=== PATIENT | female | born 1990 | race Caucasian/White ===

== ENCOUNTER 2021-05-12 19:48 | Emergency (ER) | payer MEDICAID, SELFPAY ==
[2021-05-12 20:18] VITALS: BP 112/78; PULSE 97; RESP 18; TEMP 36.7; O2SAT 99; BMI 27.9
[2021-05-12 21:40] LABS: Basophils # 0.1 10^3/uL (0.0-0.1); Basophils % 0.6 %; Eosinophils # 0.4 10^3/uL (0.0-0.8); Eosinophils % 4.3 %; Hematocrit 35.8 % (37.0-47.0); Hemoglobin 11.7 g/dL (11.5-15.3); Lymphocytes % 20.7 %; Mean Corpuscular HGB Conc 32.7 g/dL (30.0-36.0); Mean Corpuscular Hemoglobin 29.7 pg (28.0-34.0); Mean Corpuscular Volume 90.9 fL (81-99); Mean Platelet Volume 10.7 fL (7.4-10.4); Monocytes # 0.7 10^3/uL (0.2-0.9); Monocytes % 6.8 %; Neutrophils # 6.46 10^3/uL (1.8-7.7); Neutrophils % 67.2 %; Nucleated Red Blood Cells % 0 %; Platelet Count 229 10^3/cmm (130-400); Red Blood Count 3.94 10^6/uL (4.1-5.3); Red Cell Distribution Width 13.8 % (12.1-15.1); White Blood Count 9.6 10^3/uL (4.0-10.0)
--- NOTE | 2021-05-12 23:09 | ED_ITS ---
HPI - General: Chief complaint: Vaginal Bleeding Stated complaint: poss miscarriage 13 weeks Time Seen by Provider: 05/12/21 22:49 Source: patient Mode of arrival: ambulatory Limitations: no limitations History of Present Illness: HPI Narrative: 31-year-old female states she is roughly 13 weeks . She states she had miscarriages in the past was concerned because last 2 days she has had some slight leakage of fluid. States it was a small amount of it she was concerned it could be amniotic fluid. She denies any bleeding denies any pain. Patient states she recently moved here from [place] and does not have an OB yet. Denies any fevers. Associated symptoms: Deny abdominal pain, dysuria, headache(s), nausea or vomiting Review of Systems Const: Denies: fever(s), chills, body aches or change in appetite Eyes: Denies: blurry vision or eye discomfort ENMT: Denies: throat pain or dental pain Card: Denies: chest pain Resp: Denies: dyspnea GI: Denies: abdominal pain, nausea, vomiting or diarrhea : Denies: dysuria Musc: Denies: neck pain or back pain Skin/Breast: Denies: rash Neuro: Denies: headache(s) Psych: Denies: depression Lucius/Lymph: Denies: easy bruising All/Imm: Denies: urticaria Physical Exam Const: COMMON NORMALS: no acute distress, patient oriented x3 and healthy appearing HENMT: COMMON NORMALS: normocephalic and atraumatic HEAD & SCALP: normocephalic and atraumatic Eye: COMMON NORMALS: Equal, round and reactive pupils present and EOMs intact bilaterally PUPIL: Yes Equal, round and reactive pupils present Neck/C-Spine: COMMON NORMALS: full ROM and supple Chest: COMMONS NORMALS: normal inspection of the chest and normal palpation of entire chest wall Resp: COMMON NORMALS: normal respiratory effort, No retractions, No use of accessory muscles and clear to auscultation bilaterally AUSCULTATION: clear to auscultation bilaterally Cardio: COMMON NORMALS: regular rate, regular rhythm and No murmurs present (Cardio) RATE: regular rate RHYTHM: regular rhythm GI: COMMON NORMALS: Normal to inspection, nondistended, normoactive bowel sounds present, Soft to palpation, non-tender and no masses PALPATION: Yes Soft to palpation : OTHER: Cervix is closed no fluid noted in vault or bleeding Extremity: COMMON NORMALS: normal to inspection and full ROM Neuro: COMMON NORMALS: patient oriented x3, moves all extremities and no focal motor deficits Psych: COMMON NORMALS: mental status grossly normal, Normal thought process present and cooperative THOUGHT PROCESS: Normal thought process present Skin: COMMON NORMALS: no rashes or lesions noted and no wounds GENERAL SKIN EXAM: no rashes or lesions noted Course Vital Signs: Vital signs: Vital Signs Temperature 98.1 F 05/12/21 20:18 Pulse Rate 97 05/12/21 20:18 Respiratory Rate 18 05/12/21 20:18 Blood Pressure 112/78 05/12/21 20:18 Pulse Oximetry 99 05/12/21 20:18 MDM - OB/Uterine Contractions MDM Narrative: Medical decision making narrative: Patient presents with a threatened miscarriage. Patient's vaginal exam here is normal cervix closed with no signs of premature rupture of membranes. Did bedside ultrasound showed amniotic fluid in IUP consistent dates with heart rate of 154. She is stable for discharge and follow-up with [facility] 2 to 4 days return if worsening. Lab Data: Labs: Lab Results 05/12/21 05/12/21 05/12/21 Range/Units 21:34 21:34 21:34 WBC 9.6 (4.0-10.0) 10^3/ uL RBC 3.94 L (4.1-5.3) 10^6/u L Hgb 11.7 (11.5-15.3) g/dL Hct 35.8 L (37.0-47.0) % MCV 90.9 (81-99) fL MCH 29.7 (28.0-34.0) pg MCHC 32.7 (30.0-36.0) g/dL RDW 13.8 (12.1-15.1) % Plt Count 229 (130-400) 10^3/c mm MPV 10.7 H (7.4-10.4) fL Neut % (Auto) 67.2 % Lymph % (Auto) 20.7 % [place] % (Auto) 6.8 % Eos % (Auto) 4.3 % Baso % (Auto) 0.6 % Neut # (Auto) 6.46 (1.8-7.7) 10^3/u L Lymph # (Auto) 2.0 (0.8-4.8) 10^3/u L [place] # (Auto) 0.7 (0.2-0.9) 10^3/u L Eos # (Auto) 0.4 (0.0-0.8) 10^3/u L Baso # (Auto) 0.1 (0.0-0.1) 10^3/u L Nucleated RBC % (a uto) 0 % Nucleated RBCs # 0.0 /100WBC Ser , Fina i-Qnt 91861.00 mIU/mL Blood Type AB Positive Rho(D) Type Positive / 4+ Antibody Screen Negative Discharge Plan Discharge Patient Disposition: Home Clinical Impression: Threatened miscarriage Condition: Stable Discharge Orders: Discharge ED (Routine); Ordered 05/12/21 Ordered By: Jb Alfaro Referrals: Maria D Boateng MD [Physician] - 1-3 days Discharge Diet: Advance as tolerated Discharge Activity: Resume usual activity Patient Instructions: Threatened Miscarriage (ED) Coding Level of Care Code ED Management Aide for [employer] Fwd Exam Comprehensive
[2021-05-12 23:24] VITALS: BP 118/70; PULSE 94; RESP 16; TEMP 36.7; O2SAT 98
--- NOTE | 2021-05-14 13:20 | DCPLANNER ---
airline manager had message ti schedule a follow up appointment for patient with the [facility]. airline manager called the clinic, spoke with Jagdish, gave clinic patients information. airline manager was told that patients information would be printed and reviewed. Clinic will call patient with appointment information.
--- NOTE | 2021-05-16 12:20 | DCPLANNER ---
Patient has a follow up appointment scheduled for Friday, May 18, 2021 at 10:[address] Boateng at [facility]. Clinic will call patient with appointment information.
--- NOTE | 2021-05-24 12:13 | DCPLANNER ---
Patient had a follow up appointment scheduled for 05.18.21 with [facility] - the appointment was rescheduled for Tuesday, May 25, 2021 at 8:[address] Boateng.
--- NOTE | 2021-05-25 11:56 | DCPLANNER ---
Patient had a follow up appointment rescheduled for 05.25.[address] [facility] - patient did not attend appointment.
== END 2021-05-12 23:25 | disposition home or self-care (01) ==
PROVIDERS: Emergency Provider Emergency Medicine
DX: O20.0 Threatened abortion (principal); Z3A.13 13 weeks gestation of pregnancy
CPT/HCPCS: 36415; 84702; 85025; 86850; 86900; 99282

== ENCOUNTER 2021-08-03 02:46 | Inpatient (IN) | payer MEDICAID, SELFPAY ==
[2021-08-03] VITALS (36 sets, daily range): BP systolic 90–126; BP diastolic 63–79; PULSE 95–115; RESP 16–44; TEMP 36.8–36.9; O2SAT 90–100; BMI 25.0; BMI 25.9
--- NOTE | 2021-08-03 02:59 | ED_ITS ---
HPI - SOB/Dyspnea General: Chief Complaint: Shortness of Breath/Dyspnea Stated Complaint: Sob, vomiting Time Seen by Provider: 08/03/21 02:59 History of Present Illness: HPI Narrative: Ms. Workman is a 31-year-old lady with complex past medical history including heart failure with reduced ejection fraction, history of PE, and history of pneumonia recently who presents emergency department due to shortness of breath. She reports for the past few days her symptoms have been worse. She has had cough including posttussive emesis. She has worse symptoms with exertion and with laying down. Cough prevents her from sleeping. She denies other systemic signs of infection. She completed her course of antibiotics. She thinks she is probably been compliant with her anticoagulation but is not positive. No other specific exacerbating relieving factors identified Review of Systems General: Reports: 10 or more systems reviewed and unremarkable except in HPI and below PFSH ED PFSH: Medical History CHF (congestive heart failure) Pulmonary embolism Social History Smoking and tobacco status: former smoker Quit status (tobacco): has quit using tobacco Second hand smoke exposure: No Smoking risk assessment/counseling performed?: No Alcohol intake: former Desire information about alcohol rehabilitation?: No Counseling given: No Desire information about substance/drug rehabilitation?: No Counseling given: No Marital status: Life Partner service: No Current occupational status: unemployed Current occupational exposures/hazards: No Pets and animals: No History of recent travel: No Sexually active: Yes Current gender identity: Female Special emelia needs: No Agree to transfusion: Yes Financial difficulty paying for basics: Not Applicable Physical Exam Narrative: EXAM NARRATIVE: GENERAL/CONSTITUTIONAL -ill appearance, mild distress with respiratory symptoms Eyes - PERRL, no conjunctival injection ENMT - Atraumatic external nose and ears. Moist mucous membranes NECK - supple. trachea midline CARDIOVASCULAR -tachycardic rate and regular rhythm. LifeVest in place. RESPIRATORY -coarse to auscultation bilaterally. Mild accessory muscle use ABDOMEN/GI - Nontender/Nondistended. MSK - Extremities without obvious deformity or tenderness to palpation SKIN - Warm, Dry NEURO - alert and appropriately oriented. Moves all extremities equally. Course ED course: - Patient was seen and evaluated by me at bedside - Patient placed on cardiac monitors, IV access obtained - Initial evaluation notable for ill appearance, mild respiratory increase in effort. -Antibiotics ordered. Given patient's poor EF limited fluids ordered at this time despite patient meeting SIRS criteria. Using best clinical judgment 30 cc/kg would be inappropriate in this patient and would likely lead to life- threatening deterioration. - Labs notable for mild leukocytosis. Metabolic panel with mild elevations intravascular dehydration. Transaminitis present. BNP elevated. - Imaging notable for pneumonia. Given patient history and some question of compliance with anticoagulation CTA ordered. No PE. - Upon serial reexamination after treatment the patient was improved - Based on patient history, evaluation, labs, and imaging as interpreted the most likely cause of the patient's condition is sepsis pneumonia in the context of heart failure with reduced ejection fraction and history of pulmonary embolism. - The results of ED evaluation were discussed with the patient including plan for admission due to requirement for level of care not available if discharged to prevent significant worsening/deterioration. -Hospitalist service contacted and agreed to meet the patient - Patient was admitted without further deterioration or significant events. Vital Signs: Vital signs: Vital Signs Temperature 99.1 F 08/04/21 08:00 Pulse Rate 91 08/04/21 16:26 Respiratory Rate 18 08/04/21 16:26 Blood Pressure 92/68 08/04/21 16:00 Pulse Oximetry 97 08/04/21 16:26 MDM - SOB/Dyspnea Medical Records: Attestation: I reviewed the patient's medical records. Lab Data: Attestation: I reviewed the patient's lab results. Labs: Lab Results 08/03/21 08/03/21 08/03/21 04:05 04:05 04:05 WBC 10.4 10^3/uL H 10 ^3/uL (4.0-10.0) RBC 4.09 10^6/uL L 10 ^6/uL (4.1-5.3) Hgb 11.8 g/dL g/dL (11.5-15.3) Hct 36.2 % L % (37.0-47.0) MCV 88.5 fl fl (81-99) MCH 28.9 pg pg (28.0-34.0) MCHC 32.6 g/dL g/dL (30.0-36.0) RDW 18.9 % H % (12.1-15.1) Plt Count 291 10^3/cmm 10^3 /cmm (130-400) MPV 11.2 fL H fL (7.4-10.4) Neut % (Auto) 58.6 % % Lymph % (Auto) 29.8 % % Tyler % (Auto) 8.1 % % Eos % (Auto) 1.7 % % Baso % (Auto) 0.6 % % Neut # (Auto) 6.09 10^3/uL 10^3 /uL (1.8-7.7) Lymph # (Auto) 3.1 10^3/uL 10^3/ uL (0.8-4.8) Tyler # (Auto) 0.8 10^3/uL 10^3/ uL (0.2-0.9) Eos # (Auto) 0.2 10^3/uL 10^3/ uL (0.0-0.8) Baso # (Auto) 0.1 10^3/uL 10^3/ uL (0.0-0.1) Nucleated RBC % (a uto) 0.2 % % Nucleated RBCs # 0.0 /100WBC /100W BC PT 29.60 SECONDS H S ECONDS (12.1-14.9) INR 2.76 H (0.8-1.2) Specimen Type Sample Site ABG pH ABG pCO2 ABG pO2 ABG HCO3 ABG Base Excess Charles Test Hematocrit Hgb O2 Saturation Carboxyhemoglobin Methemoglobin Total Hemoglobin O2 Delivery Device Under Baster ID Sodium 132 mmol/L L mmol /L (136-145) Potassium 3.6 mmol/L mmol/L (3.5-5.1) Chloride 97 mmol/L L mmol/ L (98-107) Carbon Dioxide 16 mmol/L L mmol/ L (22-29) Anion Gap 22.6 H (5-19) BUN 13 mg/dL mg/dL (6-20) Creatinine 0.7 mg/dL mg/dL (0.5-0.9) GFR Calculation 96.4 mL/min mL/mi n (90-130) Glucose 99 mg/dL mg/dL (65-115) Calculated Osmolal ity 274 mOsm/kg L mOs m/kg (285-295) Lactic Acid Calcium 8.4 mg/dL L mg/dL (8.5-10.5) Total Bilirubin 1.2 mg/dL mg/dL (0.15-1.2) AST 37 U/L H U/L (0-32) ALT 48 U/L H U/L (0-33) Alkaline Phosphata se 130 IU/L H IU/L (35-105) Troponin T Baselin e Troponin T 120 Min [place] Troponin T NT-Pro-B Natriuret Pep 6396 pg/mL H pg/m L (0-125) Total Protein 6.2 g/dL L g/dL (6.6-8.7) Albumin 3.4 g/dL L g/dL (3.5-5.2) Globulin 2.8 g/dL g/dL (1.3-4.6) Procalcitonin HCG, Qual Influenza Type A A g Influenza Type B A g SARS-CoV-2 Ag (Rap id) 08/03/21 08/03/21 08/03/21 04:05 04:05 04:05 WBC RBC Hgb Hct MCV MCH MCHC RDW Plt Count MPV Neut % (Auto) Lymph % (Auto) [place] % (Auto) Eos % (Auto) Baso % (Auto) Neut # (Auto) Lymph # (Auto) Tyler # (Auto) Eos # (Auto) Baso # (Auto) Nucleated RBC % (a uto) Nucleated RBCs # PT INR Specimen Type Sample Site ABG pH ABG pCO2 ABG pO2 ABG HCO3 ABG Base Excess Charles Test Hematocrit Hgb O2 Saturation Carboxyhemoglobin Methemoglobin Total Hemoglobin O2 Delivery Device Under Baster ID Sodium Potassium Chloride Carbon Dioxide Anion Gap BUN Creatinine GFR Calculation Glucose Calculated Osmolal ity Lactic Acid 3.3 mmol/L H mmol /L (0.5-2.2) Calcium Total Bilirubin AST ALT Alkaline Phosphata se Troponin T Baselin e 10 ng/L ng/L (0-10) Troponin T 120 Min [place] Troponin T NT-Pro-B Natriuret Pep Total Protein Albumin Globulin Procalcitonin HCG, Qual Negative (Negative) Influenza Type A A g Influenza Type B A g SARS-CoV-2 Ag (Rap id) 08/03/21 08/03/21 08/03/21 04:05 04:19 05:00 WBC RBC Hgb Hct MCV MCH MCHC RDW Plt Count MPV Neut % (Auto) Lymph % (Auto) [place] % (Auto) Eos % (Auto) Baso % (Auto) Neut # (Auto) Lymph # (Auto) Tyler # (Auto) Eos # (Auto) Baso # (Auto) Nucleated RBC % (a uto) Nucleated RBCs # PT INR Specimen Type Arterial Sample Site Radial, right ABG pH 7.46 H (7.35-7.45) ABG pCO2 26.6 mmHg L mmHg (35-45) ABG pO2 90.7 mmHg mmHg (80.0-100.0) ABG HCO3 19.0 mmol/L L mmo l/L (22-26) ABG Base Excess -3.6 mmol/L L mmo l/L (-2.0-2.0) Charles Test Pos Hematocrit 34.7 % L % (37-47) Hgb O2 Saturation 96.0 % % (95-100) Carboxyhemoglobin 1.6 %THgb %THgb (0.4-20.1) Methemoglobin 0.5 % % (0.4-1.5) Total Hemoglobin 11.3 g/dL L g/dL (12-16) O2 Delivery Device Room air Under Baster ID Buttr Sodium Potassium Chloride Carbon Dioxide Anion Gap BUN Creatinine GFR Calculation Glucose Calculated Osmolal ity Lactic Acid Calcium Total Bilirubin AST ALT Alkaline Phosphata se Troponin T Baselin e Troponin T 120 Min [place] Troponin T NT-Pro-B Natriuret Pep Total Protein Albumin Globulin Procalcitonin 0.17 ng/mL ng/mL (0-0.5) HCG, Qual Influenza Type A A g Negative (Negative) Influenza Type B A g Negative (Negative) SARS-CoV-2 Ag (Rap id) 08/03/21 08/03/21 05:00 06:19 WBC RBC Hgb Hct MCV MCH MCHC RDW Plt Count MPV Neut % (Auto) Lymph % (Auto) Tyler % (Auto) Eos % (Auto) Baso % (Auto) Neut # (Auto) Lymph # (Auto) Tyler # (Auto) Eos # (Auto) Baso # (Auto) Nucleated RBC % (a uto) Nucleated RBCs # PT INR Specimen Type Sample Site ABG pH ABG pCO2 ABG pO2 ABG HCO3 ABG Base Excess Charles Test Hematocrit Hgb O2 Saturation Carboxyhemoglobin Methemoglobin Total Hemoglobin O2 Delivery Device Under Baster ID Sodium Potassium Chloride Carbon Dioxide Anion Gap BUN Creatinine GFR Calculation Glucose Calculated Osmolal ity Lactic Acid Calcium Total Bilirubin AST ALT Alkaline Phosphata se Troponin T Baselin e Troponin T 120 [place] 10.27 ng/L H ng/L (0-10) Delta Troponin T 0.27 ABS# ABS# (0-10) NT-Pro-B Natriuret Pep Total Protein Albumin Globulin Procalcitonin HCG, Qual Influenza Type A A g Influenza Type B A g SARS-CoV-2 Ag (Rap id) Negative (Negative) EKG Data^: EKG 1: Attestation: I personally reviewed and interpreted this EKG as follows: EKG Interpretation Date: 08/03/21 EKG interpretation time: 05:05 Interpretation: Twelve-lead EKG shows a regular rhythm at a rate of 108. KS interval 183, QRS duration 140, QTc 439. Interpretation: Sinus rhythm. Bundle branch block. Tachycardia. Right axis deviation. Discharge Plan Discharge Patient Disposition: Admitted As Inpatient Admit Provider: Chani Landry Coding Level of Care Code ED Bird Keeper for cuate Price
--- NOTE | 2021-08-03 03:06 | XRR_ITS ---
PROCEDURE INFORMATION: Exam: XR Chest Exam date and time: 08/03/2021 3:06 AM Age: 31 years old Clinical indication: Cough and shortness of breath; Patient HX: Cough with SOB. History of chf. Currently being treated for pe. TECHNIQUE: Imaging protocol: XR of the chest. Views: 1 view. COMPARISON: No relevant prior studies available. FINDINGS: Lungs: There is hazy patchy bilateral airspace opacities involving the right upper and left lower lobes, concerning for multifocal pneumonia. Pleural spaces: Unremarkable. No pleural effusion. No pneumothorax. Heart/Mediastinum: Mildly enlarged heart. Bones/joints: Unremarkable. XR/XR chest 1V portable [id number] IMPRESSION: Imaging findings concerning for pneumonia. Clinical correlation is recommended. Radiation Dose CTDIVOL = (mGy): DLP = (mGy-cm)
--- NOTE | 2021-08-03 03:18 | CTR_ITS ---
PROCEDURE INFORMATION: Exam: CTA Chest With Contrast Exam date and time: 08/03/2021 3:18 AM Age: 31 years old Clinical indication: Cough and shortness of breath; Patient HX: Cough with SOB. History of chf. Has been on anti coag therapy since June for pe. ; Additional info: SOB, history of pe TECHNIQUE: Imaging protocol: Computed tomographic angiography of the chest with contrast. 3D rendering (Not supervised by radiologist): MIP and/or 3D reconstructed images were created by the technologist. Radiation optimization: All CT scans at this facility use at least one of these dose optimization techniques: automated exposure control; mA and/or kV adjustment per patient size (includes targeted exams where dose is matched to clinical indication); or iterative reconstruction. Contrast material: OMNI 350; Contrast volume: 60 ml; Contrast route: INTRAVENOUS (IV); COMPARISON: CR (CHEST, ) 08/03/2021 3:11 AM RADIATION DOSE METRICS: Total DLP (mGy-cm): 520.45 FINDINGS: Pulmonary arteries: Normal. No pulmonary emboli. Aorta: Unremarkable. No aortic aneurysm. No aortic dissection. Lungs: There is patchy consolidations in the superior right lower lobe and inferior left lower lobe, consistent with multifocal pneumonia. Pleural spaces: Unremarkable. No pneumothorax. No pleural effusion. Heart: Mildly enlarged heart.There is tiny calcific densities scattered throughout the spleen, likely sequela of previous granulomatous disease. The spleen is otherwise unremarkable. Lymph nodes: Mildly prominent reactive mediastinal and bilateral hilar lymph nodes noted. Bones/joints: Unremarkable. No acute fracture. Soft tissues: Unremarkable. CT/CT angio chest PE protcl [id number] IMPRESSION: Multifocal pneumonia. Radiation Dose CTDIVOL = (mGy): DLP = 520.45 (mGy-cm)
[2021-08-03] MEDS: sodium chloride 0.9% 250 ML 999 ML IV (04:00)
[2021-08-03] MEDS: ondansetron 2 mg/ML SDV 2 mL 4 MG IVP (04:05)
[2021-08-03] MEDS: LORazepam 2 mg/mL INJ 1 mL 0.5 MG IVP (04:08)
[2021-08-03] MEDS: ipratropium-albuterol 3 mL Neb INHALATION (04:17)
[2021-08-03 04:28] LABS: Basophils # 0.1 10^3/uL (0.0-0.1); Basophils % 0.6 %; Eosinophils # 0.2 10^3/uL (0.0-0.8); Eosinophils % 1.7 %; Hematocrit 36.2 % (37.0-47.0); Hemoglobin 11.8 g/dL (11.5-15.3); Lymphocytes # 3.1 10^3/uL (0.8-4.8); Lymphocytes % 29.8 %; Mean Corpuscular HGB Conc 32.6 g/dL (30.0-36.0); Mean Corpuscular Hemoglobin 28.9 pg (28.0-34.0); Mean Corpuscular Volume 88.5 fl (81-99); Mean Platelet Volume 11.2 fL (7.4-10.4); Monocytes # 0.8 10^3/uL (0.2-0.9); Monocytes % 8.1 %; Neutrophils # 6.09 10^3/uL (1.8-7.7); Neutrophils % 58.6 %; Nucleated Red Blood Cells % 0.2 %; Platelet Count 291 10^3/cmm (130-400); Red Blood Count 4.09 10^6/uL (4.1-5.3); Red Cell Distribution Width 18.9 % (12.1-15.1); White Blood Count 10.4 10^3/uL (4.0-10.0)
[2021-08-03 04:31] LABS: ABG PCO2 26.6 mmHg (35-45); ABG PH Result 7.46 (7.35-7.45); Arterial Blood Gas Hematocrit 34.7 % (37-47); Base Excess ABG -3.6 mmol/L (-2.0-2.0); Blood Gas Allen Test Pos; Blood Gas Sample Site Radial, right; Blood Gas Sample Type Arterial; Carboxyhemoglobin 1.6 %THgb (0.4-20.1); Methemoglobin 0.5 % (0.4-1.5); Oxygen Device ROOM AIR; PO2 ABG 90.7 mmHg (80.0-100.0); Total Hemoglobin 11.3 g/dL (12-16)
[2021-08-03 04:44] LABS: HCG, Serum Qual Negative (Negative)
[2021-08-03] MEDS: iohexol 350 mg/mL 100 mL Btl IV (04:52)
[2021-08-03 04:56] LABS: Lactic Sepsis W/Reflex 3.3 mmol/L (0.5-2.2)
[2021-08-03 04:59] LABS: Troponin(5th) Baseline 10 ng/L (0-10)
[2021-08-03 05:06] LABS: Alanine Aminotransferase 48 U/L (0-33); Albumin Level 3.4 g/dL (3.5-5.2); Alkaline Phosphatase 130 IU/L (35-105); Anion Gap 22.6 (5-19); Aspartate Amino Transferase 37 U/L (0-32); Blood Urea Nitrogen 13 mg/dL (6-20); Calcium 8.4 mg/dL (8.5-10.5); Carbon Dioxide 16 mmol/L (22-29); Chloride 97 mmol/L (98-107); Globulin 2.8 g/dL (1.3-4.6); Glomerular Filtration Rate 96.4 mL/min (90-130); Glucose 99 mg/dL (65-115); NT Pro B Type Natriuretic Pept 6396 pg/mL (0-125); Osmolality Calculated 274 mOsm/kg (285-295); Potassium 3.6 mmol/L (3.5-5.1); Sodium 132 mmol/L (136-145); Total Bilirubin 1.2 mg/dL (0.15-1.2); Total Protein 6.2 g/dL (6.6-8.7)
--- NOTE | 2021-08-03 05:07 | ECG_ITS ---
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 Measurements Intervals Masterson Rate: 108 P: 45 LA: 183 QRS: 127 QRSD: 140 T: 1 QT: 376 QTc: 505 Interpretive Statements SINUS TACHYCARDIA LEFT ATRIAL ENLARGEMENT [-0.15mV P-WAVE IN V1/V2] INTRAVENTRICULAR CONDUCTION DELAY [130+ ms QRS DURATION] POSSIBLE RIGHT VENTRICULAR HYPERTROPHY [SOME/ALL OF: PROMINENT R IN V1, LATE TRANSITION, RAD, BRYANT, SSS] ANTEROLATERAL MYOCARDIAL INFARCTION , OF INDETERMINATE AGE [40+ ms Q WAVE IN I/aVL/V3-V6] No previous ECG available for comparison Electronically Signed On 08-03-2021 18:47:11 CDT by Lalo De La Paz M.D. [id number]
[2021-08-03 05:15] LABS: INR 2.76 (0.8-1.2)
[2021-08-03] MEDS: piperacillin-tazobactam 4.5 GM in sodium chloride 0.9% (plus) 50 ML IV (05:26)
--- NOTE | 2021-08-03 06:03 | P.HP_ITS ---
Providers/Chief Complaint Primary Care Provider: Jackie Ji MD Chief Complaint: Sob, vomiting History of Present Illness 31-year-old female with a past medical history significant for pulmonary embolism, severe systolic heart failure with EF of 10% on lifeVest and recent hospitalization for pneumonia 3 weeks prior was presented to the hospital with respiratory distress. This associated with nonproductive cough. Noted multiple episodes of post tussive emesis. Noted 10lb weight loss since discharge 3 weeks prior. denied chest pain Laboratory workup on arrival showed a WBC of 10.4, hemoglobin of 11.8, hematocrit of 36.2 and platelet count of 291. Sodium 132, potassium 3.6, chloride 97, bicarb 16, BUN 13 and creatinine of 0.7. Lactic acid of 3.3. AST of 37, ALT of 48 and alkaline phosphatase of 130. ProBNP of 6396. Arterial blood gases showed a pH of 7446, pCO2 26.6, PO2 of 90.7 and a bicarb of 19.0. Influenza a/B and COVID-19 pending. Imaging studies included chest x-ray which showed hazy bilateral airspace op acities involving the right upper and left lower lobes concerning for multifocal pneumonia. CTA of chest was then performed which showed similar findings concerning for multifocal pneumonia in addition to mildly prominent reactive mediastinal and bilateral hilar lymphadenopathy. INR was noted to be 2.76. Patient was started on IV vancomycn/zoysn and admitted to hospital Review of Systems General: Reports: 10 or more systems reviewed and unremarkable except in HPI and below Medications/Allergies Home Medications Medication Instructions Recorded Confirmed Last Taken Type albuterol sulfate 90 mcg/actuation 1 inh INHALATION Q6H PRN #8.5 g 07/19/21 07/19/21 Unknown Rx aerosol inhaler apixaban 5 mg tablet 5 mg PO BID #60 tab 07/19/21 07/19/21 Unknown Rx benzonatate 100 mg capsule 100 mg PO TID PRN 07/19/21 07/19/21 Unknown History furosemide 40 mg tablet 40 mg PO DAILY #30 tab 07/19/21 07/19/21 Unknown Rx guaifenesin 1,200 mg tablet, 1,200 mg PO DAILY #30 tab 07/19/21 07/19/21 Unknown Rx extended release 12 hr ibuprofen 600 mg tablet 600 mg PO Q6H PRN 07/19/21 07/19/21 Unknown History losartan 25 mg tablet 25 mg PO DAILY #30 tab 07/19/21 07/19/21 Unknown Rx methocarbamol 750 mg tablet 750 mg PO BID PRN #60 tab 07/19/21 07/19/21 Unknown Rx metoprolol succinate 50 mg 50 mg PO DAILY #30 tab 07/19/21 07/19/21 Unknown Rx tablet,extended release 24 hr pantoprazole 40 mg tablet,delayed 40 mg PO DAILY #30 tab 07/19/21 07/19/21 Unknown Rx release promethazine-DM 6.25 mg-15 mg/5 mL 5 ml PO Q6H PRN #160 ml 07/19/21 07/19/21 Unknown Rx oral syrup spironolactone 25 mg tablet 25 mg PO DAILY #30 tab 07/19/21 07/19/21 Unknown Rx Allergies Allergy/AdvReac Type Severity Reaction Status Date / Time No Known Allergies Allergy Verified 05/12/21 20:18 PFSH Acute PFSH: Medical History (Updated 08/03/21 @ 06:32 by Chani Landry MD) CHF (congestive heart failure) Pulmonary embolism Social History Smoking and tobacco status: former smoker Quit status (tobacco): has quit using tobacco Second hand smoke exposure: No Smoking risk assessment/counseling performed?: No Alcohol intake: former Desire information about alcohol rehabilitation?: No Counseling given: No Desire information about substance/drug rehabilitation?: No Counseling given: No Marital status: Life Partner service: No Current occupational status: unemployed Current occupational exposures/hazards: No Pets and animals: No History of recent travel: No Sexually active: Yes Current gender identity: Female Special emelia needs: No Agree to transfusion: Yes Financial difficulty paying for basics: Not Applicable Vitals/I&O/Wt Last Vital Signs Pulse 110 H 08/03/21 05:39 Resp 22 H 08/03/21 05:39 BP 126/74 08/03/21 05:39 Pulse Ox 94 08/03/21 05:39 Weight last 48 hrs Weight 68.039 kg Physical Exam Narrative: EXAM NARRATIVE: General : Alert, awake , restless HEENT ; Grossly unremarkable CVS: RRR Chest; Non-labored - fine crackles Abd; Soft, nt Ext; No edema Data : 08/03/21 04:05 08/03/21 04:05 A&P Assessment and plan (1) Pulmonary embolism: Status: Acute (2) HCAP (healthcare-associated pneumonia): Status: Acute (3) Systolic heart failure: Status: Acute (4) History of methamphetamine abuse: Status: Acute Additional A&P Information Healthcare associated Pneumonia Chest xray / CTA ? Multifocal patchy opacities, no PE Broad spectrum abx ? Vancomycin/zosyn Sputum culture Blood culture F/u on flu/COVID-19 ag Precautions until resulted Supplemental o2 as needed PRN anti-tussive Severe Systolic HF S/p LifeVest Reported EF of 10% ProBNP - 6396 Consider cardiology consult Daily weight Strict input and output May need to resume diuretics Obtain records from [facility] Hx of Pulmonary Embolism Resume Eliquis 5 mg PO BID Repeat CTA ?Chest ? no new PE Hematology f/u outpatient Restless Legs S/p ativan 0.5 mg IV x1 in ER Verify remainder of home meds in am Attestations Medical Necessity Statement*: Will require > 2 midnight stay in hospital for eval and treatment Time Spent in Patient Care: Greater than 35 minutes (>than 50% of time spent in counselling and/or direct pt care on unit) . Coding Level of Care Code Acute Pharmacy Clinical Coordinator for Ena Fwd Diagnoses Pulmonary embolism I26.99 HCAP (healthcare-associated pneumonia) J18.9 Systolic heart failure I50.20 History of methamphetamine abuse F15.11
[2021-08-03 06:21] LABS: Reflex Lactate Order REFLEX LACTIC ORDERD
[2021-08-03 06:23] LABS: Procalcitonin 0.17 ng/mL (0-0.5)
[2021-08-03 06:34] LABS: Influenza A by IFA Negative (Negative); Influenza B by IFA Negative (Negative); SARS Covid-2 Antigen Negative (Negative)
[2021-08-03 07:10] LABS: Troponin 5 2HR 10.27 ng/L (0-10); Troponin 5 2HR Delta 0.27 ABS# (0-10)
--- NOTE | 2021-08-03 08:06 | PC.PHAR ---
pt states she takes care of her own medications-pt states she thinks she takes losartan-pt didnt bring in this medication with her other meds-rx written on 07/19/21-pt brought in medication bottle for methocarbamol dated 07/09/21 from [facility]- wrote rx on 07/19/21 for 750mg bid prn pt states she didnt miner pick that rx-pt states she hasnt taken promethazine dm for about a week-pt states she needs a refill ext med history shows last filled on 07/19/21 8d/s-notes are made in the pharmacy comments
[2021-08-03 08:17] LABS: Lactic Acid level (Lactate) 2.4 mmol/L (0.5-2.2)
--- NOTE | 2021-08-03 09:07 | ECG_ITS ---
[facility] Test Date: 2021-08-03 Pat Name: Alex Workman Department: Room: ICU11 Gender: Female Financial Sales Representative: : 1990 Requested By: Saul Henry Order Number: [id number] Shabbir MD: Lalo De La Paz M.D. Measurements Intervals [place] Rate: 97 P: 66 [place]: 187 QRS: 111 QRSD: 156 T: -19 QT: 425 QTc: 541 Interpretive Statements SINUS RHYTHM LEFT ATRIAL ENLARGEMENT [-0.15mV P-WAVE IN V1/V2] RIGHT AXIS DEVIATION [QRS AXIS > 100] INTRAVENTRICULAR CONDUCTION DELAY [130+ ms QRS DURATION] Compared to ECG 08/03/2021 05:01:36 Right-axis deviation now present Sinus tachycardia no longer present Myocardial infarct finding no longer present Electronically Signed On 08-03-2021 18:41:17 CDT by Lalo De La Paz M.D. [id number]
[2021-08-03] MEDS: apixaban 5 mg Tablet PO ×2 (10:22→17:24)
[2021-08-03] MEDS: FUROsemide 40 mg Tablet PO (10:23)
[2021-08-03 11:05] LABS: Troponin 5 6HR 9.66 ng/L (0-10)
[2021-08-03 11:06] LABS: Troponin 5 6HR Delta -0.34 ng/L (0-12)
--- NOTE | 2021-08-03 11:11 | PM.PN ---
Subjective Subjective: Interval history: Patient was seen and examined this morning, complaining of cough, puke at the time of coughing. Medications: Reviewed: Yes Vitals/I&O/Wt Last Vital Signs Temp 98.5 F 08/03/21 09:00 Pulse 95 08/03/21 09:00 Resp 19 H 08/03/21 09:00 BP 109/77 08/03/21 09:00 Pulse Ox 99 08/03/21 09:00 08/02/21 08/03/21 08/03/21 22:59 06:59 14:59 Intake Total 300 / 300 Balance 300 / 300 Weight last 48 hrs Weight 70.45 kg Weight 68.039 kg Physical Exam Const: COMMON NORMALS: patient oriented x3 HENMT: COMMON NORMALS: normocephalic and atraumatic HEAD & SCALP: normocephalic and atraumatic Resp: COMMON NORMALS: clear to auscultation bilaterally AUSCULTATION: clear to auscultation bilaterally Cardio: COMMON NORMALS: regular rate, regular rhythm, S1 normal heart sound present, S2 normal heart sound present, No gallops present (Cardio), No murmurs present (Cardio), No rub (Cardio) and Peripheral pulses 2+ throughout RATE: regular rate RHYTHM: regular rhythm HEART SOUNDS: S1 normal heart sound present and S2 normal heart sound present PERIPHERAL PULSES: Peripheral pulses 2+ throughout GI: COMMON NORMALS: Normal to inspection, nondistended, normoactive bowel sounds present, Soft to palpation, non-tender, No hepatosplenomegaly present and no masses AUSCULTATION: Yes normoactive bowel sounds PALPATION: Yes Soft to palpation and Yes No hepatosplenomegaly present RECTAL EXAM: deferred Extremity: COMMON NORMALS: no clubbing, cyanosis or edema and no pedal edema Neuro: COMMON NORMALS: patient oriented x3 Data : 08/03/21 04:05 08/03/21 04:05 Micro: Microbiology 08/03/21 07:38 Blood Culture - Preliminary Blood SPECIMEN COLLECTED 08/03/21 06:22 Blood Culture - Preliminary Blood SPECIMEN COLLECTED A&P Assessment and plan (1) HCAP (healthcare-associated pneumonia): Chest xray / CTA ? Multifocal patchy opacities, no PE Sputum culture Blood culture Urine Legionella antigen Bacterial antigen panel MRSA PCR Influenza and Covid is negative Mucinex Continue Vanco and Zosyn Status: Acute (2) Systolic heart failure: Severe systolic heart failure with reduced ejection fraction. No prior records now. According to the patient most recent echo has shown EF of 10% Elevated proBNP, shortness of breath, cough. Continue Lasix 40 mg p.o. daily Cardiology consult given new onset nonischemic severe heart failure with reduced ejection fraction. Intake output charting Daily weight Status: Acute (3) Pulmonary embolism: Repeat CT chest negative for PE Continue Eliquis 5 mg p.o. twice daily for recent history of P/E Status: Acute (4) History of methamphetamine abuse: Status: Acute Additional A&P Information Restless Legs On Ropinirole 0.5 mg po at bedtime. Attestations Medical Necessity Statement*: Patient is in hospital for management of pneumonia and heart failure Coding Level of Care Code Acute Customer Support Technician for Ena Price Diagnoses HCAP (healthcare-associated pneumonia) J18.9 Systolic heart failure I50.20 Pulmonary embolism I26.99 History of methamphetamine abuse F15.11
--- NOTE | 2021-08-03 11:34 | PC.CHAP ---
Pastoral Care Encounter/Spiritual Assessment Type of Contact [] Declined test deskman visit [] Patient/Family/Request visit [] Outpatient visit [] Follow-up visit [] Physician referral [] Code/Alert [x] Routine visit [] Staff referral [] Actively dying [] Patient sleeping [] Family support [] [] Out of room [] Palliative care [] [x] Receiving care in room [] Pre-surgical visit [] Trauma [] Long length of stay [x] ICU visit [] Other: Relational/Emotional Strength [] Patient feels connected with others/family/visitors/staff [] Distress [] Loneliness/isolation [] Abandonment Spirituality of Patient [] Person of Syeda [] Attends Mandaeism of their Syeda [] Believes in Prayer [] Reads Bible or Amish materials [] There are Spiritual issues to be addressed Billet Driller Interventions [x] Prayer [] Active listening [] Non-anxious presence [] Spiritual/emotional support [] Crisis/trauma care [] Spiritual counseling [] Bereavement support [] Provided bereavement packet [] Provided Bible/devotional materials [] Provided toy/stuffed animal, coloring book to patient or family member [] Provided Communion [] Anointing/[place] [] Salvation [x] Completed spiritual assessment [] Other: Impact on Illness or Injury [] Angry [] Fearful [] Anxious [] Often cries [] Exhaustion [] Unable to work [] Unable to attend congregation [] Unable to walk/stand [] Unable to read [] Unable to drive [] Unable to eat/drink [] Unable to sleep [] Unable to be with family [] Patient intubated [] Other: Summary Time spent with patient
[2021-08-03] MEDS: guaiFENesin 600 mg Tablet 1200 MG PO (12:01)
[2021-08-03] MEDS: metoprolol succinate ER (24 HR) 50 mg Tablet PO (12:02)
[2021-08-03] MEDS: piperacillin-tazobactam 3.375 GM in sodium chloride 0.9% (plus) 50 ML IV ×2 (12:02→20:31)
--- NOTE | 2021-08-03 13:34 | P.CONIM_ITS ---
Providers/Reason For Consult Consulting Physician/Specialty*: Dr. Foy, cardiology Reason for Consult*: Decompensated congestive heart failure, Attending Physician: Romel Aguirre MD Primary Care Provider: Jackie Ji MD History of Present Illness History of Present Illness Alex Workman is a 31 year old female with recently diagnosed NICM (LVEF=10%). She had an in May at 16 week (unsure of the reason). Few weeks later she had PE for which she was started on Eliquis. She had echocardiogram and was found to have severely decreased LV function with LVEF=10%. She underwent LHC that showed normal coronaries. She was discharged GDMT directed meds for CHF and life vest. This was all obtained through patient. I do not yet have records available. She was admitted soon thereafter for pneumonia and was in hospital for nearly 10 days. She has been home few weeks now. She continued to have coughing spell, post-tussive emesis. No orthopnea, PND, lower extremity swelling or sick contacts.No fever, chills, URI or UTI. She has 4 kids (13 to 4 year old) with normal deliveries. She gives h/o pre- eclampsia in last two pregnancies. She was not on any medications for HTN. She was a meth user (smokes meth almost daily; states quit when she was diagnosed with cardiomyopathy). She smokes weed and occasionally drinks alcohol. She gives family h/o heart failure in mother and grand mother. No h/o FL or stroke. She is here accompanied by her boyfriend. On arrival to ER, labs showed WBC of 10.4, hemoglobin of 11.8,platelet count of 291. Sodium 132, potassium 3.6, chloride 97, bicarb 16, BUN 13 and creatinine of 0.7. Lactic acid of 3.3. AST of 37, ALT of 48 and alkaline phosphatase of 130. ProBNP of 6396. Arterial blood gases showed a pH of 7446, pCO2 26.6, PO2 of 90.7 and a bicarb of 19.0. Influenza a/B and COVID-19 negative. Chest x-ray concerning for multifocal pneumonia. CTA of chest showed findings concerning for multifocal pneumonia in addition to mildly prominent reactive mediastinal and bilateral hilar lymphadenopathy. Patient was started on IV vancomycn/zoysn and admitted to hospital. I have been asked to evaluate the patient and assist in further management. Review of Systems General: Reports: 10 or more systems reviewed and unremarkable except in HPI and below Const: Reports: malaise; Denies: fever(s) ENMT: Denies: epistaxis Card: Reports: orthopnea; Denies: chest pain, palpitations, swelling of feet/ankles or lightheadedness Resp: Reports: dyspnea and non-productive cough GI: Denies: nausea, vomiting, hematochezia or melena : Denies: hematuria Skin/Breast: Denies: rash Neuro: Denies: headache(s) Lucius/Lymph: Denies: petechiae or purpura Meds/Allergies Home Medications and Allergies Home Medications Medication Instructions Recorded Confirmed Last Taken Type albuterol sulfate 90 mcg/actuation 1 inh INHALATION Q6H PRN #8.5 g 07/19/21 08/03/21 Unknown Rx aerosol inhaler apixaban 5 mg tablet 5 mg PO BID #60 tab 07/19/21 08/03/21 08/02/21 Rx ibuprofen 600 mg tablet 600 mg PO Q6H PRN 07/19/21 08/03/21 Unknown History promethazine-DM 6.25 mg-15 mg/5 mL 5 ml PO Q6H PRN #160 ml 07/19/21 08/03/21 Unknown Rx oral syrup Vitamin D3 Gummies 1 tab PO DAILY 08/03/21 08/03/21 Unknown History acetaminophen [Tylenol Ex Str 500 mg PO Q4H PRN 08/03/21 08/03/21 Unknown His tory Rapid Release] furosemide 40 mg PO QAM 08/03/21 08/03/21 08/02/21 History guaifenesin [Mucinex] 1,200 mg PO QAM 08/03/21 08/03/21 08/02/21 History losartan 12.5 mg PO DAILY 08/03/21 08/03/21 Unknown History methocarbamol 750 mg PO Q6H PRN 08/03/21 08/03/21 Unknown History metoprolol succinate 50 mg PO QAM 08/03/21 08/03/21 08/02/21 History pantoprazole 40 mg PO QAM 08/03/21 08/03/21 08/02/21 History spironolactone 25 mg PO QAM 08/03/21 08/03/2121 History Allergies Allergy/AdvReac Type Severity Reaction Status Date / Time No Known Allergies Allergy Verified 08/03/21 08:06 Current Medications Current Medications Generic Name Dose Route Start Last Admin Trade Name Ric PRN Reason Stop Dose Admin Apixaban 5 mg 08/03/21 09:00 08/03/21 10:22 Apixaban 5 Mg Tablet PO 5 mg BID GAUTAM Administration Guaifenesin 1,200 mg 08/03/21 11:30 08/03/21 12:01 Guaifenesin 600 Mg Tablet PO 1,200 mg QAM GAUTAM Administration Piperacillin Sod/Tazobactam 50 mls @ 12.5 mls/hr 08/03/21 13:00 08/03/21 12:02 Sod 3.375 gm/ Sodium Chloride IV 12.5 mls/hr Q8H GAUTAM Administration Protocol Metoprolol Succinate 50 mg 08/03/21 11:10 08/03/21 12:02 Metoprolol Succinate Er (24 Hr) 50 Mg Tablet PO 50 mg QAM GAUTAM Administration PFSH Acute PFSH: Medical History CHF (congestive heart failure) Pulmonary embolism Social History Smoking and tobacco status: former smoker Quit status (tobacco): has quit using tobacco Second hand smoke exposure: No Smoking risk assessment/counseling performed?: No Alcohol intake: former Desire information about alcohol rehabilitation?: No Counseling given: No Desire information about substance/drug rehabilitation?: No Counseling given: No Marital status: Life Partner service: No Current occupational status: unemployed Current occupational exposures/hazards: No Pets and animals: No History of recent travel: No Sexually active: Yes Current gender identity: Female Special emelia needs: No Agree to transfusion: Yes Financial difficulty paying for basics: Not Applicable Female Reproductive History: Date of last menstrual period: 02/17/21 Vitals/I&O/Wt Last Vital Signs Temp 98.5 F 08/03/21 09:00 Pulse 101 H 08/03/21 13:24 Resp 16 08/03/21 13:24 BP 90/75 08/03/21 10:30 Pulse Ox 99 08/03/21 13:24 08/02/21 08/03/21 08/03/21 22:59 06:59 14:59 Intake Total 300 / 300 Balance 300 / 300 Weight last 48 hrs Weight 155 lb 5.05 oz Weight 150 lb Physical Exam Narrative: EXAM NARRATIVE: GENERAL: Averagely built and averagely nourished in no acute distress HEENT: Pupils equal round reactive to light. No pallor or icterus. NECK: central trachea, No JVD. No carotid bruit. CARDIOVASCULAR SYSTEM: S1-S2 regular. No S3 or S4 present. No murmur or gallops appreciated. RESPIRATORY SYSTEM: coarse bilateral breath sounds No wheezes rhonchi or rubs heard. No use of accessory muscles. ABDOMEN: Soft, nontender and nondistended. Normal bowel sounds present. EXTREMITIES: No cyanosis or clubbing. No edema. No signs of chronic venous insufficiency. COVER STITCH MACHINE OPERATOR: Patient is alert oriented ?3. No focal neurological deficits. SKIN: Normal turgor and temperature. PSYCH: Normal insight and judgment. Data Labs: Other Labs: INR 2.76 ABG showed pH of 7.46, PCO2 27, PO2 91, NT proBNP 6396. Baseline troponin T 10 and at 2 hours 10.2. 6 hr: 9.7. Negative influenza type a and type B. Negative rapid Covid antigen Micro: Micro: Microbiology 08/03/21 07:38 Blood Culture - Pr eliminary Blood SPECIMEN [facility] 08/03/21 06:22 Blood Culture - Pr eliminary Blood SPECIMEN [facility] Other Data: Other data: CTA chest 03 August 2021 FINDINGS: Pulmonary arteries: Normal. No pulmonary emboli. Aorta: Unremarkable. No aortic aneurysm. No aortic dissection. Lungs: There is patchy consolidations in the superior right lower lobe and inferior left lower lobe, consistent with multifocal pneumonia. Pleural spaces: Unremarkable. No pneumothorax. No pleural effusion. Heart: Mildly enlarged heart.There is tiny calcific densities scattered throughout the spleen, likely sequela of previous granulomatous disease. The spleen is otherwise unremarkable. Lymph nodes: Mildly prominent reactive mediastinal and bilateral hilar lymph nodes noted. Bones/joints: Unremarkable. No acute fracture. Soft tissues: Unremarkable. CT/CT angio chest PE protcl [id number] IMPRESSION: Multifocal pneumonia Chest x-ray 03 August 2021 IMPRESSION: Imaging findings concerning for pneumonia. Clinical correlation is recommended. EKG showed sinus tachycardia, left atrial enlargement. Intraventricular conduction delay. Possible old anterolateral FL. A&P Assessment and plan (1) CHF (congestive heart failure): NICM likely 2/2 amphetamine abuse. -continue beta anurag, ARB, MRA and lasix. -clinically appears euvolemic. continue with current meds. -f/u on records. Status: Acute (2) HCAP (healthcare-associated pneumonia): on broad spectrum abx Status: Acute (3) Pulmonary embolism: On Eliquis Status: Acute (4) History of methamphetamine abuse: states she has not smoked for last several weeks. -No IVDA Status: Acute Additional A&P Information Hyponatremia Elevated liver enzymes H/O preclamsia Thank you for allowing me to participate in patient's care. Please feel free to call with questions or concerns. Consult Attestations Time Spent in Patient Care: Greater than 35 minutes (>than 50% of time spent in counselling and/or direct pt care on unit) . Coding Level of Care Code Acute Computer Applications Developer for Ena Price Diagnoses CHF (congestive heart failure) I50.9 HCAP (healthcare-associated pneumonia) J18.9 Pulmonary embolism I26.99 History of methamphetamine abuse F15.11
--- NOTE | 2021-08-03 15:45 | PC.NURSE ---
Reports from other hospital visit are in paper chart.
[2021-08-03] MEDS: vancomycin 1,000 MG in sodium chloride 0.9% 250 ML 250 MG IV (17:24)
--- NOTE | 2021-08-03 17:45 | PC.NURSE ---
Admit Note Patient admitted to ICU from ER via wheelchair. Orders reviewed & will continue to monitor. Patient was oriented to environment, equipment, and informed of the following as found in the admission booklet: patient rights & responsibilities, visitor policy, hand and respiratory hygiene practice. Other education includes: new medications and cardiac monitoring. Patient understood.
[2021-08-03] MEDS: benzonatate 100 mg Capsule PO (20:32)
[2021-08-03] MEDS: ropinirole 0.25 mg Tablet 0.5 MG PO (20:32)
[2021-08-04] VITALS (26 sets, daily range): BP systolic 90–106; BP diastolic 61–82; PULSE 0–107; RESP 14–45; TEMP 36.6–37.3; O2SAT 95–99
--- NOTE | 2021-08-04 | USCV_ITS ---
Transthoracic Echo Alex Workman Age: 31 Gender: F : 1990 Exam Date: 08/04/2021 14:50 Ordering Phys: Inna Foy MD ([email or web address]) Technologist: Radha Mcbride [place] [facility] [place]ication: CHF, MR BP: 92 / 68 HR: 94 Rhythm: Sinus Technical Quality: Adequate MEASUREMENTS (Male / Female) Normal Values 2D ECHO LV Diastolic Diameter PLAX 6.3 cm 4.2 - 5.9 / 3.9 - 5.3 cm LV Systolic Diameter PLAX 5.9 cm IVS Diastolic Thickness 0.7 cm 0.6 - 1.0 / 0.6 - 0.9 cm IVS Systolic Thickness 0.7 cm LVPW Diastolic Thickness 1.0 cm 0.6 - 1.0 / 0.6 - 0.9 cm LVPW Systolic Thickness 1.2 cm RV Chamber Size 4.5 cm LVOT Diameter 2.0 cm LV Ejection Fraction 2D Teich 11.0 % LV Ejection Fraction MOD 2C 16.5 % LV Ejection Fraction 2C AL 17.8 % LA Diameter 2.5 cm LA Width 4.8 cm LA Height 5.4 cm RA Width 4.2 cm RA Height 4.4 cm Aorta at Sinotubular Diameter 2.0 cm DOPPLER AV Peak Velocity 106.0 cm/s LVOT Peak Velocity 87.0 cm/s AV Area Cont Eq vti 2.3 cm squared AV Area Cont Eq pk 2.6 cm squared FINDINGS Left Ventricle Markedly dilated left ventricle cavity. Severely decreased left ventricular systolic function. Left ventricular ejection fraction is estimated at 15 %. Severe global hypokinesis. Abnormal diastolic function. Abnormal septal motion consistent with conduction abnormality. Right Ventricle Moderately dilated right ventricle with moderately decreased right ventricle systolic function. Right ventricular systolic pressure 35 mmHg. Right Atrium Moderately increased right atrial size. Right atrial pressure estimated at 15 mm Hg. Left Atrium Moderately increased left atrial size. Mitral Valve Structurally normal mitral valve. No mitral valve stenosis. Mild-moderate mitral valve regurgitation. Aortic Valve Structurally normal trileaflet aortic valve. No aortic valve stenosis. No aortic valve regurgitation. Tricuspid Valve Structurally normal tricuspid valve. Severe tricuspid valve regurgitation. Pulmonic Valve Structurally normal pulmonic valve. Moderate pulmonary valve regurgitation. Pericardium Trivial pericardial effusion. Aorta Normal size aortic root and proximal ascending aorta. Upper normal sized inferior vena cava with < 50% respiratory variation. CONCLUSIONS 1. Markedly dilated left ventricle cavity. Severely decreased left ventricular systolic function. Left ventricular ejection fraction is estimated at 15 %. Severe global hypokinesis. Abnormal diastolic function. Abnormal septal motion consistent with conduction abnormality. 2. Moderately dilated right ventricle with moderately decreased right ventricle systolic function. 3. Moderate biatrial enlargement. 4. Mild-moderate mitral valve regurgitation. 5. Pulmonary artery pressure estimated at 35 mm Hg. 6. Severe tricuspid valve regurgitation. 7. Moderate pulmonary valve regurgitation. 8. No prior similar studies to compare. Inna Foy MD (Electronically Signed) Final Date: 05 August 2021 08:12 S
[2021-08-04 04:54] LABS: Basophils # 0.1 10^3/uL (0.0-0.1); Basophils % 0.9 %; Eosinophils # 0.2 10^3/uL (0.0-0.8); Eosinophils % 1.8 %; Hematocrit 38.2 % (37.0-47.0); Hemoglobin 11.8 g/dL (11.5-15.3); Lymphocytes # 3.4 10^3/uL (0.8-4.8); Lymphocytes % 33.2 %; Mean Corpuscular HGB Conc 30.9 g/dL (30.0-36.0); Mean Corpuscular Hemoglobin 28.3 pg (28.0-34.0); Mean Corpuscular Volume 91.6 fl (81-99); Mean Platelet Volume 11.7 fL (7.4-10.4); Monocytes # 0.9 10^3/uL (0.2-0.9); Monocytes % 8.3 %; Neutrophils # 5.67 10^3/uL (1.8-7.7); Nucleated Red Blood Cells % 0 %; Platelet Count 294 10^3/cmm (130-400); Red Blood Count 4.17 10^6/uL (4.1-5.3); Red Cell Distribution Width 19.1 % (12.1-15.1); White Blood Count 10.3 10^3/uL (4.0-10.0)
[2021-08-04 05:17] LABS: Alanine Aminotransferase 51 U/L (0-33); Albumin Level 3.1 g/dL (3.5-5.2); Alkaline Phosphatase 117 IU/L (35-105); Anion Gap 19.7 (5-19); Aspartate Amino Transferase 51 U/L (0-32); Blood Urea Nitrogen 17 mg/dL (6-20); Calcium 8.4 mg/dL (8.5-10.5); Carbon Dioxide 17 mmol/L (22-29); Chloride 100 mmol/L (98-107); Globulin 2.8 g/dL (1.3-4.6); Glomerular Filtration Rate 82.6 mL/min (90-130); Glucose 93 mg/dL (65-115); Magnesium 1.8 mg/dL (1.7-2.3); Osmolality Calculated 277 mOsm/kg (285-295); Potassium 3.7 mmol/L (3.5-5.1); Sodium 133 mmol/L (136-145); Total Bilirubin 1.7 mg/dL (0.15-1.2); Total Protein 5.9 g/dL (6.6-8.7)
[2021-08-04 05:27] LABS: Lactate (Lactic Acid level) 2.9 mmol/L (0.5-2.2)
[2021-08-04] MEDS: metoprolol succinate ER (24 HR) 50 mg Tablet PO (05:56)
[2021-08-04] MEDS: piperacillin-tazobactam 3.375 GM in sodium chloride 0.9% (plus) 50 ML IV ×3 (05:56→20:54)
[2021-08-04] MEDS: guaiFENesin 600 mg Tablet 1200 MG PO (05:56)
[2021-08-04] MEDS: spironolactone 25 mg Tablet PO (05:56)
[2021-08-04] MEDS: pantoprazole DR 40 mg Tablet PO (05:56)
[2021-08-04] MEDS: vancomycin 1,000 MG in sodium chloride 0.9% 250 ML 250 MG IV (07:09)
[2021-08-04] MEDS: apixaban 5 mg Tablet PO ×2 (08:23→17:47)
[2021-08-04] MEDS: losartan 50 mg Tablet 12.5 MG PO (08:24)
[2021-08-04] MEDS: FUROsemide 40 mg Tablet PO (08:24)
--- NOTE | 2021-08-04 10:42 | PM.PN ---
Subjective Subjective: Interval history: Patient tells me her cough is better. She has not had any episodes of vomiting post coughing. She got some sleep last night. Medications: Reviewed: Yes Medication Review Details: Current Medications Acetaminophen (Acetaminophen 325 Mg Tablet) 650 mg PO Q6H PRN PRN Reason: Mild/Mod Pain Or Temp >/= 101 Albuterol Sulfate (Albuterol 8 Gm Mdi) 2 puff INHALATION Q4H.RESPIRATORY PRN PRN Reason: SHORTNESS OF BREATH Apixaban (Apixaban 5 Mg Tablet) 5 mg PO BID [facility] Last Admin: 08/04/21 08:23 Dose: 5 mg Documented by: Benzonatate (Benzonatate 100 Mg Capsule) 100 mg PO TID PRN PRN Reason: COUGH Last Admin: 08/03/21 20:32 Dose: 100 mg Documented by: Furosemide (Furosemide 40 Mg Tablet) 40 mg PO DAILY@0800 [facility] Last Admin: 08/04/21 08:24 Dose: 40 mg Documented by: Guaifenesin (Guaifenesin 600 Mg Tablet) 1,200 mg PO QAM [facility] Last Admin: 08/04/21 05:56 Dose: 1,200 mg Documented by: Vancomycin HCl 1,000 mg/ (Sodium Chloride) 250 mls @ 250 mls/hr IV Q12H GAUTAM; Protocol Last Infusion: 08/04/21 10:28 Dose: Infused Documented by: Piperacillin Sod/Tazobactam (Sod 3.375 gm/ Sodium Chloride) 50 mls @ 12.5 mls/hr IV Q8H GAUTAM; Protocol Last Infusion: 08/04/21 10:28 Dose: Infused Documented by: Azithromycin 500 mg/ Sodium (Chloride) 250 mls @ 250 mls/hr IV Q24H GAUTAM; Protocol Last Admin: 08/04/21 12:02 Dose: 250 mls/hr Documented by: Losartan Potassium (Losartan 50 Mg Tablet) 12.5 mg PO DAILY [facility] Last Admin: 08/04/21 08:24 Dose: 12.5 mg Documented by: Metoprolol Succinate (Metoprolol Succinate Er (24 Hr) 50 Mg Tablet) 50 mg PO QAM [facility] Last Admin: 08/04/21 05:56 Dose: 50 mg Documented by: Ondansetron HCl (Ondansetron 2 Mg/Ml Sdv 2 Ml) 4 mg IVP Q8H PRN PRN Reason: vomiting, or N/V if npo Last Admin: 08/04/21 12:43 Dose: 4 mg Documented by: Pantoprazole Sodium (Pantoprazole Dr 40 Mg Tablet) 40 mg PO QAM [facility] Last Admin: 08/04/21 05:56 Dose: 40 mg Documented by: Promethazine HCl/Dextromethorphan (Promethazine-Dm 6.25-15 Mg/5 Ml Syrup) 5 ml PO Q6H PRN PRN Reason: cough Ropinirole HCl (Ropinirole 0.25 Mg Tablet) 0.5 mg PO BEDTIME [facility] Last Admin: 08/03/21 20:32 Dose: 0.5 mg Documented by: Spironolactone (Spironolactone 25 Mg Tablet) 25 mg PO QAM [facility] Last Admin: 08/04/21 05:56 Dose: 25 mg Documented by: Vitals/I&O/Wt Last Vital Signs Temp 99.1 F 08/04/21 08:00 Pulse 99 08/04/21 08:00 Resp 22 H 08/04/21 08:00 BP 99/82 08/04/21 08:00 Pulse Ox 99 08/04/21 08:00 08/03/21 08/04/21 08/04/21 22:59 06:59 14:59 Intake Total 860 / 860 50 / 910 300 / 300 Balance 860 / 860 50 / 910 300 / 300 Weight last 48 hrs Weight 155 lb Weight 155 lb 5.05 oz Weight 150 lb Physical Exam Narrative: EXAM NARRATIVE: GENERAL: Averagely built and averagely nourished in no acute distress HEENT: Pupils equal round reactive to light. No pallor or icterus. NECK: central trachea, No JVD. No carotid bruit. CARDIOVASCULAR SYSTEM: S1-S2 regular. grade 3/6 LLSB systolic murmur+ RESPIRATORY SYSTEM: coarse bilateral breath sounds No wheezes or rhonchi. No use of accessory muscles. ABDOMEN: Soft, nontender and nondistended. Normal bowel sounds present. basal rales+ EXTREMITIES: No cyanosis or clubbing. No edema. No signs of chronic venous insufficiency. GAS MAIN FITTER HELPER: Patient is alert oriented ?3. No focal neurological deficits. SKIN: Normal turgor and temperature. PSYCH: Normal insight and judgment. Data : 08/04/21 04:05 08/04/21 04:05 Micro: Microbiology 08/03/21 07:38 Blood Culture - Preliminary Blood NEGATIVE TO DATE 08/03/21 06:22 Blood Culture - Preliminary Blood NEGATIVE TO DATE 08/03/21 14:30 Legionella Urinary Antigen - Final Urine,Voided Bacterial Antigens - Final A&P Assessment and plan (1) CHF (congestive heart failure): NICM likely 2/2 amphetamine abuse (used to smoke till May and IV use 6 years back). -Some records from [facility] were obtained and reviewed. #Coronary angiogram 09 July 2021: Right dominant system. Normal left main. Normal left anterior descending including branches. Nondominant circumflex. RCA is dominant with no significant disease. Mild to moderate mitral regurgitation. Ejection fraction 10 to 15% with LVEDP of 18. #Echocardiogram 23 June 2021 with LVEF of 10 to 15%; actual report not available. #MUGA scan 29 June 2021: With LVEF of 21%. -continue beta anurag, ARB, MRA and lasix. -continue with current meds. We will give her additional Lasix 40 mg IV x1 today. -Plan for limited echo. Status: Acute (2) HCAP (healthcare-associated pneumonia): on broad spectrum abx, MRSA in nares. Status: Acute (3) Pulmonary embolism: Bilateral pulmonary embolism (after 16-week as fetus had Down syndrome) -on Eliquis Status: Acute (4) History of methamphetamine abuse: states she has not smoked for last several weeks. -No IVDA Status: Acute Additional A&P Information Hyponatremia Elevated liver enzymes H/O preclamsia Thank you for allowing me to participate in patient's care. Please feel free to call with questions or concerns. Attestations Medical Necessity Statement*: Needs hospital stay for management of pneumonia and congestive heart failure Time Spent in Patient Care: 16 - 35 minutes (>than 50% of time spent in counselling and/or direct pt care on unit). Coding Level of Care Code Acute Director Blood Bank for Tacho Fwd Diagnoses CHF (congestive heart failure) I50.9 HCAP (healthcare-associated pneumonia) J18.9 Pulmonary embolism I26.99 History of methamphetamine abuse F15.11
[2021-08-04] MEDS: FUROsemide 10 mg/mL SDV 4mL 40 MG IVP (12:02)
[2021-08-04] MEDS: azithromycin 500 MG in sodium chloride 0.9% 250 ML 250 MG IV (12:02)
[2021-08-04] MEDS: ondansetron 2 mg/ML SDV 2 mL 4 MG IVP (12:43)
[2021-08-04] MEDS: benzonatate 100 mg Capsule PO (13:55)
--- NOTE | 2021-08-04 14:20 | PC.NURSE ---
Pt report called to Roseanne NAJERA. Transferred pt via wheelchair to room 101 with personal belongings, cellphone, rail detector car operator, purse, clothes and life vest with zero difficulties.
--- NOTE | 2021-08-04 14:37 | P.PN_ITS ---
Subjective Subjective: Interval history: Patient was seen and examined this morning, still has nagging non productive cough, and has severe SOB with minimal exertion. Has received extra dose of I.V 40 lasix today in addition to lasix 40 mg po Medications: Reviewed: Yes Vitals/I&O/Wt Last Vital Signs Temp 99.1 F 08/04/21 08:00 Pulse 93 08/04/21 12:00 Resp 22 H 08/04/21 12:00 BP 106/73 08/04/21 12:00 Pulse Ox 97 08/04/21 12:00 08/03/21 08/04/21 08/04/21 22:59 06:59 14:59 Intake Total 860 / 860 50 / 910 1610 / 1610 Output Total 950 / 950 Balance 860 / 860 50 / 910 660 / 660 Weight last 48 hrs Weight 70.307 kg Weight 70.45 kg Weight 68.039 kg Physical Exam Const: COMMON NORMALS: patient oriented x3 HENMT: COMMON NORMALS: normocephalic and atraumatic HEAD & SCALP: normocephalic and atraumatic Resp: OTHER: Minimal B/L Basal crackles in both lungs ellis Cardio: COMMON NORMALS: regular rate, regular rhythm, S1 normal heart sound present, S2 normal heart sound present, No gallops present (Cardio), No murmurs present (Cardio), No rub (Cardio) and Peripheral pulses 2+ throughout RATE: regular rate RHYTHM: regular rhythm HEART SOUNDS: S1 normal heart sound present and S2 normal heart sound present PERIPHERAL PULSES: Peripheral pulses 2+ throughout GI: COMMON NORMALS: Normal to inspection, nondistended, normoactive bowel sounds present, Soft to palpation, non-tender, No hepatosplenomegaly present and no masses AUSCULTATION: Yes normoactive bowel sounds PALPATION: Yes Soft to palpation and Yes No hepatosplenomegaly present RECTAL EXAM: deferred Extremity: COMMON NORMALS: no clubbing, cyanosis or edema and no pedal edema Neuro: COMMON NORMALS: patient oriented x3 Data : 08/04/21 04:05 08/04/21 04:05 Micro: Microbiology 08/03/21 15:00 MRSA Culture - Final Nose 08/03/21 07:38 Blood Culture - Preliminary Blood NEGATIVE TO DATE 08/03/21 06:22 Blood Culture - Preliminary Blood NEGATIVE TO DATE 08/03/21 14:30 Legionella Urinary Antigen - Final Urine,Voided Bacterial Antigens - Final A&P Assessment and plan (1) HCAP (healthcare-associated pneumonia): Chest xray / CTA ? Multifocal patchy opacities, no PE Sputum culture : Blood culture : NTD Urine Legionella antigen: Negative Bacterial antigen panel : Negative MRSA PCR:Positive Influenza and Rapid Covid is negative COVID PCR is pending Mucinex Continue Vanco and Zosyn, Azithromycin Status: Acute (2) Systolic heart failure: Severe systolic heart failure with reduced ejection fraction. No prior records now. According to the patient most recent echo has shown EF of 10% Elevated proBNP, shortness of breath, cough. Continue Lasix 40 mg p.o. daily Cardiology consult given new onset nonischemic severe heart failure with reduced ejection fraction. Intake output is not appropriately charted. Daily weight Status: Acute (3) Pulmonary embolism: Repeat CT chest negative for PE Continue Eliquis 5 mg p.o. twice daily for recent history of P/E Status: Acute (4) History of methamphetamine abuse: Status: Acute Additional A&P Information Restless Legs On Ropinirole 0.5 mg po at bedtime. Attestations Medical Necessity Statement*: Patient needs to be in hospital for the management of heart failure and pna Coding Level of Care Code Acute Carpenter Repairer for Ena Price Diagnoses HCAP (healthcare-associated pneumonia) J18.9 Systolic heart failure I50.20 Pulmonary embolism I26.99 History of methamphetamine abuse F15.11
--- NOTE | 2021-08-04 14:40 | PC.NURSE ---
Transfer Note Patient transferred to CSU 101 from ICU via wheel chair. Handoff received from Cindy. Patient oriented to environment and equipment. Covering service notified. Orders reviewed and will continue to monitor. Family and/or electronics parts sales representative notified.
[2021-08-04] MEDS: FUROsemide 10 mg/mL SDV 2mL 20 MG IVP (18:19)
[2021-08-04] MEDS: vancomycin 1,000 MG in sodium chloride 0.9% 250 ML 200 MG IV (18:21)
--- NOTE | 2021-08-04 19:11 | PC.NURSE ---
alyson place to Dr singleton with concerns of giving 40 mg IVP lasix due to low bp instructions received to give 20mg IVP Lasix and monitor Bp
[2021-08-04] MEDS: ropinirole 0.25 mg Tablet 0.5 MG PO (20:54)
[2021-08-05] VITALS (54 sets, daily range): BP systolic 61–108; BP diastolic 41–77; PULSE 90–118; RESP 13–35; TEMP 36.3–37; O2SAT 60–100
[2021-08-05] MEDS: FUROsemide 10 mg/mL SDV 4mL 40 MG IVP (05:24)
[2021-08-05] MEDS: vancomycin 1,000 MG in sodium chloride 0.9% 250 ML 250 MG IV (05:24)
[2021-08-05] MEDS: piperacillin-tazobactam 3.375 GM in sodium chloride 0.9% (plus) 50 ML IV ×3 (06:46→21:11)
[2021-08-05] MEDS: metoprolol succinate ER (24 HR) 50 mg Tablet PO (06:47)
[2021-08-05] MEDS: guaiFENesin 600 mg Tablet 1200 MG PO (06:47)
[2021-08-05] MEDS: spironolactone 25 mg Tablet PO (06:47)
[2021-08-05] MEDS: pantoprazole DR 40 mg Tablet PO (06:47)
[2021-08-05] MEDS: losartan 50 mg Tablet 12.5 MG PO (08:36)
[2021-08-05] MEDS: apixaban 5 mg Tablet PO ×2 (08:38→17:21)
[2021-08-05] MEDS: azithromycin 500 MG in sodium chloride 0.9% 250 ML 250 MG IV (11:00)
--- NOTE | 2021-08-05 11:20 | P.PN_ITS ---
Subjective Subjective: Interval history: She had an episode of hypotension, nausea and vomiting this morning. She received IVF blous and was placed briefly on pressors. Medications: Reviewed: Yes Vitals/I&O/Wt Last Vital Signs Temp 97.3 F L 08/05/21 08:00 Pulse 102 H 08/05/21 08:00 Resp 24 H 08/05/21 08:00 BP 95/73 08/05/21 08:36 Pulse Ox 96 08/05/21 08:00 08/04/21 08/05/21 08/05/21 22:59 06:59 14:59 Intake Total 530 / 2140 650 / 2790 850 / 850 Output Total 950 / 1900 1500 / 3400 Balance -420 / 240 -850 / -610 850 / 850 Weight last 48 hrs Weight 156 lb Weight 155 lb Physical Exam Narrative: EXAM NARRATIVE: GENERAL: Averagely built and averagely nourished in no acute distress HEENT: Pupils equal round reactive to light. No pallor or icterus. NECK: central trachea, No JVD. No carotid bruit. CARDIOVASCULAR SYSTEM: S1-S2 regular. grade 3/6 LLSB systolic murmur+ RESPIRATORY SYSTEM: coarse bilateral breath sounds No wheezes or rhonchi. No use of accessory muscles. ABDOMEN: Soft, nontender and nondistended. Normal bowel sounds present. basal rales+ EXTREMITIES: No cyanosis or clubbing. No edema. No signs of chronic venous insufficiency. OLIVE PICKER: Patient is alert oriented ?3. No focal neurological deficits. SKIN: Normal turgor and temperature. PSYCH: Normal insight and judgment. Data : 08/05/21 12:00 08/05/21 15:21 Micro: Microbiology 08/03/21 15:00 MRSA Culture - Final Nose 08/03/21 07:38 Blood Culture - Preliminary Blood NEGATIVE TO DATE 08/03/21 06:22 Blood Culture - Preliminary Blood NEGATIVE TO DATE A&P Assessment and plan (1) CHF (congestive heart failure): HFrEF and RV dysfunction. -NICM 2/2 amphetamine abuse (used to smoke till May and IV use 6 years back). -Some records from [facility] [place] were obtained and reviewed. #Coronary angiogram 09 July 2021: Right dominant system. Normal left main. Normal left anterior descending including branches. Nondominant circumflex. RCA is dominant with no significant disease. Mild to moderate mitral regurgitation. Ejection fraction 10 to 15% with LVEDP of 18. #Echocardiogram 23 June 2021 with LVEF of 10 to 15%; actual report not available. #MUGA scan 29 June 2021: With LVEF of 21%. -continue beta anurag, ARB, MRA and lasix. -continue with current meds. We will hold off on lasix later this evening. -f/u on labs in am Status: Acute (2) HCAP (healthcare-associated pneumonia): on broad spectrum abx, MRSA in nares. Status: Acute (3) Pulmonary embolism: Bilateral pulmonary embolism (after 16-week as fetus had Down syndrome) -on Eliquis Status: Acute (4) History of methamphetamine abuse: states she has not smoked for last several weeks. -No IVDA Status: Acute Additional A&P Information Hyponatremia Elevated liver enzymes Severe TR Moderate MR H/O preclamsia Thank you for allowing me to participate in patient's care. Please feel free to call with questions or concerns. Attestations Medical Necessity Statement*: Needs hospital stay for management of pneumonia and congestive heart failure Time Spent in Patient Care: Greater than 35 minutes (>than 50% of time spent in counselling and/or direct pt care on unit) . Coding Level of Care Code Acute Gaming Surveillance Observer for Ena Price Diagnoses CHF (congestive heart failure) I50.9 HCAP (healthcare-associated pneumonia) J18.9 Pulmonary embolism I26.99 History of methamphetamine abuse F15.11
--- NOTE | 2021-08-05 11:27 | PM.PN ---
Subjective Subjective: Interval history: Patient was seen and examined this morning, she still has nagging non productive cough.Today around noon she had an acute episode of Low blood Pressure as well as violent coughing spell at that time she also had an episode of vomiting and was nauseous .She received 500 cc normal saline,zofran one dose, phenerhan and had to be started on levophed. Xray chest was done along with CBC and CMP and ekg. Patient has severe sob even with minimum exertion.So far she has responded well to lasix as well as to broad spectrum abxs.She has remained Afebrile, saturating well on room air. Medications: Reviewed: Yes Medication Review Details: Current Medications Acetaminophen (Acetaminophen 325 Mg Tablet) 650 mg PO Q6H PRN PRN Reason: Mild/Mod Pain Or Temp >/= 101 Albuterol Sulfate (Albuterol 8 Gm Mdi) 2 puff INHALATION Q4H.RESPIRATORY PRN PRN Reason: SHORTNESS OF BREATH Apixaban (Apixaban 5 Mg Tablet) 5 mg PO BID [facility] Last Admin: 08/04/21 08:23 Dose: 5 mg Documented by: Benzonatate (Benzonatate 100 Mg Capsule) 100 mg PO TID PRN PRN Reason: COUGH Last Admin: 08/03/21 20:32 Dose: 100 mg Documented by: Furosemide (Furosemide 40 Mg Tablet) 40 mg PO DAILY@0800 [facility] Last Admin: 08/04/21 08:24 Dose: 40 mg Documented by: Guaifenesin (Guaifenesin 600 Mg Tablet) 1,200 mg PO QAM [facility] Last Admin: 08/04/21 05:56 Dose: 1,200 mg Documented by: Vancomycin HCl 1,000 mg/ (Sodium Chloride) 250 mls @ 250 mls/hr IV Q12H GAUTAM; Protocol Last Infusion: 08/04/21 10:28 Dose: Infused Documented by: Piperacillin Sod/Tazobactam (Sod 3.375 gm/ Sodium Chloride) 50 mls @ 12.5 mls/hr IV Q8H GAUTAM; Protocol Last Infusion: 08/04/21 10:28 Dose: Infused Documented by: Azithromycin 500 mg/ Sodium (Chloride) 250 mls @ 250 mls/hr IV Q24H GAUTAM; Protocol Last Admin: 08/04/21 12:02 Dose: 250 mls/hr Documented by: Losartan Potassium (Losartan 50 Mg Tablet) 12.5 mg PO DAILY [facility] Last Admin: 08/04/21 08:24 Dose: 12.5 mg Documented by: Metoprolol Succinate (Metoprolol Succinate Er (24 Hr) 50 Mg Tablet) 50 mg PO QAM [facility] Last Admin: 08/04/21 05:56 Dose: 50 mg Documented by: Ondansetron HCl (Ondansetron 2 Mg/Ml Sdv 2 Ml) 4 mg IVP Q8H PRN PRN Reason: vomiting, or N/V if npo Last Admin: 08/04/21 12:43 Dose: 4 mg Documented by: Pantoprazole Sodium (Pantoprazole Dr 40 Mg Tablet) [facility] Last Admin: 08/04/21 05:56 Dose: 40 mg Documented by: Promethazine HCl/Dextromethorphan (Promethazine-Dm 6.25-15 Mg/5 Ml Syrup) 5 ml PO Q6H PRN PRN Reason: cough Ropinirole HCl (Ropinirole 0.25 Mg Tablet) 0.5 mg PO BEDTIME [facility] Last Admin: 08/03/21 20:32 Dose: 0.5 mg Documented by: Spironolactone (Spironolactone 25 Mg Tablet) [facility] Last Admin: 08/04/21 05:56 Dose: 25 mg Documented by: Vitals/I&O/Wt Last Vital Signs Temp 97.3 F L 08/05/21 08:00 Pulse 102 H 08/05/21 08:00 Resp 24 H 08/05/21 08:00 BP 95/73 08/05/21 08:36 Pulse Ox 96 08/05/21 08:00 08/04/21 08/05/21 08/05/21 22:59 06:59 14:59 Intake Total 530 / 2140 650 / 2790 850 / 850 Output Total 950 / 1900 1500 / 3400 Balance -420 / 240 -850 / -610 850 / 850 Weight last 48 hrs Weight 70.76 kg Weight 70.307 kg Physical Exam Const: COMMON NORMALS: patient oriented x3 HENMT: COMMON NORMALS: normocephalic and atraumatic HEAD & SCALP: normocephalic and atraumatic Resp: COMMON NORMALS: clear to auscultation bilaterally AUSCULTATION: clear to auscultation bilaterally OTHER: Minimal B/L Basal crackles in both lungs ellis Cardio: COMMON NORMALS: regular rate, regular rhythm, S1 normal heart sound present, S2 normal heart sound present, No gallops present (Cardio), No murmurs present (Cardio), No rub (Cardio) and Peripheral pulses 2+ throughout RATE: regular rate RHYTHM: regular rhythm HEART SOUNDS: S1 normal heart sound present and S2 normal heart sound present PERIPHERAL PULSES: Peripheral pulses 2+ throughout GI: COMMON NORMALS: Normal to inspection, nondistended, normoactive bowel sounds present, Soft to palpation, non-tender, No hepatosplenomegaly present and no masses AUSCULTATION: Yes normoactive bowel sounds PALPATION: Yes Soft to palpation and Yes No hepatosplenomegaly present RECTAL EXAM: deferred Extremity: COMMON NORMALS: no clubbing, cyanosis or edema and no pedal edema Neuro: COMMON NORMALS: patient oriented x3 Data : 08/05/21 12:00 08/04/21 04:05 Micro: Microbiology 08/03/21 15:00 MRSA Culture - Final Nose 08/03/21 07:38 Blood Culture - Preliminary Blood NEGATIVE TO DATE 08/03/21 06:22 Blood Culture - Preliminary Blood NEGATIVE TO DATE A&P Assessment and plan (1) HCAP (healthcare-associated pneumonia): Chest xray / CTA ? Multifocal patchy opacities, no PE Sputum culture : Blood culture : NTD Urine Legionella antigen: Negative Bacterial antigen panel : Negative MRSA PCR:Positive Influenza and Rapid Covid is negative COVID PCR is pending Mucinex ,Phenergan Continue Vanco and Zosyn, Azithromycin. Status: Acute (2) Systolic heart failure: Severe systolic heart failure with reduced ejection fraction. No prior records now. According to the patient most recent echo has shown EF of 10% Elevated proBNP, shortness of breath, cough. 2D eCHO : Continue Lasix 40 mg I.V q12 h Daily . Losartan, spironlactone, metoprolol. Intake out charting Daily weight k>4,Mg>2 Cardiology consult given new onset nonischemic severe heart failure with reduced ejection fraction. Intake output is not appropriately charted. Daily weight Status: Acute (3) Pulmonary embolism: Repeat CT chest negative for PE Continue Eliquis 5 mg p.o. twice daily for recent history of P/E Status: Acute (4) History of methamphetamine abuse: Status: Acute Additional A&P Information Restless Legs On Ropinirole 0.5 mg po at bedtime. Attestations Medical Necessity Statement*: Patient needs to be in hospital for the management of Heart failure,PNA Coding Level of Care Code Acute Fisher Hoop Net for Chg Fwd Exam Detailed Diagnoses HCAP (healthcare-associated pneumonia) J18.9 Systolic heart failure I50.20 Pulmonary embolism I26.99 History of methamphetamine abuse F15.11
--- NOTE | 2021-08-05 11:29 | PC.NURSE ---
Patient Blood pressure 86/64 with patient reports of feeling funny Dr Foy notified instructions received to give 250ml bolus x1 now
--- NOTE | 2021-08-05 11:47 | PC.CHAP ---
Pastoral Care Encounter/Spiritual Assessment Type of Contact [] Declined bowling or skating front desk clerk visit [] Patient/Family/Request visit [] Outpatient visit [X] Follow-up visit [] Physician referral [] Code/Alert [] Routine visit [] Staff referral [] Actively dying [] Patient sleeping [] Family support [] [X] Out of room [] Palliative care [] [] Receiving care in room [] Pre-surgical visit [] Trauma [] Long length of stay [] ICU visit [] Other: Relational/Emotional Strength [] Patient feels connected with others/family/visitors/staff [] Distress [] Loneliness/isolation [] Abandonment Spirituality of Patient [] Person of Syeda [] Attends Temple of their Syeda [] Believes in Prayer [] Reads Bible or Yazdanism materials [] There are Spiritual issues to be addressed Clinical Documentation Clerk Interventions [] Prayer [] Active listening [] Non-anxious presence [] Spiritual/emotional support [] Crisis/trauma care [] Spiritual counseling [] Bereavement support [] Provided bereavement packet [] Provided Bible/devotional materials [] Provided toy/stuffed animal, coloring book to patient or family member [] Provided Communion [] Anointing/[place] [] Salvation [] Completed spiritual assessment [] Other: Impact on Illness or Injury [] Angry [] Fearful [] Anxious [] Often cries [] Exhaustion [] Unable to work [] Unable to attend anabaptist [] Unable to walk/stand [] Unable to read [] Unable to drive [] Unable to eat/drink [] Unable to sleep [] Unable to be with family [] Patient intubated [] Other: Summary: Clinical Documentation Clerk attempted visit since pt was out of ICU, but pt was being tested, per nurse and not available for pastoral visit. Time spent with patient
[2021-08-05] MEDS: sodium chloride 0.9% 250 ML 999 ML IV ×2 (11:48→12:20)
[2021-08-05] MEDS: ondansetron 2 mg/ML SDV 2 mL 4 MG IVP (11:48)
--- NOTE | 2021-08-05 12:17 | ECG_ITS ---
[facility] Test Date: 2021-08-05 Pat Name: Alex Workman Department: Room: 101 Gender: Female Pattern Marker: : 1990 Requested By: Inna Foy Order Number: [id number] Shea MD: Inna Foy M.D. Measurements Intervals [place] Rate: 105 P: 11 AK: 272 QRS: 116 QRSD: 154 T: 36 QT: 446 QTc: 591 Interpretive Statements SINUS TACHYCARDIA WITH FIRST DEGREE AV BLOCK POSSIBLE LEFT ATRIAL ENLARGEMENT [-0.1mV P WAVE IN V1/V2] RIGHT AXIS DEVIATION [QRS AXIS > 100] INTRAVENTRICULAR CONDUCTION DELAY [130+ ms QRS DURATION] Compared to ECG 08/03/2021 09:53:49 First degree AV block now present Sinus rhythm no longer present Electronically Signed On 08-05-2021 21:02:23 CDT by Inna Foy M.D. [id number]
[2021-08-05] MEDS: haloperidol inj 5 mg/mL INJ 1 mL IVP (12:23)
--- NOTE | 2021-08-05 12:27 | XRR_ITS ---
PROCEDURE INFORMATION: Exam: XR Chest Exam date and time: 08/05/2021 12:27 PM Age: 31 years old Clinical indication: Shortness of breath; Additional info: SOB TECHNIQUE: Imaging protocol: XR of the chest. Views: 1 view. COMPARISON: CR (CHEST, ) 08/03/2021 3:11 AM, CTA chest 08/03/2021 FINDINGS: Lungs: Similar appearance of hazy opacities within the right upper and left lower lobes. Pleural spaces: Unremarkable. No pleural effusion. No pneumothorax. Heart/Mediastinum: Stable mildly enlarged heart size. Bones/joints: Unremarkable. XR/XR chest 1V portable [id number] IMPRESSION: Similar radiographic appearance of multifocal pneumonia. Radiation Dose CTDIVOL = (mGy): DLP = (mGy-cm)
[2021-08-05 13:01] LABS: Basophils # 0.1 10^3/uL (0.0-0.1); Basophils % 0.5 %; Eosinophils # 0.3 10^3/uL (0.0-0.8); Eosinophils % 2.9 %; Hematocrit 39.2 % (37.0-47.0); Hemoglobin 12.1 g/dL (11.5-15.3); Lymphocytes % 36.2 %; Mean Corpuscular HGB Conc 30.9 g/dL (30.0-36.0); Mean Corpuscular Hemoglobin 28.5 pg (28.0-34.0); Mean Corpuscular Volume 92.2 fl (81-99); Mean Platelet Volume 11.1 fL (7.4-10.4); Neutrophils # 5.67 10^3/uL (1.8-7.7); Neutrophils % 50.9 %; Nucleated Red Blood Cells % 0 %; Platelet Count 301 10^3/cmm (130-400); Red Blood Count 4.25 10^6/uL (4.1-5.3); Red Cell Distribution Width 19.7 % (12.1-15.1); White Blood Count 11.1 10^3/uL (4.0-10.0)
--- NOTE | 2021-08-05 13:04 | PC.NURSE ---
Patient blood pressure low patient symptomatic Dr foy at bedside when first bolus started patient lashing in bed screaming I don't feel good Dr Foy with instructions at bedside to give another 250 bolus bolus # 2 started no change in patients feeling or vital signs Blood pressure remains low Dr ribera to bedside instructions to give 1 x dose halidol 0.5mg IVP Place ramirez Labs drawn with new IV start CBC BMP MAg instructions received at bedside to start patient on levofed 2mcg per min patient started to recover had an episode of emisis EKG performed PRn phenergan given
[2021-08-05 15:36] LABS: Amphetamines Screen Urine Negative (Negative); Barbiturates Screen Urine Negative (Negative); Benzodiazepines Screen Urine Negative (Negative); Cocaine Screen Urine Negative (Negative); Opiate Screen Urine Negative (Negative); PCP Screen Urine Negative (Negative); THC Screen Urine Negative (Negative)
[2021-08-05] MEDS: benzonatate 100 mg Capsule PO ×2 (15:47→21:11)
--- NOTE | 2021-08-05 16:58 | PC.NURSE ---
Dr singleton on unit to check on patient instructions to titrate levofed to 1mcg/min
[2021-08-05 17:04] LABS: INR 2.56 (0.8-1.2)
[2021-08-05 17:15] LABS: Blood Urea Nitrogen 20 mg/dL (6-20); Calcium 8.2 mg/dL (8.5-10.5); Carbon Dioxide 19 mmol/L (22-29); Chloride 100 mmol/L (98-107); Glomerular Filtration Rate 72.1 mL/min (90-130); Glucose 99 mg/dL (65-115); Magnesium 1.7 mg/dL (1.7-2.3); Osmolality Calculated 285 mOsm/kg (285-295); Sodium 136 mmol/L (136-145)
[2021-08-05 17:27] LABS: Anion Gap 20.6 (5-19)
[2021-08-05 17:28] LABS: Potassium 3.6 mmol/L (3.5-5.1)
--- NOTE | 2021-08-05 18:00 | PC.NURSE ---
Dr singleton with instructions to stop levofed at this time
[2021-08-05 19:11] LABS: Vancomycin Trough 20.2 ug/mL (10-15)
--- NOTE | 2021-08-05 19:19 | PC.NURSE ---
Shift Note Frequent safety and comfort rounds continue. Orders and/or nursing care completed as indicated. Patient monitored for response to intervention and treatment(s). Education provided includes medications and treatment goals. Patient and/or traffic workforce representative verbalized understanding. Will continue to monitor.
--- NOTE | 2021-08-05 19:21 | PC.PHAR ---
Vancomycin trough is 20.2. Hold for 2 doses and resume at 1gm IVPB every 24 hours with another trough to be obtained before the fourth dose.
[2021-08-05] MEDS: ropinirole 0.25 mg Tablet 0.5 MG PO (21:11)
[2021-08-06] VITALS (51 sets, daily range): BP systolic 74–136; BP diastolic 56–97; PULSE 79–121; RESP 10–35; TEMP 36.1–37; O2SAT 80–100
[2021-08-06] MEDS: acetaminophen 325 mg Tablet 650 MG PO ×3 (03:28→20:31)
[2021-08-06 03:48] LABS: Basophils # 0.1 10^3/uL (0.0-0.1); Basophils % 0.5 %; Eosinophils # 0.3 10^3/uL (0.0-0.8); Eosinophils % 3.1 %; Hematocrit 36.2 % (37.0-47.0); Hemoglobin 11.2 g/dL (11.5-15.3); Lymphocytes # 3.2 10^3/uL (0.8-4.8); Mean Corpuscular HGB Conc 30.9 g/dL (30.0-36.0); Mean Corpuscular Hemoglobin 28.4 pg (28.0-34.0); Mean Corpuscular Volume 91.6 fl (81-99); Mean Platelet Volume 11.1 fL (7.4-10.4); Monocytes # 0.8 10^3/uL (0.2-0.9); Monocytes % 8.2 %; Neutrophils # 5.53 10^3/uL (1.8-7.7); Neutrophils % 55.6 %; Nucleated Red Blood Cells % 0 %; Platelet Count 275 10^3/cmm (130-400); Red Blood Count 3.95 10^6/uL (4.1-5.3); Red Cell Distribution Width 19.1 % (12.1-15.1)
[2021-08-06 04:34] LABS: Alanine Aminotransferase 42 U/L (0-33); Albumin Level 2.9 g/dL (3.5-5.2); Alkaline Phosphatase 122 IU/L (35-105); Anion Gap 15.2 (5-19); Aspartate Amino Transferase 37 U/L (0-32); Blood Urea Nitrogen 21 mg/dL (6-20); Calcium 8.3 mg/dL (8.5-10.5); Carbon Dioxide 21 mmol/L (22-29); Chloride 102 mmol/L (98-107); Globulin 2.8 g/dL (1.3-4.6); Glomerular Filtration Rate 57.2 mL/min (90-130); Glucose 86 mg/dL (65-115); Magnesium 1.9 mg/dL (1.7-2.3); NT Pro B Type Natriuretic Pept 7356 pg/mL (0-125); Osmolality Calculated 282 mOsm/kg (285-295); Potassium 3.2 mmol/L (3.5-5.1); Sodium 135 mmol/L (136-145); Total Bilirubin 0.8 mg/dL (0.15-1.2); Total Protein 5.7 g/dL (6.6-8.7)
--- NOTE | 2021-08-06 05:29 | PC.NURSE ---
patient was up to shower this shift and tolerated activity with only mild fatigue, patient remains hypotensive but denies being symptomatic will continue to monitor closely,
[2021-08-06] MEDS: guaiFENesin 600 mg Tablet 1200 MG PO (05:44)
[2021-08-06] MEDS: pantoprazole DR 40 mg Tablet PO (05:44)
[2021-08-06] MEDS: piperacillin-tazobactam 3.375 GM in sodium chloride 0.9% (plus) 50 ML IV ×3 (05:44→20:31)
[2021-08-06] MEDS: spironolactone 25 mg Tablet PO (05:45)
[2021-08-06] MEDS: azithromycin 250 mg Tablet 500 MG PO (08:06)
[2021-08-06] MEDS: potassium chloride ER 20 mEq Tablet PO (08:07)
[2021-08-06] MEDS: benzonatate 100 mg Capsule PO ×3 (08:07→20:31)
[2021-08-06] MEDS: apixaban 5 mg Tablet PO ×2 (08:07→17:10)
[2021-08-06] MEDS: potassium chloride ER 20 mEq Tablet 40 MEQ PO ×2 (08:07→23:10)
--- NOTE | 2021-08-06 08:36 | PC.NURSE ---
Spoke with physician regarding metoprolol 50mg and lasix that are both du this morning. Pt is hypotensive. Physician orders to change metoprolol to 25mg BID and hold off on lasix for an hour and check blood pressure prior to giving lasix.
[2021-08-06] MEDS: metoprolol tartrate 25 mg Tablet PO (08:42)
[2021-08-06] MEDS: ondansetron 2 mg/ML SDV 2 mL 4 MG IVP (08:50)
[2021-08-06 09:49] LABS: Thyroid Stimulating Hormone 2.04 uIU/mL (0.27-4.20)
[2021-08-06 09:50] LABS: Procalcitonin 0.57 ng/mL (0-0.5)
--- NOTE | 2021-08-06 10:45 | PC.NURSE ---
report given to reena skaggs taken to icu via bed.
[2021-08-06] MEDS: DOBUTamine drip 500 MG/250 ML PREMIX 11.11 MG IV (11:00)
--- NOTE | 2021-08-06 11:08 | PC.NURSE ---
1055 Pt received to ICU 11. Pt AAOx4, makes all needs known. Connected to ICU monitors. Levophed infusing at 2mcg, dobutamine started at 5mcg/kg/min per orders. both infusing to 18g PIV to RAC. No c/o pain or SOB. Mahoney cath draining freely to BSD. Initial BP with MAP <65. Will monitor.
[2021-08-06] MEDS: FUROsemide 10 mg/mL SDV 4mL 20 MG IVP (11:54)
[2021-08-06] MEDS: morphine 4 mg/mL SDV 1 mL 2 MG IVP (14:23)
--- NOTE | 2021-08-06 14:26 | XRR_ITS ---
PROCEDURE INFORMATION: Exam: XR Chest Exam date and time: 08/06/2021 2:26 PM Age: 31 years old Clinical indication: Device placement; Other: Central line placement TECHNIQUE: Imaging protocol: XR of the chest. Views: 1 view. COMPARISON: CR (CHEST, ) 08/05/2021 12:57 PM FINDINGS: Tubes, catheters and devices: There is a right IJ catheter whose tip is at the cavoatrial junction. Lungs: There is patchy opacification in the left lung base. The right lung is clear. Pleural spaces: Unremarkable. No pleural effusion. No pneumothorax. Heart/Mediastinum: Unremarkable. No cardiomegaly. Bones/joints: Unremarkable. XR/XR chest 1V portable [id number] IMPRESSION: There is a right IJ catheter whose tip is at the cavoatrial junction. There is patchy opacification in the left lung base consistent with atelectasis and/or pneumonia. Radiation Dose CTDIVOL = (mGy): DLP = (mGy-cm)
--- NOTE | 2021-08-06 14:33 | PM.ACPR ---
Procedure/Consent Consent: Consent for Procedure: Consent obtained from patient
--- NOTE | 2021-08-06 14:53 | PC.NURSE ---
CVL placed per MD, some episodes of tachycardia noted after placement. Dobutamine at 5mcg/kg/min and levophed titrated to 4mcg/min. MD aware of tachycardia. Will monitor.
--- NOTE | 2021-08-06 15:23 | PM.PN ---
Subjective Subjective: Interval history: Hospital course, labs appreciated. Patient had an episode of hypotension yesterday for which she received 500 cc IV bolus and was on Levophed for 4 to 5 hours. Today morning on examination patient's blood pressure systolic running in high 80s with mean arterial pressure around 70 prior to getting her metoprolol. Today morning before examination patient received spironolactone at 6 AM. Losartan was withheld, patient received 25 mg of metoprolol. After 1 hour of receiving medication patient started having nausea, feeling cold and clammy. Patient systolic blood pressure ranging in high 70s with mean mid 60s. Patient was transferred to ICU and started on Levophed along with dobutamine. Central line was placed. Medications: Reviewed: Yes Vitals/I&O/Wt Last Vital Signs Temp 96.9 F L 08/06/21 12:00 Pulse 102 H 08/06/21 14:00 Resp 20 H 08/06/21 12:00 BP 86/66 08/06/21 11:30 Pulse Ox 96 08/06/21 12:00 08/06/21 08/06/21 08/06/21 06:59 14:59 22:59 Intake Total 200 / 2844.10 175.680 / 175.680 Output Total 500 / 1000 Balance -300 / 1844.10 175.680 / 175.680 Weight last 48 hrs Weight 74.072 kg Weight 70.76 kg Physical Exam Narrative: EXAM NARRATIVE: General: No acute distress, AO x3, anxious HEENT: PERRLA, pupils bilaterally equal and reactive Chest: Normal vesicular breath sounds, bilateral fine crackles present in lower zones, coarse crackles present right lower zone, equal good air entry bilaterally CVS: S1-S2 regular, pansystolic at apex radiating to mid axillary line, pansystolic murmur at fourth intercostal space left retrosternal 3/6, JVD elevated, no tachycardia, no gallops, no rubs Abdomen: Soft, nontender, no organomegaly, bowel sounds present Neuro: No focal deficits, no facial deformity, AO x3, power 5/5 in all limbs Urinary Catheter Management^: Mahoney: Cath Placed During This Visit: yes Reason for Continuing Indwelling Catheter: Accurate Measurement of Urinary Output in Critically Ill Patients Urinary Catheter Date of Insertion: 08/05/21 Urinary Catheter Time of Insertion: 13:10 Data : 08/06/21 02:43 08/06/21 02:43 A&P Assessment and plan (1) Cardiogenic shock: Status: Acute (2) Systolic heart failure: Status: Acute (3) HCAP (healthcare-associated pneumonia): Status: Acute (4) Pulmonary embolism: Repeat CT chest negative for PE Continue Eliquis 5 mg p.o. twice daily for recent history of P/E Status: Acute (5) History of methamphetamine abuse: Status: Acute Additional A&P Information Cardiogenic shock: Keep mean artery pressure over 65. Start patient on dobutamine given severe biventricular dysfunction. Along with that start patient on Levophed. Titrate keeping mean arterial pressure over 65. Systolic heart failure: Echocardiogram results awaited. As per outside hospital records. Heart failure with reduced ejection fraction and RV dysfunction. NICM 2/2 amphetamine abuse (used to smoke till May and IV use 6 years back). Coronary angiogram 09 July 2021: Right dominant system. Normal left main. Normal left anterior descending including branches. Nondominant circumflex. RCA is dominant with no significant disease. Mild to moderate mitral regurgitation. Ejection fraction 10 to 15% with LVEDP of 18. Echocardiogram 23 June 2021 with LVEF of 10 to 15%; actual report not available. MUGA scan 29 June 2021: With LVEF of 21%. IV Lasix 20 mg twice daily. Strict input output charting. Fluid restriction up to 1200 cc. Daily weight. Keep potassium around 4, magnesium over 2. Will replete accordingly. Appreciate cardiology recommendations. For now hold off on beta-anurag, ARB, MRA. Pneumonia: Continue with vancomycin and Zosyn. MRSA positive, urine Legionella, bacterial antigen negative. Stop azithromycin. Check procalcitonin. Sputum culture awaited. Check respiratory viral panel. COVID-19 PCR awaited. Continue with isolation precaution. Will de-escalate antibiotics as per culture results. Blood cultures so far negative. For now we will plan to treat for 5 days. History of pulmonary embolism: Continue with Eliquis 5 mg twice daily. CTA results from admission appreciated. Oxygen supplementation giving saturation over 90%. Restless Legs On Ropinirole 0.5 mg po at bedtime. Transfer to ICU. Protonix for PUD prophylaxis. Eliquis will help with DVT prophylaxis. Cardiac diet. Fluid restriction up to 1500 cc. Attestations Medical Necessity Statement*: Requires further hospitalization for management of cardiogenic shock in setting of severe LV dysfunction, congestive heart failure Critical Care Time: The high probability of a clinically significant, sudden or life threatening deterioration of the patient's [cardiac] system(s) required my full and direct attention, intervention and personal management. The critical care time is as shown. This time is in addition to time spent performing any reported procedures but includes the following: [x] Data and vital sign review and interpretation [x] Patient assessment, examination and intervention [x] Documentation [x] Medication orders and management Procedures Central Line Placement^ Left IJ: Time out performed: Yes Patient placed on monitor/pulse ox: Yes MD prep: mask, gown and gloves Central line prep: Povidone-Iodine 1% and Chlorhexidine scrub Local anesthesia used: lidocaine 1% Amount of anesthesia used (ml): 10 Ultrasound used for placement: Yes Central line lumen inserted: triple Post procedure: sutured in place, good blood return, all ports aspirated, flushed, capped and sterile dressing applied Post procedure x-ray: tip of catheter in good position and no pneumothorax seen Patient tolerated procedure: well Complications: none Coding Level of Care Code Acute Lead Designer for Chg Fwd Diagnoses Cardiogenic shock R57.0 Systolic heart failure I50.20 HCAP (healthcare-associated pneumonia) J18.9 Pulmonary embolism I26.99 History of methamphetamine abuse F15.11
[2021-08-06] MEDS: sertraline 50 mg Tablet 25 MG PO (15:51)
--- NOTE | 2021-08-06 16:17 | P.PN_ITS ---
Subjective Subjective: Interval history: Patient was seen multiple times here throughout the day. She had another another episode of shortness of breath nausea and cold and clammy feeling. - Patient was transferred back to ICU. She is LOS net positive and is not tolerating IV Lasix with p.o. afterload reducing agents. -Decision was made to transfer patient to ICU and start on dobutamine and Levophed gtt. Medications: Reviewed: Yes Vitals/I&O/Wt Last Vital Signs Temp 96.9 F L 08/06/21 12:00 Pulse 102 H 08/06/21 14:00 Resp 20 H 08/06/21 12:00 BP 86/66 08/06/21 11:30 Pulse Ox 96 08/06/21 12:00 08/06/21 08/06/21 08/06/21 06:59 14:59 22:59 Intake Total 200 / 2844.10 175.680 / 175.680 530 / 705.680 Output Total 500 / 1000 800 / 800 Balance -300 / 1844.10 175.680 / 175.680 -270 / -94.320 Weight last 48 hrs Weight 163 lb 4.8 oz Weight 156 lb Physical Exam Narrative: EXAM NARRATIVE: GENERAL: Averagely built and averagely nourished in no acute distress HEENT: Pupils equal round reactive to light. No pallor or icterus. NECK: central trachea, No JVD. No carotid bruit. CARDIOVASCULAR SYSTEM: S1-S2 regular. grade 3/6 LLSB and apical systolic murmur+ RESPIRATORY SYSTEM: coarse bilateral breath sounds No wheezes or rhonchi. No use of accessory muscles. ABDOMEN: Soft, nontender and nondistended. Normal bowel sounds present. basal rales+ EXTREMITIES: No cyanosis or clubbing. No edema. No signs of chronic venous insufficiency. SPINNING FRAME TENDER: Patient is alert oriented ?3. No focal neurological deficits. SKIN: Normal turgor and temperature. PSYCH: Normal insight and judgment. Urinary Catheter Management^: Mahoney: Cath Placed During This Visit: yes Reason for Continuing Indwelling Catheter: Accurate Measurement of Urinary Output in Critically Ill Patients Urinary Catheter Date of Insertion: 08/05/21 Urinary Catheter Time of Insertion: 13:10 Data : 08/06/21 02:43 08/06/21 02:43 A&P Assessment and plan (1) CHF (congestive heart failure): HFrEF and RV dysfunction. -DCM/NICM 2/2 amphetamine abuse (used to smoke till May and IV use 6 years back). -Some records from [facility] were obtained and reviewed. #Coronary angiogram 09 July 2021: Right dominant system. Normal left main. Normal left anterior descending including branches. Nondominant circumflex. RCA is dominant with no significant disease. Mild to moderate mitral regurgitation. Ejection fraction 10 to 15% with LVEDP of 18. #Echocardiogram 23 June 2021 with LVEF of 10 to 15%; actual report not available. #MUGA scan 29 June 2021: With LVEF of 21%. -Hold off on ARB, MRA and lasix. continue metoprolol -Currently on dobutamine at 10 (will try to keep at 5-10) and Levophed at 4 -Lasix 40 mg IV x1 and based on urine output will increase to 40 IV twice daily. -Goal of -1 to 1.5 L/day Status: Acute (2) HCAP (healthcare-associated pneumonia): on broad spectrum abx, MRSA in nares. -Antibiotics being deescalated by primary team Status: Acute (3) Pulmonary embolism: Bilateral pulmonary embolism (after 16-week as fetus had Down syndrome) -on Eliquis Status: Acute (4) History of methamphetamine abuse: states she has not smoked for last several weeks. -No IVDA Status: Acute Additional A&P Information Hyponatremia Elevated liver enzymes Severe TR Moderate MR H/O preclamsia last 2 pregnancies Hypokalemia Thank you for allowing me to participate in patient's care. Please feel free to call with questions or concerns. Attestations Medical Necessity Statement*: Needs hospital stay for management of pneumonia and congestive heart failure Time Spent in Patient Care: Greater than 35 minutes (>than 50% of time spent in counselling and/or direct pt care on unit) . Critical Care Time: The high probability of a clinically significant, sudden or life threatening deterioration of the patient's [cardiac] system(s) required my full and direct attention, intervention and personal management. The critical care time is as shown. This time is in addition to time spent performing any reported procedures but includes the following: [x] Data and vital sign review and interpretation [x] Patient assessment, examination and intervention [x] Documentation [x] Medication orders and management Coding Level of Care Code Acute Bootmaker Hand for Chg Fwd Diagnoses CHF (congestive heart failure) I50.9 HCAP (healthcare-associated pneumonia) J18.9 Pulmonary embolism I26.99 History of methamphetamine abuse F15.11
[2021-08-06] MEDS: FUROsemide 10 mg/mL SDV 4mL 40 MG IVP (17:10)
[2021-08-06] MEDS: vancomycin 1,000 MG in sodium chloride 0.9% 250 ML 250 MG IV (17:11)
--- NOTE | 2021-08-06 18:11 | PC.NURSE ---
Shift Note Frequent safety and comfort rounds continue. Orders and/or nursing care completed as indicated. Patient monitored for response to intervention and treatment(s). Education provided includes treatment plan, medications, and central line placement and care. Pt verbalizes understanding. PT has mild [place], slightly relieved with tylenol. Ate dinner with no issues. No n/v noted. No other issues noted. Will continue to monitor.
[2021-08-06] MEDS: ropinirole 0.25 mg Tablet 0.5 MG PO (20:31)
--- NOTE | 2021-08-06 21:22 | PC.NURSE ---
BP 123/77, HR 91, Dr Salgado ordered to leave dobutamine at 5mcg/kg/min overnight. No titrations at this time.No signs of distress or chest pain at this time.
[2021-08-06 21:46] LABS: Anion Gap 14.2 (5-19); Blood Urea Nitrogen 20 mg/dL (6-20); Calcium 7.8 mg/dL (8.5-10.5); Carbon Dioxide 24 mmol/L (22-29); Chloride 100 mmol/L (98-107); Glomerular Filtration Rate 51.7 mL/min (90-130); Glucose 137 mg/dL (65-115); Magnesium 1.5 mg/dL (1.7-2.3); Osmolality Calculated 285 mOsm/kg (285-295); Potassium 3.2 mmol/L (3.5-5.1); Sodium 135 mmol/L (136-145)
--- NOTE | 2021-08-06 22:32 | PC.NURSE ---
Dr Salgado notified that recheck potassium level has not changed from 3.2 after patient received replacement and lasix BID. At this time no new orders given, will check potassium again in AM.
[2021-08-07] VITALS (91 sets, daily range): BP systolic 92–164; BP diastolic 55–124; PULSE 88–124; RESP 9–37; TEMP 36.1–36.9; O2SAT 87–100
[2021-08-07] MEDS: piperacillin-tazobactam 3.375 GM in sodium chloride 0.9% (plus) 50 ML IV ×3 (04:18→20:02)
[2021-08-07 04:45] LABS: Basophils # 0.1 10^3/uL (0.0-0.1); Basophils % 0.6 %; Eosinophils # 0.4 10^3/uL (0.0-0.8); Eosinophils % 4.3 %; Hematocrit 36.6 % (37.0-47.0); Hemoglobin 11.2 g/dL (11.5-15.3); Lymphocytes # 2.4 10^3/uL (0.8-4.8); Lymphocytes % 26.8 %; Mean Corpuscular HGB Conc 30.6 g/dL (30.0-36.0); Mean Corpuscular Hemoglobin 27.9 pg (28.0-34.0); Mean Corpuscular Volume 91.3 fl (81-99); Mean Platelet Volume 10.5 fL (7.4-10.4); Monocytes # 0.7 10^3/uL (0.2-0.9); Monocytes % 7.8 %; Neutrophils # 5.45 10^3/uL (1.8-7.7); Neutrophils % 59.9 %; Nucleated Red Blood Cells % 0 %; Platelet Count 262 10^3/cmm (130-400); Red Blood Count 4.01 10^6/uL (4.1-5.3); Red Cell Distribution Width 18.7 % (12.1-15.1); White Blood Count 9.1 10^3/uL (4.0-10.0)
[2021-08-07 05:56] LABS: Alanine Aminotransferase 34 U/L (0-33); Alkaline Phosphatase 116 IU/L (35-105); Anion Gap 17.5 (5-19); Aspartate Amino Transferase 24 U/L (0-32); Blood Urea Nitrogen 18 mg/dL (6-20); Calcium 8.3 mg/dL (8.5-10.5); Carbon Dioxide 23 mmol/L (22-29); Chloride 99 mmol/L (98-107); Globulin 2.9 g/dL (1.3-4.6); Glomerular Filtration Rate 51.7 mL/min (90-130); Glucose 106 mg/dL (65-115); Magnesium 1.6 mg/dL (1.7-2.3); Osmolality Calculated 284 mOsm/kg (285-295); Potassium 3.5 mmol/L (3.5-5.1); Sodium 136 mmol/L (136-145); Total Bilirubin 0.9 mg/dL (0.15-1.2); Total Protein 5.9 g/dL (6.6-8.7)
[2021-08-07] MEDS: pantoprazole DR 40 mg Tablet PO (05:57)
[2021-08-07] MEDS: guaiFENesin 600 mg Tablet 1200 MG PO (05:57)
--- NOTE | 2021-08-07 06:00 | XRR_ITS ---
PROCEDURE INFORMATION: Exam: XR Chest Exam date and time: 08/07/2021 6:00 AM Age: 31 years old Clinical indication: Dyspnea; Additional info: Covid TECHNIQUE: Imaging protocol: XR of the chest. Views: 1 view. Total images: 1 COMPARISON: CR XR chest 1V portable [id number] 08/06/2021 2:26 PM FINDINGS: Tubes, catheters and devices: A right internal jugular central venous catheter is present, with its tip overlying the region of the superior vena cava and unchanged from prior exam. Lungs: Bilateral pulmonary opacities are again noted and have shown interval worsening from the prior exam. Pleural spaces: Unremarkable. No pleural effusion. No pneumothorax. Heart/Mediastinum: Heart is enlarged but stable when compared to the prior exam. Bones/joints: Osseous structures are unchanged from the prior exam. XR/XR chest 1V portable [id number] IMPRESSION: 1. Heart is enlarged but stable when compared to the prior exam. 2. Bilateral pulmonary opacities are again noted and have shown interval worsening from the prior exam. Radiation Dose CTDIVOL = (mGy): DLP = (mGy-cm)
--- NOTE | 2021-08-07 06:38 | NUR.SHIFT ---
Shift Summary: Patient VSS on 5mcg/kg/min of dobutamine, Dr Salgado ordered to continue dobutamine at this rate. Patient had a large bowel movement this AM. Patient complains of mild soreness on right IJ site, tylenol administered. VSS, no signs of distress at this time.
[2021-08-07] MEDS: DOBUTamine drip 500 MG/250 ML PREMIX 11.11 MG IV (07:06)
[2021-08-07] MEDS: FUROsemide 40 mg Tablet PO (08:04)
[2021-08-07] MEDS: potassium chloride ER 20 mEq Tablet PO (08:04)
[2021-08-07] MEDS: apixaban 5 mg Tablet PO ×2 (08:04→17:26)
[2021-08-07] MEDS: benzonatate 100 mg Capsule PO ×3 (08:05→20:02)
[2021-08-07] MEDS: sertraline 50 mg Tablet 25 MG PO (08:05)
--- NOTE | 2021-08-07 08:20 | PC.NURSE ---
Patient resting comfortably. Blood pressure 164/104 with map of 124. Dr Baker notified. Critical message to nurse to decrease Dobutamine to 2.5 was given.
[2021-08-07 09:35] LABS: Coronavirus Test Green County Not Detected
[2021-08-07] MEDS: FUROsemide 10 mg/mL SDV 2mL 20 MG IVP (09:43)
[2021-08-07] MEDS: magnesium sulfate premix 4 GM/100 ML PREMIX 3 GM IV (09:44)
[2021-08-07] MEDS: metoprolol tartrate 25 mg Tablet PO ×2 (09:44→20:02)
--- NOTE | 2021-08-07 09:50 | PC.NURSE ---
CVp monitoring started as ordered.
--- NOTE | 2021-08-07 10:58 | PC.NURSE ---
Patient drank an apple juice for breakfast. Patient stated that she will eat breakfast later, because after morning medications she feels full and does not want to eat. Offered to give patient supplements like ensure or boost but patient refused saying that she really hates the taste.
--- NOTE | 2021-08-07 12:00 | PC.NURSE ---
Patient reported nausea. MD okayed to give Zofran for just nausea.
[2021-08-07] MEDS: ondansetron 2 mg/ML SDV 2 mL 4 MG IVP (12:02)
[2021-08-07] MEDS: FUROsemide 10 mg/mL SDV 4mL 40 MG IVP ×2 (13:16→17:26)
--- NOTE | 2021-08-07 14:33 | PM.PN ---
Subjective Subjective: Interval history: No acute events overnight. Patient has remained hemodynamically stable. Levophed has been turned off since yesterday evening. Overnight patient has remained on dobutamine at 5. Today morning weaned down to 2.5. Mean arterial pressure has remained more than 70. Documented urine output last 24 hours 2.9 L with equal intake and output. CVP check today during exam and elevated at 24 which later decreased to 14. Medications: Reviewed: Yes Vitals/I&O/Wt Last Vital Signs Temp 97.0 F L 08/07/21 13:00 Pulse 96 08/07/21 14:00 Resp 20 H 08/07/21 13:00 BP 161/120 08/07/21 13:00 Pulse Ox 100 08/07/21 13:00 08/06/21 08/07/21 08/07/21 22:59 06:59 14:59 Intake Total 1362.194 / 1537.874 850 / 2387.874 662.915 / 662.915 Output Total 2100 / 2100 350 / 2450 476 / 476 Balance -737.806 / -562.126 500 / -62.126 186.915 / 186.915 Weight last 48 hrs Weight 65.181 kg Weight 74.072 kg Physical Exam Narrative: EXAM NARRATIVE: General: No acute distress, AO x3, anxious HEENT: PERRLA, pupils bilaterally equal and reactive Chest: Normal vesicular breath sounds, bilateral fine crackles present in lower zones, coarse crackles present right lower zone, equal good air entry bilaterally CVS: S1-S2 regular, pansystolic at apex radiating to mid axillary line, pansystolic murmur at fourth intercostal space left retrosternal 3/6, JVD elevated, no tachycardia, no gallops, no rubs Abdomen: Soft, nontender, no organomegaly, bowel sounds present Neuro: No focal deficits, no facial deformity, AO x3, power 5/5 in all limbs Urinary Catheter Management^: Mahoney: Cath Placed During This Visit: yes Reason for Continuing Indwelling Catheter: Accurate Measurement of Urinary Output in Critically Ill Patients Urinary Catheter Date of Insertion: 08/05/21 Urinary Catheter Time of Insertion: 13:10 Data : 08/07/21 04:25 08/07/21 04:25 A&P Assessment and plan (1) Cardiogenic shock: Status: Acute (2) Systolic heart failure: Status: Acute (3) HCAP (healthcare-associated pneumonia): Status: Acute (4) Pulmonary embolism: Repeat CT chest negative for PE Continue Eliquis 5 mg p.o. twice daily for recent history of P/E Status: Acute (5) History of methamphetamine abuse: Status: Acute Additional A&P Information Cardiogenic shock: Keep mean artery pressure over 65. Continue with dobutamine at 2.5. If needed can add Levophed with titration keeping mean arterial pressure over 65. Currently Levophed has been off since 1017. Systolic heart failure: Echocardiogram results shows severely decreased LV systolic function at 15%, severe global LV hypokinesis, abnormal diastolic function, moderately dilated RV and decreased RV systolic function, moderate biatrial enlargement, mild to moderate MR, PASP at 35, severe TR, moderate pulmonary valve regurgitation. NICM 2/2 amphetamine abuse (used to smoke till May and IV use 6 years back). Coronary angiogram 09 July 2021: Right dominant system. Normal left main. Normal left anterior descending including branches. Nondominant circumflex. RCA is dominant with no significant disease. Mild to moderate mitral regurgitation. Ejection fraction 10 to 15% with LVEDP of 18. Echocardiogram 23 June 2021 with LVEF of 10 to 15%; actual report not available. MUGA scan 29 June 2021: With LVEF of 21%. IV Lasix 40 mg twice daily. Will reassess fluid status in afternoon and can get additional Lasix. Patient's intake still more than 2.5 L. Target 1 L negative in next 24 hours. Strict input output charting. Change fluid restriction up to 1100 cc. Daily weight. Keep potassium around 4, magnesium over 2. Will replete accordingly. Appreciate cardiology recommendations. Restart metoprolol at 25 mg twice daily. For now continue to hold off on ARB. Will reinitiate medication slowly within next 24 hours and uptitrate accordingly while continuing dobutamine. Pneumonia: Continue with vancomycin and Zosyn. MRSA positive, urine Legionella, bacterial antigen negative. Procalcitonin negative. Sputum culture, respiratory viral panel awaited. COVID-19 PCR negative. Will de-escalate antibiotics as per culture results. Blood cultures so far negative. For now we will plan to treat for 5 days. History of pulmonary embolism: Continue with Eliquis 5 mg twice daily. CTA results from admission appreciated. Oxygen supplementation giving saturation over 90%. Restless Legs On Ropinirole 0.5 mg po at bedtime. Protonix for PUD prophylaxis. Eliquis will help with DVT prophylaxis. Cardiac diet. Fluid restriction up to 1100 cc. Attestations Medical Necessity Statement*: Requires further hospitalization for management of cardiogenic shock in setting of severe biventricular heart failure, dobutamine dependent for now Critical Care Time: The high probability of a clinically significant, sudden or life threatening deterioration of the patient's [cardiac] system(s) required my full and direct attention, intervention and personal management. The critical care time is as shown. This time is in addition to time spent performing any reported procedures but includes the following: [x] Data and vital sign review and interpretation [x] Patient assessment, examination and intervention [x] Documentation [x] Medication orders and management Critical Care Time (min): 90 Coding Level of Care Code Acute Licensed Prosthetist/Orthotist for [facility] Fwd Diagnoses Cardiogenic shock R57.0 Systolic heart failure I50.20 HCAP (healthcare-associated pneumonia) J18.9 Pulmonary embolism I26.99 History of methamphetamine abuse F15.11
--- NOTE | 2021-08-07 16:46 | PC.NURSE ---
Patient states that she is very thirsty. Educated patient about fluid restriction and how much fluid intake is left for today. Patient denies any nausea at the moment. Asked patient if she will be able to eat something. Patient ate her banana. Patient states that she does not like the milky taste of ensure. Gave the patient boost that is juice consistency. Patient is willing to drink the boost. Educated that the boost will be added to fluid intake and to drink slowly. Patient resting comfortably watching TV.
[2021-08-07] MEDS: vancomycin 1,000 MG in sodium chloride 0.9% 250 ML 250 MG IV (17:26)
--- NOTE | 2021-08-07 17:59 | PM.PN ---
Subjective Subjective: Interval history: Patient was seen multiple times throughout the day. Complains of nausea but no episodes of vomiting. Good urine output but has not been net negative so far Medications: Reviewed: Yes Vitals/I&O/Wt Last Vital Signs Temp 98.5 F 08/07/21 16:00 Pulse 106 H 08/07/21 16:00 Resp 16 08/07/21 16:00 BP 135/101 08/07/21 16:00 Pulse Ox 97 08/07/21 16:00 08/07/21 08/07/21 08/07/21 06:59 14:59 22:59 Intake Total 850 / 2387.874 762.915 / 762.915 230 / 992.915 Output Total 350 / 2450 951 / 951 375 / 1326 Balance 500 / -62.126 -188.085 / -188.085 -145 / -333.085 Weight last 48 hrs Weight 143 lb 11.2 oz Weight 163 lb 4.8 oz Physical Exam Narrative: EXAM NARRATIVE: GENERAL: Averagely built and averagely nourished in no acute distress HEENT: Pupils equal round reactive to light. No pallor or icterus. NECK: central trachea, No JVD. No carotid bruit. CARDIOVASCULAR SYSTEM: S1-S2 regular. grade 3/6 LLSB and apical systolic murmur+ RESPIRATORY SYSTEM: coarse bilateral breath sounds No wheezes or rhonchi. basal rales+ No use of accessory muscles. ABDOMEN: Soft, nontender and nondistended. Normal bowel sounds present. EXTREMITIES: No cyanosis or clubbing. No edema. No signs of chronic venous insufficiency. CLARITY SPECIALISTS: Patient is alert oriented ?3. No focal neurological deficits. SKIN: Normal turgor and temperature Urinary Catheter Management^: Mahoney: Cath Placed During This Visit: yes Reason for Continuing Indwelling Catheter: Accurate Measurement of Urinary Output in Critically Ill Patients Urinary Catheter Date of Insertion: 08/05/21 Urinary Catheter Time of Insertion: 13:10 Data : 08/07/21 04:25 08/07/21 04:25 Micro: Microbiology 08/07/21 10:29 Gram Stain - Final Sputum - Expectorated Sputum A&P Assessment and plan (1) CHF (congestive heart failure): HFrEF and RV dysfunction. -DCM/NICM 2/2 amphetamine abuse (used to smoke till May and IV use 6 years back). -Some records from [facility] were obtained and reviewed. #Coronary angiogram 09 July 2021: Right dominant system. Normal left main. Normal left anterior descending including branches. Nondominant circumflex. RCA is dominant with no significant disease. Mild to moderate mitral regurgitation. Ejection fraction 10 to 15% with LVEDP of 18. #Echocardiogram 23 June 2021 with LVEF of 10 to 15%; actual report not available. #MUGA scan 29 June 2021: With LVEF of 21%. -Hold off on ARB, MRA today. continue metoprolol -Plan to add back low-dose ARB and MRA tomorrow. -Currently on dobutamine at 2.5. I will plan to decrease down to 2 tomorrow. -Currently on Lasix 40 mg IV twice daily. Additional Lasix 40 mg IV x1 this afternoon. Goal of -1 to 1.5 L/day Status: Acute (2) HCAP (healthcare-associated pneumonia): on broad spectrum abx, MRSA in nares. -Antibiotics being deescalated by primary team Status: Acute (3) Pulmonary embolism: Bilateral pulmonary embolism (after 16-week as fetus had Down syndrome) -on Eliquis Status: Acute (4) History of methamphetamine abuse: states she has not smoked for last several weeks. -No IVDA Status: Acute Additional A&P Information Hyponatremia Elevated liver enzymes Severe TR Moderate MR Moderate PI Runs of PSVT H/O preclamsia last 2 pregnancies Hypokalemia Hypomagnesemia Thank you for allowing me to participate in patient's care. Please feel free to call with questions or concerns. Attestations Medical Necessity Statement*: Needs hospital stay for management of pneumonia and congestive heart failure Time Spent in Patient Care: Greater than 35 minutes (>than 50% of time spent in counselling and/or direct pt care on unit). Critical Care Time: The high probability of a clinically significant, sudden or life threatening deterioration of the patient's [cardiac] system(s) required my full and direct attention, intervention and personal management. The critical care time is as shown. This time is in addition to time spent performing any reported procedures but includes the following: [x] Data and vital sign review and interpretation [x] Patient assessment, examination and intervention [x] Documentation [x] Medication orders and management Coding Level of Care Code Acute Land Reclamation Specialist for [facility] Fwd Diagnoses CHF (congestive heart failure) I50.9 HCAP (healthcare-associated pneumonia) J18.9 Pulmonary embolism I26.99 History of methamphetamine abuse F15.11
[2021-08-07 18:38] LABS: Anion Gap 16.3 (5-19); Blood Urea Nitrogen 16 mg/dL (6-20); Calcium 8.2 mg/dL (8.5-10.5); Carbon Dioxide 23 mmol/L (22-29); Chloride 96 mmol/L (98-107); Glomerular Filtration Rate 57.2 mL/min (90-130); Glucose 190 mg/dL (65-115); Magnesium 2.3 mg/dL (1.7-2.3); Osmolality Calculated 280 mOsm/kg (285-295); Potassium 3.3 mmol/L (3.5-5.1); Sodium 132 mmol/L (136-145)
--- NOTE | 2021-08-07 18:59 | PC.NURSE ---
Shift Note Frequent safety and comfort rounds continue. Orders and/or nursing care completed as indicated. Patient monitored for response to intervention and treatment(s). Education provided includes new results, medications, goals, water restrictions, and care plan. Patient voiced understanding. Patient resting comfortably and watched TV most of the day. Patient was able to get up to commode twice today. Patient stable on feet, but needed help with the IVs and catheter.
[2021-08-07] MEDS: ropinirole 0.25 mg Tablet 0.5 MG PO (20:02)
[2021-08-07] MEDS: spironolactone 25 mg Tablet 12.5 MG PO (20:45)
[2021-08-07] MEDS: potassium chloride ER 20 mEq Tablet 40 MEQ PO (22:39)
[2021-08-08] VITALS (62 sets, daily range): BP systolic 96–140; BP diastolic 62–105; PULSE 88–112; RESP 7–41; TEMP 36.6–36.8; O2SAT 90–100
[2021-08-08 05:18] LABS: Basophils # 0.1 10^3/uL (0.0-0.1); Basophils % 0.8 %; Eosinophils # 0.2 10^3/uL (0.0-0.8); Eosinophils % 2.3 %; Hematocrit 37.8 % (37.0-47.0); Hemoglobin 11.7 g/dL (11.5-15.3); Lymphocytes # 2.5 10^3/uL (0.8-4.8); Lymphocytes % 25.3 %; Mean Corpuscular Hemoglobin 28.6 pg (28.0-34.0); Mean Corpuscular Volume 92.4 fl (81-99); Mean Platelet Volume 11.2 fL (7.4-10.4); Monocytes # 0.8 10^3/uL (0.2-0.9); Monocytes % 8.4 %; Neutrophils # 6.19 10^3/uL (1.8-7.7); Neutrophils % 62.7 %; Nucleated Red Blood Cells % 0.2 %; Platelet Count 265 10^3/cmm (130-400); Red Blood Count 4.09 10^6/uL (4.1-5.3); Red Cell Distribution Width 19.2 % (12.1-15.1); White Blood Count 9.9 10^3/uL (4.0-10.0)
[2021-08-08 05:43] LABS: Vancomycin Trough 17.5 ug/mL (10-15)
[2021-08-08 05:51] LABS: Alanine Aminotransferase 30 U/L (0-33); Albumin Level 3.1 g/dL (3.5-5.2); Alkaline Phosphatase 118 IU/L (35-105); Anion Gap 15.8 (5-19); Aspartate Amino Transferase 22 U/L (0-32); Blood Urea Nitrogen 16 mg/dL (6-20); Calcium 8.5 mg/dL (8.5-10.5); Carbon Dioxide 25 mmol/L (22-29); Chloride 98 mmol/L (98-107); Globulin 2.5 g/dL (1.3-4.6); Glomerular Filtration Rate 63.9 mL/min (90-130); Glucose 86 mg/dL (65-115); Magnesium 2.2 mg/dL (1.7-2.3); Osmolality Calculated 280 mOsm/kg (285-295); Potassium 3.8 mmol/L (3.5-5.1); Sodium 135 mmol/L (136-145); Total Protein 5.6 g/dL (6.6-8.7)
[2021-08-08] MEDS: guaiFENesin 600 mg Tablet 1200 MG PO (05:53)
[2021-08-08] MEDS: pantoprazole DR 40 mg Tablet PO (05:53)
[2021-08-08] MEDS: spironolactone 25 mg Tablet 12.5 MG PO (05:53)
[2021-08-08] MEDS: piperacillin-tazobactam 3.375 GM in sodium chloride 0.9% (plus) 50 ML IV (05:54)
[2021-08-08] MEDS: FUROsemide 10 mg/mL SDV 4mL 40 MG IVP ×3 (05:54→17:14)
[2021-08-08 06:06] LABS: Hepatitis A Antibody IgM Non-Reactive (Nonreactive); Hepatitis B Core AB, Total Non-Reactive (Nonreactive); Hepatitis B Surface AB 258.6 (11.5-1000); Hepatitis B Surface Antigen Non-Reactive (Nonreactive); Hepatitis C Virus Antibody Non-Reactive (Nonreactive)
[2021-08-08 06:35] LABS: HIV 1 & 2 Antibody Non-Reactive (Non-Reactiv); HIV 1 & 2 Antigen Non-Reactive (Non-Reactiv)
[2021-08-08] MEDS: apixaban 5 mg Tablet PO ×2 (09:20→17:14)
[2021-08-08] MEDS: sertraline 50 mg Tablet 25 MG PO (09:20)
[2021-08-08] MEDS: benzonatate 100 mg Capsule PO ×3 (09:20→20:01)
[2021-08-08] MEDS: potassium chloride ER 20 mEq Tablet PO ×2 (09:20→17:14)
[2021-08-08] MEDS: losartan 50 mg Tablet 12.5 MG PO ×2 (09:21→17:14)
[2021-08-08] MEDS: magnesium lactate 84 mg Tablet PO ×2 (09:21→17:14)
[2021-08-08] MEDS: metoprolol tartrate 25 mg Tablet PO (09:21)
--- NOTE | 2021-08-08 09:54 | PC.CHAP ---
Pastoral Care Encounter/Spiritual Assessment Type of Contact [] Declined ladies underwear operator visit [] Patient/Family/Request visit [] Outpatient visit [] Follow-up visit [] Physician referral [] Code/Alert [x] Routine visit [] Staff referral [] Actively dying [x] Patient sleeping [] Family support [] [] Out of room [] Palliative care [] [] Receiving care in room [] Pre-surgical visit [] Trauma [] Long length of stay [x] ICU visit [] Other: Relational/Emotional Strength [] Patient feels connected with others/family/visitors/staff [] Distress [] Loneliness/isolation [] Abandonment Spirituality of Patient [] Person of Syeda [] Attends Caodaism of their Syeda [] Believes in Prayer [] Reads Bible or Amish materials [] There are Spiritual issues to be addressed [place] Flat Grinder Interventions [x] Prayer [] Active listening [] Non-anxious presence [] Spiritual/emotional support [] Crisis/trauma care [] Spiritual counseling [] Bereavement support [] Provided bereavement packet [] Provided Bible/devotional materials [] Provided toy/stuffed animal, coloring book to patient or family member [] Provided Communion [] Anointing/[place] [] Salvation [x] Completed spiritual assessment [] Other: Impact on Illness or Injury [] Angry [] Fearful [] Anxious [] Often cries [] Exhaustion [] Unable to work [] Unable to attend denominational [] Unable to walk/stand [] Unable to read [] Unable to drive [] Unable to eat/drink [] Unable to sleep [] Unable to be with family [] Patient intubated [] Other: Summary Time spent with patient
--- NOTE | 2021-08-08 10:03 | P.PN_ITS ---
Subjective Subjective: Interval history: UO ~2.5L, -700 ml; weight 143-->139 lb; LOS +1.7 L; UO not well documented day 1 and 2 of admission No events on telemetry Medications: Reviewed: Yes Vitals/I&O/Wt Last Vital Signs Temp 97.8 F 08/08/21 08:00 Pulse 107 H 08/08/21 08:00 Resp 15 08/08/21 08:00 BP 140/96 08/08/21 08:00 Pulse Ox 97 08/08/21 08:00 08/07/21 08/08/21 08/08/21 22:59 06:59 14:59 Intake Total 922 / 1684.915 50 / 1734.915 Output Total 925 / 1876 550 / 2426 Balance -3 / -191.085 -500 / -691.085 Weight last 48 hrs Weight 139 lb 9 oz Weight 143 lb 11.2 oz Physical Exam Narrative: EXAM NARRATIVE: GENERAL: Averagely built and averagely nourished in no acute distress HEENT: Pupils equal round reactive to light. No pallor or icterus. NECK: central trachea, No JVD. No carotid bruit. CARDIOVASCULAR SYSTEM: S1-S2 regular. grade 3/6 LLSB and apical systolic murmur+ RESPIRATORY SYSTEM: coarse bilateral breath sounds No wheezes or rhonchi. occasional rales+ No use of accessory muscles. ABDOMEN: Soft, nontender and nondistended. Normal bowel sounds present. EXTREMITIES: No cyanosis or clubbing. No edema. No signs of chronic venous insufficiency. SYSTEM ARCHITECT: Patient is alert oriented ?3. No focal neurological deficits. SKIN: Normal turgor and temperature Urinary Catheter Management^: Mahoney: Cath Placed During This Visit: yes Reason for Continuing Indwelling Catheter: Accurate Measurement of Urinary Output in Critically Ill Patients Urinary Catheter Date of Insertion: 08/05/21 Urinary Catheter Time of Insertion: 13:10 Data : 08/08/21 04:05 08/08/21 18:19 Micro: Microbiology 08/03/21 07:38 Blood Culture - Final Blood NO GROWTH AFTER 5 DAYS 08/03/21 06:22 Blood Culture - Final Blood NO GROWTH AFTER 5 DAYS 08/07/21 10:29 Gram Stain - Final Sputum - Expectorated Sputum A&P Assessment and plan (1) CHF (congestive heart failure): HFrEF and RV dysfunction. -DCM/NICM 2/2 amphetamine abuse (used to smoke till May and IV use 6 years back). -Some records from [facility] were obtained and reviewed. #Coronary angiogram 09 July 2021: Right dominant system. Normal left main. Normal left anterior descending including branches. Nondominant circumflex. RCA is dominant with no significant disease. Mild to moderate mitral regurgitation. Ejection fraction 10 to 15% with LVEDP of 18. #Echocardiogram 23 June 2021 with LVEF of 10 to 15%; actual report not available. #MUGA scan 29 June 2021: With LVEF of 21%. - continue metoprolol -Added back low-dose ARB and MRA -Currently on dobutamine at 2. -Currently on Lasix 40 mg IV twice daily. Additional Lasix 40 mg IV x1 this afternoon. Goal of -1 to 1.5 L/day Given her young age, LVAD and cardiac transplant, a consideration. However, she used to be a meth addict until about 2 months ago. She currently resides with her boyfriend of few months and his 3 kids. She lost her 4 kids to State. Attempted quitting once in past unsuccessfully. Status: Acute (2) HCAP (healthcare-associated pneumonia): on broad spectrum abx, MRSA in nares. -Antibiotics being deescalated by primary team Status: Acute (3) Pulmonary embolism: Bilateral pulmonary embolism (after 16-week as fetus had Down syndrome) -on Eliquis Status: Acute (4) History of methamphetamine abuse: states she has not smoked for last several weeks. -No IVDA Status: Acute Additional A&P Information Hyponatremia RUDY-resolved Elevated liver enzymes: downtrending Severe TR Moderate MR Moderate PI Runs of PSVT H/O preclamsia last 2 pregnancies Hypokalemia Hypomagnesemia Thank you for allowing me to participate in patient's care. Please feel free to call with questions or concerns. Attestations Medical Necessity Statement*: Needs hospital stay for management of pneumonia and congestive heart failure Time Spent in Patient Care: Greater than 35 minutes (>than 50% of time spent in counselling and/or direct pt care on unit) . Critical Care Time: The high probability of a clinically significant, sudden or life threatening deterioration of the patient's [cardiac] system(s) required my full and direct attention, intervention and personal management. The critical care time is as shown. This time is in addition to time spent performing any reported procedures but includes the following: [x] Data and vital sign review and interpretation [x] Patient assessment, examination and intervention [x] Documentation [x] Medication orders and management Coding Level of Care Code Acute [place] Aide for [facility] Fwd Diagnoses CHF (congestive heart failure) I50.9 HCAP (healthcare-associated pneumonia) J18.9 Pulmonary embolism I26.99 History of methamphetamine abuse F15.11
--- NOTE | 2021-08-08 16:12 | P.PN_ITS ---
Subjective Subjective: Interval history: Patient has remained on dobutamine at 2.5. Has remained hemodynamically stable. Today today morning on examination had CVP of 9. On repeat examination CVP around 12. Denies any chest pain. Has remained on room air. Urine output in last 24 hours documented around 2.5 l. Body weight documented 63 down from 70. Vitals/I&O/Wt Last Vital Signs Temp 97.9 F 08/08/21 13:30 Pulse 99 08/08/21 14:00 Resp 15 08/08/21 13:30 BP 115/88 08/08/21 13:30 Pulse Ox 95 08/08/21 13:30 08/08/21 08/08/21 08/08/21 06:59 14:59 22:59 Intake Total 50 / 1734.915 50 / 50 Output Total 550 / 2426 Balance -500 / -691.085 50 / 50 Weight last 48 hrs Weight 63.304 kg Weight 65.181 kg Physical Exam Narrative: EXAM NARRATIVE: General: No acute distress, AO x3, anxious HEENT: PERRLA, pupils bilaterally equal and reactive Chest: Normal vesicular breath sounds, bilateral fine crackles present in lower zones, coarse crackles present right lower zone, equal good air entry bilaterally CVS: S1-S2 regular, pansystolic at apex radiating to mid axillary line, pansystolic murmur at fourth intercostal space left retrosternal 3/6, JVD elevated, no tachycardia, no gallops, no rubs Abdomen: Soft, nontender, no organomegaly, bowel sounds present Neuro: No focal deficits, no facial deformity, AO x3, power 5/5 in all limbs Urinary Catheter Management^: Mahoney: Cath Placed During This Visit: yes Reason for Continuing Indwelling Catheter: Accurate Measurement of Urinary Output in Critically Ill Patients Urinary Catheter Date of Insertion: 08/05/21 Urinary Catheter Time of Insertion: 13:10 Data : 08/08/21 04:05 08/08/21 04:05 Micro: Microbiology 08/07/21 10:29 Gram Stain - Final Sputum - Expectorated Sputum Sputum Culture - Preliminary 08/03/21 07:38 Blood Culture - Final Blood NO GROWTH AFTER 5 DAYS 08/03/21 06:22 Blood Culture - Final Blood NO GROWTH AFTER 5 DAYS A&P Assessment and plan (1) Cardiogenic shock: Status: Acute (2) Systolic heart failure: Status: Acute (3) HCAP (healthcare-associated pneumonia): Status: Acute (4) Pulmonary embolism: Repeat CT chest negative for PE Continue Eliquis 5 mg p.o. twice daily for recent history of P/E Status: Acute (5) History of methamphetamine abuse: Status: Acute Additional A&P Information Cardiogenic shock: Keep mean artery pressure over 65. Continue with dobutamine at 2.5. If needed can add Levophed with titration keeping mean arterial pressure over 65. Currently Levophed has been off since 08/06. Systolic heart failure: Echocardiogram results shows severely decreased LV systolic function at 15%, severe global LV hypokinesis, abnormal diastolic func tion, moderately dilated RV and decreased RV systolic function, moderate biatrial enlargement, mild to moderate MR, PASP at 35, severe TR, moderate pulmonary valve regurgitation. NICM 2/2 amphetamine abuse (used to smoke till May and IV use 6 years back). Coronary angiogram 09 July 2021: Right dominant system. Normal left main. Normal left anterior descending including branches. Nondominant circumflex. RCA is dominant with no significant disease. Mild to moderate mitral regurgitation. Ejection fraction 10 to 15% with LVEDP of 18. Echocardiogram 23 June 2021 with LVEF of 10 to 15%; actual report not available. MUGA scan 29 June 2021: With LVEF of 21%. IV Lasix 40 mg twice daily. Will reassess fluid status in afternoon and can get additional Lasix. Patient's intake still more than 2.5 L. Target 1 L negative in next 24 hours. Strict input output charting. Change fluid restriction up to 1100 cc. Daily weight. Keep potassium around 4, magnesium over 2. Will replete accordingly. Appreciate cardiology recommendations. Continue metoprolol 5 mg twice daily. Agree with starting losartan 12.5 mg and spironolactone 12.5 mg daily. Will uptitrate gradually depending on hemodynamics. For now continue with dobutamine. We will continue with 2.5 for now. We will plan to de-escalate to 2 if remains hemodynamically stable in evening. Pneumonia: Continue with vancomycin and Zosyn. Last day Zosyn 08/08. Last day vancomycin 08/09. MRSA positive, urine Legionella, bacterial antigen negative. Procalcitonin negative. Sputum culture, respiratory viral panel awaited. COVID-19 PCR negative. Will de-escalate antibiotics as per culture results. Blood cultures so far negative. History of pulmonary embolism: Continue with Eliquis 5 mg twice daily. CTA results from admission appreciated. Oxygen supplementation giving saturation over 90%. Restless Legs On Ropinirole 0.5 mg po at bedtime. Protonix for PUD prophylaxis. Eliquis will help with DVT prophylaxis. Cardiac diet. Fluid restriction up to 1100 cc. Attestations Medical Necessity Statement*: Requires further hospitalization for management of cardiogenic shock, severe LV dysfunction, dobutamine dependent while heart failure medications were adjusted. Critical Care Time: The high probability of a clinically significant, sudden or life threatening deterioration of the patient's [cardiology] system(s) required my full and direct attention, intervention and personal management. The critical care time is as shown. This time is in addition to time spent performing any reported procedures but includes the following: [x] Data and vital sign review and interpretation [x] Patient assessment, examination and intervention [x] Documentation [x] Medication orders and management Critical Care Time (min): 90 Coding Level of Care Code Acute Line Rider for [facility] Fwd Diagnoses Cardiogenic shock R57.0 Systolic heart failure I50.20 HCAP (healthcare-associated pneumonia) J18.9 Pulmonary embolism I26.99 History of methamphetamine abuse F15.11
[2021-08-08] MEDS: vancomycin 1,000 MG in sodium chloride 0.9% 250 ML 250 MG IV (16:17)
[2021-08-08 19:10] LABS: Anion Gap 18.3 (5-19); Blood Urea Nitrogen 15 mg/dL (6-20); Calcium 8.2 mg/dL (8.5-10.5); Carbon Dioxide 22 mmol/L (22-29); Chloride 95 mmol/L (98-107); Glomerular Filtration Rate 57.2 mL/min (90-130); Glucose 149 mg/dL (65-115); Osmolality Calculated 278 mOsm/kg (285-295); Potassium 3.3 mmol/L (3.5-5.1); Sodium 132 mmol/L (136-145)
[2021-08-08] MEDS: metoprolol succinate ER (24 HR) 25 mg Tablet PO (20:01)
[2021-08-08] MEDS: ropinirole 0.25 mg Tablet 0.5 MG PO (20:02)
[2021-08-08] MEDS: acetaminophen 325 mg Tablet 650 MG PO (20:07)
[2021-08-08] MEDS: potassium chloride ER 20 mEq Tablet 40 MEQ PO ×2 (21:19→22:23)
[2021-08-09] VITALS (50 sets, daily range): BP systolic 97–166; BP diastolic 59–127; PULSE 78–108; RESP 10–32; TEMP 36.4–36.7; O2SAT 86–100
[2021-08-09] MEDS: ondansetron 2 mg/ML SDV 2 mL 4 MG IVP (01:48)
[2021-08-09] MEDS: spironolactone 25 mg Tablet 12.5 MG PO (05:07)
[2021-08-09] MEDS: guaiFENesin 600 mg Tablet 1200 MG PO (05:07)
[2021-08-09] MEDS: pantoprazole DR 40 mg Tablet PO (05:07)
[2021-08-09 05:41] LABS: Alanine Aminotransferase 24 U/L (0-33); Albumin Level 3.1 g/dL (3.5-5.2); Alkaline Phosphatase 109 IU/L (35-105); Anion Gap 14.1 (5-19); Aspartate Amino Transferase 16 U/L (0-32); Blood Urea Nitrogen 18 mg/dL (6-20); Calcium 8.4 mg/dL (8.5-10.5); Carbon Dioxide 25 mmol/L (22-29); Chloride 98 mmol/L (98-107); Globulin 2.8 g/dL (1.3-4.6); Glomerular Filtration Rate 51.7 mL/min (90-130); Glucose 91 mg/dL (65-115); Osmolality Calculated 277 mOsm/kg (285-295); Potassium 4.1 mmol/L (3.5-5.1); Sodium 133 mmol/L (136-145); Total Protein 5.9 g/dL (6.6-8.7)
[2021-08-09 05:51] LABS: Basophils # 0.1 10^3/uL (0.0-0.1); Eosinophils # 0.2 10^3/uL (0.0-0.8); Eosinophils % 2.6 %; Hematocrit 35.8 % (37.0-47.0); Hemoglobin 11.5 g/dL (11.5-15.3); Lymphocytes # 2.5 10^3/uL (0.8-4.8); Lymphocytes % 26.2 %; Mean Corpuscular HGB Conc 32.1 g/dL (30.0-36.0); Mean Corpuscular Hemoglobin 28.1 pg (28.0-34.0); Mean Corpuscular Volume 87.5 fl (81-99); Monocytes # 0.8 10^3/uL (0.2-0.9); Monocytes % 8.8 %; Neutrophils % 60.5 %; Nucleated Red Blood Cells % 0 %; Platelet Count 260 10^3/cmm (130-400); Red Blood Count 4.09 10^6/uL (4.1-5.3); Red Cell Distribution Width 18.8 % (12.1-15.1); White Blood Count 9.4 10^3/uL (4.0-10.0)
--- NOTE | 2021-08-09 06:00 | XR_ITS ---
WS: [id number] Portable AP semiupright chest, 08/09/2021 Clinical Data: covid Comparison: Portable chest, 08/07/2021. Findings: The right internal jugular venous catheter remains in position in the at the cavoatrial suresh ction. The heart remains enlarged. The pulmonary opacities have diminished slightly. Monitor leads ar e on the chest wall. XR/XR chest 1V portable [id number] Impression: 1. Slight improvement in bilateral pulmonary opacities. 2. No change in cardiomegaly.
--- NOTE | 2021-08-09 06:08 | PC.NURSE ---
Shift Note Frequent safety and comfort rounds continue. Pt slept well throughout the night. Pt complained of nausea and was given zofran. Orders and nursing care completed as indicated. CVP ran from 6-12 throughout the night. Patient monitored for response to intervention and treatment. Education provided includes infection prevention. Patient verbalized understanding. Will continue care.
[2021-08-09] MEDS: FUROsemide 10 mg/mL SDV 4mL 40 MG IVP ×3 (06:09→17:09)
[2021-08-09] MEDS: benzonatate 100 mg Capsule PO ×3 (08:51→20:39)
[2021-08-09] MEDS: sertraline 50 mg Tablet 25 MG PO (08:51)
[2021-08-09] MEDS: magnesium lactate 84 mg Tablet PO ×2 (08:51→17:08)
[2021-08-09] MEDS: losartan 50 mg Tablet 12.5 MG PO ×2 (08:52→17:07)
[2021-08-09] MEDS: potassium chloride ER 20 mEq Tablet PO ×2 (08:53→17:08)
[2021-08-09] MEDS: metoprolol succinate ER (24 HR) 25 mg Tablet PO ×2 (08:53→20:39)
[2021-08-09] MEDS: apixaban 5 mg Tablet PO ×2 (08:53→17:08)
[2021-08-09] MEDS: DOBUTamine drip 500 MG/250 ML PREMIX IV (08:55)
--- NOTE | 2021-08-09 10:49 | PC.CHAP ---
Pastoral Care Encounter/Spiritual Assessment Type of Contact [] Declined rn clinical research visit [] Patient/Family/Request visit [] Outpatient visit [] Follow-up visit [] Physician referral [] Code/Alert [x] Routine visit [] Staff referral [] Actively dying [x] Patient sleeping [] Family support [] [] Out of room [] Palliative care [] [] Receiving care in room [] Pre-surgical visit [] Trauma [] Long length of stay [x] ICU visit [] Other: Relational/Emotional Strength [] Patient feels connected with others/family/visitors/staff [] Distress [] Loneliness/isolation [] Abandonment Spirituality of Patient [] Person of Syeda [] Attends Lutheran of their Syeda [] Believes in Prayer [] Reads Bible or Alevism materials [] There are Spiritual issues to be addressed Pesticide Chemist Interventions [x] Prayer [] Active listening [] Non-anxious presence [] Spiritual/emotional support [] Crisis/trauma care [] Spiritual counseling [] Bereavement support [] Provided bereavement packet [] Provided Bible/devotional materials [] Provided toy/stuffed animal, coloring book to patient or family member [] Provided Communion [] Anointing/[place] [] Salvation [x] Completed spiritual assessment [] Other: Impact on Illness or Injury [] Angry [] Fearful [] Anxious [] Often cries [] Exhaustion [] Unable to work [] Unable to attend jewish [] Unable to walk/stand [] Unable to read [] Unable to drive [] Unable to eat/drink [] Unable to sleep [] Unable to be with family [] Patient intubated [] Other: Summary Time spent with patient
--- NOTE | 2021-08-09 12:44 | PM.PN ---
Subjective Subjective: Interval history: She feels better, no CP. SOB and cough has improved UO ~1.9 L, -250 ml; weight 139-->134 lb; No events on telemetry Medications: Reviewed: Yes Medication Review Details: Current Medications Acetaminophen (Acetaminophen 325 Mg Tablet) 650 mg PO Q6H PRN PRN Reason: Mild/Mod Pain Or Temp >/= 101 Albuterol Sulfate (Albuterol 8 Gm Mdi) 2 puff INHALATION Q4H.RESPIRATORY PRN PRN Reason: SHORTNESS OF BREATH Apixaban (Apixaban 5 Mg Tablet) 5 mg PO BID [facility] Last Admin: 08/04/21 08:23 Dose: 5 mg Documented by: Benzonatate (Benzonatate 100 Mg Capsule) 100 mg PO TID PRN PRN Reason: COUGH Last Admin: 08/03/21 20:32 Dose: 100 mg Documented by: Furosemide (Furosemide 40 Mg Tablet) 40 mg PO DAILY@0800 [facility] Last Admin: 08/04/21 08:24 Dose: 40 mg Documented by: Guaifenesin (Guaifenesin 600 Mg Tablet) 1,[facility] Last Admin: 08/04/21 05:56 Dose: 1,200 mg Documented by: Vancomycin HCl 1,000 mg/ (Sodium Chloride) 250 mls @ 250 mls/hr IV Q12H GAUTAM; Protocol Last Infusion: 08/04/21 10:28 Dose: Infused Documented by: Piperacillin Sod/Tazobactam (Sod 3.375 gm/ Sodium Chloride) 50 mls @ 12.5 mls/hr IV Q8H GAUTAM; Protocol Last Infusion: 08/04/21 10:28 Dose: Infused Documented by: Azithromycin 500 mg/ Sodium (Chloride) 250 mls @ 250 mls/hr IV Q24H GAUTAM; Protocol Last Admin: 08/04/21 12:02 Dose: 250 mls/hr Documented by: Losartan Potassium (Losartan 50 Mg Tablet) 12.5 mg PO DAILY [facility] Last Admin: 08/04/21 08:24 Dose: 12.5 mg Documented by: Metoprolol Succinate (Metoprolol Succinate Er (24 Hr) 50 Mg Tablet) 50 mg PO QAM [facility] Last Admin: 08/04/21 05:56 Dose: 50 mg Documented by: Ondansetron HCl (Ondansetron 2 Mg/Ml Sdv 2 Ml) 4 mg IVP Q8H PRN PRN Reason: vomiting, or N/V if npo Last Admin: 08/04/21 12:43 Dose: 4 mg Documented by: Pantoprazole Sodium (Pantoprazole Dr 40 Mg Tablet) 40 mg PO QAM [facility] Last Admin: 08/04/21 05:56 Dose: 40 mg Documented by: Promethazine HCl/Dextromethorphan (Promethazine-Dm 6.25-15 Mg/5 Ml Syrup) 5 ml PO Q6H PRN PRN Reason: cough Ropinirole HCl (Ropinirole 0.25 Mg Tablet) 0.5 mg PO BEDTIME [facility] Last Admin: 08/03/21 20:32 Dose: 0.5 mg Documented by: Spironolactone (Spironolactone 25 Mg Tablet) 25 mg PO QAM [facility] Last Admin: 08/04/21 05:56 Dose: 25 mg Documented by: Vitals/I&O/Wt Last Vital Signs Temp 98.0 F 08/09/21 12:00 Pulse 94 08/09/21 12:00 Resp 17 08/09/21 12:00 BP 115/77 08/09/21 12:00 Pulse Ox 98 08/09/21 12:00 08/08/21 08/09/21 08/09/21 22:59 06:59 14:59 Intake Total 1157.82 / 1207.82 392.626 / 1600.446 Output Total 1600 / 1600 250 / 1850 Balance -442.18 / -392.18 142.626 / -249.554 Weight last 48 hrs Weight 134 lb 8 oz Weight 139 lb 9 oz Physical Exam Narrative: EXAM NARRATIVE: GENERAL: Averagely built and averagely nourished in no acute distress HEENT: Pupils equal round reactive to light. No pallor or icterus. NECK: central trachea, No JVD. No carotid bruit. CARDIOVASCULAR SYSTEM: S1-S2 regular. grade 3/6 LLSB and apical systolic murmur+ RESPIRATORY SYSTEM: AEBE, No wheezes or rhonchi. basal rales+ No use of accessory muscles. ABDOMEN: Soft, nontender and nondistended. Normal bowel sounds present. EXTREMITIES: No cyanosis or clubbing. No edema. No signs of chronic venous insufficiency. FIREFIGHTER TYPE ONE: Patient is alert oriented ?3. No focal neurological deficits. SKIN: Normal turgor and temperature Urinary Catheter Management^: Mahoney: Cath Placed During This Visit: yes Reason for Continuing Indwelling Catheter: Accurate Measurement of Urinary Output in Critically Ill Patients Urinary Catheter Date of Insertion: 08/05/21 Urinary Catheter Time of Insertion: 13:10 Data : 08/09/21 04:40 08/09/21 04:40 Micro: Microbiology 08/07/21 10:29 Gram Stain - Final Sputum - Expectorated Sputum Sputum Culture - Preliminary 08/03/21 07:38 Blood Culture - Final Blood NO GROWTH AFTER 5 DAYS A&P Assessment and plan (1) CHF (congestive heart failure): HFrEF and RV dysfunction. -DCM/NICM 2/2 amphetamine abuse (used to smoke till May and IV use 6 years back). -Some records from [facility] were obtained and reviewed. #Coronary angiogram 09 July 2021: Right dominant system. Normal left main. Normal left anterior descending including branches. Nondominant circumflex. RCA is dominant with no significant disease. Mild to moderate mitral regurgitation. Ejection fraction 10 to 15% with LVEDP of 18. #Echocardiogram 23 June 2021 with LVEF of 10 to 15%; actual report not available. #MUGA scan 29 June 2021: With LVEF of 21%. - continue metoprolol -Added back low-dose ARB and MRA -Currently on dobutamine at 1.5. Plan to stop tomorrow afternoon -Currently on Lasix 40 mg IV twice daily. Additional Lasix 40 mg IV x1 this afternoon. Goal of -1 to 1.5 L/day Given her young age, LVAD and cardiac transplant, a consideration. However, she used to be a meth addict until about 2 months ago. She currently resides with her boyfriend of few months and his 3 kids. She lost her 4 kids to State. Attempted quitting once in past unsuccessfully. I found out today that she has broken up with her boyfriend. She will go back to [facility] with her dad. She has seen one local bulk driver as an outpatient once. Status: Acute (2) HCAP (healthcare-associated pneumonia): on broad spectrum abx, MRSA in nares. -Antibiotics being deescalated by primary team Status: Acute (3) Pulmonary embolism: Bilateral pulmonary embolism (after 16-week as fetus had Down syndrome) -on Eliquis Status: Acute (4) History of methamphetamine abuse: states she has not smoked for last several weeks. -No IVDA Status: Acute Additional A&P Information Hyponatremia RUDY-resolved Elevated liver enzymes: downtrending Severe TR Moderate MR Moderate PI Runs of PSVT H/O preclamsia last 2 pregnancies Hypokalemia Hypomagnesemia Thank you for allowing me to participate in patient's care. Please feel free to call with questions or concerns. Attestations Medical Necessity Statement*: Needs hospital stay for management of pneumonia and congestive heart failure Time Spent in Patient Care: Greater than 35 minutes (>than 50% of time spent in counselling and/or direct pt care on unit). Critical Care Time: The high probability of a clinically significant, sudden or life threatening deterioration of the patient's [cardiac] system(s) required my full and direct attention, intervention and personal management. The critical care time is as shown. This time is in addition to time spent performing any reported procedures but includes the following: [x] Data and vital sign review and interpretation [x] Patient assessment, examination and intervention [x] Documentation [x] Medication orders and management Coding Level of Care Code Acute Hearing Aid Repairer for [facility] Fwd Diagnoses CHF (congestive heart failure) I50.9 HCAP (healthcare-associated pneumonia) J18.9 Pulmonary embolism I26.99 History of methamphetamine abuse F15.11
[2021-08-09 14:08] LABS: Magnesium 1.9 mg/dL (1.7-2.3)
--- NOTE | 2021-08-09 15:14 | PM.PN ---
Subjective Subjective: Interval history: No acute events overnight. Dobutamine at 2 since yesterday evening. UOP in last 24 hrs 2500. C/o diarrhea. Denies any N/V, headache, CP, palpitations. CVP ranging from 9-14 today. Medications: Reviewed: Yes Vitals/I&O/Wt Last Vital Signs Temp 98.0 F 08/09/21 12:00 Pulse 94 08/09/21 12:00 Resp 17 08/09/21 12:00 BP 115/77 08/09/21 12:00 Pulse Ox 98 08/09/21 12:00 08/09/21 08/09/21 08/09/21 06:59 14:59 22:59 Intake Total 392.626 / 1600.446 Output Total 250 / 1850 Balance 142.626 / -249.554 Weight last 48 hrs Weight 61.008 kg Weight 63.304 kg Physical Exam Narrative: EXAM NARRATIVE: General: No acute distress, AO x3, HEENT: PERRLA, pupils bilaterally equal and reactive Chest: Normal vesicular breath sounds, bilateral fine crackles present in lower zones,l good air entry bilaterally CVS: S1-S2 regular, pansystolic at apex radiating to mid axillary line, pansystolic murmur at fourth intercostal space left retrosternal 3/6, no tachycardia, no gallops, no rubs Abdomen: Soft, nontender, no organomegaly, bowel sounds present Neuro: No focal deficits, no facial deformity, AO x3, power 5/5 in all limbs Urinary Catheter Management^: Mahoney: Cath Placed During This Visit: yes Reason for Continuing Indwelling Catheter: Accurate Measurement of Urinary Output in Critically Ill Patients Urinary Catheter Date of Insertion: 08/05/21 Urinary Catheter Time of Insertion: 13:10 Data : 08/09/21 04:40 08/09/21 04:40 Micro: Microbiology 08/07/21 10:29 Gram Stain - Final Sputum - Expectorated Sputum Sputum Culture - Preliminary Staphylococcus aureus A&P Assessment and plan (1) Cardiogenic shock: Status: Acute (2) Systolic heart failure: Status: Acute (3) HCAP (healthcare-associated pneumonia): Status: Acute (4) Pulmonary embolism: Repeat CT chest negative for PE Continue Eliquis 5 mg p.o. twice daily for recent history of P/E Status: Acute (5) History of methamphetamine abuse: Status: Acute Additional A&P Information Cardiogenic shock: Keep mean artery pressure over 65. Continue with dobutamine at 2. If needed can add Levophed with titration keeping mean arterial pressure over 65. Currently Levophed has been off since 08/06. If BP remains stable will wean dobutamine to 1.5 Systolic heart failure: Echocardiogram results shows severely decreased LV systolic function at 15%, severe global LV hypokinesis, abnormal diastolic function, moderately dilated RV and decreased RV systolic function, moderate biatrial enlargement, mild to moderate MR, PASP at 35, severe TR, moderate pulmonary valve regurgitation. NICM 2/2 amphetamine abuse (used to smoke till May and IV use 6 years back). Coronary angiogram 09 July 2021: Right dominant system. Normal left main. Normal left anterior descending including branches. Nondominant circumflex. RCA is dominant with no significant disease. Mild to moderate mitral regurgitation. Ejection fraction 10 to 15% with LVEDP of 18. Echocardiogram 23 June 2021 with LVEF of 10 to 15%; actual report not available. MUGA scan 29 June 2021: With LVEF of 21%. IV Lasix 40 mg twice daily. Will reassess fluid status in afternoon and can get additional Lasix. Target 1 L negative in next 24 hours. Strict input output charting. Fluid restriction up to 1100 cc. Daily weight. Keep potassium around 4, magnesium over 2. Will replete accordingly. Appreciate cardiology recommendations. Continue metoprolol succinate 25 mg twice daily. Uptitrate losartan and Aldactone as per hemodynamics. Pneumonia: Sputum Cx positive for staph aureus. Zosyn last dose 08/08. Vancomycin for 7days. Last day vancomycin 08/09. MRSA positive, urine Legionella, bacterial antigen negative. Procalcitonin negative. COVID-19 PCR negative. History of pulmonary embolism: Continue with Eliquis 5 mg twice daily. CTA results from admission appreciated. Oxygen supplementation giving saturation over 90%. Appreciate cardiology recommendations. Restless Legs :On Ropinirole 0.5 mg po at bedtime. Protonix for PUD prophylaxis. Eliquis will help with DVT prophylaxis. Cardiac diet. Fluid restriction up to 1100 cc. Attestations Medical Necessity Statement*: For cardiogenic shock, dobutamine dependant while meds are uptitrated Critical Care Time: The high probability of a clinically significant, sudden or life threatening deterioration of the patient's [cardiology] system(s) required my full and direct attention, intervention and personal management. The critical care time is as shown. This time is in addition to time spent performing any reported procedures but includes the following: [x] Data and vital sign review and interpretation [x] Patient assessment, examination and intervention [x] Documentation [x] Medication orders and management Critical Care Time (min): 90 Coding Level of Care Code Acute Cleaner Housekeeping for [facility] Fwd Diagnoses Cardiogenic shock R57.0 Systolic heart failure I50.20 HCAP (healthcare-associated pneumonia) J18.9 Pulmonary embolism I26.99 History of methamphetamine abuse F15.11
[2021-08-09 16:53] LABS: Adenovirus Not Detected (Not Detected); Human Metapneumovirus Not Detected (Not Detected); Human Parainflu Virus 1 Not Detected (Not Detected); Human Parainflu Virus 2 Not Detected (Not Detected); Human Parainflu Virus 3 Not Detected (Not Detected); Human Rsv A Not Detected (Not Detected); Influenza A Not Detected (Not Detected); Influenza B Not Detected (Not Detected); Rhinovirus/Enterovirus Not Detected (Not Detected)
[2021-08-09] MEDS: vancomycin 1,000 MG in sodium chloride 0.9% 250 ML 250 MG IV (17:08)
--- NOTE | 2021-08-09 18:26 | PC.NURSE ---
Shift Note Frequent safety and comfort rounds continue. Orders and/or nursing care completed as indicated. Patient monitored for response to intervention and treatment(s). Education provided includes to pt and her dad Luke. Patient and/or fulfillment representative verbalize understanding. Pt sat up in the chair for the most of the day. She ambulated several times in her room. Her intake was 800ml leaving her additional 300ml to finish her 1,100ml fluid restriction for the day of 08/09. Will continue to monitor.
[2021-08-09] MEDS: ropinirole 0.25 mg Tablet 0.5 MG PO (20:38)
[2021-08-09 21:12] LABS: Blood Urea Nitrogen 20 mg/dL (6-20); Calcium 8.6 mg/dL (8.5-10.5); Carbon Dioxide 27 mmol/L (22-29); Chloride 95 mmol/L (98-107); Glomerular Filtration Rate 34.6 mL/min (90-130); Glucose 103 mg/dL (65-115); Osmolality Calculated 279 mOsm/kg (285-295); Sodium 133 mmol/L (136-145)
[2021-08-09] MEDS: acetaminophen 325 mg Tablet 650 MG PO (23:58)
[2021-08-10] VITALS (59 sets, daily range): BP systolic 100–143; BP diastolic 66–101; PULSE 76–106; RESP 11–38; TEMP 36.4–37.2; O2SAT 86–100; BMI 22.7
[2021-08-10 03:30] LABS: Basophils # 0.1 10^3/uL (0.0-0.1); Basophils % 0.8 %; Eosinophils # 0.3 10^3/uL (0.0-0.8); Eosinophils % 3.5 %; Hematocrit 36.7 % (37.0-47.0); Hemoglobin 11.2 g/dL (11.5-15.3); Lymphocytes # 2.7 10^3/uL (0.8-4.8); Lymphocytes % 29.9 %; Mean Corpuscular HGB Conc 30.5 g/dL (30.0-36.0); Mean Corpuscular Hemoglobin 27.5 pg (28.0-34.0); Mean Corpuscular Volume 90.2 fl (81-99); Mean Platelet Volume 10.9 fL (7.4-10.4); Monocytes # 0.7 10^3/uL (0.2-0.9); Neutrophils # 5.22 10^3/uL (1.8-7.7); Neutrophils % 57.3 %; Nucleated Red Blood Cells % 0 %; Platelet Count 264 10^3/cmm (130-400); Red Blood Count 4.07 10^6/uL (4.1-5.3); Red Cell Distribution Width 18.8 % (12.1-15.1); White Blood Count 9.1 10^3/uL (4.0-10.0)
--- NOTE | 2021-08-10 03:50 | PC.NURSE ---
CVP Monitoring CVP pressure not reading accurately at 0350. Cockstops checked for placement and pigtail flushed. Measurement still reading high, arterial line lumen disconnected and central line flushed with normal saline. Once reconnected, CVP measurement reading accurately at 14.
--- NOTE | 2021-08-10 03:50 | PC.NURSE ---
Ambulation Patient ambulated to bathroom twice this shift. Patient tolerated activity well with vitals staying stable.
[2021-08-10 03:59] LABS: Alanine Aminotransferase 21 U/L (0-33); Alkaline Phosphatase 109 IU/L (35-105); Anion Gap 14.6 (5-19); Aspartate Amino Transferase 15 U/L (0-32); Blood Urea Nitrogen 23 mg/dL (6-20); Calcium 8.6 mg/dL (8.5-10.5); Carbon Dioxide 26 mmol/L (22-29); Chloride 95 mmol/L (98-107); Globulin 2.9 g/dL (1.3-4.6); Glomerular Filtration Rate 34.6 mL/min (90-130); Glucose 87 mg/dL (65-115); Osmolality Calculated 277 mOsm/kg (285-295); Potassium 3.6 mmol/L (3.5-5.1); Sodium 132 mmol/L (136-145); Total Protein 5.9 g/dL (6.6-8.7)
[2021-08-10] MEDS: pantoprazole DR 40 mg Tablet PO (05:58)
[2021-08-10] MEDS: guaiFENesin 600 mg Tablet 1200 MG PO (05:58)
[2021-08-10] MEDS: spironolactone 25 mg Tablet 12.5 MG PO (05:58)
--- NOTE | 2021-08-10 06:38 | PC.NURSE ---
Shift Note Frequent safety and comfort rounds continue. Orders and/or nursing care completed as indicated. Patient monitored for response to intervention and treatment(s). Education provided includes purpose of SCDs, maintenance of an arterial line, and information about her fluid restriction. Patient verbalized understanding. Will continue to monitor.
[2021-08-10] MEDS: benzonatate 100 mg Capsule PO ×3 (09:01→20:12)
[2021-08-10] MEDS: metoprolol succinate ER (24 HR) 25 mg Tablet PO ×2 (09:01→20:12)
[2021-08-10] MEDS: magnesium lactate 84 mg Tablet PO ×2 (09:01→17:27)
[2021-08-10] MEDS: apixaban 5 mg Tablet PO ×2 (09:01→17:27)
[2021-08-10] MEDS: potassium chloride ER 20 mEq Tablet PO ×2 (09:01→17:27)
[2021-08-10] MEDS: sertraline 50 mg Tablet 25 MG PO (09:02)
[2021-08-10] MEDS: losartan 50 mg Tablet 25 MG PO (09:02)
--- NOTE | 2021-08-10 09:13 | PM.PN ---
Subjective Subjective: Interval history: Patient is doing well. On dobutamine at a low dose. Diuresing Vitals/I&O/Wt Last Vital Signs Temp 97.5 F L 08/10/21 04:00 Pulse 78 08/10/21 08:00 Resp 21 H 08/10/21 08:00 BP 135/83 08/10/21 09:02 Pulse Ox 97 08/10/21 08:00 08/09/21 08/10/21 08/10/21 22:59 06:59 14:59 Intake Total 1043.808 / 1043.808 350 / 1393.808 Output Total 1500 / 1500 825 / 2325 Balance -456.192 / -456.192 -475 / -931.192 Weight last 48 hrs Weight 136 lb 9.6 oz Weight 134 lb 8 oz Physical Exam Narrative: EXAM NARRATIVE: GENERAL: Averagely built and averagely nourished in no acute distress HEENT: Pupils equal round reactive to light. No pallor or icterus. NECK: central trachea, No JVD. No carotid bruit. CARDIOVASCULAR SYSTEM: S1-S2 regular. grade 3/6 LLSB and apical systolic murmur+ RESPIRATORY SYSTEM: CTAB, No wheezes or rhonchi. basal rales+ No use of accessory muscles. ABDOMEN: Soft, nontender and nondistended. Normal bowel sounds present. EXTREMITIES: No cyanosis or clubbing. No edema. No signs of chronic venous insufficiency. APPLICATIONS DEVELOPMENT CONSULTANT: Patient is alert oriented ?3. No focal neurological deficits. SKIN: Normal turgor and temperature Urinary Catheter Management^: Mahoney: Cath Placed During This Visit: yes Reason for Continuing Indwelling Catheter: Accurate Measurement of Urinary Output in Critically Ill Patients Urinary Catheter Date of Insertion: 08/05/21 Urinary Catheter Time of Insertion: 13:10 Data : 08/11/21 05:05 08/11/21 05:05 Micro: Microbiology 08/09/21 15:27 Stool Lactoferrin - Final Stool C.difficile Toxin B Gene (PCR) - Final Occult Blood (FIT) - Final 08/07/21 10:29 Gram Stain - Final Sputum - Expectorated Sputum Sputum Culture - Preliminary Staphylococcus aureus A&P Assessment and plan (1) CHF (congestive heart failure): HFrEF and RV dysfunction. -DCM/NICM 2/2 amphetamine abuse (used to smoke till May and IV use 6 years back). #Coronary angiogram 09 July 2021: Right dominant system. Normal left main. Normal left anterior descending including branches. Nondominant circumflex. RCA is dominant with no significant disease. Mild to moderate mitral regurgitation. Ejection fraction 10 to 15% with LVEDP of 18. #Echocardiogram 23 June 2021 with LVEF of 10 to 15%; actual report not available. #MUGA scan 29 June 2021: With LVEF of 21%. Continue metoprolol, Lisinopril and losartan Continue low dose dobutamine. Can wean off today Strict I and Os. Monitor renal function. Continue Lasix Consideration for LVAD/ transplantation, however had recent drug abuse and social situation are not ideal. Status: Acute (2) HCAP (healthcare-associated pneumonia): on broad spectrum abx, MRSA in nares. -Management per primary team Status: Acute (3) Pulmonary embolism: Bilateral pulmonary embolism (after 16-week as fetus had Down syndrome) -on Eliquis Status: Acute (4) History of methamphetamine abuse: states she has not smoked for last several weeks. -No IVDA Status: Acute Additional A&P Information Hyponatremia RUDY Elevated liver enzymes: downtrending Severe TR Moderate MR Moderate PI Runs of PSVT H/O preclamsia last 2 pregnancies Hypokalemia Hypomagnesemia Thank you for involving us with care of this patient. We will continue to follow. Please call with question. Attestations Medical Necessity Statement*: Care expected to cross 2 midnights. Coding Level of Care Code Acute It Disaster Recovery Manager for [facility] Diagnoses CHF (congestive heart failure) I50.9 HCAP (healthcare-associated pneumonia) J18.9 Pulmonary embolism I26.99 History of methamphetamine abuse F15.11
--- NOTE | 2021-08-10 12:31 | PC.NURSE ---
Visitors, Father, at bedside.
--- NOTE | 2021-08-10 13:08 | PM.PN ---
Subjective Subjective: Interval history: No acute events overnight. Patient has remained hemodynamically stable. Has been on dobutamine 1.5 since yesterday afternoon. On examination today CVP ranging from 9-12. Sitting up in chair. Afebrile last 24 hours. Having occasional episodes of diarrhea. Documented urine output 2300 and last 24 hours. Weight stable at 61 kg's. Vitals/I&O/Wt Last Vital Signs Temp 97.5 F L 08/10/21 04:00 Pulse 106 H 08/10/21 12:00 Resp 27 H 08/10/21 12:00 BP 143/93 08/10/21 12:00 Pulse Ox 98 08/10/21 12:00 08/09/21 08/10/21 08/10/21 22:59 06:59 14:59 Intake Total 1043.808 / 1043.808 350 / 1393.808 58.312 / 58.312 Output Total 1500 / 1500 825 / 2325 Balance -456.192 / -456.192 -475 / -931.192 58.312 / 58.312 Weight last 48 hrs Weight 61.961 kg Weight 61.008 kg Physical Exam Narrative: EXAM NARRATIVE: General: No acute distress, AO x3, HEENT: PERRLA, pupils bilaterally equal and reactive Chest: Normal vesicular breath sounds, bilateral fine crackles present in lower zones,l good air entry bilaterally CVS: S1-S2 regular, pansystolic at apex radiating to mid axillary line, pansystolic murmur at fourth intercostal space left retrosternal 3/6, no tachycardia, no gallops, no rubs Abdomen: Soft, nontender, no organomegaly, bowel sounds present Neuro: No focal deficits, no facial deformity, AO x3, power 5/5 in all limbs Urinary Catheter Management^: Mahoney: Cath Placed During This Visit: yes Reason for Continuing Indwelling Catheter: Accurate Measurement of Urinary Output in Critically Ill Patients Urinary Catheter Date of Insertion: 08/05/21 Urinary Catheter Time of Insertion: 13:10 Data : 08/10/21 03:15 08/10/21 03:15 Micro: Microbiology 08/09/21 15:27 Stool Lactoferrin - Final Stool Enteric Pathogens (PCR) - Final Parasite Antigen Panel - Final C.difficile Toxin B Gene (PCR) - Final Occult Blood (FIT) - Final 08/07/21 10:29 Gram Stain - Final Sputum - Expectorated Sputum Sputum Culture - Final Methicillin Resis Staph Aureus A&P Assessment and plan (1) Cardiogenic shock: Status: Acute (2) Systolic heart failure: Status: Acute (3) RUDY (acute kidney injury): Status: Acute (4) MRSA (methicillin resistant staph aureus) culture positive: Status: Acute (5) History of methamphetamine abuse: Status: Acute (6) Pulmonary embolism: Repeat CT chest negative for PE Continue Eliquis 5 mg p.o. twice daily for recent history of P/E Status: Acute (7) HCAP (healthcare-associated pneumonia): Status: Acute Additional A&P Information Cardiogenic shock: Keep mean artery pressure over 65. Continue to monitor CVP. Continue to hold off on dobutamine. Systolic heart failure: Echocardiogram results shows severely decreased LV systolic function at 15%, severe global LV hypokinesis, abnormal diastolic function, moderately dilated RV and decreased RV systolic function, moderate biatrial enlargement, mild to moderate MR, PASP at 35, severe TR, moderate pulmonary valve regurgitation. NICM 2/2 amphetamine abuse (used to smoke till May and IV use 6 years back). Coronary angiogram 09 July 2021: Right dominant system. Normal left main. Normal left anterior descending including branches. Nondominant circumflex. RCA is dominant with no significant disease. Mild to moderate mitral regurgitation. Ejection fraction 10 to 15% with LVEDP of 18. Echocardiogram 23 June 2021 with LVEF of 10 to 15%; actual report not available. MUGA scan 29 June 2021: With LVEF of 21%. Lasix on hold today given acute kidney injury. Strict input output charting. Fluid restriction relaxed up to 1500 cc. Daily weight. Keep potassium around 4, magnesium over 2. Will replete accordingly. Appreciate cardiology recommendations. Continue metoprolol succinate 25 mg twice daily. Uptitrate losartan and Aldactone as per hemodynamics. Acute kidney injury: Creatinine 1.7. Hold off on diuresis for now. Continue with losartan and spironolactone for now. We will continue to monitor. Pneumonia: Sputum culture positive for MRSA. Has finished course of 7-day antibiotics with vancomycin and Zosyn. MRSA positive, urine Legionella, bacterial antigen negative. Procalcitonin negative. COVID-19 PCR negative. History of pulmonary embolism: Continue with Eliquis 5 mg twice daily. CTA results from admission appreciated. Oxygen supplementation giving saturation over 90%. Appreciate cardiology recommendations. Restless Legs :On Ropinirole 0.5 mg po at bedtime. Protonix for PUD prophylaxis. Eliquis will help with DVT prophylaxis. Cardiac diet. Fluid restriction up to 1500 cc. Attestations Medical Necessity Statement*: Requires further hospitalization for management of cardiogenic shock severe systolic heart failure with a EF of 10% while dobutamine is weaned off, acute kidney injury Critical Care Time: The high probability of a clinically significant, sudden or life threatening deterioration of the patient's [cardiac, renal] system(s) required my full and direct attention, intervention and personal management. The critical care time is as shown. This time is in addition to time spent performing any reported procedures but includes the following: [x] Data and vital sign review and interpretation [x] Patient assessment, examination and intervention [x] Documentation [x] Medication orders and management Critical Care Time (min): 70 Coding Level of Care Code Acute Community Relations Specialist for [facility] Diagnoses Cardiogenic shock R57.0 Systolic heart failure I50.20 RUDY (acute kidney injury) N17.9 MRSA (methicillin resistant staph aureus) culture positive Z22.322 History of methamphetamine abuse F15.11 Pulmonary embolism I26.99 HCAP (healthcare-associated pneumonia) J18.9
[2021-08-10 16:20] LABS: Anion Gap 16.5 (5-19); Blood Urea Nitrogen 22 mg/dL (6-20); Calcium 8.7 mg/dL (8.5-10.5); Carbon Dioxide 25 mmol/L (22-29); Chloride 97 mmol/L (98-107); Glomerular Filtration Rate 37.1 mL/min (90-130); Glucose 111 mg/dL (65-115); Osmolality Calculated 282 mOsm/kg (285-295); Potassium 4.5 mmol/L (3.5-5.1); Sodium 134 mmol/L (136-145)
[2021-08-10] MEDS: loperamide 2 mg Capsule PO (18:04)
[2021-08-10] MEDS: ondansetron 2 mg/ML SDV 2 mL 4 MG IVP (18:22)
[2021-08-10] MEDS: ropinirole 0.25 mg Tablet 0.5 MG PO (20:12)
[2021-08-11] VITALS (45 sets, daily range): BP systolic 94–126; BP diastolic 65–95; PULSE 85–100; RESP 6–40; TEMP 36.6–37.1; O2SAT 82–100; BMI 22.8
[2021-08-11 05:14] LABS: Basophils # 0.1 10^3/uL (0.0-0.1); Basophils % 1.1 %; Eosinophils # 0.3 10^3/uL (0.0-0.8); Hematocrit 40.2 % (37.0-47.0); Hemoglobin 12.1 g/dL (11.5-15.3); Lymphocytes # 3.6 10^3/uL (0.8-4.8); Lymphocytes % 32.8 %; Mean Corpuscular HGB Conc 30.1 g/dL (30.0-36.0); Mean Corpuscular Hemoglobin 27.3 pg (28.0-34.0); Mean Corpuscular Volume 90.5 fl (81-99); Mean Platelet Volume 10.9 fL (7.4-10.4); Monocytes # 0.9 10^3/uL (0.2-0.9); Neutrophils # 5.88 10^3/uL (1.8-7.7); Neutrophils % 54.4 %; Nucleated Red Blood Cells % 0.2 %; Platelet Count 299 10^3/cmm (130-400); Red Blood Count 4.44 10^6/uL (4.1-5.3); Red Cell Distribution Width 18.9 % (12.1-15.1); White Blood Count 10.8 10^3/uL (4.0-10.0)
[2021-08-11] MEDS: guaiFENesin 600 mg Tablet 1200 MG PO (05:17)
[2021-08-11] MEDS: spironolactone 25 mg Tablet 12.5 MG PO (05:18)
[2021-08-11] MEDS: pantoprazole DR 40 mg Tablet PO (05:18)
[2021-08-11 05:41] LABS: Alanine Aminotransferase 21 U/L (0-33); Albumin Level 3.2 g/dL (3.5-5.2); Alkaline Phosphatase 112 IU/L (35-105); Anion Gap 17.6 (5-19); Aspartate Amino Transferase 15 U/L (0-32); Blood Urea Nitrogen 29 mg/dL (6-20); Calcium 8.8 mg/dL (8.5-10.5); Carbon Dioxide 23 mmol/L (22-29); Chloride 95 mmol/L (98-107); Globulin 2.9 g/dL (1.3-4.6); Glomerular Filtration Rate 34.6 mL/min (90-130); Glucose 98 mg/dL (65-115); Osmolality Calculated 278 mOsm/kg (285-295); Potassium 4.6 mmol/L (3.5-5.1); Sodium 131 mmol/L (136-145); Total Bilirubin 0.9 mg/dL (0.15-1.2); Total Protein 6.1 g/dL (6.6-8.7)
--- NOTE | 2021-08-11 06:00 | XRR_ITS ---
PROCEDURE INFORMATION: Exam: XR Chest Exam date and time: 08/11/2021 6:00 AM Age: 31 years old Clinical indication: Cough and shortness of breath; Patient HX: F/u covid pneumonia. History of chf. TECHNIQUE: Imaging protocol: XR of the chest. Views: 1 view. COMPARISON: CR XR chest 1V portable [id number] 08/09/2021 5:25 AM FINDINGS: Tubes, catheters and devices: Right internal jugular central venous line, tip overlying the lower superior vena cava. Lungs: The right lung is clear. Mild retrocardiac airspace opacity (atelectasis and/or pneumonia), similar to prior study. Pulmonary vasculature within normal limits. Pleural spaces: No visible pneumothorax or pleural effusion. Heart/Mediastinum: Mild enlargement of the cardiac silhouette, similar to prior study. Bones/joints: No emergent findings identified. XR/XR chest 1V portable [id number] IMPRESSION: 1. Mild retrocardiac airspace opacity (atelectasis and/or pneumonia), similar to prior study. Radiation Dose CTDIVOL = (mGy): DLP = (mGy-cm)
--- NOTE | 2021-08-11 08:14 | PC.NURSE ---
Pt requesting to be left alone to sleep more this am. Stock Preparation Operator will check on her again in 30 min
[2021-08-11] MEDS: metoprolol succinate ER (24 HR) 25 mg Tablet PO ×2 (09:26→20:09)
[2021-08-11] MEDS: sertraline 50 mg Tablet 25 MG PO (09:27)
[2021-08-11] MEDS: losartan 50 mg Tablet 25 MG PO (09:27)
[2021-08-11] MEDS: magnesium lactate 84 mg Tablet PO ×2 (09:28→17:28)
[2021-08-11] MEDS: benzonatate 100 mg Capsule PO ×3 (09:28→20:08)
[2021-08-11] MEDS: apixaban 5 mg Tablet PO ×2 (09:28→17:28)
--- NOTE | 2021-08-11 09:30 | PC.NURSE ---
Potassium held this am. lab is 4.5 and Lasix is no longer on the MAR. Will double check with Dr. Santos this am before administering.
--- NOTE | 2021-08-11 10:44 | PM.PN ---
Subjective Subjective: Interval history: The patient is feeling better. She is off the Dobutrex. Denies any chest pain or chest tightness. No palpitation, dizziness. No significant arrhythmias on the monitor. Remains afebrile. Medications: Reviewed: Yes Medication Review Details: Current Medications Acetaminophen (Acetaminophen 325 Mg Tablet) 650 mg PO Q6H PRN PRN Reason: Mild/Mod Pain Or Temp >/= 101 Last Admin: 08/09/21 23:58 Dose: 650 mg Documented by: Albuterol Sulfate (Albuterol 8 Gm Mdi) 2 puff INHALATION Q4H.RESPIRATORY PRN PRN Reason: SHORTNESS OF BREATH Alprazolam (Alprazolam 0.5 Mg Tablet) 0.5 mg PO TID PRN PRN Reason: ANXIETY Apixaban (Apixaban 5 Mg Tablet) 5 mg PO BID [facility] Last Admin: 08/11/21 09:28 Dose: 5 mg Documented by: Benzonatate (Benzonatate 100 Mg Capsule) 100 mg PO TID [facility] Last Admin: 08/11/21 09:28 Dose: 100 mg Documented by: Furosemide (Furosemide 10 Mg/Ml Sdv 4ml) 40 mg IVP Q12H [facility] Last Admin: 08/09/21 17:09 Dose: 40 mg Documented by: Guaifenesin (Guaifenesin 600 Mg Tablet) 1,200 mg PO QAM [facility] Last Admin: 08/11/21 05:17 Dose: 1,200 mg Documented by: Dobutamine HCl/Dextrose (Dobutamine Drip) 500 mg in 250 mls @ 0 mls/hr IV .Q0M [facility]; Protocol Last Titration: 08/10/21 12:53 Dose: 0 mcg/kg/min, 0 mls/hr Documented by: Sodium Chloride (Sodium Chloride 0.9%) 500 mls @ 0 mls/hr IV .Q0M [facility] Loperamide HCl (Loperamide 2 Mg Capsule) 2 mg PO QID PRN PRN Reason: DIARRHEA Last Admin: 08/10/21 18:04 Dose: 2 mg Documented by: Losartan Potassium (Losartan 50 Mg Tablet) 25 mg PO DAILY [facility] Last Admin: 08/11/21 09:27 Dose: 25 mg Documented by: Magnesium Lactate (Magnesium Lactate 84 Mg Tablet) 84 mg PO BID [facility] Last Admin: 08/11/21 09:28 Dose: 84 mg Documented by: Metoprolol Succinate (Metoprolol Succinate Er (24 Hr) 25 Mg Tablet) 25 mg PO 0900,2100 [facility] Last Admin: 08/11/21 09:26 Dose: 25 mg Documented by: Ondansetron HCl (Ondansetron 2 Mg/Ml Sdv 2 Ml) 4 mg IVP Q8H PRN PRN Reason: vomiting, or N/V if npo Last Admin: 08/10/21 18:22 Dose: 4 mg Documented by: Pantoprazole Sodium (Pantoprazole Dr 40 Mg Tablet) 40 mg PO QAM [facility] Last Admin: 08/11/21 05:18 Dose: 40 mg Documented by: Potassium Chloride (Potassium Chloride Er 20 Meq Tablet) 20 meq PO BID [facility] Last Admin: 08/11/21 09:28 Dose: Not Given Documented by: Promethazine HCl/Dextromethorphan (Promethazine-Dm 6.25-15 Mg/5 Ml Syrup 118ml Btl) 5 ml PO Q6H [facility] Last Admin: 08/11/21 05:17 Dose: 5 ml Documented by: Ropinirole HCl (Ropinirole 0.25 Mg Tablet) 0.5 mg PO BEDTIME [facility] Last Admin: 08/10/21 20:12 Dose: 0.5 mg Documented by: Sertraline HCl (Sertraline 50 Mg Tablet) 25 mg PO DAILY [facility] Last Admin: 08/11/21 09:27 Dose: 25 mg Documented by: Spironolactone (Spironolactone 25 Mg Tablet) 12.5 mg PO QAM [facility] Last Admin: 08/11/21 05:18 Dose: 12.5 mg Documented by: Vitals/I&O/Wt Last Vital Signs Temp 98.8 F 08/11/21 05:35 Pulse 85 08/11/21 10:00 Resp 16 08/11/21 10:00 BP 108/75 08/11/21 10:00 Pulse Ox 98 08/11/21 10:00 08/10/21 08/11/21 08/11/21 22:59 06:59 14:59 Intake Total 340 / 758.312 266 / 1024.312 Output Total 625 / 625 250 / 875 Balance -285 / 133.312 16 / 149.312 Weight last 48 hrs Weight 137 lb Weight 136 lb 9.6 oz Physical Exam Narrative: EXAM NARRATIVE: GENERAL: The patient is alert and oriented times three. Not in any acute distress. HEENT: No significant pallor, icterus or lymphadenopathy.Oral cavity: There are no mucous membrane lesions. NECK: Trachea appears to be central. No masses noted. No JVD or thyromegaly appreciated. RESPIRATORY: Chest is symmetrical. No intercostals muscle retraction or any accessory muscle activation. There is no chest wall tenderness. Breath sounds are heard bilaterally. No rales or rhonchi heard. No evidence of any consolidation. BREASTS: Deferred. HEART: The heart sounds are normal. No S3 or S4. No significant murmurs. No pericardial rub ABDOMEN: No vessel pulsations or distention. No tenderness. No organomegaly appreciated. Bowel sounds are normally heard. : Deferred. RECTAL: Deferred. LYMPHATIC: No lymphadenopathy noted in the neck or groin. EXTREMITIES: No edema or cyanosis. No clubbing. Peripheral pulses are palpated in fairly good volume and amplitude MUSCULOSKELETAL: No acute joint deformities or swelling SKIN: Extensive tired tattoo lance in the upper extremities and also in the trunk NEUROPSYCHIATRIC: The patient is alert and oriented x3. Appears to be in a good mood. No tremors or rigidity noted. Urinary Catheter Management^: Mahoney: Cath Placed During This Visit: yes Reason for Continuing Indwelling Catheter: Accurate Measurement of Urinary Output in Critically Ill Patients Urinary Catheter Date of Insertion: 08/05/21 Urinary Catheter Time of Insertion: 13:10 Data : 08/11/21 05:05 08/12/21 07:40 Micro: Microbiology 08/09/21 15:27 Stool Lactoferrin - Final Stool Enteric Pathogens (PCR) - Final Parasite Antigen Panel - Final C.difficile Toxin B Gene (PCR) - Final Occult Blood (FIT) - Final 08/07/21 10:29 Gram Stain - Final Sputum - Expectorated Sputum Sputum Culture - Final Methicillin Resis Staph Aureus Echo: My impression: Echocardiogram on 08/03/2021 1. Markedly dilated left ventricle cavity. Severely decreased left ventricular systolic function. Left ventricular ejection fraction is estimated at 15 %. Severe global hypokinesis. Abnormal diastolic function. Abnormal septal motion consistent with conduction abnormality. 2. Moderately dilated right ventricle with moderately decreased right ventricle systolic function. 3. Moderate biatrial enlargement. 4. Mild-moderate mitral valve regurgitation. 5. Pulmonary artery pressure estimated at 35 mm Hg. 6. Severe tricuspid valve regurgitation. 7. Moderate pulmonary valve regurgitation. 8. No prior similar studies to compare. A&P Assessment and plan (1) CHF (congestive heart failure): Heart failure is getting compensated. Continue optimizing the afterload reducing agents. Status: Acute Qualifiers: Heart failure type: systolic Heart failure chronicity: chronic Qualified Code(s): I50.22 - Chronic systolic (congestive) heart failure (2) Pulmonary embolism: Patient is on no long-term oral anticoagulation. This may be continued. Status: Acute Qualifiers: Pulmonary embolism type: other Chronicity: unspecified Acute cor pulmonale presence: unspecified Qualified Code(s): I26.99 - Other pulmonary embolism without acute cor pulmonale (3) MRSA (methicillin resistant staph aureus) culture positive: Continue on the current medications/antibiotics as per the primary. Status: Acute (4) RUDY (acute kidney injury): Her kidney function seems to be improving. Status: Acute (5) Nonischemic congestive cardiomyopathy: Status: Acute (6) History of methamphetamine abuse: Patient is trying to quit the drug abuse. Status: Acute Additional A&P Information The patient is in the process of being transferred to the telemetry floor. May continue on the current medications. Encourage ambulation on telemetry. Based on the clinical progress, further recommendations will be made Attestations Medical Necessity Statement*: Patient requires continued hospital stay for close monitoring and further management Coding Level of Care Code Acute Nutrition Instructor for g Fwd Diagnoses CHF (congestive heart failure) I50.22 Heart failure type: systolic Heart failure chronicity: chronic Pulmonary embolism I26.99 Pulmonary embolism type: other Chronicity: unspecified Acute cor pulmonale presence: unspecified MRSA (methicillin resistant staph aureus) culture positive Z22.322 RUDY (acute kidney injury) N17.9 Nonischemic congestive cardiomyopathy I42.0 History of methamphetamine abuse F15.11
--- NOTE | 2021-08-11 12:44 | P.PN_ITS ---
Subjective Subjective: Interval history: No acute events overnight. Patient has remained hemodynamically stable off dobutamine drip since yesterday afternoon. Mean arterial pressures have remained more than 70. On examination laying comfortably flat in bed without any having difficulty in breathing. Cough has improved. Did get out of bed 5-6 times yesterday. No more diarrhea. Vitals/I&O/Wt Last Vital Signs Temp 97.9 F 08/11/21 12:00 Pulse 90 08/11/21 12:30 Resp 30 H 08/11/21 12:30 BP 106/70 08/11/21 12:30 Pulse Ox 98 08/11/21 12:30 08/10/21 08/11/21 08/11/21 22:59 06:59 14:59 Intake Total 340 / 758.312 266 / 1024.312 Output Total 625 / 625 250 / 875 Balance -285 / 133.312 16 / 149.312 Weight last 48 hrs Weight 62.142 kg Weight 61.961 kg Physical Exam Narrative: EXAM NARRATIVE: General: No acute distress, AO x3, HEENT: PERRLA, pupils bilaterally equal and reactive Chest: Normal vesicular breath sounds, bilateral fine crackles present in lower zones,l good air entry bilaterally CVS: S1-S2 regular, pansystolic at apex radiating to mid axillary line, pansystolic murmur at fourth intercostal space left retrosternal 3/6, no tachycardia, no gallops, no rubs Abdomen: Soft, nontender, no organomegaly, bowel sounds present Neuro: No focal deficits, no facial deformity, AO x3, power 5/5 in all limbs Urinary Catheter Management^: Mahoney: Cath Placed During This Visit: yes Reason for Continuing Indwelling Catheter: Accurate Measurement of Urinary Output in Critically Ill Patients Urinary Catheter Date of Insertion: 08/05/21 Urinary Catheter Time of Insertion: 13:10 Data : 08/11/21 05:05 08/11/21 05:05 Micro: Microbiology 08/09/21 15:27 Stool Lactoferrin - Final Stool Enteric Pathogens (PCR) - Final Parasite Antigen Panel - Final C.difficile Toxin B Gene (PCR) - Final Occult Blood (FIT) - Final 08/07/21 10:29 Gram Stain - Final Sputum - Expectorated Sputum Sputum Culture - Final Methicillin Resis Staph Aureus A&P Assessment and plan (1) Cardiogenic shock: Status: Acute (2) Systolic heart failure: Status: Acute (3) RUDY (acute kidney injury): Status: Acute (4) MRSA (methicillin resistant staph aureus) culture positive: Status: Acute (5) History of methamphetamine abuse: Status: Acute (6) Pulmonary embolism: Repeat CT chest negative for PE Continue Eliquis 5 mg p.o. twice daily for recent history of P/E Status: Acute (7) HCAP (healthcare-associated pneumonia): Status: Acute Additional A&P Information Cardiogenic shock: Keep mean artery pressure over 65. Continue to monitor CVP. Off dobutamine for 24 hours. Systolic heart failure: Echocardiogram results shows severely decreased LV systolic function at 15%, sev ere global LV hypokinesis, abnormal diastolic function, moderately dilated RV and decreased RV systolic function, moderate biatrial enlargement, mild to moderate MR, PASP at 35, severe TR, moderate pulmonary valve regurgitation. NICM 2/2 amphetamine abuse (used to smoke till May and IV use 6 years back). Coronary angiogram 09 July 2021: Right dominant system. Normal left main. Normal left anterior descending including branches. Nondominant circumflex. RCA is dominant with no significant disease. Mild to moderate mitral regurgitation. Ejection fraction 10 to 15% with LVEDP of 18. Echocardiogram 23 June 2021 with LVEF of 10 to 15%; actual report not available. MUGA scan 29 June 2021: With LVEF of 21%. Lasix on hold today given acute kidney injury. Start on oral Lasix 20 mg daily. Strict input output charting. Fluid restriction relaxed up to 1500 cc. Daily weight. Keep potassium around 4, magnesium over 2. Will replete accordingly. Appreciate cardiology recommendations. Continue metoprolol succinate 25 mg twice daily, losartan 25 mg daily, spironolactone 12.5 mg daily. Uptitrate losartan and Aldactone as per hemodynamics. Acute kidney injury: Creatinine 1.7, BUN within normal limits. Most likely this is dry body weight kidney function given systolic heart failure. Start on gentle diuresis with Lasix 20 mg oral daily. Continue with losartan and spironolactone for now. We will continue to monitor. Pneumonia: Sputum culture positive for MRSA. Has finished course of 7-day antibiotics with vancomycin and Zosyn. MRSA positive, urine Legionella, bacterial antigen negative. Procalcitonin negative. COVID-19 PCR negative. History of pulmonary embolism: Continue with Eliquis 5 mg twice daily. CTA results from admission appreciated. Oxygen supplementation giving saturation over 90%. Appreciate cardiology recommendations. Restless Legs :On Ropinirole 0.5 mg po at bedtime. Protonix for PUD prophylaxis. Eliquis will help with DVT prophylaxis. Cardiac diet. Fluid restriction up to 1500 cc. Transfer to CSU. Plan for today: Transfer to [facility]. Ambulate. Lasix 20 mg oral. Monitor hemodynamics. Discharge planning: If continues to remain hemodynamically stable in next 24 hours we will plan to discharge tomorrow with close cardiology follow-up. Attestations Medical Necessity Statement*: Requires further hospitalization for management of resolving cardiogenic shock in setting of severe LV dysfunction while heart failure medications are uptitrated Time Spent in Patient Care: Greater than 35 minutes (>than 50% of time spent in counselling and/or direct pt care on unit) . Coding Level of Care Code Acute Multi Operation Machine Operator for [facility] Fwd Diagnoses Cardiogenic shock R57.0 Systolic heart failure I50.20 RUDY (acute kidney injury) N17.9 MRSA (methicillin resistant staph aureus) culture positive Z22.322 History of methamphetamine abuse F15.11 Pulmonary embolism I26.99 HCAP (healthcare-associated pneumonia) J18.9
[2021-08-11] MEDS: FUROsemide 20 mg Tablet PO (14:44)
--- NOTE | 2021-08-11 15:04 | PC.NURSE ---
received into room 105 at 1410..from icu.report received.pt is alert and oriented x 4.denies pain at present.sr on monitor.bp 99/68.hr 86.o2 sat 100% on room air.oriented to room environment.instructed to notify staff for any cp,sob,or for any concerns at all.pt verb understanding of instructions.
[2021-08-11] MEDS: potassium chloride ER 20 mEq Tablet PO (17:28)
[2021-08-11] MEDS: ropinirole 0.25 mg Tablet 0.5 MG PO (20:08)
[2021-08-12] VITALS (55 sets, daily range): BP systolic 90–139; BP diastolic 60–108; PULSE 80–97; RESP 7–38; TEMP 36.8; O2SAT 96–100
[2021-08-12 04:47] LABS: Alanine Aminotransferase 19 U/L (0-33); Alkaline Phosphatase 127 IU/L (35-105); Anion Gap 19.6 (5-19); Aspartate Amino Transferase 20 U/L (0-32); Blood Urea Nitrogen 34 mg/dL (6-20); Calcium 8.6 mg/dL (8.5-10.5); Carbon Dioxide 24 mmol/L (22-29); Chloride 98 mmol/L (98-107); Globulin 3.1 g/dL (1.3-4.6); Glomerular Filtration Rate 34.6 mL/min (90-130); Glucose 97 mg/dL (65-115); Osmolality Calculated 290 mOsm/kg (285-295); Potassium 5.6 mmol/L (3.5-5.1); Sodium 136 mmol/L (136-145); Total Bilirubin 0.8 mg/dL (0.15-1.2); Total Protein 6.1 g/dL (6.6-8.7)
[2021-08-12] MEDS: spironolactone 25 mg Tablet 12.5 MG PO (05:13)
[2021-08-12] MEDS: guaiFENesin 600 mg Tablet 1200 MG PO (05:13)
[2021-08-12] MEDS: pantoprazole DR 40 mg Tablet PO (05:14)
--- NOTE | 2021-08-12 05:51 | NUR.SHIFT ---
Shift Note Frequent safety and comfort rounds continue. Orders and/or nursing care completed as indicated. Patient monitored for response to intervention and treatment(s). Education provided includes[telemetry monitoring and use of promethazine.]. Patient and/or agricultural sales representative verbalized understanding. Will continue to monitor.
[2021-08-12 08:27] LABS: Potassium 5.4 mmol/L (3.5-5.1)
[2021-08-12] MEDS: magnesium lactate 84 mg Tablet PO ×2 (08:59→17:45)
[2021-08-12] MEDS: benzonatate 100 mg Capsule PO ×3 (08:59→21:18)
[2021-08-12] MEDS: sertraline 50 mg Tablet 25 MG PO (09:00)
[2021-08-12] MEDS: metoprolol succinate ER (24 HR) 25 mg Tablet PO ×2 (09:00→21:18)
[2021-08-12] MEDS: losartan 50 mg Tablet 25 MG PO (09:00)
[2021-08-12] MEDS: apixaban 5 mg Tablet PO ×2 (09:00→17:45)
[2021-08-12] MEDS: FUROsemide 20 mg Tablet 40 MG PO (09:01)
--- NOTE | 2021-08-12 10:27 | P.DS_ITS ---
Discharge Providers Date of Admission: 08/03/21 07:21 Date of Discharge: August 12, 2021 Attending Provider at Admission: Chani Landry Attending Provider at Discharge: Seferino Baker MD Consults: Cardiology: Dr. Foy Primary Care Provider: Jackie Ji MD Diagnoses at Discharge Discharge Diagnosis (1) Cardiogenic shock: Status: Acute (2) Systolic heart failure: Status: Acute (3) RUDY (acute kidney injury): Status: Acute (4) MRSA (methicillin resistant staph aureus) culture positive: Status: Acute (5) History of methamphetamine abuse: Status: Acute (6) Pulmonary embolism: Status: Acute (7) HCAP (healthcare-associated pneumonia): Status: Acute Reason for Visit Reason for Visit: Sob, vomiting Hospital Course Hospital Course Alex Workman is a 31 year old female with recently diagnosed NICM (LVEF=10%), history of amphetamine abuse. Patient had a complicated recent history as below. She had an in May at 16 week (unsure of the reason). Few weeks later she had PE for which she was started on Eliquis. She had echocardiogram and was found to have severely decreased LV function with LVEF=10%. She underwent LHC that showed normal coronaries. She was discharged GDMT directed meds for CHF and life vest. This was all obtained through patient. I do not yet have records available. She was admitted soon thereafter for pneumonia and was in hospital for nearly 10 days. She has been home few weeks now. She continued to have coughing spell, post-tussive emesis. No orthopnea, PND, lower extremity swelling or sick contacts. On arrival to ER, labs showed WBC of 10.4, hemoglobin of 11.8,platelet count of 291. Sodium 132, potassium 3.6, chloride 97, bicarb 16, BUN 13 and creatinine of 0.7. Lactic acid of 3.3. AST of 37, ALT of 48 and alkaline phosphatase of 130. ProBNP of 6396. Arterial blood gases showed a pH of 7446, pCO2 26.6, PO2 of 90.7 and a bicarb of 19.0. Influenza a/B and COVID-19 negative. Chest x-ray concerning for multifocal pneumonia. CTA of chest showed findings concerning for multifocal pneumonia in addition to mildly prominent reactive mediastinal and bilateral hilar lymphadenopathy. Patient was admitted to the ICU for further management of cardiogenic shock, congestive heart failure in setting of severe LV dysfunction, possible pneumonia. She was started on broad-spectrum antibiotics with vancomycin and Zosyn. Blood cultures remain negative. Sputum culture came back positive for MRSA. She finished 7-day course of IV antibiotics. For congestive heart failure on review of recent work-up from recent hospitalization at [place] which showed NICM 2/2 amphetamine abuse (used to smoke till May and IV use 6 years back). Coronary angiogram 09 July 2021: Right dominant system. Normal left main. Normal left anterior descending including branches. Nondominant circumflex. RCA is dominant with no significant disease. Mild to moderate mitral regurgitation. Ejection fraction 10 to 15% with LVEDP of 18. MUGA scan 29 June 2021: With LVEF of 21%. During this hospitalization patient was started on dobutamine and Levophed while she was started on IV diuresis and her CHF directed goal medical therapy was uptitrated very gradually. She was on Levophed for around half a day. Dobutamine was gradually weaned off while GDMT directed medications were uptitrated. Echocardiogram was repeated which Showed severely decreased LV systolic function at 15%, severe global LV hypokinesis, abnormal diastolic function, moderately dilated RV and decreased RV systolic function, moderate biatrial enlargement, mild to moderate MR, PASP at 35, severe TR, moderate pulmonary valve regurgitation. Her hospitalization was complicated by her developing acute kidney injury with creatinine going up to 1.7. It is believed patient's dry body weight creatinine given her cardiogenic shock and severe cardiomyopathy if somewhere around 1.3. Patient is been discharged in hemodynamically stable condition on next 40 mg twice daily, losartan 25 mg daily, metoprolol succinate 25 mg twice daily, spironolactone 25 mg daily, Eliquis 5 mg twice daily with advice to follow-up with her shipping and receiving specialist at the earliest. Patient plans to travel to [place] to see her shipping and receiving specialist this week. Is advised if she is not able to make the trip to [place] this week she should follow-up with Dr. Foy for further up titration of cardiac medications and repeat BMP. LifeVest has been arranged for the patient prior to discharge. Physical Exam Narrative: EXAM NARRATIVE: General: No acute distress, AO x3, HEENT: PERRLA, pupils bilaterally equal and reactive Chest: Normal vesicular breath sounds, bilateral fine crackles present in lower zones,l good air entry bilaterally CVS: S1-S2 regular, pansystolic at apex radiating to mid axillary line, pansystolic murmur at fourth intercostal space left retrosternal 3/6, no tachycardia, no gallops, no rubs Abdomen: Soft, nontender, no organomegaly, bowel sounds present Neuro: No focal deficits, no facial deformity, AO x3, power 5/5 in all limbs Urinary Catheter Management^: Mahoney: Cath Placed During This Visit: yes, but has since been removed by the nurse Reason for Continuing Indwelling Catheter: Accurate Measurement of Urinary Output in Critically Ill Patients Urinary Catheter Date of Insertion: 08/05/21 Urinary Catheter Time of Insertion: 13:10 Date Urinary Catheter Removed: 08/12/21 Time Urinary Catheter Discontinued: 08:57 Discharge Data Data Completed and Pending: Completed Studies During Hospitalization Category Date Time Status CT angio chest PE protcl [id number] Stat Cat Scan 08/03/21 03:18 Completed XR chest 1V cherry ble 97366 Q48H Exams 08/07/21 06:00 Completed XR chest 1V cherry ble 43269 Q48H Exams 08/09/21 06:00 Completed XR chest 1V cherry ble 98394 Q48H Exams 08/11/21 06:00 Completed XR chest 1V cherry ble [id number] Stat Exams 08/05/21 12:27 Completed XR chest 1V cherry ble [id number] Stat Exams 08/06/21 14:26 Completed XR chest 1V cherry ble [id number] Urgent Exams 08/03/21 03:06 Completed CV. echo complete * [id number] Routine Ultrasound 08/04/21 Completed Labs from last 24 hours 08/12/21 08/12/21 07:40 03:30 Sodium 136 Potassium 5.4 H 5.6 H Chloride 98 Carbon Dioxide 24 Anion Gap 19.6 H BUN 34 H Creatinine 1.7 H GFR Calculation 34.6 L Glucose 97 Calculated Osmolal ity 290 Calcium 8.6 Total Bilirubin 0.8 AST 20 ALT 19 Alkaline Phosphata se 127 H Total Protein 6.1 L Albumin 3.0 L Globulin 3.1 Addt'l Data from Hospital Stay: Laboratory Results WBC 10.8 10^3/uL (4.0 -10.0) H 08/11/21 05:05 RBC 4.44 10^6/uL (4.1 -5.3) 08/11/21 05:05 Hgb 12.1 g/dL (11.5-1 5.3) 08/11/21 05:05 Hct 40.2 % (37.0-47.0 ) 08/11/21 05:05 MCV 90.5 fl (81-99) 08/11/21 05:05 MCH 27.3 pg (28.0-34. 0) L 08/11/21 05:05 MCHC 30.1 g/dL (30.0-3 6.0) 08/11/21 05:05 RDW 18.9 % (12.1-15.1 ) H 08/11/21 05:05 Plt Count 299 10^3/cmm (130 -400) 08/11/21 05:05 MPV 10.9 fL (7.4-10.4 ) H 08/11/21 05:05 Neut % (Auto) 54.4 % 08/11/21 05:05 Lymph % (Auto) 32.8 % 08/11/21 05:05 Spencer % (Auto) 8.0 % 08/11/21 05:05 Eos % (Auto) 3.0 % 08/11/21 05:05 Baso % (Auto) 1.1 % 08/11/21 05:05 Neut # (Auto) 5.88 10^3/uL (1.8 -7.7) 08/11/21 05:05 Lymph # (Auto) 3.6 10^3/uL (0.8- 4.8) 08/11/21 05:05 Spencer # (Auto) 0.9 10^3/uL (0.2- 0.9) 08/11/21 05:05 Eos # (Auto) 0.3 10^3/uL (0.0- 0.8) 08/11/21 05:05 Baso # (Auto) 0.1 10^3/uL (0.0- 0.1) 08/11/21 05:05 Nucleated RBC % (a uto) 0.2 % 08/11/21 05:05 Nucleated RBCs # 0.0 /100WBC 08/11/21 05:05 PT 28.00 SECONDS (12 .1-14.9) H 08/05/21 15:21 INR 2.56 (0.8-1.2) H 08/05/21 15:21 Specimen Type Arterial 08/03/21 04:19 Sample Site Radial, right 08/03/21 04:19 ABG pH 7.46 (7.35-7.45) H 08/03/21 04:19 ABG pCO2 26.6 mmHg (35-45) L 08/03/21 04:19 ABG pO2 90.7 mmHg (80.0-1 00.0) 08/03/21 04:19 ABG HCO3 19.0 mmol/L (22-2 6) L 08/03/21 04:19 ABG Base Excess -3.6 mmol/L (-2.0 -2.0) L 08/03/21 04:19 Charles Test Pos 08/03/21 04:19 Hematocrit 34.7 % (37-47) L 08/03/21 04:19 Hgb O2 Saturation 96.0 % (95-100) 08/03/21 04:19 Carboxyhemoglobin 1.6 %THgb (0.4-20 .1) 08/03/21 04:19 Methemoglobin 0.5 % (0.4-1.5) 08/03/21 04:19 Total Hemoglobin 11.3 g/dL (12-16) L 08/03/21 04:19 O2 Delivery Device Room air 08/03/21 04:19 Senior Accounting Associate ID Buttr 08/03/21 04:19 Sodium 136 mmol/L (136-1 45) 08/12/21 03:30 Potassium 5.4 mmol/L (3.5-5 .1) H 08/12/21 07:40 Chloride 98 mmol/L (98-107 ) 08/12/21 03:30 Carbon Dioxide 24 mmol/L (22-29) 08/12/21 03:30 Anion Gap 19.6 (5-19) H 08/12/21 03:30 BUN 34 mg/dL (6-20) H 08/12/21 03:30 Creatinine 1.7 mg/dL (0.5-0. 9) H 08/12/21 03:30 GFR Calculation 34.6 mL/min (90-1 30) L 08/12/21 03:30 Glucose 97 mg/dL (65-115) 08/12/21 03:30 Calculated Osmolal ity 290 mOsm/kg (285- 295) 08/12/21 03:30 Lactic Acid 3.3 mmol/L (0.5-2 .2) H 08/03/21 04:05 Lactic Acid (Sepsi s) 2.4 mmol/L (0.5-2 .2) H 08/03/21 07:38 Lactate 2.9 mmol/L (0.5-2 .2) H 08/04/21 04:05 Calcium 8.6 mg/dL (8.5-10 .5) 08/12/21 03:30 Magnesium 1.9 mg/dL (1.7-2. 3) 08/09/21 04:40 Total Bilirubin 0.8 mg/dL (0.15-1 .2) 08/12/21 03:30 AST 20 U/L (0-32) 08/12/21 03:30 ALT 19 U/L (0-33) 08/12/21 03:30 Alkaline Phosphata se 127 IU/L (35-105) H 08/12/21 03:30 Troponin T Baselin e 10 ng/L (0-10) 08/03/21 04:05 Troponin T 120 Min lory 10.27 ng/L (0-10) H 08/03/21 06:19 Delta Troponin T 0.27 ABS# (0-10) 08/03/21 06:19 Troponin T Hi Sens 6Hr 9.66 ng/L (0-10) 08/03/21 10:39 Troponin T Hi Sens 6Hr Delta -0.34 ng/L (0-12) L 08/03/21 10:39 NT-Pro-B Natriuret Pep 7356 pg/mL (0-125 ) H 08/06/21 02:43 Total Protein 6.1 g/dL (6.6-8.7 ) L 08/12/21 03:30 Albumin 3.0 g/dL (3.5-5.2 ) L 08/12/21 03:30 Globulin 3.1 g/dL (1.3-4.6 ) 08/12/21 03:30 Procalcitonin 0.57 ng/mL (0-0.5 ) H 08/06/21 02:43 TSH 2.04 uIU/mL (0.27 -4.20) 08/06/21 02:43 HCG, Qual Negative (Negati ve) 08/03/21 04:05 Urine HCG, Qual Negative (Negati ve) 08/03/21 14:30 RSV Nasal Swab Not detected (No t Detected) 08/05/21 12:05 RSV Nasal Swab Int Cntl Not detected (No t Detected) 08/05/21 12:05 Vancomycin Trough 17.5 ug/mL (10-15 ) H 08/08/21 04:05 Urine Opiates Scre en Negative ng/mL (N egative) 08/05/21 15:05 Ur Barbiturates Sc reen Negative ng/mL (N egative) 08/05/21 15:05 Ur Phencyclidine S crn Negative ng/mL (N egative) 08/05/21 15:05 Ur Amphetamines Sc reen Negative ng/mL (N egative) 08/05/21 15:05 U Benzodiazepines Scrn Negative ng/mL (N egative) 08/05/21 15:05 Urine Cocaine Scre en Negative ng/mL (N egative) 08/05/21 15:05 U Marijuana (THC) Screen Negative ng/mL (N egative) 08/05/21 15:05 Adenovirus (PCR) Not detected (No t Detected) 08/05/21 12:05 Nasal/Oral COVID-1 9 PCR Not detected 08/04/21 16:40 Hepatitis A IgM Ab Non-reactive (No nreactive) 08/08/21 04:05 Hep Bs Antigen Non-reactive (No nreactive) 08/08/21 04:05 Hep Bs Antibody 258.6 (11.5-1000 ) 08/08/21 04:05 Hep B Core Total A b Non-reactive (No nreactive) 08/08/21 04:05 Hepatitis C Antibo dy Non-reactive (No nreactive) 08/08/21 04:05 HIV 1&2 Ab & HIV 1 Ag Non-reactive (No n-Reactiv) 08/08/21 04:05 HIV 1&2 Antibody Non-reactive (No n-Reactiv) 08/08/21 04:05 Human Metapneumovi r PCR Not detected (No t Detected) 08/05/21 12:05 Influenza A (RT-PC R) Not detected (No t Detected) 08/05/21 12:05 Influenza A (H1) P CR Not detected (No t Detected) 08/05/21 12:05 Influenza A (H3) P CR Not detected (No t Detected) 08/05/21 12:05 Influenza Type A A g Negative (Negati ve) 08/03/21 05:00 Influenza Type B A g Negative (Negati ve) 08/03/21 05:00 Influenza B (RT-PC R) Not detected (No t Detected) 08/05/21 12:05 Parainfluenzae Typ e 1 Not detected (No t Detected) 08/05/21 12:05 Parainfluenzae Typ e 2 Not detected (No t Detected) 08/05/21 12:05 Parainfluenzae Typ e 3 Not detected (No t Detected) 08/05/21 12:05 RSV Ab Comment see note 08/05/21 12:05 Rhinovirus (PCR) Not detected (No t Detected) 08/05/21 12:05 SARS-CoV-2 Ag (Rap id) Negative (Negati ve) 08/03/21 05:00 Impressions Chest CTA 08/03/21 03:18 IMPRESSION: Multifocal pneumonia. Radiation Dose CTDIVOL = (mGy): DLP = 520.45 (mGy-cm) Chest X-Ray 08/11/21 06:00 IMPRESSION: 1. Mild retrocardiac airspace opacity (atelectasis and/or pneumonia), similar to prior study. Radiation Dose CTDIVOL = (mGy): DLP = (mGy-cm) Microbiology 08/09/21 15:27 Stool Stool Lactoferrin - Final 08/09/21 15:27 Stool Enteric Pathogens (PCR) - Final 08/09/21 15:27 Stool Parasite Antigen Panel - Final 08/09/21 15:27 Stool C.difficile Toxin B Gene (PCR) - Final 08/09/21 15:27 Stool Occult Blood (FIT) - Final 08/07/21 10:29 Sputum - Expectorated Sputum Gram Stain - Final 08/07/21 10:29 Sputum - Expectorated Sputum Sputum Culture - Final Methicillin Resis Staph Aureus 08/03/21 07:38 Blood Blood Culture - Final NO GROWTH AFTER 5 DAYS 08/03/21 06:22 Blood Blood Culture - Final NO GROWTH AFTER 5 DAYS 08/03/21 15:00 Nose MRSA Culture - Final 08/03/21 14:30 Urine,Voided Legionella Urinary Antigen - Final 08/03/21 14:30 Urine,Voided Bacterial Antigens - Final Echocardiogram: CONCLUSIONS 1. Markedly dilated left ventricle cavity. Severely decreased left ventricular systolic function. Left ventricular ejection fraction is estimated at 15 %. Severe global hypokinesis. Abnormal diastolic function. Abnormal septal motion consistent with conduction abnormality. 2. Moderately dilated right ventricle with moderately decreased right ventricle systolic function. 3. Moderate biatrial enlargement. 4. Mild-moderate mitral valve regurgitation. 5. Pulmonary artery pressure estimated at 35 mm Hg. 6. Severe tricuspid valve regurgitation. 7. Moderate pulmonary valve regurgitation. 8. No prior similar studies to compare. Vitals: Last Vital Signs Temp 98.1 F 08/11/21 19:09 Pulse 80 08/12/21 09:40 Resp 18 08/12/21 09:40 BP 100/76 08/12/21 09:00 Pulse Ox 97 08/12/21 09:40 Discharge Plan Discharge Patient Disposition: Home Condition: Stable Prescriptions: New metoprolol succinate 25 mg Tablet Extended Release 24 Hr 25 mg PO 0900,2100 30 Days Qty: 60 RF: 0 sertraline 50 mg Tablet 25 mg PO DAILY 30 Days Qty: 15 RF: 0 Magtab 84 mg Tablet Extended Release 84 mg PO BID 30 Days Qty: 60 RF: 0 Continued promethazine-DM 6.25-15 mg/5 mL syrup 5 ml PO Q6H PRN (Reason: cough) Qty: 160 RF: 0 albuterol sulfate [Ventolin HFA] 90 mcg/actuation HFA aerosol inhaler 1 inh inhalation Q6H PRN (Reason: shortness of breath or wheezing) Qty: 8.5 RF: 0 Eliquis 5 mg tablet 5 mg PO BID Qty: 60 RF: 4 Tylenol Ex Str Rapid Release 500 mg Tablet 500 mg PO Q4H PRN (Reason: Pain) RF: 0 Vitamin D3 Gummies 1 tab PO DAILY RF: 0 methocarbamol 750 mg tablet 750 mg PO Q6H PRN (Reason: muscle spasm) RF: 0 pantoprazole 40 mg tablet,delayed release (DR/EC) 40 mg PO QAM RF: 0 Mucinex 1,200 mg tablet extended release 12hr 1,200 mg PO QAM RF: 0 losartan 25 mg tablet 25 mg PO DAILY Qty: 0 RF: 0 Changed furosemide 40 mg tablet 40 mg PO BID Qty: 0 RF: 0 spironolactone 25 mg tablet 12.5 mg PO QAM Qty: 0 RF: 0 Discontinued ibuprofen 600 mg tablet 600 mg PO Q6H PRN (Reason: Pain) RF: 0 metoprolol succinate 50 mg tablet extended release 24 hr 50 mg PO QAM RF: 0 Discharge Orders: Discharge Order (Routine); Ordered 08/12/21 Ordered By: Seferino Baker Referrals: Inna Foy MD [Physician] - 4-7 days Jackie Ji MD [Primary Care Provider] - 4-7 days Discharge Diet: Cardiac and Low Salt Discharge Activity: Resume usual activity Patient Instructions: Opioid Safety Activity Restrictions/Additional Instructions: Fluid restriction up to 1500 cc. Please follow-up with your shipping and receiving specialist within next 1 week. Please follow-up with your primary care provider within next 1 week for repeat BMP. You are to take metoprolol succinate 25 mg twice daily, losartan 25 mg daily, Lasix 40 mg oral twice daily, spironolactone 12.5 mg daily. Discharge Attestations Time Spent in Discharge Care*: greater than 30 min Specific Discharge Activities: educating patient, discussing with pcp/other providers, discussing with shoe caser/social workers/dc planners, documenting/other paperwork and evaluating patient/reviewing data Status at Discharge: Cognitive status at discharge: cognitively intact , Behavioral status at discharge: cooperative , Functional status at discharge: independent ambulation Overall status at discharge: patient has a new baseline Quality Metrics Clinical Quality Measures During this hospital stay, did patient experience: None Coding Level of Care Code Acute Chg FW DC note Diagnoses Cardiogenic shock R57.0 Systolic heart failure I50.20 RUDY (acute kidney injury) N17.9 MRSA (methicillin resistant staph aureus) culture positive Z22.322 History of methamphetamine abuse F15.11 Pulmonary embolism I26.99 HCAP (healthcare-associated pneumonia) J18.9
--- NOTE | 2021-08-12 11:01 | PC.NURSE ---
right tlc removed.pressure held x 8 min and occlusive drsg applied.pt tolerated well.
--- NOTE | 2021-08-12 16:25 | PM.PN ---
Subjective Subjective: Interval history: Patient is feeling okay. She has no chest pain or chest tightness. She has the baseline shortness of breath with activities. No cough. No fever or chills. No other specific complaints. Medications: Reviewed: Yes Medication Review Details: Current Medications Acetaminophen (Acetaminophen 325 Mg Tablet) 650 mg PO Q6H PRN PRN Reason: Mild/Mod Pain Or Temp >/= 101 Last Admin: 08/09/21 23:58 Dose: 650 mg Documented by: Albuterol Sulfate (Albuterol 8 Gm Mdi) 2 puff INHALATION Q4H.RESPIRATORY PRN PRN Reason: SHORTNESS OF BREATH Alprazolam (Alprazolam 0.5 Mg Tablet) 0.5 mg PO TID PRN PRN Reason: ANXIETY Apixaban (Apixaban 5 Mg Tablet) 5 mg PO BID [facility] Last Admin: 08/12/21 09:00 Dose: 5 mg Documented by: Benzonatate (Benzonatate 100 Mg Capsule) 100 mg PO TID [facility] Last Admin: 08/12/21 16:14 Dose: 100 mg Documented by: Furosemide (Furosemide 20 Mg Tablet) 40 mg PO DAILY@0800 [facility] Last Admin: 08/12/21 09:01 Dose: 40 mg Documented by: Guaifenesin (Guaifenesin 600 Mg Tablet) 1,200 mg PO QAM [facility] Last Admin: 08/12/21 05:13 Dose: 1,200 mg Documented by: Sodium Chloride (Sodium Chloride 0.9%) 500 mls @ 0 mls/hr IV .Q0M [facility] Loperamide HCl (Loperamide 2 Mg Capsule) 2 mg PO QID PRN PRN Reason: DIARRHEA Last Admin: 08/10/21 18:04 Dose: 2 mg Documented by: Losartan Potassium (Losartan 50 Mg Tablet) 25 mg PO DAILY [facility] Last Admin: 08/12/21 09:00 Dose: 25 mg Documented by: Magnesium Lactate (Magnesium Lactate 84 Mg Tablet) 84 mg PO BID [facility] Last Admin: 08/12/21 08:59 Dose: 84 mg Documented by: Metoprolol Succinate (Metoprolol Succinate Er (24 Hr) 25 Mg Tablet) 25 mg PO 0900,2100 [facility] Last Admin: 08/12/21 09:00 Dose: 25 mg Documented by: Ondansetron HCl (Ondansetron 2 Mg/Ml Sdv 2 Ml) 4 mg IVP Q8H PRN PRN Reason: vomiting, or N/V if npo Last Admin: 08/10/21 18:22 Dose: 4 mg Documented by: Pantoprazole Sodium (Pantoprazole Dr 40 Mg Tablet) 40 mg PO QAM [facility] Last Admin: 08/12/21 05:14 Dose: 40 mg Documented by: Potassium Chloride (Potassium Chloride Er 20 Meq Tablet) 20 meq PO BID [facility] Last Admin: 08/11/21 17:28 Dose: 20 meq Documented by: Promethazine HCl/Dextromethorphan (Promethazine-Dm 6.25-15 Mg/5 Ml Syrup 118ml Btl) 5 ml PO Q6H [facility] Last Admin: 08/12/21 12:34 Dose: 5 ml Documented by: Ropinirole HCl (Ropinirole 0.25 Mg Tablet) 0.5 mg PO BEDTIME [facility] Last Admin: 08/11/21 20:08 Dose: 0.5 mg Documented by: Sertraline HCl (Sertraline 50 Mg Tablet) 25 mg PO DAILY [facility] Last Admin: 08/12/21 09:00 Dose: 25 mg Documented by: Spironolactone (Spironolactone 25 Mg Tablet) 12.5 mg PO QAM [facility] Last Admin: 08/12/21 05:13 Dose: 12.5 mg Documented by: Vitals/I&O/Wt Last Vital Signs Temp 98.1 F 08/11/21 19:09 Pulse 89 08/12/21 15:59 Resp 15 08/12/21 15:59 BP 90/60 08/12/21 15:59 Pulse Ox 97 08/12/21 12:05 08/12/21 08/12/21 08/12/21 06:59 14:59 22:59 Intake Total 120 / 627.88 240 / 240 Output Total 300 / 650 550 / 550 Balance -180 / -22.12 -310 / -310 Weight last 48 hrs Weight 157 lb 8 oz Weight 137 lb Physical Exam Narrative: EXAM NARRATIVE: GENERAL: The patient is alert and oriented times three. Not in any acute distress. HEENT: No significant pallor, icterus or lymphadenopathy.Oral cavity: There are no mucous membrane lesions. NECK: Trachea appears to be central. No masses noted. No JVD or thyromegaly appreciated. RESPIRATORY: Chest is symmetrical. No intercostals muscle retraction or any accessory muscle activation. There is no chest wall tenderness. Breath sounds are heard bilaterally. No rales or rhonchi heard. No evidence of any consolidation. BREASTS: Deferred. HEART: The heart sounds are normal. No S3 or S4. No significant murmurs. No pericardial rub ABDOMEN: No vessel pulsations or distention. No tenderness. No organomegaly appreciated. Bowel sounds are normally heard. : Deferred. RECTAL: Deferred. LYMPHATIC: No lymphadenopathy noted in the neck or groin. EXTREMITIES: No edema or cyanosis. No clubbing. Peripheral pulses are palpated in fairly good volume and amplitude MUSCULOSKELETAL: No acute joint deformities or swelling SKIN: Extensive tired tattoo lance in the upper extremities and also in the trunk NEUROPSYCHIATRIC: The patient is alert and oriented x3. Appears to be in a good mood. No tremors or rigidity noted. Urinary Catheter Management^: [place]: Cath Placed During This Visit: yes, but has since been removed by the nurse Reason for Continuing Indwelling Catheter: Accurate Measurement of Urinary Output in Critically Ill Patients Urinary Catheter Date of Insertion: 08/05/21 Urinary Catheter Time of Insertion: 13:10 Date Urinary Catheter Removed: 08/12/21 Time Urinary Catheter Discontinued: 08:57 Data : 08/11/21 05:05 08/12/21 07:40 Other Labs: Laboratory Last Values WBC 10.8 10^3/uL (4.0-10.0) H 08/11/21 05:05 RBC 4.44 10^6/uL (4.1-5.3) 08/11/21 05:05 Hgb 12.1 g/dL (11.5-15.3) 08/11/21 05:05 Hct 40.2 % (37.0-47.0) 08/11/21 05:05 MCV 90.5 fl (81-99) 08/11/21 05:05 MCH 27.3 pg (28.0-34.0) L 08/11/21 05:05 MCHC 30.1 g/dL (30.0-36.0) 08/11/21 05:05 RDW 18.9 % (12.1-15.1) H 08/11/21 05:05 Plt Count 299 10^3/cmm (130-400) 08/11/21 05:05 MPV 10.9 fL (7.4-10.4) H 08/11/21 05:05 Neut % (Auto) 54.4 % 08/11/21 05:05 Lymph % (Auto) 32.8 % 08/11/21 05:05 [place] % (Auto) 8.0 % 08/11/21 05:05 Eos % (Auto) 3.0 % 08/11/21 05:05 Baso % (Auto) 1.1 % 08/11/21 05:05 Neut # (Auto) 5.88 10^3/uL (1.8-7.7) 08/11/21 05:05 Lymph # (Auto) 3.6 10^3/uL (0.8-4.8) 08/11/21 05:05 [place] # (Auto) 0.9 10^3/uL (0.2-0.9) 08/11/21 05:05 Eos # (Auto) 0.3 10^3/uL (0.0-0.8) 08/11/21 05:05 Baso # (Auto) 0.1 10^3/uL (0.0-0.1) 08/11/21 05:05 Nucleated RBC % (auto) 0.2 % 08/11/21 05:05 Nucleated RBCs # 0.0 /100WBC 08/11/21 05:05 PT 28.00 SECONDS (12.1-14.9) H 08/05/21 15:21 INR 2.56 (0.8-1.2) H 08/05/21 15:21 Specimen Type Arterial 08/03/21 04:19 Sample Site Radial, right 08/03/21 04:19 ABG pH 7.46 (7.35-7.45) H 08/03/21 04:19 ABG pCO2 26.6 mmHg (35-45) L 08/03/21 04:19 ABG pO2 90.7 mmHg (80.0-100.0) 08/03/21 04:19 ABG HCO3 19.0 mmol/L (22-26) L 08/03/21 04:19 ABG Base Excess -3.6 mmol/L (-2.0-2.0) L 08/03/21 04:19 [place] Test Pos 08/03/21 04:19 Hematocrit 34.7 % (37-47) L 08/03/21 04:19 Hgb O2 Saturation 96.0 % (95-100) 08/03/21 04:19 Carboxyhemoglobin 1.6 %THgb (0.4-20.1) 08/03/21 04:19 Methemoglobin 0.5 % (0.4-1.5) 08/03/21 04:19 Total Hemoglobin 11.3 g/dL (12-16) L 08/03/21 04:19 O2 Delivery Device Room air 08/03/21 04:19 Repairer General ID Buttr 08/03/21 04:19 Sodium 136 mmol/L (136-145) 08/12/21 03:30 Potassium 5.4 mmol/L (3.5-5.1) H 08/12/21 07:40 Chloride 98 mmol/L (98-107) 08/12/21 03:30 Carbon Dioxide 24 mmol/L (22-29) 08/12/21 03:30 Anion Gap 19.6 (5-19) H 08/12/21 03:30 BUN 34 mg/dL (6-20) H 08/12/21 03:30 Creatinine 1.7 mg/dL (0.5-0.9) H 08/12/21 03:30 GFR Calculation 34.6 mL/min (90-130) L 08/12/21 03:30 Glucose 97 mg/dL (65-115) 08/12/21 03:30 Calculated Osmolality 290 mOsm/kg (285-295) 08/12/21 03:30 Lactic Acid 3.3 mmol/L (0.5-2.2) H 08/03/21 04:05 Lactic Acid (Sepsis) 2.4 mmol/L (0.5-2.2) H 08/03/21 07:38 Lactate 2.9 mmol/L (0.5-2.2) H 08/04/21 04:05 Calcium 8.6 mg/dL (8.5-10.5) 08/12/21 03:30 Magnesium 1.9 mg/dL (1.7-2.3) 08/09/21 04:40 Total Bilirubin 0.8 mg/dL (0.15-1.2) 08/12/21 03:30 AST 20 U/L (0-32) 08/12/21 03:30 ALT 19 U/L (0-33) 08/12/21 03:30 Alkaline Phosphatase 127 IU/L (35-105) H 08/12/21 03:30 Troponin T Baseline 10 ng/L (0-10) 08/03/21 04:05 Troponin T 120 Minute 10.27 ng/L (0-10) H 08/03/21 06:19 Delta Troponin T 0.27 ABS# (0-10) 08/03/21 06:19 Troponin T Hi Sens 6Hr 9.66 ng/L (0-10) 08/03/21 10:39 Troponin T Hi Sens 6Hr Delta -0.34 ng/L (0-12) L 08/03/21 10:39 NT-Pro-B Natriuret Pep 7356 pg/mL (0-125) H 08/06/21 02:43 Total Protein 6.1 g/dL (6.6-8.7) L 08/12/21 03:30 Albumin 3.0 g/dL (3.5-5.2) L 08/12/21 03:30 Globulin 3.1 g/dL (1.3-4.6) 08/12/21 03:30 Procalcitonin 0.57 ng/mL (0-0.5) H 08/06/21 02:43 TSH 2.04 uIU/mL (0.27-4.20) 08/06/21 02:43 HCG, Qual Negative (Negative) 08/03/21 04:05 Urine HCG, Qual Negative (Negative) 08/03/21 14:30 RSV Nasal Swab Not detected (Not Detected) 08/05/21 12:05 RSV Nasal Swab Int Cntl Not detected (Not Detected) 08/05/21 12:05 Vancomycin Trough 17.5 ug/mL (10-15) H 08/08/21 04:05 Urine Opiates Screen Negative ng/mL (Negative) 08/05/21 15:05 Ur Barbiturates Screen Negative ng/mL (Negative) 08/05/21 15:05 Ur Phencyclidine Scrn Negative ng/mL (Negative) 08/05/21 15:05 Ur Amphetamines Screen Negative ng/mL (Negative) 08/05/21 15:05 U Benzodiazepines Scrn Negative ng/mL (Negative) 08/05/21 15:05 Urine Cocaine Screen Negative ng/mL (Negative) 08/05/21 15:05 U Marijuana (THC) Screen Negative ng/mL (Negative) 08/05/21 15:05 Adenovirus (PCR) Not detected (Not Detected) 08/05/21 12:05 Nasal/Oral COVID-19 PCR Not detected 08/04/21 16:40 Hepatitis A IgM Ab Non-reactive (Nonreactive) 08/08/21 04:05 Hep Bs Antigen Non-reactive (Nonreactive) 08/08/21 04:05 Hep Bs Antibody 258.6 (11.5-1000) 08/08/21 04:05 Hep B Core Total Ab Non-reactive (Nonreactive) 08/08/21 04:05 Hepatitis C Antibody Non-reactive (Nonreactive) 08/08/21 04:05 HIV 1&2 Ab & HIV 1 Ag Non-reactive (Non-Reactiv) 08/08/21 04:05 HIV 1&2 Antibody Non-reactive (Non-Reactiv) 08/08/21 04:05 Human Metapneumovir PCR Not detected (Not Detected) 08/05/21 12:05 Influenza A (RT-PCR) Not detected (Not Detected) 08/05/21 12:05 Influenza A (H1) PCR Not detected (Not Detected) 08/05/21 12:05 Influenza A (H3) PCR Not detected (Not Detected) 08/05/21 12:05 Influenza Type A Ag Negative (Negative) 08/03/21 05:00 Influenza Type B Ag Negative (Negative) 08/03/21 05:00 Influenza B (RT-PCR) Not detected (Not Detected) 08/05/21 12:05 Parainfluenzae Type 1 Not detected (Not Detected) 08/05/21 12:05 Parainfluenzae Type 2 Not detected (Not Detected) 08/05/21 12:05 Parainfluenzae Type 3 Not detected (Not Detected) 08/05/21 12:05 RSV Ab Comment see note 08/05/21 12:05 Rhinovirus (PCR) Not detected (Not Detected) 08/05/21 12:05 SARS-CoV-2 Ag (Rapid) Negative (Negative) 08/03/21 05:00 A&P Assessment and plan (1) CHF (congestive heart failure): Heart failure is getting compensated. Continue optimizing the afterload reducing agents. Patient may benefit from Entresto. She is going to discuss this with her hand lacer in [place]. Status: Acute Qualifiers: Heart failure type: systolic Heart failure chronicity: chronic Qualified Code(s): I50.22 - Chronic systolic (congestive) heart failure (2) Pulmonary embolism: Patient is on no long-term oral anticoagulation. This may be continued. Status: Acute Qualifiers: Pulmonary embolism type: other Chronicity: unspecified Acute cor pulmonale presence: unspecified Qualified Code(s): I26.99 - Other pulmonary embolism without acute cor pulmonale (3) MRSA (methicillin resistant staph aureus) culture positive: Continue on the current medications/antibiotics as per the primary. Status: Acute (4) RUDY (acute kidney injury): Her kidney function appears to be stable. This needs to be closely monitored Status: Acute (5) Nonischemic congestive cardiomyopathy: Patient is on a LifeVest. She is going to have the follow-up with her hand lacer in [place]. Status: Acute (6) History of methamphetamine abuse: Once again the patient strongly advised to quit the methamphetamine. She seems to be serious about this. Status: Acute Additional A&P Information Since the patient is remained stable, it may be appropriate to discharge her home to have further cardiac follow-up with her hand lacer in [place]. For the time being, she may be kept on the current medications. Consider switching the losartan to Entresto as an outpatient- Attestations Medical Necessity Statement*: Possible discharge home today. Coding Level of Care Code Acute Safety And Security Officer for Ena Price History Detailed Exam Detailed Medical Decision Making Moderate Complexity Diagnoses CHF (congestive heart failure) I50.22 Heart failure type: systolic Heart failure chronicity: chronic Pulmonary embolism I26.99 Pulmonary embolism type: other Chronicity: unspecified Acute cor pulmonale presence: unspecified MRSA (methicillin resistant staph aureus) culture positive Z22.322 RDUY (acute kidney injury) N17.9 Nonischemic congestive cardiomyopathy I42.0 History of methamphetamine abuse F15.11
[2021-08-12] MEDS: ropinirole 0.25 mg Tablet 0.5 MG PO (21:18)
[2021-08-13] VITALS (14 sets, daily range): BP systolic 95–105; BP diastolic 68–74; PULSE 82–94; RESP 10–40; TEMP 36.7–37; O2SAT 94–95
--- NOTE | 2021-08-13 03:50 | PC.NURSE ---
Patient is technically discharged however had to stay the night because her home meds and zoll life vest battery cannot be found along with new social delimma being no place to stay locally due to boyfriend kicking her out,. patient will eval with physician this am on how to safely discharge to home with father.
[2021-08-13] MEDS: spironolactone 25 mg Tablet 12.5 MG PO (06:28)
[2021-08-13] MEDS: pantoprazole DR 40 mg Tablet PO (06:28)
[2021-08-13] MEDS: guaiFENesin 600 mg Tablet 1200 MG PO (06:28)
[2021-08-13] MEDS: acetaminophen 325 mg Tablet 650 MG PO (06:33)
[2021-08-13] MEDS: benzonatate 100 mg Capsule PO (09:18)
[2021-08-13] MEDS: magnesium lactate 84 mg Tablet PO (09:18)
[2021-08-13] MEDS: metoprolol succinate ER (24 HR) 25 mg Tablet PO (09:18)
[2021-08-13] MEDS: FUROsemide 20 mg Tablet 40 MG PO (09:19)
[2021-08-13] MEDS: apixaban 5 mg Tablet PO (09:19)
[2021-08-13] MEDS: sertraline 50 mg Tablet 25 MG PO (09:21)
[2021-08-13] MEDS: losartan 50 mg Tablet 25 MG PO (10:40)
--- NOTE | 2021-08-13 15:37 | PC.NURSE ---
pt education provided, pt has no questions or concerns. Medications were delivered by [facility]. Pt VS stable upon departure.
== END 2021-08-13 15:36 | disposition home or self-care (01) | DRG 291 ==
LOC: ER 04:43 → ICU 07:34 → CSU 08-04 14:26 → ICU 08-06 10:56 → CSU 08-11 14:06
PROVIDERS: Internal Medicine; Internal Medicine Cardiovascular Disease; Admitting Provider Hospitalist; Emergency Provider Emergency Medicine; PCP Family Medicine; Visit Provider Student in an Organized Health Care Education/Training Program
DX: I50.23 Acute on chronic systolic (congestive) heart failure (principal); J18.9 Pneumonia, unspecified organism; R57.0 Cardiogenic shock; I42.9 Cardiomyopathy, unspecified; E87.1 Hypo-osmolality and hyponatremia; N17.9 Acute kidney failure, unspecified; Y95 Nosocomial condition; Z86.711 Personal history of pulmonary embolism; Z87.01 Personal history of pneumonia (recurrent); Z87.891 Personal history of nicotine dependence; R59.0 Localized enlarged lymph nodes; F15.11 Other stimulant abuse, in remission; Z82.49 Family history of ischemic heart disease and other diseases of the circulatory system; I25.2 Old myocardial infarction; I08.1 Rheumatic disorders of both mitral and tricuspid valves; B95.62 Methicillin resistant Staphylococcus aureus infection as the cause of diseases classified elsewhere; G25.81 Restless legs syndrome; I95.9 Hypotension, unspecified; Z79.01 Long term (current) use of anticoagulants; Z79.51 Long term (current) use of inhaled steroids; R19.7 Diarrhea, unspecified; E83.42 Hypomagnesemia; E87.6 Hypokalemia
CPT/HCPCS: 36415; 36592; 36600; 51702; 71045; 71275; 80048; 80053; 80202; 80306; 81025; 82274; 82805; 83605; 83630; 83735; 83880; 84132; 84145; 84443; 84484; 84703; 85025; 85610; 86403; 86705; 86706; 86709; 86803; 87040; 87070; 87077; 87186; 87205; 87340; 87426; 87449; 87493; 87506; 87635; 87641; 87804; 87806; 93005; 93306; 93308; 93325; 94640; 96365; 96366; 96367; 96375; 96376; 99285; J0456; J1250; J1630; J1940; J2060; J2270; J2405; J2543; J3370; J3475; J3535; J7040; J7050; Q0144; Q9967

== ENCOUNTER 2021-12-17 11:15 | Inpatient (IN) | payer MEDICAID, SELFPAY ==
[2021-12-17] VITALS (15 sets, daily range): BP systolic 80–122; BP diastolic 57–92; PULSE 83–201; RESP 16–23; TEMP 36.9–38.6; O2SAT 90–99; BMI 25.1
--- NOTE | 2021-12-17 | USCV_ITS ---
Transthoracic Echo Alex Workman Age: 31 Gender: F : 1990 Exam Date: 12/17/2021 22:14 Ordering Phys: Rosy Reich MD Technologist: ENDY [place]am Location: [facility] [place] Indication: IE?/IVDA BP: 82 / 55 HR: 88 Rhythm: Atrial fibrillation Technical Quality: Adequate MEASUREMENTS (Male / Female) Normal Values 2D ECHO LV Diastolic Diameter PLAX 5.5 cm 4.2 - 5.9 / 3.9 - 5.3 cm LV Systolic Diameter PLAX 6.1 cm IVS Diastolic Thickness 1.3 cm 0.6 - 1.0 / 0.6 - 0.9 cm IVS Systolic Thickness 0.8 cm LVPW Diastolic Thickness 1.1 cm 0.6 - 1.0 / 0.6 - 0.9 cm LVPW Systolic Thickness 1.6 cm LVOT Diameter 1.9 cm LV Ejection Fraction 2D Teich 32.8 % LV Ejection Fraction MOD 2C 16.8 % LV Ejection Fraction 2C AL 20.7 % LA Diameter 2.7 cm LA Width 3.0 cm LA Height 6.0 cm RA Width 6.1 cm RA Height 4.6 cm Aorta at Sinotubular Diameter 2.5 cm M-MODE Aortic Annulus Diameter 3.1 cm LA Ao Ratio MM 0.9 DOPPLER AV Peak Velocity 83.3 cm/s LVOT Peak Velocity 62.0 cm/s AV Area Cont Eq vti 2.0 cm squared AV Area Cont Eq pk 2.1 cm squared TR Peak Velocity 243.8 cm/s TR Peak Gradient 23.8 mmHg TR Mean Velocity 181.4 cm/s TR Mean Gradient 15.3 mmHg TR Velocity Time Integral 78.8 cm Right Atrial Pressure 3.0 mmHg Pulmonary Artery Systolic Pressu 26.8 mmHg PV Peak Velocity 56.0 cm/s RV Acceleration Time 0.1 s RV Ejection Time 0.3 s RV AcT/ET 0.4 FINDINGS Left Ventricle Markedly dilated left ventricle cavity. Severely decreased left ventricle systolic function. Left ventricular ejection fraction is estimated at 15 %. Severe global left ventricular hypokinesis. Severe eccentric left ventricular hypertrophy. Abnormal septal motion consistent with conduction abnormality. Abnormal diastolic function. Right Ventricle Moderately dilated right ventricle with moderately decreased right ventricle systolic function. Right ventricular systolic pressure 40 mmHg. Right Atrium Moderately increased right atrial size. Right atrial pressure estimated at 8 mmHg. Left Atrium Moderately increased left atrial size. Mitral Valve Moderately thickened mitral valve. Restricted movement of posterior mitral leaflet. No mitral valve stenosis. Mild to moderate posteriorly directed mitral valve regurgitation. Aortic Valve Aortic valve not well visualized. No aortic valve stenosis. No aortic valve regurgitation. Tricuspid Valve Structurally normal tricuspid valve. No tricuspid valve stenosis. Moderate to severe tricuspid valve regurgitation. Pulmonic Valve Pulmonic valve not well visualized. Pericardium No pericardial effusion. Aorta Normal size aortic root and proximal ascending aorta. Normal- sized inferior vena cava with decreased respiratory variation. CONCLUSIONS 1. Markedly dilated left ventricle cavity. Severely decreased left ventricle systolic function. Left ventricular ejection fraction is estimated at 15 %. Severe eccentric left ventricular hypertrophy. Severe global left ventricular hypokinesis. Abnormal septal motion consistent with conduction abnormality. Abnormal diastolic function. 2. Moderately dilated right ventricle with moderately decreased right ventricle systolic function. 3. Mild pulmonary hypertension with pulmonary artery pressure estimated at 40 mmHg. 4. Moderate biatrial enlargement. 5. Moderately thickened mitral valve. Restricted movement of posterior mitral leaflet. Mild to moderate posteriorly directed mitral valve regurgitation. 6. Moderate to severe tricuspid valve regurgitation. 7. No valvular vegetation based on the study. Transesophageal echocardiogram may be considered if clinically indicated. 8. When compared to previous echocardiogram dated 08/04/2021, there may not have been any significant change. Inna Foy MD (Electronically Signed) Final Date: 18 December 2021 13:13 Amended: 18 December 2021 13:19 C
--- NOTE | 2021-12-17 11:17 | XRR_ITS ---
PROCEDURE INFORMATION: Exam: XR Chest Exam date and time: 12/17/2021 11:17 AM Age: 31 years old Clinical indication: Pain; Shortness of breath; Angina pectoris; Patient HX: SOB x 2 days, HX of chf; Additional info: Chest pain TECHNIQUE: Imaging protocol: XR of the chest. Views: 1 view. COMPARISON: CR XR chest 1V portable [id number] 08/11/2021 4:55 AM FINDINGS: Lungs: Unremarkable. No consolidation. Pleural spaces: Unremarkable. No pleural effusion. No pneumothorax. Heart/Mediastinum: Unremarkable. No cardiomegaly. Bones/joints: Unremarkable. XR/XR chest 1V portable [id number] IMPRESSION: No acute findings.
--- NOTE | 2021-12-17 11:17 | ECG_ITS ---
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 Measurements Intervals [place] Rate: 111 P: 68 MO: 166 QRS: 132 QRSD: 149 T: -33 QT: 362 QTc: 494 Interpretive Statements SINUS TACHYCARDIA LEFT ATRIAL ENLARGEMENT [-0.15mV P-WAVE IN V1/V2] INTRAVENTRICULAR CONDUCTION DELAY [130+ ms QRS DURATION] Compared to ECG 08/05/2021 12:09:54 First degree AV block no longer present Right-axis deviation no longer present Electronically Signed On 12-17-2021 17:05:42 ENVIRONMENTAL CONFLICT MANAGER by Lan Hardy M.D. [email or web address]
--- NOTE | 2021-12-17 13:14 | ED_ITS ---
HPI - Chest Pain General: Chief Complaint: Chest Pain Stated Complaint: Chest pain, SOB Time Seen by Provider: 12/17/21 11:17 Source: patient Mode of arrival: ambulatory Limitations: no limitations History of Present Illness: 31-year-old female arrives the emergency room with complaint of chest pain that began last night. 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 She has returned to using dr fish again. She is currently still taking apixaban for her PEs. Her pain is very positional. Is also reporting some abdominal discomfort. She denies any vomiting or diarrhea. Has not had any fever sweats or chills. MD complaint: chest pain Pertinent past history: other (Myopathy secondary to drug use) Onset (ago): day(s) Timing of current episode: constant Pain radiation: left arm Severity: severe Quality: sharp Relieving factors: remaining still and other (Lying flat) Exacerbating factors: movement and other (Sitting up leaning forward) Context: other (Drug use) Associated symptoms: Reports diaphoresis, dyspnea and sense of impending doom; Deny abdominal pain, fever(s), leg edema, nausea, palpitations, syncope or vomiting Treatment prior to arrival: none Review of Systems Const: Reports: diaphoresis; Denies: fever(s) ENMT: Denies: throat pain, ear or mastoid pain, nasal discharge or nasal congestion Card: Denies: palpitations or syncope Resp: Reports: dyspnea GI: Denies: abdominal pain, nausea or vomiting : Denies: flank pain, difficulty voiding, dysuria, urinary frequency or urinary urgency Skin/Breast: Denies: rash or pruritus [facility] ED PFSH: Medical History CHF (congestive heart failure) History of methamphetamine abuse MRSA (methicillin resistant staph aureus) culture positive Pulmonary embolism Systolic heart failure Social History Smoking and tobacco status: former smoker Quit status (tobacco): has quit using tobacco Second hand smoke exposure: No Smoking risk assessment/counseling performed?: No Alcohol intake: former Desire information about alcohol rehabilitation?: No Counseling given: No Desire information about substance/drug rehabilitation?: No Counseling given: No Marital status: Life Partner service: No Current occupational status: unemployed Current occupational exposures/hazards: No Pets and animals: No History of recent travel: No Sexually active: Yes Current gender identity: Female Special emelia needs: No Agree to transfusion: Yes Financial difficulty paying for basics: Not Applicable Female Reproductive History: Date of last menstrual period: 02/17/21 Physical Exam Const: COMMON NORMALS: no acute distress GENERAL APPEARANCE: cooperative and comfortable ORIENTATION/CONSCIOUSNESS: Yes awake, Yes oriented to person, Yes oriented to place and Yes oriented to time HENMT: COMMON NORMALS: normocephalic, atraumatic and hearing grossly normal bilaterally HEAD & SCALP: normocephalic and atraumatic Neck/C-Spine: COMMON NORMALS: no JVD Resp: AUSCULTATION: crackles Cardio: COMMON NORMALS: no JVD, regular rhythm and No murmurs present (Cardio) RATE: tachycardic RHYTHM: regular rhythm GI: COMMON NORMALS: Soft to palpation and No hepatosplenomegaly present AUSCULTATION: Yes normoactive bowel sounds PALPATION: Yes Soft to palpation, No Tenderness to palpation present (GI), No Guarding due to palpation present (GI) and Yes No hepatosplenomegaly present Extremity: COMMON NORMALS: normal to inspection, capillary refill normal, no clubbing, cyanosis or edema, no calf tenderness and no pedal edema Neuro: SENSORIUM/ORIENTATION: Yes oriented to person, Yes oriented to place and Yes oriented to time Skin: COMMON NORMALS: no rashes or lesions noted GENERAL SKIN EXAM: no rashes or lesions noted Course Vital Signs: Vital signs: Vital Signs Temperature 97.7 F 12/18/21 04:00 Pulse Rate 84 12/18/21 04:00 Respiratory Rate 22 H 12/18/21 04:00 Blood Pressure 86/63 12/18/21 04:00 Pulse Oximetry 96 12/18/21 04:00 MDM - Chest Pain Medical Decision Making Patient has known nonischemic cardiomyopathy with an ejection fraction of 15%. She has pleuritic-like chest pain I am concerned with her sed rate being elevated and her history she may have a pericarditis also concerned the recent drug use in her sinus tachycardia she may have endocarditis. Will admit to started on antibiotics cultures done discussed with hospitalist orders written Medical Records I reviewed the patient's medical records. Lab Data I reviewed the patient's lab results. : 12/18/21 04:05 12/18/21 04:05 Radiology Impressions Chest X-Ray 12/17/21 11:17 IMPRESSION: No acute findings. Gallbladder Ultrasound 12/17/21 14:21 IMPRESSION: 1. Hepatomegaly. No intrahepatic biliary ductal dilatation. 2. Gallbladder sludge. Normal common bile duct. No pericholecystic fluid. 3. No hydronephrosis in RIGHT kidney. 4. Small RIGHT pleural effusion. Chest CTA 12/17/21 15:30 IMPRESSION: 1. Proximal main pulmonary arteries are normal. No evidence of pulmonary embolus. 2. Marked cardiomegaly with enlarged LEFT ventricle. 3. Small RIGHT and trace LEFT pleural fluid with interstitial edema and patchy atelectasis in the lung bases. 4. No mediastinal or hilar lymphadenopathy. 5. Partially visualized hepatomegaly Abdomen/Pelvis CT 12/17/21 19:46 IMPRESSION: 1. Moderate cardiomegaly. 2. Small bilateral pleural effusions. 3. There is right basilar atelectasis. Left lower lobe opacity could represent atelectasis or pneumonia. 4. There is a small amount of ascites which is high density, suspicious for hemorrhagic fluid. 5. Mild hepatomegaly. Laboratory Results WBC 20.8 10^3/uL (4.0-10.0) H 12/17/21 12:57 RBC 4.58 10^6/uL (4.1-5.3) 12/17/21 12:57 Hgb 13.9 g/dL (11.5-15.3) 12/17/21 12:57 Hct 44.6 % (37.0-47.0) 12/17/21 12:57 MCV 97.4 fl (81-99) 12/17/21 12:57 MCH 30.3 pg (28.0-34.0) 12/17/21 12:57 MCHC 31.2 g/dL (30.0-36.0) 12/17/21 12:57 RDW 17.8 % (12.1-15.1) H 12/17/21 12:57 Plt Count 218 10^3/cmm (130-400) 12/17/21 12:57 MPV 10.6 fL (7.4-10.4) H 12/17/21 12:57 Neut % (Auto) 91.1 % 02/28/22 12:57 Lymph % (Auto) 5.5 % 12/17/21 12:57 [place] % (Auto) 2.4 % 12/17/21 12:57 Eos % (Auto) 0.0 % 12/17/21 12:57 Baso % (Auto) 0.4 % 12/17/21 12:57 Neut # (Auto) 18.91 10^3/uL (1.8-7.7) H 12/17/21 12:57 Lymph # (Auto) 1.1 10^3/uL (0.8-4.8) 12/17/21 12:57 [place] # (Auto) 0.5 10^3/uL (0.2-0.9) 12/17/21 12:57 Eos # (Auto) 0.0 10^3/uL (0.0-0.8) 12/17/21 12:57 Baso # (Auto) 0.1 10^3/uL (0.0-0.1) 12/17/21 12:57 Nucleated RBC % (auto) 0 % 12/17/21 12:57 Nucleated RBCs # 0.0 /100WBC 12/17/21 12:57 Sodium 132 mmol/L (136-145) L 12/17/21 12:57 Potassium 5.1 mmol/L (3.5-5.1) 12/17/21 12:57 Chloride 97 mmol/L (98-107) L 12/17/21 12:57 Carbon Dioxide 22 mmol/L (22-29) 12/17/21 12:57 Anion Gap 18.1 (5-19) 12/17/21 12:57 BUN 11 mg/dL (6-20) 12/17/21 12:57 Creatinine 0.7 mg/dL (0.5-0.9) 12/17/21 12:57 GFR Calculation 96.4 mL/min (90-130) 12/17/21 12:57 Glucose 110 mg/dL (65-115) 12/17/21 12:57 Calculated Osmolality 274 mOsm/kg (285-295) L 12/17/21 12:57 Calcium 9.4 mg/dL (8.5-10.5) 12/17/21 12:57 Total Bilirubin 2.7 mg/dL (0.15-1.2) H 12/17/21 12:57 AST 39 U/L (0-32) H 12/17/21 12:57 ALT 52 U/L (0-33) H 12/17/21 12:57 Alkaline Phosphatase 169 IU/L (35-105) H 12/17/21 12:57 Troponin T Baseline 15 ng/L (0-10) H 12/17/21 12:57 Troponin T 120 Minute 19.92 ng/L (0-10) H 12/17/21 15:21 Delta Troponin T 4.92 ABS# (0-10) 12/17/21 15:21 C-Reactive Protein 197.5 mg/L (0.0-4.9) H 12/17/21 12:57 NT-Pro-B Natriuret Pep 47207 pg/mL (0-125) H 12/17/21 12:57 Total Protein 6.4 g/dL (6.6-8.7) L 12/17/21 12:57 Albumin 4.1 g/dL (3.5-5.2) 12/17/21 12:57 Globulin 2.3 g/dL (1.3-4.6) 12/17/21 12:57 Procalcitonin 0.35 ng/mL (0-0.5) 12/17/21 12:57 HCG, Qual Negative (Negative) 12/17/21 17:25 Urine Opiates Screen Positive ng/mL (Negative) H 12/17/21 14:05 Ur Barbiturates Screen Negative ng/mL (Negative) 12/17/21 14:05 Ur Phencyclidine Scrn Negative ng/mL (Negative) 12/17/21 14:05 Ur Amphetamines Screen Positive ng/mL (Negative) H 12/17/21 14:05 U Benzodiazepines Scrn Positive ng/mL (Negative) H 12/17/21 14:05 Urine Cocaine Screen Negative ng/mL (Negative) 12/17/21 14:05 U Marijuana (THC) Screen Positive ng/mL (Negative) H 12/17/21 14:05 Discharge Plan Discharge Patient Disposition: Admitted As Inpatient Admit Provider: Rosy Reich Clinical Impression: Nonischemic congestive cardiomyopathy, Pleuritic chest pain, Sinus tachycardia, Pericarditis Condition: Stable Coding Level of Care Code ED Senior Software Quality Engineer for Ena Price
[2021-12-17 13:15] LABS: Basophils # 0.1 10^3/uL (0.0-0.1); Basophils % 0.4 %; Hematocrit 44.6 % (37.0-47.0); Hemoglobin 13.9 g/dL (11.5-15.3); Lymphocytes # 1.1 10^3/uL (0.8-4.8); Lymphocytes % 5.5 %; Mean Corpuscular HGB Conc 31.2 g/dL (30.0-36.0); Mean Corpuscular Hemoglobin 30.3 pg (28.0-34.0); Mean Corpuscular Volume 97.4 fl (81-99); Mean Platelet Volume 10.6 fL (7.4-10.4); Monocytes # 0.5 10^3/uL (0.2-0.9); Monocytes % 2.4 %; Neutrophils # 18.91 10^3/uL (1.8-7.7); Neutrophils % 91.1 %; Nucleated Red Blood Cells % 0 %; Platelet Count 218 10^3/cmm (130-400); Red Blood Count 4.58 10^6/uL (4.1-5.3); Red Cell Distribution Width 17.8 % (12.1-15.1); White Blood Count 20.8 10^3/uL (4.0-10.0)
--- NOTE | 2021-12-17 13:17 | ECG_ITS ---
[facility] Test Date: 2021-12-17 Pat Name: Alex Workman Department: Room: Gender: Female Distance Learning Unit Leader: : 1990 Requested By: Altagracia Billy Order Number: [id number] Shea MD: Lan Hardy M.D. Measurements Intervals [place] Rate: 114 P: 51 DE: 164 QRS: 136 QRSD: 154 T: -29 QT: 357 QTc: 493 Interpretive Statements SINUS TACHYCARDIA LEFT ATRIAL ENLARGEMENT [-0.15mV P-WAVE IN V1/V2] INTRAVENTRICULAR CONDUCTION DELAY [130+ ms QRS DURATION] Compared to ECG 08/05/2021 12:09:54 First degree AV block no longer present Right-axis deviation no longer present Electronically Signed On 12-17-2021 17:24:59 FUNERAL LIMOUSINE DRIVER by Lan Hardy M.D. [id number]
[2021-12-17] MEDS: morphine 4 mg/mL SDV 1 mL IVP (13:34)
[2021-12-17] MEDS: ondansetron 2 mg/ML SDV 2 mL 4 MG IVP ×2 (13:34→19:34)
[2021-12-17 13:40] LABS: Troponin(5th) Baseline 15 ng/L (0-10)
[2021-12-17 13:47] LABS: Alanine Aminotransferase 52 U/L (0-33); Albumin Level 4.1 g/dL (3.5-5.2); Alkaline Phosphatase 169 IU/L (35-105); Blood Urea Nitrogen 11 mg/dL (6-20); Calcium 9.4 mg/dL (8.5-10.5); Carbon Dioxide 22 mmol/L (22-29); Chloride 97 mmol/L (98-107); Globulin 2.3 g/dL (1.3-4.6); Glomerular Filtration Rate 96.4 mL/min (90-130); Glucose 110 mg/dL (65-115); NT Pro B Type Natriuretic Pept 10309 pg/mL (0-125); Osmolality Calculated 274 mOsm/kg (285-295); Sodium 132 mmol/L (136-145); Total Bilirubin 2.7 mg/dL (0.15-1.2); Total Protein 6.4 g/dL (6.6-8.7)
[2021-12-17 13:49] LABS: Anion Gap 18.1 (5-19); Aspartate Amino Transferase 39 U/L (0-32); Potassium 5.1 mmol/L (3.5-5.1)
[2021-12-17 14:21] LABS: C Reactive Protein 197.5 mg/L (0.0-4.9)
--- NOTE | 2021-12-17 14:21 | US_ITS ---
WS: [id number] ULTRASOUND ABDOMEN LIMITED CLINICAL INFORMATION: elevated LFTS/t bili COMPARISON: None. FINDINGS: Liver Size: Enlarged Craniocaudal length: 20.5 cm. Echogenicity: Normal. Surface nodularity: None. Mass (size and location): None. Bile ducts Intrahepatic ducts: Normal. Common bile duct diameter: 0.45 cm. Gallbladder Sludge Gallstones: None. Gallbladder sludge: Present Gallbladder wall thickening: None. Pericholecystic fluid: None. Sonographic Fernandez sign: Absent. Pancreas Normal as visualized. Right kidney: Normal. Hydronephrosis: None. Size: 11.1 cm x 5.1 cm x 3.9 cm. Abdominal aorta and IVC Visualized portions are normal. Ascites: None. US/US gall bladder [id number] IMPRESSION: 1. Hepatomegaly. No intrahepatic biliary ductal dilatation. 2. Gallbladder sludge. Normal common bile duct. No pericholecystic fluid. 3. No hydronephrosis in RIGHT kidney. 4. Small RIGHT pleural effusion.
[2021-12-17 14:44] LABS: Amphetamines Screen Urine Positive (Negative); Barbiturates Screen Urine Negative (Negative); Benzodiazepines Screen Urine Positive (Negative); Cocaine Screen Urine Negative (Negative); Opiate Screen Urine Positive (Negative); PCP Screen Urine Negative (Negative); THC Screen Urine Positive (Negative)
[2021-12-17] MEDS: lactated ringers 1,000 ML 999 ML IV (15:01)
[2021-12-17] MEDS: vancomycin 1,000 MG in sodium chloride 0.9% 250 ML 250 MG IV (15:29)
--- NOTE | 2021-12-17 15:30 | CT_ITS ---
WS: [id number] CTA OF THE CHEST WITH PULMONARY EMBOLISM PROTOCOL TECHNIQUE: High-resolution contrast enhanced CTA of the chest with coronal and sagittal reformatted i mages with pulmonary embolism protocol. MIP images are also reviewed. CLINICAL INFORMATION: chest pain COMPARISON: CTA August 03, 2021 DLP: 460.[address] scans at [facility] use at least one of these dose optimization techniques: automated e xposure control; mA and/or kV adjustment per patient size (includes targeted exams where dose is matc hed to clinical indication); or iterative reconstruction. FINDINGS: Marked cardiomegaly. Enlargement of the LEFT ventricle. Proximal main pulmonary arteries are normal. Normal segmental pulmonary arteries. No evidence of pulmonary embolus. Small RIGHT and tiny LEFT pleural effusions. Interstitial edema with patchy atelectasis in the lung b ases. Upper lungs are well aerated. No mediastinal or hilar lymphadenopathy. No axillary lymphadenopathy. Normal GE junction. Hepatomegal y. CT/CT angio chest PE protcl [id number] IMPRESSION: 1. Proximal main pulmonary arteries are normal. No evidence of pulmonary embol us. 2. Marked cardiomegaly with enlarged LEFT ventricle. 3. Small RIGHT and trace LEFT pleural fluid with interstitial edema and patchy atelectasis in the lung bases. 4. No mediastinal or hilar lymphadenopathy. 5. Partially visualized hepatomegaly
[2021-12-17] MEDS: iohexol 350 mg/mL 100 mL Btl IV (15:49)
[2021-12-17 15:52] LABS: Troponin 5 2HR 19.92 ng/L (0-10)
[2021-12-17 15:54] LABS: Troponin 5 2HR Delta 4.92 ABS# (0-10)
--- NOTE | 2021-12-17 17:09 | PM.HP ---
Providers/Chief Complaint Admitting Physician: Rosy Reich MD Primary Care Provider: Jackie Ji MD Chief Complaint: Chest pain, SOB History of Present Illness Alex Workman is a 31 year old female who was discharged last year after management of cardiogenic shock required use of levo and dobutamine, she has poor ejection fraction EF 15%, she was asked to follow-up with television cabinet finisher at [facility], patient is stating that she did follow-up and they were discussing placement of AICD however this has not been done yet, presenting today with chief complaint of worsening pleuritic chest pain and abdominal pain. Patient stating that she is smoking marijuana and methamphetamine. She is denying IV drug abuse. She recently got and trying to abstain from recreational drugs. Her symptoms started last night. She started experiencing abdominal pain which is diffuse, she does have history of hepatic congestion secondary to heart failure, she has not experienced any nausea, vomiting or febrile events. One loose stool today. No one else sick at home. Every time she leans backwards she experiences chest discomfort, gets worse on changing position & improves with leaning forward. Shortness of breath on exertion. No significant orthopnea or PND In the ER she tested positive for benzodiazepine methamphetamine opioids and marijuana. EKG consistent with sinus tachycardia, CTA did not show PE, chest x-ray unremarkable, gallbladder ultrasound unremarkable other than pleural effusion. I will obtain CT abdomen pelvis with contrast tomorrow morning At the time of evaluation heart rate was in 110s, systolic blood pressure 100s She has missed her morning dose of metoprolol succinate She takes Eliquis for DVT, she also has history of , currently on OCPs Concern for pericarditis Obtain echo BNP 10,000 Abnormal transaminases Leukocytosis 20,000 We will check LDH and Covid PCR Review of Systems Const: Reports: chills, body aches and change in appetite Eyes: Denies: change in vision ENMT: Denies: throat pain Card: Reports: chest pain and dyspnea on exertion Resp: Reports: dyspnea GI: Reports: abdominal pain, heartburn, bloating and GI cramping; Denies: nausea or vomiting : Denies: flank pain Musc: Denies: neck pain Neuro: Denies: headache(s) Psych: Reports: anxiety Endo: Denies: polyuria Lucius/Lymph: Denies: easy bruising All/Imm: Denies: urticaria Medications/Allergies Home Medications Medication Instructions Recorded Confirmed Last Taken Type albuterol sulfate 90 mcg/actuation 1 inh INHALATION Q6H PRN #8.5 g 07/19/21 12/17/21 Unknown Rx aerosol inhaler (Ventolin HFA) apixaban 5 mg tablet (Eliquis) 5 mg PO BID #60 tab 07/19/21 12/17/21 08/02/21 Rx acetaminophen 500 mg tablet 500 mg PO Q4H PRN 08/03/21 12/17/21 Unknown History methocarbamol 750 mg tablet 750 mg PO Q6H PRN 08/03/21 12/17/21 Unknown History pantoprazole 40 mg tablet,delayed 40 mg PO QAM 08/03/21 12/17/21 08/02/21 History release furosemide 40 mg tablet 40 mg PO BID #0 tab 08/12/21 12/17/21 08/02/21 Rx losartan 25 mg tablet 25 mg PO DAILY 12/17/21 12/17/21 Unknown History magnesium L-lactate 84 mg 84 mg PO BID 12/17/21 12/17/21 Unknown History tablet,extended release (Magtab) medroxyprogesterone 150 mg/mL 150 mg IM Q90D 12/17/21 12/17/21 Unknown History intramuscular syringe metoprolol succinate 25 mg 25 mg PO BID 12/17/21 12/17/21 Unknown History tablet,extended release 24 hr ropinirole 0.25 mg tablet 0.25 mg PO DAILY 12/17/21 12/17/21 Unknown History sertraline 25 mg tablet 25 mg PO DAILY 12/17/21 12/17/21 Unknown History Allergies Allergy/AdvReac Type Severity Reaction Status Date / Time No Known Allergies Allergy Verified 12/17/21 14:09 PFSH Acute PFSH: Medical History CHF (congestive heart failure) History of methamphetamine abuse MRSA (methicillin resistant staph aureus) culture positive Pulmonary embolism Systolic heart failure Social History Smoking and tobacco status: former smoker Quit status (tobacco): has quit using tobacco Second hand smoke exposure: No Smoking risk assessment/counseling performed?: No Alcohol intake: former Desire information about alcohol rehabilitation?: No Counseling given: No Desire information about substance/drug rehabilitation?: No Counseling given: No Marital status: Life Partner service: No Current occupational status: unemployed Current occupational exposures/hazards: No Pets and animals: No History of recent travel: No Sexually active: Yes Current gender identity: Female Special emelia needs: No Agree to transfusion: Yes Financial difficulty paying for basics: Not Applicable Female Reproductive History: Date of last menstrual period: 02/17/21 Vitals/I&O/Wt Last Vital Signs Temp 98.4 F 12/17/21 11:40 Pulse 119 H 12/17/21 15:35 Resp 16 12/17/21 15:35 BP 107/76 12/17/21 15:35 Pulse Ox 96 12/17/21 15:35 12/17/21 12/17/21 12/17/21 06:59 14:59 22:59 Intake Total 1000 / 1000 Balance 1000 / 1000 Weight last 48 hrs Weight 68.492 kg Physical Exam Narrative: Young female Multiple skin tattoos Satting well on room air Nonreproducible chest pain Sinus tachycardia Appropriate mood and affect Nonfocal neuro exam No signs of edema Chest sounds clear no active rhonchi or crackles Abdomen is slightly tender right upper quadrant otherwise no active signs of peritonitis Bowel sounds present Data : 12/17/21 12:57 12/17/21 12:57 Micro: Microbiology 12/17/21 13:32 Blood Culture - Preliminary Blood SPECIMEN COLLECTED 12/17/21 13:18 Blood Culture - Preliminary Blood SPECIMEN COLLECTED A&P Assessment and plan (1) Nonischemic congestive cardiomyopathy: Status: Acute (2) Pleuritic chest pain: Status: Acute (3) Sinus tachycardia: Status: Acute Plan Sinus tachycardia, pleuritic pain Leukocytosis Afebrile Check Covid PCR Concern for myocarditis versus pericarditis Check echo in the morning Reduce extra fraction heart failure without acute exacerbation Hold Bumex Blood pressure is soft She also missed her metoprolol this morning which might explain rebound tachycardia, Check CRP, LDH We will give her 1 dose of ketorolac Obtain CT abdomen pelvis, my concern is related to congestive hepatopathy related to heart failure Continue Eliquis which he takes for DVT Considering history of drug abuse I will start her on empirical coverage for endocarditis, ceftriaxone 2 g and vancomycin Keep her on Ativan for as needed use Full code [employer] Drill Operator in [place] Dr. Dempsey, patient does not want to go to [place] because she is planning to settle in [place], I will touch base with television cabinet finisher in the morning Full code Cardiac diet Attestations Medical Necessity Statement*: more Than 2 midnights anticipated Time Spent in Patient Care: 35mins Coding Level of Care Code Acute Cooperative Extension Agent for Chg Fwd Diagnoses Nonischemic congestive cardiomyopathy I42.0 Pleuritic chest pain R07.81 Sinus tachycardia R00.0
--- NOTE | 2021-12-17 17:17 | ECG_ITS ---
[facility] Test Date: 2021-12-17 Pat Name: Alex Workman Department: Room: ICU10 Gender: Female Baker Pastry: : 1990 Requested By: Altagracia Billy Order Number: [id number] Shabbir MD: Inna Foy M.D. Measurements Intervals [place] Rate: 125 P: 59 ND: 227 QRS: 136 QRSD: 153 T: -12 QT: 380 QTc: 549 Interpretive Statements SINUS TACHYCARDIA WITH FIRST DEGREE AV BLOCK INTRAVENTRICULAR CONDUCTION DELAY [130+ ms QRS DURATION] Compared to ECG 12/17/2021 13:18:39 First degree AV block now present Atrial abnormality no longer present Electronically Signed On 12-19-2021 5:52:58 DOCUMENT MANAGEMENT CONSULTANT by Inna Foy M.D. [id number]
[2021-12-17 17:58] LABS: Procalcitonin 0.35 ng/mL (0-0.5)
[2021-12-17] MEDS: morphine 4 mg/mL SDV 1 mL 2 MG IVP (18:44)
[2021-12-17] MEDS: metoprolol succinate ER (24 HR) 25 mg Tablet PO (18:44)
[2021-12-17] MEDS: apixaban 5 mg Tablet PO (18:44)
--- NOTE | 2021-12-17 18:53 | PC.NURSE ---
Admit Note Patient admitted to ICU 10 from ER via [facility]. Covering service notified. Patient presents with SOB and Chest pain. Orders reviewed & will continue to monitor. Patient and/or patient admitting representative oriented to environment, equipment, and informed of the following as found in the admission booklet: patient rights & responsibilities, visitor policy, hand and respiratory hygiene practice. Other education includes: pain medicines. Patient and/or patient admitting representative verbalize understanding. Pt was last hospitalized on 09/19/21 for chest pain. She was able to transfer from [facility] to bed on her own. Pt's family called and have been updated. She does have belongings at bedside.
[2021-12-17 19:07] LABS: Erythrocyte Sedimentation Rate 14 mm/hr (0-15)
[2021-12-17 19:17] LABS: Troponin 5 6HR 22.21 ng/L (0-10)
[2021-12-17 19:18] LABS: Troponin 5 6HR Delta 7.21 ng/L (0-12)
--- NOTE | 2021-12-17 19:46 | CTR_ITS ---
PROCEDURE INFORMATION: Exam: CT Abdomen And Pelvis Without Contrast Exam date and time: 12/17/2021 7:46 PM Age: 31 years old Clinical indication: Bloating; Abdominal pain; Generalized; Additional info: Abdominal pain, bloating, TECHNIQUE: Imaging protocol: Computed tomography of the abdomen and pelvis without contrast. Radiation optimization: All CT scans at this facility use at least one of these dose optimization techniques: automated exposure control; mA and/or kV adjustment per patient size (includes targeted exams where dose is matched to clinical indication); or iterative reconstruction. COMPARISON: US gall bladder [id number] 12/17/2021 3:00 PM RADIATION DOSE METRICS: Total DLP (mGy-cm): 1103.69 FINDINGS: Lungs: There is right basilar atelectasis. Left lower lobe opacity could represent atelectasis or pneumonia. Pleural spaces: Small bilateral pleural effusions. Heart: There is moderate cardiomegaly. Liver: Mild, nonspecific hepatomegaly. Gallbladder and bile ducts: No wall thickening, pericholecystic fluid or stones. Pancreas: Normal. No ductal dilation. Spleen: Normal. No splenomegaly. Adrenal glands: Normal. No mass. Kidneys and ureters: Normal. No hydronephrosis. Stomach and bowel: Unremarkable. No obstruction. No mucosal thickening. Appendix: No evidence of appendicitis. Intraperitoneal space: There is a small amount of ascites which is high density, suspicious for hemorrhagic fluid. Vasculature: Unremarkable. No abdominal aortic aneurysm. Lymph nodes: Unremarkable. No enlarged lymph nodes. Urinary bladder: Unremarkable as visualized. Reproductive: Unremarkable as visualized. Bones/joints: Unremarkable. No acute fracture. Soft tissues: Unremarkable. Other findings: Contrast is present from recent chest CT. CT/CT abdomen pelvis wo con [id number] IMPRESSION: 1. Moderate cardiomegaly. 2. Small bilateral pleural effusions. 3. There is right basilar atelectasis. Left lower lobe opacity could represent atelectasis or pneumonia. 4. There is a small amount of ascites which is high density, suspicious for hemorrhagic fluid. 5. Mild hepatomegaly.
[2021-12-17] MEDS: ketorolac 30 mg/mL INJ IVP (20:15)
[2021-12-17 21:48] LABS: HCG, Serum Qual Negative (Negative)
[2021-12-17 22:29] LABS: Adenovirus Not Detected (NOT DETECT); Chlamydia Pneumoniae Not Detected (NOT DETECT); Coronavirus 229E,HKU1,NL63,OC4 Not Detected (NOT DETECT); Human Metapneumovirus Not Detected (NOT DETECT); Human Rhinovirus/Enterovirus Not Detected (NOT DETECT); Influenza A Not Detected (NOT DETECT); Influenza A H1 Not Detected (NOT DETECT); Influenza A H1-2009 Not Detected (NOT DETECT); Influenza A H3 Not Detected (NOT DETECT); Influenza B Not Detected (NOT DETECT); Mycoplasma Pneumoniae Not Detected (NOT DETECT); Parainfluenza Virus Type 1 Not Detected (NOT DETECT); Parainfluenza Virus Type 2 Not Detected (NOT DETECT); Parainfluenza Virus Type 3 Not Detected (NOT DETECT); Parainfluenza Virus Type 4 Not Detected (NOT DETECT); Respiratory Syncytial Virus A Not Detected (NOT DETECT); Respiratory Syncytial Virus B Not Detected (NOT DETECT); SARS-COV-2 Not Detected (NOT DETECT)
[2021-12-17] MEDS: vancomycin 1,500 MG/300 ML PIGGYBACK 200 MG IV (23:18)
[2021-12-18] VITALS (25 sets, daily range): BP systolic 83–104; BP diastolic 55–73; PULSE 73–150; RESP 12–23; TEMP 36.5–37; O2SAT 86–100
[2021-12-18] MEDS: morphine 4 mg/mL SDV 1 mL 2 MG IVP ×2 (03:56→20:54)
[2021-12-18 04:40] LABS: Basophils % 0.3 %; Eosinophils # 0.2 10^3/uL (0.0-0.8); Eosinophils % 1.3 %; Hematocrit 40.7 % (37.0-47.0); Hemoglobin 12.7 g/dL (11.5-15.3); Lymphocytes # 1.3 10^3/uL (0.8-4.8); Mean Corpuscular HGB Conc 31.2 g/dL (30.0-36.0); Mean Corpuscular Hemoglobin 29.9 pg (28.0-34.0); Mean Corpuscular Volume 95.8 fl (81-99); Mean Platelet Volume 10.8 fL (7.4-10.4); Monocytes # 0.4 10^3/uL (0.2-0.9); Monocytes % 3.2 %; Neutrophils # 11.37 10^3/uL (1.8-7.7); Neutrophils % 84.8 %; Nucleated Red Blood Cells % 0 %; Platelet Count 219 10^3/cmm (130-400); Red Blood Count 4.25 10^6/uL (4.1-5.3); Red Cell Distribution Width 17.8 % (12.1-15.1); White Blood Count 13.4 10^3/uL (4.0-10.0)
[2021-12-18 05:04] LABS: Alanine Aminotransferase 37 U/L (0-33); Albumin Level 3.5 g/dL (3.5-5.2); Alkaline Phosphatase 151 IU/L (35-105); Anion Gap 16.1 (5-19); Aspartate Amino Transferase 20 U/L (0-32); Blood Urea Nitrogen 19 mg/dL (6-20); Calcium 8.3 mg/dL (8.5-10.5); Carbon Dioxide 22 mmol/L (22-29); Chloride 102 mmol/L (98-107); Globulin 2.2 g/dL (1.3-4.6); Glomerular Filtration Rate 72.1 mL/min (90-130); Glucose 114 mg/dL (65-115); Osmolality Calculated 285 mOsm/kg (285-295); Potassium 4.1 mmol/L (3.5-5.1); Sodium 136 mmol/L (136-145); Total Bilirubin 2.3 mg/dL (0.15-1.2); Total Protein 5.7 g/dL (6.6-8.7)
[2021-12-18 05:05] LABS: Creatine Phosphokinase 27 U/L (26-192); Lactate Dehydrogenase 277 U/L (135-214)
[2021-12-18] MEDS: pantoprazole DR 40 mg Tablet PO ×2 (06:06→17:24)
[2021-12-18] MEDS: cefTRIAXone 2,000 MG in sodium chloride 0.9% (plus) 50 ML 100 MG IV (08:54)
[2021-12-18] MEDS: metoprolol succinate ER (24 HR) 25 mg Tablet PO (08:55)
[2021-12-18] MEDS: ropinirole 0.25 mg Tablet PO (08:55)
[2021-12-18] MEDS: losartan 50 mg Tablet 25 MG PO (08:55)
[2021-12-18] MEDS: apixaban 5 mg Tablet PO (08:56)
[2021-12-18] MEDS: ketorolac 30 mg/mL INJ IVP (08:56)
[2021-12-18] MEDS: vancomycin 1,500 MG/300 ML PIGGYBACK 200 MG IV ×2 (09:29→22:10)
--- NOTE | 2021-12-18 12:26 | P.PN_ITS ---
Subjective Subjective: Spiked fever last night This morning patient is noncompliant with chest pain however abdominal pain is persistent which gets worse on ambulation White count 13.4 Increase inflammatory markers noted We will give her another dose of Toradol this morning Echo is pending Blood pressure is better, did not require levo At baseline systolic blood pressure stays around 90s Vitals/I&O/Wt Last Vital Signs Temp 97.7 F 12/18/21 04:00 Pulse 84 12/18/21 04:00 Resp 22 H 12/18/21 04:00 BP 86/63 12/18/21 04:00 Pulse Ox 96 12/18/21 04:00 12/17/21 12/18/21 12/18/21 22:59 06:59 14:59 Intake Total 1490 / 1490 780 / 2270 Output Total 300 / 300 Balance 1490 / 1490 480 / 1970 Weight last 48 hrs Weight 68.492 kg Weight 68.492 kg Physical Exam Narrative: This morning patient was sitting in her bed Complaining abdominal pain Her abdomen is firm around umbilicus however no active signs of peritonitis No signs of Fernandez's right upper quadrant tenderness Well-hydrated Multiple skin tattoos No signs of hyperemia No sore throat Pneumococcal PERRLA Nonfocal neuro exam Saturating well on room air Data : 12/18/21 04:05 12/18/21 04:05 Micro: Microbiology 12/17/21 13:32 Blood Culture - Preliminary Blood SPECIMEN COLLECTED 12/17/21 13:18 Blood Culture - Preliminary Blood SPECIMEN COLLECTED A&P Assessment and plan (1) Pericarditis: Status: Acute (2) Sinus tachycardia: Status: Acute (3) Pleuritic chest pain: Status: Acute (4) Nonischemic congestive cardiomyopathy: Status: Acute Plan Pleuritic chest pain No signs of PE CT abdomen pelvis unremarkable other than concern for small amount ascites We will ask radiology for diagnostic tap if you are able to do so depending on the quantity of ascitic fluid I do believe patient has congestive hepatopathy which is causing pain I will request hepatitis panel, acetaminophen level Drug screen positive She spiked fever last night We will give another dose of ketorolac this morning Currently she is on empirical treatment for possible endocarditis Blood cultures taken yesterday Currently on ceftriaxone and vancomycin Echo is pending Currently on cardiac diet Hold Eliquis which he takes for previous history of DVT for paracentesis Full code No active signs of cardiogenic shock Patient is not is contraindicated and she is aware of that Bumex currently on hold Change metoprolol succinate to 25 mg daily instead of twice daily Attestations Medical Necessity Statement*: Continue hospitalization Time Spent in Patient Care: 30min Coding Level of Care Code Acute 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
--- NOTE | 2021-12-18 12:28 | US_ITS ---
WS: [id number] INDICATION: Paracentesis TECHNIQUE: Ultrasound abdomen limited FINDINGS: Small amount of perihepatic ascites. Insufficient fluid for paracentesis. US/US abdomen lmt fluid [id number] IMPRESSION: Insufficient fluid for paracentesis
[2021-12-18 13:14] LABS: Tumor Marker Alpha Fetoprotein 3.2 ng/mL (0-8.3)
[2021-12-18 13:23] LABS: Hepatitis A Antibody IgM Non-Reactive (Nonreactive); Hepatitis B Core AB, Total Non-Reactive (Nonreactive); Hepatitis B Surface AB 186.7 (11.5-1000); Hepatitis B Surface Antigen Non-Reactive (Nonreactive); Hepatitis C Virus Antibody Non-Reactive (Nonreactive)
[2021-12-18] MEDS: famotidine 20 mg Tablet PO ×2 (13:23→17:24)
[2021-12-18] MEDS: lidocaine 2% viscous 15 ML, aluminum-mag hydrox-simethicon 30 ML, sucralfate oral liq 1 GM PO (13:23)
[2021-12-18 13:31] LABS: Acetaminophen < 5.0 ug/mL (10-30)
[2021-12-18] MEDS: acetaminophen 500 mg Tablet PO ×2 (13:42→19:40)
--- NOTE | 2021-12-18 21:28 | PC.NURSE ---
Report called to DANIA prasad @ [phone].
[2021-12-19] VITALS (15 sets, daily range): BP systolic 88–106; BP diastolic 60–71; PULSE 44–94; RESP 13–24; TEMP 36.1–37; O2SAT 91–100
--- NOTE | 2021-12-19 00:13 | PC.NURSE ---
Transfer Note Patient transferred to [facility] from [facility] via bed. Handoff received from Meaghan. Patient oriented to environment and equipment. Covering service notified. Orders reviewed and will continue to monitor. Family and/or patient care representative notified.
[2021-12-19] MEDS: acetaminophen 500 mg Tablet PO ×2 (00:21→20:24)
[2021-12-19 04:02] LABS: Basophils % 0.3 %; Eosinophils # 0.1 10^3/uL (0.0-0.8); Eosinophils % 1.3 %; Hemoglobin 11.4 g/dL (11.5-15.3); Lymphocytes # 1.4 10^3/uL (0.8-4.8); Lymphocytes % 15.4 %; Mean Corpuscular HGB Conc 31.7 g/dL (30.0-36.0); Mean Corpuscular Hemoglobin 30.8 pg (28.0-34.0); Mean Corpuscular Volume 97.3 fl (81-99); Mean Platelet Volume 11.3 fL (7.4-10.4); Monocytes # 0.7 10^3/uL (0.2-0.9); Monocytes % 7.2 %; Neutrophils # 6.82 10^3/uL (1.8-7.7); Neutrophils % 75.4 %; Nucleated Red Blood Cells % 0 %; Platelet Count 211 10^3/cmm (130-400); Red Cell Distribution Width 17.5 % (12.1-15.1); White Blood Count 9.1 10^3/uL (4.0-10.0)
[2021-12-19 04:21] LABS: Lipase 14 U/L (13-60)
[2021-12-19 04:36] LABS: Alanine Aminotransferase 28 U/L (0-33); Alkaline Phosphatase 197 IU/L (35-105); Anion Gap 17.9 (5-19); Aspartate Amino Transferase 19 U/L (0-32); Blood Urea Nitrogen 22 mg/dL (6-20); Calcium 8.4 mg/dL (8.5-10.5); Carbon Dioxide 19 mmol/L (22-29); Chloride 102 mmol/L (98-107); Glomerular Filtration Rate 82.6 mL/min (90-130); Glucose 104 mg/dL (65-115); Osmolality Calculated 284 mOsm/kg (285-295); Potassium 3.9 mmol/L (3.5-5.1); Sodium 135 mmol/L (136-145); Total Bilirubin 0.8 mg/dL (0.15-1.2)
--- NOTE | 2021-12-19 05:49 | PC.NURSE ---
Patient transferred here at beginning of shift from ICU. Morphine was given to patient before she transferred. Patient received one dose of morphine and one dose of tylenol for a headahe. Patient vss. Will continue to monitor.
--- NOTE | 2021-12-19 07:19 | PC.NURSE ---
received report from ve teacher. reviewed poc. no needs identified at this time
[2021-12-19] MEDS: losartan 50 mg Tablet 25 MG PO (08:22)
[2021-12-19] MEDS: famotidine 20 mg Tablet PO ×2 (08:23→17:45)
[2021-12-19] MEDS: ropinirole 0.25 mg Tablet PO (08:23)
[2021-12-19] MEDS: pantoprazole DR 40 mg Tablet PO ×2 (08:23→17:45)
[2021-12-19] MEDS: metoprolol succinate ER (24 HR) 25 mg Tablet PO (08:23)
[2021-12-19] MEDS: cefTRIAXone 2,000 MG in sodium chloride 0.9% (plus) 50 ML 100 MG IV (08:24)
--- NOTE | 2021-12-19 08:25 | PM.PN ---
Subjective Subjective: Patient is afebrile, this morning complaining of headache Tolerating her diet She is experiencing menstrual bleeding No more worsening of pleuritic chest pain Endorsing menstrual pain Vitals/I&O/Wt Last Vital Signs Temp 98.6 F 12/19/21 08:01 Pulse 83 12/19/21 08:01 Resp 20 H 12/19/21 08:01 BP 89/60 12/19/21 08:01 Pulse Ox 98 12/19/21 08:01 12/18/21 12/19/21 12/19/21 22:59 06:59 14:59 Intake Total 1050 / 1050 300 / 1350 Output Total 300 / 300 300 / 600 Balance 750 / 750 0 / 750 Weight last 48 hrs Weight 68.492 kg Weight 68.492 kg Physical Exam Narrative: This morning patient is laying supine Saturating well on room air Hemodynamically stable S1, S2 Nonfocal neuro exam Abdomen soft EOMI, PERRLA Multiple skin tattoos Euvolemic Data : 12/19/21 03:19 12/19/21 03:19 Micro: Microbiology 12/17/21 13:32 Blood Culture - Preliminary Blood NEGATIVE TO DATE 12/17/21 13:18 Blood Culture - Preliminary Blood NEGATIVE TO DATE A&P Assessment and plan (1) Pericarditis: Status: Acute (2) Sinus tachycardia: Status: Acute (3) Pleuritic chest pain: Status: Acute (4) Nonischemic congestive cardiomyopathy: Status: Acute Plan Pleuritic chest pain Echo not consistent with pericardial effusion No signs of PE My concern is for possible infective endocarditis Continue IV antibiotics Consulted cardiology for transesophageal echo Patient is adamant that she is not doing IV drugs, she smoked/inhaled marijuana and methamphetamine Life is unremarkable Abdominal pain most likely is her menstrual pain There is no drainable ascitic fluid Abnormal transaminases bilirubin improved Inflammatory markers trending down Echo shows 15% EF Pulmonary hypertension No vegetation noted Attestations Medical Necessity Statement*: Plan for transesophageal echo tomorrow Time Spent in Patient Care: 30 minutes Coding Level of Care Code Acute Inclusion Specialist for Ena Price Diagnoses Pericarditis I31.9 Sinus tachycardia R00.0 Pleuritic chest pain R07.81 Nonischemic congestive cardiomyopathy I42.0
[2021-12-19] MEDS: vancomycin 1,500 MG/300 ML PIGGYBACK 200 MG IV ×2 (10:44→21:45)
[2021-12-19] MEDS: morphine 4 mg/mL SDV 1 mL 2 MG IVP ×2 (13:22→18:05)
--- NOTE | 2021-12-19 16:24 | P.CONIM_ITS ---
Providers/Reason For Consult Consulting Physician/Specialty*: Lalo De La Paz MD/Cardiology Reason for Consult*: Transesophageal echocardiogram/rule out endocarditis Requesting Physician: Dr Reich Attending Physician: Rosy Reich MD Primary Care Provider: Jackie Ji MD History of Present Illness History of Present Illness Alex Workman is a 31 year old female with past medical history of congestive heart failure, nonischemic cardiomyopathy with EF of 15%, sees cardiology at [facility], used to have LifeVest however ICD has not been placed presented to the hospital with worsening pleuritic chest pain and abdominal pain. Patient had a history of drug abuse however denies IV drug abuse. She smokes marijuana and methamphetamine. Cardiology was consulted as patient had a febrile episode. Blood culture is negative however concern for infective endocarditis given her history of drug abuse and no source of fever has been established. Today patient states her symptoms have improved significantly. Review of Systems Const: Reports: chills, body aches and change in appetite Eyes: Denies: change in vision ENMT: Denies: throat pain Card: Reports: chest pain and dyspnea on exertion Resp: Reports: dyspnea GI: Reports: abdominal pain, heartburn, bloating and GI cramping; Denies: nausea or vomiting : Denies: flank pain Musc: Denies: neck pain Neuro: Denies: headache(s) Psych: Reports: anxiety Endo: Denies: polyuria Lucius/Lymph: Denies: easy bruising All/Imm: Denies: urticaria Medications/Allergies Home Medications Medication Instructions Recorded Confirmed Last Taken Type albuterol sulfate 90 mcg/actuation 1 inh INHALATION Q6H PRN #8.5 g 07/19/21 12/17/21 Unknown Rx aerosol inhaler (Ventolin HFA) apixaban 5 mg tablet (Eliquis) 5 mg PO BID #60 tab 07/19/21 12/17/21 08/02/21 Rx acetaminophen 500 mg tablet 500 mg PO Q4H PRN 08/03/21 12/17/21 Unknown History methocarbamol 750 mg tablet 750 mg PO Q6H PRN 08/03/21 12/17/21 Unknown History pantoprazole 40 mg tablet,delayed 40 mg PO QAM 08/03/21 12/17/21 08/02/21 History release furosemide 40 mg tablet 40 mg PO BID #0 tab 08/12/21 12/17/21 08/02/21 Rx losartan 25 mg tablet 25 mg PO DAILY 12/17/21 12/17/21 Unknown History magnesium L-lactate 84 mg 84 mg PO BID 12/17/21 12/17/21 Unknown History tablet,extended release (Magtab) medroxyprogesterone 150 mg/mL 150 mg IM Q90D 12/17/21 12/17/21 Unknown History intramuscular syringe metoprolol succinate 25 mg 25 mg PO BID 12/17/21 12/17/21 Unknown History tablet,extended release 24 hr ropinirole 0.25 mg tablet 0.25 mg PO DAILY 12/17/21 12/17/21 Unknown History sertraline 25 mg tablet 25 mg PO DAILY 12/17/21 12/17/21 Unknown History Allergies Allergy/AdvReac Type Severity Reaction Status Date / Time No Known Allergies Allergy Verified 12/17/21 14:09 Current Medications Generic Name Dose Route Start Last Admin Trade Name Freq PRN Reason Stop Dose Admin Acetaminophen 500 mg 12/17/21 18:17 12/19/21 00:21 Acetaminophen 500 Mg Tablet PO 500 mg Q4H PRN Administration FEVER Apixaban 5 mg 12/17/21 18:30 12/18/21 08:56 Apixaban 5 Mg Tablet PO 5 mg BID@0900,2100 GAUTAM Administration Bumetanide 1 mg 12/17/21 18:30 12/17/21 18:45 Bumetanide 0.25 Mg/Ml Sdv 4 Ml IVP Not Given Q24H GAUTAM Famotidine 20 mg 12/18/21 12:40 12/19/21 08:23 Famotidine 20 Mg Tablet PO 20 mg BID GAUTAM Administration Ceftriaxone Sodium 2,000 mg/ 50 mls @ 100 mls/hr 12/18/21 09:00 12/19/21 08:54 Sodium Chloride IV Infused DAILY GAUTAM Infusion Protocol Vancomycin/PEG/NADA/Lysine/Water 1,500 mg in 300 mls @ 200 mls/hr 12/17/21 22:00 12/19/21 12:15 Vancocin IV Infused Q12H GAUTAM Infusion Losartan Potassium 25 mg 12/18/21 09:00 12/19/21 08:22 Losartan 50 Mg Tablet PO 25 mg DAILY GAUTAM Administration Metoprolol Succinate 25 mg 12/19/21 09:00 12/19/21 08:23 Metoprolol Succinate Er (24 Hr) 25 Mg Tablet PO 25 mg DAILY GAUTAM Administration Morphine Sulfate 2 mg 12/17/21 18:17 12/19/21 13:22 Morphine 4 Mg/Ml Sdv 1 Ml IVP 2 mg Q4H PRN Administration SEVERE PAIN Ondansetron HCl 4 mg 12/17/21 18:17 12/17/21 19:34 Ondansetron 2 Mg/Ml Sdv 2 Ml IVP 4 mg Q6H PRN Administration NAUSEA AND VOMITING Pantoprazole Sodium 40 mg 12/18/21 18:00 12/19/21 08:[address] 40 Mg Tablet PO 40 mg BID GAUTAM Administration Ropinirole HCl 0.25 mg 12/18/21 09:00 12/19/21 08:23 Ropinirole 0.25 Mg Tablet PO 0.25 mg DAILY GAUTAM Administration PFSH Acute PFSH: Medical History (Updated 12/20/21 @ 10:56 by Lalo De La Paz M.D) CHF (congestive heart failure) History of methamphetamine abuse MRSA (methicillin resistant staph aureus) culture positive Pulmonary embolism Systolic heart failure Social History Smoking and tobacco status: former smoker Quit status (tobacco): has quit using tobacco Second hand smoke exposure: No Smoking risk assessment/counseling performed?: No Alcohol intake: former Desire information about alcohol rehabilitation?: No Counseling given: No Desire information about substance/drug rehabilitation?: No Counseling given: No Marital status: Life Partner service: No Current occupational status: unemployed Current occupational exposures/hazards: No Pets and animals: No History of recent travel: No Sexually active: Yes Current gender identity: Female Special emelia needs: No Agree to transfusion: Yes Financial difficulty paying for basics: Not Applicable Female Reproductive History: Date of last menstrual period: 12/17/21 Vitals/I&O/Wt Last Vital Signs Temp 98.6 F 12/19/21 08:01 Pulse 86 12/19/21 15:56 Resp 21 H 12/19/21 15:56 BP 97/66 12/19/21 15:56 Pulse Ox 94 12/19/21 15:56 12/19/21 12/19/21 12/19/21 06:59 14:59 22:59 Intake Total 300 / 1350 468 / 468 Output Total 300 / 600 Balance 0 / 750 468 / 468 Weight last 48 hrs Weight 151 lb Physical Exam Narrative: GENERAL: Patient is alert, awake and oriented x3. [] NECK: No jugular vein distension. [] HEENT: No cyanosis. No icterus. No pallor. [] HEART: Regular S1 and S2. Has grade III/ systolic murmur LUNGS: Clear to auscultate bilaterally. [] ABDOMEN: Soft, nontender and nondistended. Positive bowel sounds. No guarding, rebound or tenderness. [] CENTRAL NERVOUS SYSTEM: Grossly nonfocal. [] EXTREMITIES: Lower extremities with no edema bilaterally. Pulses palpable in the lower extremities, both dorsalis pedis and posterior tibial. [] Data : 12/20/21 04:24 12/20/21 04:24 Micro: Microbiology 12/17/21 13:38 MRSA Culture - Final Nose 12/17/21 13:32 Blood Culture - Preliminary Blood NEGATIVE TO DATE 12/17/21 13:18 Blood Culture - Preliminary Blood NEGATIVE TO DATE A&P Assessment and plan (1) CHF (congestive heart failure): Status: Acute Qualifiers: Heart failure type: systolic Heart failure chronicity: chronic Qualified Code(s): I50.22 - Chronic systolic (congestive) heart failure (2) Pleuritic chest pain: Status: Acute (3) Nonischemic congestive cardiomyopathy: Status: Acute Plan Patient has history of drug abuse and has fever of unknown origin. T ransthoracic echocardiogram does not reveal any vegetations of his moderate to severe tricuspid regurgitation and mild to moderate mitral regurgitation. Cardiology consulted for performing transesophageal echocardiogram. We will coordinate for ARIELLE to be done tomorrow. Guideline directed medical therapy for nonischemic cardiomyopathy. Patient will need ICD once infection is cleared. In the interim period, she will benefit from LifeVest. Thank you for involving us with care of this patient. We will continue to follow. Please call with questions. Coding Level of Care Code Acute Massage Therapy Instructor for Chg Fwd Diagnoses CHF (congestive heart failure) I50.22 Heart failure type: systolic Heart failure chronicity: chronic Pleuritic chest pain R07.81 Nonischemic congestive cardiomyopathy I42.0
[2021-12-20] VITALS (21 sets, daily range): BP systolic 74–115; BP diastolic 48–71; PULSE 69–85; RESP 12–23; TEMP 36.3–36.7; O2SAT 90–98
[2021-12-20 04:44] LABS: Basophils % 0.3 %; Eosinophils # 0.2 10^3/uL (0.0-0.8); Eosinophils % 1.7 %; Hematocrit 36.3 % (37.0-47.0); Hemoglobin 11.5 g/dL (11.5-15.3); Lymphocytes # 2.3 10^3/uL (0.8-4.8); Lymphocytes % 25.6 %; Mean Corpuscular HGB Conc 31.7 g/dL (30.0-36.0); Mean Corpuscular Hemoglobin 30.2 pg (28.0-34.0); Mean Corpuscular Volume 95.3 fl (81-99); Monocytes # 0.8 10^3/uL (0.2-0.9); Monocytes % 9.4 %; Neutrophils # 5.51 10^3/uL (1.8-7.7); Neutrophils % 62.4 %; Nucleated Red Blood Cells % 0 %; Platelet Count 215 10^3/cmm (130-400); Red Blood Count 3.81 10^6/uL (4.1-5.3); Red Cell Distribution Width 17.1 % (12.1-15.1); White Blood Count 8.8 10^3/uL (4.0-10.0)
[2021-12-20 05:08] LABS: Anion Gap 16.1 (5-19); Blood Urea Nitrogen 14 mg/dL (6-20); Calcium 8.8 mg/dL (8.5-10.5); Carbon Dioxide 19 mmol/L (22-29); Chloride 106 mmol/L (98-107); Glomerular Filtration Rate 115.1 mL/min (90-130); Glucose 94 mg/dL (65-115); Osmolality Calculated 284 mOsm/kg (285-295); Potassium 4.1 mmol/L (3.5-5.1); Sodium 137 mmol/L (136-145)
--- NOTE | 2021-12-20 05:59 | PC.NURSE ---
Frequent safety and comfort rounds continue. Orders and/or nursing care completed as indicated. Patient monitored for response to intervention and treatmen Pain ). Education provided includes[]. Patient and/or business services sales representative [ResponseToTeaching]. Will continue to monitor.
--- NOTE | 2021-12-20 06:07 | PC.NURSE ---
Frequent safety and comfort rounds continue. Orders and/or nursing care completed as indicated. Patient monitored for response to intervention and treatment(s). Education provided includes stress test protocol. Patient and/or corporate sales representative verbalized understanding. Will continue to monitor.
--- NOTE | 2021-12-20 06:09 | PC.NURSE ---
Patient to go for stress test today. Information provided to patient on what procedure is. Patient verbalizes understanding. Will continue to monitor.
[2021-12-20] MEDS: morphine 4 mg/mL SDV 1 mL 2 MG IVP (08:53)
[2021-12-20] MEDS: ropinirole 0.25 mg Tablet PO (08:54)
[2021-12-20] MEDS: losartan 50 mg Tablet 25 MG PO (08:54)
[2021-12-20] MEDS: famotidine 20 mg Tablet PO ×2 (08:54→18:03)
[2021-12-20] MEDS: metoprolol succinate ER (24 HR) 25 mg Tablet PO (08:55)
[2021-12-20] MEDS: pantoprazole DR 40 mg Tablet PO ×2 (08:55→18:03)
[2021-12-20] MEDS: cefTRIAXone 2,000 MG in sodium chloride 0.9% (plus) 50 ML 100 MG IV (08:55)
--- NOTE | 2021-12-20 09:53 | P.PN_ITS ---
Subjective Subjective: Patient is stating that she is tired, afebrile Only 1 episode of febrile event during this hospitalization Currently on IV antibiotics Complaining of menstrual cramps and bleeding Pleuritic chest pain has improved with 2 dose of ketorolac Plan for transesophageal echo this morning Vitals/I&O/Wt Last Vital Signs Temp 98.1 F 12/20/21 07:00 Pulse 80 12/20/21 08:55 Resp 17 12/20/21 08:55 BP 104/71 12/20/21 08:54 Pulse Ox 97 12/20/21 08:55 12/19/21 12/20/21 12/20/21 22:59 06:59 14:59 Intake Total 1000 / 1468 300 / 1768 50 / 50 Output Total 300 / 300 300 / 600 Balance 700 / 1168 0 / 1168 50 / 50 Physical Exam Narrative: Patient is laying in right lateral position Saturating well on room air Euvolemic S1, S2 Abdomen is soft, firm in hypogastric region No signs of peritonitis Nonfocal neuro exam Fatigued and lethargic Data : 12/20/21 04:24 12/20/21 04:24 Micro: Microbiology 12/17/21 13:38 MRSA Culture - Final Nose A&P Assessment and plan (1) Pericarditis: Status: Acute (2) Sinus tachycardia: Status: Acute (3) Pleuritic chest pain: Status: Acute (4) Nonischemic congestive cardiomyopathy: Status: Acute (5) RUDY (acute kidney injury): Status: Acute (6) Cardiogenic shock: Status: Acute Plan Pleuritic chest pain No signs of cardiac tamponade or pericardial effusion on the echo Pain improved with 2 dose of ketorolac Single febrile episode Concern for endocarditis No signs of vegetation on transthoracic echo Patient is scheduled for transesophageal echo today If no signs of valvular abscess or vegetation, might be able to discharge her later today in case of positive diagnosis Continue empirical endocarditis coverage Abdominal pain with most likely menstrual cramps Ascites related to poor EF congestive heart failure however no active decompensation Not enough fluid to be drained Congestive hepatopathy Poor ejection fraction heart failure without acute exacerbation Systolic blood pressure runs in 90s Will arrange LifeVest before discharge As per the patient LifeVest was mailed back to the company She is willing to go for the AICD Does not want to go back to [place], prefers to have it done in [place] Will need evaluation by Dr. 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
--- NOTE | 2021-12-20 11:00 | USCV_ITS ---
Alex Workman Age: 31 Gender: F : 1990 Exam Date: 12/20/2021 11:22 Ordering Phys: Lalo De La Paz M.D ([email or web address]) Technologist: FLETCHER [place] [facility] [place]: R/O [place]OCARDIT[place] BP: / HR: Rhythm: Sinus Technical Quality: Adequate MEASUREMENTS (Male / Female) Normal Values Medications Complications None Proc. Components After anesthesia team administered anesthetics, we proceeded with advancing ARIELLE probe FINDINGS Left Ventricle LV systolic function is severely reduced with EF of 15-20% Right Ventricle RV is moderately hypokinetic Right Atrium Dilated Left Atrium Grossly dilated LA Appendage No SARA thrombus seen IA Septum Normal. No evidence of interatrial shunting seen Mitral Valve Normal. Mild mitral regurgitation. No evidence of vegetation Aortic Valve Normal tricuspid aortic valve. No vegetation seen Tricuspid Valve Normal. No vegetation is seen Pulmonic Valve Grossly normal Pericardium Normal Aorta Normal CONCLUSIONS LV systolic function is severely reduced RV is moderately hypokinetic No vegetation noted No SARA thrombus Lalo De La Paz MD (Electronically Signed) Final Date: 22 December 2021 23:32 S
[2021-12-20] MEDS: sodium chloride 0.9% 1,000 ML 100 ML IV (11:02)
[2021-12-20] MEDS: vancomycin 1,500 MG/300 ML PIGGYBACK 200 MG IV (11:02)
--- NOTE | 2021-12-20 11:09 | ANES.PREANE2 ---
Pre-Anesthetic Assessment Height/Weight: Height 1.65 m Weight 68.492 kg Temp Pulse Resp BP Pulse Ox 98.1 F 80 17 104/71 97 12/20/21 07:00 12/20/21 08:55 12/20/21 08:55 12/20/21 08:54 12/20/21 08:55 Preop Diagnosis: R/O endocarditis ARIELLE Was Beta Gurdeep taken within 24 hours: N/A Was Clonidine taken within 24 hours: N/A Social Alcohol Meth abuse, Cannibus Exam alert, oriented x 3, clear to auscultation bilaterally and regular rate & rhythm Airway Submandibular: within normal limits Cervical ROM: within normal limits Mallampati: Class II Dentition: chipped History/ROS No significant history except as noted and No significant complaints Pulmonary None reported CV/HEM EF 15% None reported Hepatic None reported GI None reported Metabolic None reported Musc/skel None reported Neuropsych None reported Anesthetic Plan ASA status: 4 Anesthesia: Anesthesia Evaluation and MAC Risk of > 500 ml blood loss (7ml/kg in children): No Medications/Allergies Home Medications Medication Instructions Recorded Confirmed Last Taken Type albuterol sulfate 90 mcg/actuation 1 inh INHALATION Q6H PRN #8.5 g 07/19/21 12/17/21 Unknown Rx aerosol inhaler (Ventolin HFA) apixaban 5 mg tablet (Eliquis) 5 mg PO BID #60 tab 07/19/21 12/17/21 08/02/21 Rx acetaminophen 500 mg tablet 500 mg PO Q4H PRN 08/03/21 12/17/21 Unknown History methocarbamol 750 mg tablet 750 mg PO Q6H PRN 08/03/21 12/17/21 Unknown History pantoprazole 40 mg tablet,delayed 40 mg PO QAM 08/03/21 12/17/21 08/02/21 History release furosemide 40 mg tablet 40 mg PO BID #0 tab 08/12/21 12/17/21 08/02/21 Rx losartan 25 mg tablet 25 mg PO DAILY 12/17/21 12/17/21 Unknown History magnesium L-lactate 84 mg 84 mg PO BID 12/17/21 12/17/21 Unknown History tablet,extended release (Magtab) medroxyprogesterone 150 mg/mL 150 mg IM Q90D 12/17/21 12/17/21 Unknown History intramuscular syringe metoprolol succinate 25 mg 25 mg PO BID 12/17/21 12/17/21 Unknown History tablet,extended release 24 hr ropinirole 0.25 mg tablet 0.25 mg PO DAILY 12/17/21 12/17/21 Unknown History sertraline 25 mg tablet 25 mg PO DAILY 12/17/21 12/17/21 Unknown History Allergies Allergy/AdvReac Type Severity Reaction Status Date / Time No Known Allergies Allergy Verified 12/17/21 14:09 Current Medications Generic Name Dose Route Start Last Admin Trade Name Ric PRN Reason Stop Dose Admin Acetaminophen 500 mg 12/17/21 18:17 12/19/21 20:24 Acetaminophen 500 Mg Tablet PO 500 mg Q4H PRN Administration FEVER Apixaban 5 mg 12/17/21 18:30 12/18/21 08:56 Apixaban 5 Mg Tablet PO 5 mg BID@0900,2100 GAUTAM Administration Bumetanide 1 mg 12/17/21 18:30 12/17/21 18:45 Bumetanide 0.25 Mg/Ml Sdv 4 Ml IVP Not Given Q24H GAUTAM Famotidine 20 mg 12/18/21 12:40 12/20/21 08:54 Famotidine 20 Mg Tablet PO 20 mg BID GAUTAM Administration Ceftriaxone Sodium 2,000 mg/ 50 mls @ 100 mls/hr 12/18/21 09:00 12/20/21 09:46 Sodium Chloride IV Infused DAILY GAUTAM Infusion Protocol Vancomycin/PEG/NADA/Lysine/Water 1,500 mg in 300 mls @ 200 mls/hr 12/17/21 22:00 12/20/21 11:02 Vancocin IV 200 mls/hr Q12H GAUTAM Administration Sodium Chloride 1,000 mls @ 100 mls/hr 12/20/21 10:57 12/20/21 11:02 Sodium Chloride 0.9% IV 12/20/21 20:56 100 mls/hr .Q10H ONE Administration Losartan Potassium 25 mg 12/18/21 09:00 12/20/21 08:54 Losartan 50 Mg Tablet PO 25 mg DAILY GAUTAM Administration Metoprolol Succinate 25 mg 12/19/21 09:00 12/20/21 08:55 Metoprolol Succinate Er (24 Hr) 25 Mg Tablet PO 25 mg DAILY GAUTAM Administration Morphine Sulfate 2 mg 12/17/21 18:17 12/20/21 08:53 Morphine 4 Mg/Ml Sdv 1 Ml IVP 2 mg Q4H PRN Administration SEVERE PAIN Ondansetron HCl 4 mg 12/17/21 18:17 12/17/21 19:34 Ondansetron 2 Mg/Ml Sdv 2 Ml IVP 4 mg Q6H PRN Administration NAUSEA AND VOMITING Pantoprazole Sodium 40 mg 12/18/21 18:00 12/20/21 08:[address] 40 Mg Tablet PO 40 mg BID GAUTAM Administration Ropinirole HCl 0.25 mg 12/18/21 09:00 12/20/21 08:54 Ropinirole 0.25 Mg Tablet PO 0.25 mg DAILY GAUTAM Administration [facility] Anesthesia Medical History (Updated 12/20/21 @ 10:56 by Lalo De La Paz M.D) CHF (congestive heart failure) History of methamphetamine abuse MRSA (methicillin resistant staph aureus) culture positive Pulmonary embolism Systolic heart failure Social History Smoking and tobacco status: former smoker Quit status (tobacco): has quit using tobacco Second hand smoke exposure: No Smoking risk assessment/counseling performed?: No Alcohol intake: former Desire information about alcohol rehabilitation?: No Counseling given: No Desire information about substance/drug rehabilitation?: No Counseling given: No Marital status: Life Partner service: No Current occupational status: unemployed Current occupational exposures/hazards: No Pets and animals: No History of recent travel: No Sexually active: Yes Current gender identity: Female Special emelia needs: No Agree to transfusion: Yes Financial difficulty paying for basics: Not Applicable Female Reproductive History Date of last menstrual period: 12/17/21 Data Anesthesia : 12/20/21 04:24 12/20/21 04:24 Short CBC 12/19/21 12/20/21 Range/Units 03:19 04:24 WBC 9.1 8.8 (4.0-10.0) 10^3/uL Hgb 11.4 L 11.5 (11.5-15.3) g/dL Hct 36.0 L 36.3 L (37.0-47.0) % MCV 97.3 95.3 (81-99) fl Plt Count 211 215 (130-400) 10^3/cmm Neut % (Auto) 75.4 62.4 % Neut # (Auto) 6.82 5.51 (1.8-7.7) 10^3/uL BMP 12/19/21 12/20/21 03:19 04:24 Sodium 135 L 137 Potassium 3.9 4.1 Chloride 102 106 Carbon Dioxide 19 L 19 L BUN 22 H 14 Creatinine 0.8 0.6 Glucose 104 94 Calcium 8.4 L 8.8 Liver Function 12/19/21 Range/Units 03:19 Total Bilirubin 0.8 (0.15-1.2) mg/dL AST 19 (0-32) U/L ALT 28 (0-33) U/L Alkaline Phosphatase 197 H (35-105) IU/L Albumin 3.0 L (3.5-5.2) g/dL Coags 12/19/21 03:19 C-Reactive Protein 256.0 H Microbiology 12/17/21 13:38 MRSA Culture - Final Nose Cardiac Studies: Echocardiogram 12/17/21
--- NOTE | 2021-12-20 11:37 | P.PN_ITS ---
Subjective Subjective: Patient is overall doing well. She underwent ARIELLE today that did not reveal any vegetations. Her LV systolic function is severely reduced. Vitals/I&O/Wt Last Vital Signs Temp 98.1 F 12/20/21 07:00 Pulse 85 12/20/21 11:30 Resp 23 H 12/20/21 11:30 BP 83/48 12/20/21 11:30 Pulse Ox 98 12/20/21 11:30 12/19/21 12/20/21 12/20/21 22:59 06:59 14:59 Intake Total 1000 / 1468 300 / 1768 50 / 50 Output Total 300 / 300 300 / 600 Balance 700 / 1168 0 / 1168 50 / 50 Physical Exam Narrative: GENERAL: Patient is alert, awake and oriented x3. [] NECK: No jugular vein distension. [] HEENT: No cyanosis. No icterus. No pallor. [] HEART: Regular S1 and S2. Has grade III/ systolic murmur LUNGS: Clear to auscultate bilaterally. [] ABDOMEN: Soft, nontender and nondistended. Positive bowel sounds. No guarding, rebound or tenderness. [] CENTRAL NERVOUS SYSTEM: Grossly nonfocal. [] EXTREMITIES: Lower extremities with no edema bilaterally. Pulses palpable in the lower extremities, both dorsalis pedis and posterior tibial. [] Data : 12/21/21 04:11 12/21/21 04:11 Micro: Microbiology 12/17/21 13:38 MRSA Culture - Final Nose A&P Assessment and plan (1) CHF (congestive heart failure): Status: Acute Qualifiers: Heart failure type: systolic Heart failure chronicity: chronic Qualified Code(s): I50.22 - Chronic systolic (congestive) heart failure (2) Pleuritic chest pain: Status: Acute (3) Nonischemic congestive cardiomyopathy: Status: Acute Plan Patient has history of drug abuse and has fever of unknown origin. Transth oracic echocardiogram does not reveal any vegetations We were consulted to perform transesophageal echocardiogram. This was done today and did not show any vegetations. She did have moderate tricuspid regurgitation. Guideline directed medical therapy for nonischemic cardiomyopathy. As patient does not have any fever for 48 hours, WBC count has normalized and blood cultures are negative, will recommend placing ICD. Dr. Carrillo will be consulted. Thank you for involving us with care of this patient. We will continue to follow. Please call with questions. Attestations Medical Necessity Statement*: Care expected to cross 2 midnights. 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
--- NOTE | 2021-12-20 13:05 | PC.NURSE ---
pts ARIELLE completed at bedside. Dr De La Paz stated that there is no vegetation on the valve. Pt now wants to be discharged. I messaged Dr. Reich and informed him of this. He stated that he does not want to discharge her without an AICD or Lifevest. He said he will speak to the patient. She currently has her at bedside and is very anxious to leave. She stated she thinks she is healthy enough and will wait to get the aicd outpatient. I informed her that she is at risk of her heart going into a lethal rhythm and dying. She said she is willing to take the chance.
[2021-12-20] MEDS: TRAMadol 50 mg Tablet PO ×2 (13:29→23:21)
--- NOTE | 2021-12-20 14:51 | P.CONIM_ITS ---
Providers/Reason For Consult Consulting Physician/Specialty*: Dr. Carrillo/cardiothoracic surgery Reason for Consult*: Severe cardiomyopathy Requesting Physician: Dr. Reich Attending Physician: Rosy Reich MD Primary Care Provider: Jackie Ji MD History of Present Illness History of Present Illness Alex Workman is a 31 year old female whom I been consulted to evaluate for AICD implantation. She has a history of severe cardiomyopathy with ejection fraction of 10 to 15%. She was admitted on December 17 after presenting with abdominal pain intermittent positional chest pain. Initial evaluation included CTA which was negative for pulmonary embolism. Chest x-ray was clear. Drug screen was positive for benzodiazepines, methamphetamine, opioids, and marijuana. She has a long history of substantial recreational drug use though she denies IV drug usage. Initial concerns included possible pericarditis. Initial EKG revealed sinus tachycardia without any substantial ST changes. Abdominal CT scan revealed moderate cardiomegaly with small bilateral pleural effusions. There was right basilar atelectasis and a small amount of ascites. Mild hepatomegaly was also noted. Abdominal ultrasound was obtained to determine whether paracentesis could be performed, though the ascitic fluid volume was felt to be too small. Presenting white count was 13.4 but rapidly decreased to 8.8 today. She was not anemic. C-reactive protein is quite elevated at 301 upon presentation. LDH and alkaline phosphatase were modestly elevated. Hepatitis a, B, and C studies were nonreactive. B surface antibody was elevated at 186. Her chest pain that resolved within 24 to 36 hours though her abdominal pain did linger further. She did initiate her menstrual cycle and has been felt that this was very probable etiology for her abdominal pain. Her history of illicit drug use, leukocytosis, and reported fever, she was initiated on vancomycin and Rocephin empirically for potential endocarditis. Subsequent transthoracic echocardiogram performed on December 17 revealed markedly dilated left ventricular cavity with an ejection fraction of 15%. There was global left ventricular hypokinesia. Moderate dilated right ventricle. Mild pulmonary hypertension with a systolic pressure of 40. Biatrial enlargement. Thickened mitral valve. Mild to moderate posteriorly directed mitral valve regurgitation. Severe tricuspid valve regurgitation. No valvular vegetations were noted. Blood cultures have been negative though her nares did return MRSA. She has been followed by cardiology service from [facility] in [place]. AICD was recommended and a LifeVest was provided. She initially was reluctant to consider the AICD, but now wishes for device placement. Review of Systems Const: Reports: fever(s) (Resolved) and chills (Resolved) Card: Reports: chest pain and palpitations Resp: Reports: dyspnea and non-productive cough GI: Denies: nausea, vomiting or hematemesis : Denies: flank pain or difficulty voiding Neuro: Reports: headache(s); Denies: numbness in extremities or weakness in extremities Psych: Reports: anxiety Lucius/Lymph: Denies: easy bruising or easy bleeding Medications/Allergies Home Medications Medication Instructions Recorded Confirmed Last Taken Type albuterol sulfate 90 mcg/actuation 1 inh INHALATION Q6H PRN #8.5 g 07/19/21 12/17/21 Unknown Rx aerosol inhaler (Ventolin HFA) apixaban 5 mg tablet (Eliquis) 5 mg PO BID #60 tab 07/19/21 12/17/21 08/02/21 Rx acetaminophen 500 mg tablet 500 mg PO Q4H PRN 08/03/21 12/17/21 Unknown History methocarbamol 750 mg tablet 750 mg PO Q6H PRN 08/03/21 12/17/21 Unknown History pantoprazole 40 mg tablet,delayed 40 mg PO QAM 08/03/21 12/17/21 08/02/21 History release furosemide 40 mg tablet 40 mg PO BID #0 tab 08/12/21 12/17/21 08/02/21 Rx losartan 25 mg tablet 25 mg PO DAILY 12/17/21 12/17/21 Unknown History magnesium L-lactate 84 mg 84 mg PO BID 12/17/21 12/17/21 Unknown History tablet,extended release (Magtab) medroxyprogesterone 150 mg/mL 150 mg IM Q90D 12/17/21 12/17/21 Unknown History intramuscular syringe metoprolol succinate 25 mg 25 mg PO BID 12/17/21 12/17/21 Unknown History tablet,extended release 24 hr ropinirole 0.25 mg tablet 0.25 mg PO DAILY 12/17/21 12/17/21 Unknown History sertraline 25 mg tablet 25 mg PO DAILY 12/17/21 12/17/21 Unknown History Allergies Allergy/AdvReac Type Severity Reaction Status Date / Time No Known Allergies Allergy Verified 12/17/21 14:09 Current Medications Generic Name Dose Route Start Last Admin Trade Name Ric PRN Reason Stop Dose Admin Acetaminophen 500 mg 12/17/21 18:17 12/19/21 20:24 Acetaminophen 500 Mg Tablet PO 500 mg Q4H PRN Administration FEVER Apixaban 5 mg 12/17/21 18:30 12/18/21 08:56 Apixaban 5 Mg Tablet PO 5 mg BID@0900,2100 GAUTAM Administration Bumetanide 1 mg 12/17/21 18:30 12/17/21 18:45 Bumetanide 0.25 Mg/Ml Sdv 4 Ml IVP Not Given Q24H GAUTAM Famotidine 20 mg 12/18/21 12:40 12/20/21 08:54 Famotidine 20 Mg Tablet PO 20 mg BID GAUTAM Administration Sodium Chloride 1,000 mls @ 100 mls/hr 12/20/21 10:57 12/20/21 11:02 Sodium Chloride 0.9% IV 12/20/21 20:56 100 mls/hr .Q10H ONE Administration Losartan Potassium 25 mg 12/18/21 09:00 12/20/21 08:54 Losartan 50 Mg Tablet PO 25 mg DAILY GAUTAM Administration Metoprolol Succinate 25 mg 12/19/21 09:00 12/20/21 08:55 Metoprolol Succinate Er (24 Hr) 25 Mg Tablet PO 25 mg DAILY GAUTAM Administration Ondansetron HCl 4 mg 12/17/21 18:17 12/17/21 19:34 Ondansetron 2 Mg/Ml Sdv 2 Ml IVP 4 mg Q6H PRN Administration NAUSEA AND VOMITING Pantoprazole Sodium 40 mg 12/18/21 18:00 12/20/21 08:[address] 40 Mg Tablet PO 40 mg BID GAUTAM Administration Ropinirole HCl 0.25 mg 12/18/21 09:00 12/20/21 08:54 Ropinirole 0.25 Mg Tablet PO 0.25 mg DAILY GAUTAM Administration Tramadol HCl 50 mg 12/20/21 13:14 12/20/21 13:29 Tramadol 50 Mg Tablet PO 50 mg Q4H PRN Administration MODERATE PAIN PFSH Acute PFSH: Medical History CHF (congestive heart failure) History of methamphetamine abuse MRSA (methicillin resistant staph aureus) culture positive Pulmonary embolism Systolic heart failure Social History Smoking and tobacco status: former smoker Quit status (tobacco): has quit using tobacco Second hand smoke exposure: No Smoking risk assessment/counseling performed?: No Alcohol intake: former Desire information about alcohol rehabilitation?: No Counseling given: No Desire information about substance/drug rehabilitation?: No Counseling given: No Marital status: Life Partner service: No Current occupational status: unemployed Current occupational exposures/hazards: No Pets and animals: No History of recent travel: No Sexually active: Yes Current gender identity: Female Special emelia needs: No Agree to transfusion: Yes Financial difficulty paying for basics: Not Applicable Female Reproductive History: Date of last menstrual period: 12/17/21 Vitals/I&O/Wt Last Vital Signs Temp 98.1 F 12/20/21 07:00 Pulse 79 12/20/21 13:30 Resp 21 H 12/20/21 13:30 BP 94/60 12/20/21 13:30 Pulse Ox 90 12/20/21 12:30 12/19/21 12/20/21 12/20/21 22:59 06:59 14:59 Intake Total 1000 / 1468 300 / 1768 350 / 350 Output Total 300 / 300 300 / 600 Balance 700 / 1168 0 / 1168 350 / 350 Physical Exam Const: COMMON NORMALS: patient oriented x3 OTHER: Numerous body tattoos HENMT: COMMON NORMALS: normocephalic, atraumatic, hearing grossly normal bilaterally and external ears normal HEAD & SCALP: normocephalic and atraumatic EXTERNAL EAR: Yes external ears normal Eye: COMMON NORMALS: Equal, round and reactive pupils present, EOMs intact bilaterally, conjunctivae normal and no scleral icterus CONJUNCTIVA: Yes conjunctivae normal PUPIL: Yes Equal, round and reactive pupils present Resp: COMMON NORMALS: normal respiratory effort, No use of accessory muscles and clear to auscultation bilaterally AUSCULTATION: clear to auscultation bilaterally Cardio: COMMON NORMALS: regular rate and regular rhythm; negative for No murmurs present (Cardio) RATE: regular rate RHYTHM: regular rhythm HEART SOUNDS: Murmur heart sound present systolic Location: apex Intensity: III/ Timing: mid PERIPHERAL PULSES: radial pulses present positive bilateral 2+ Extremity: GENERAL: Yes edema (1+) Neuro: COMMON NORMALS: patient oriented x3, moves all extremities, no focal motor deficits and no sensory deficits noted Psych: COMMON NORMALS: mental status grossly normal, Normal thought process present, cooperative, normal affect and speech normal SPEECH: Yes normal speech THOUGHT PROCESS: Normal thought process present Skin: NARRATIVE SKIN EXAM: Numerous tattoos Data : 12/20/21 04:24 12/20/21 04:24 Micro: Microbiology 12/17/21 13:38 MRSA Culture - Final Nose A&P Assessment and plan (1) Nonischemic congestive cardiomyopathy: 31-year-old female with nonischemic cardiomyopathy with ejection fraction of 15%. After reconsideration, she now wishes to proceed with plans for AICD implantation for prophylaxis from malignant arrhythmia. She has been carefully evaluated by cardiology and our hospitalist service. Initial presentation of fever and leukocytosis has resolved spontaneously within 24 hours. No particular source for infection has been identified. Blood cultures have been negative. Echocardiogram reveals no evidence for vegetations. Chest x-ray reveals substantial cardiomegaly but is otherwise clear. Rationale for AICD implantation was carefully discussed. Risk of inducing malignant arrhythmia during implantation, given her severe cardiomyopathy was fr ankly discussed. Details and risks of the procedure were carefully and frankly discussed. Risks reviewed include the possibility of , stroke, heart attack, major bleeding, infection, pneumonia, pneumothorax requiring chest tube, organ failure, failure to benefit, prolonged hospital stay, pain after the procedure, need for further procedures, infection requiring need to explant the device, inability to complete the procedure, and possible need for long-term followup. All questions were answered. Appropriate consents will be provided for review and signature. We will tentatively plan for implantation around noon tomorrow. Status: Acute Consult Attestations Medical Necessity Statement: Medically refractory severe cardiomyopathy with ejection fraction of 15% Coding Level of Care Code New Pt Acute Television News Video Editor for Chg Fwd Patient Type New Exam Expanded Problem Focused Medical Decision Making Moderate Complexity Diagnoses Nonischemic congestive cardiomyopathy I42.0 Time Spent (min) 35
[2021-12-20] MEDS: mupirocin oint 22 gm 1 APPLIC NOSTRIL-B (15:27)
[2021-12-20] MEDS: chlorhexidine gluconate 4% Btl 118 mL 1 APPLIC TOPICAL (18:03)
--- NOTE | 2021-12-20 20:14 | PC.NURSE ---
Received report from DANIA Cronin. Patient resting in bed. Opens eyes spontaneously with verbal stimuli. Discussed plan for AICD placement in the am. Patient verbalized complete understanding. Will provided snack prior to midnight.
[2021-12-21] VITALS (67 sets, daily range): BP systolic 94–127; BP diastolic 64–85; PULSE 72–89; RESP 8–29; TEMP 36.2–36.6; O2SAT 78–99
--- NOTE | 2021-12-21 | SCC_ITS ---
Procedure done: AICD implantation 142.2 seconds of fluoroscopic guidance, for a cumulative dose of 23.51 mGy, was provided to Dr. Carrillo by the radiology department. C-arm images of the chest were saved for the patient's permanent record. MTDD
[2021-12-21 04:48] LABS: Basophils # 0.1 10^3/uL (0.0-0.1); Basophils % 0.6 %; Eosinophils # 0.2 10^3/uL (0.0-0.8); Lymphocytes # 2.5 10^3/uL (0.8-4.8); Lymphocytes % 30.9 %; Mean Corpuscular HGB Conc 31.6 g/dL (30.0-36.0); Mean Corpuscular Hemoglobin 30.2 pg (28.0-34.0); Mean Corpuscular Volume 95.5 fl (81-99); Monocytes # 0.9 10^3/uL (0.2-0.9); Monocytes % 11.4 %; Neutrophils # 4.29 10^3/uL (1.8-7.7); Nucleated Red Blood Cells % 0 %; Platelet Count 246 10^3/cmm (130-400); Red Blood Count 3.98 10^6/uL (4.1-5.3); White Blood Count 8.1 10^3/uL (4.0-10.0)
[2021-12-21 05:21] LABS: Anion Gap 15.2 (5-19); Blood Urea Nitrogen 16 mg/dL (6-20); C Reactive Protein 111.1 mg/L (0.0-4.9); Carbon Dioxide 21 mmol/L (22-29); Chloride 106 mmol/L (98-107); Glomerular Filtration Rate 96.4 mL/min (90-130); Glucose 103 mg/dL (65-115); Lactate Dehydrogenase 221 U/L (135-214); Osmolality Calculated 287 mOsm/kg (285-295); Potassium 4.2 mmol/L (3.5-5.1); Sodium 138 mmol/L (136-145)
--- NOTE | 2021-12-21 05:28 | PM.PN ---
Subjective Subjective: Uneventful night. No arrhythmias reported. Vital signs remained stable. Afebrile. Today's laboratory data has been reviewed. White count remains normal. Vitals/I&O/Wt Last Vital Signs Temp 98.1 F 12/20/21 07:00 Pulse 82 12/21/21 04:51 Resp 22 H 12/21/21 04:23 BP 111/79 12/21/21 04:23 Pulse Ox 94 12/20/21 20:17 12/20/21 12/20/21 12/21/21 14:59 22:59 06:59 Intake Total 350 / 350 1600 / 1950 Output Total 300 / 300 240 / 540 Balance 350 / 350 1300 / 1650 -240 / 1410 Physical Exam Resp: COMMON NORMALS: normal respiratory effort, No use of accessory muscles and clear to auscultation bilaterally AUSCULTATION: clear to auscultation bilaterally Cardio: COMMON NORMALS: regular rate and regular rhythm RATE: regular rate RHYTHM: regular rhythm HEART SOUNDS: Murmur heart sound present systolic Intensity: III/ Extremity: COMMON NORMALS: no clubbing, cyanosis or edema Data : 12/21/21 04:11 12/21/21 04:11 A&P Assessment and plan (1) Nonischemic congestive cardiomyopathy: Plans for AICD implantation at noon today. Chlorhexidine shower this morning. Remains n.p.o. Status: Acute Attestations Medical Necessity Statement*: Severe nonischemic cardiomyopathy with ejection fraction of 15%. For planned AICD implantation today for prophylaxis. Coding Level of Care Code Acute Spreader Operator Automatic for [facility] Diagnoses Nonischemic congestive cardiomyopathy I42.0
[2021-12-21] MEDS: TRAMadol 50 mg Tablet PO ×2 (06:03→20:26)
--- NOTE | 2021-12-21 06:05 | PC.NURSE ---
Shift Note Frequent safety and comfort rounds continue. Orders and/or nursing care completed as indicated. Patient monitored for response to intervention and treatment(s). Education provided includes AICD placement and tramadol. Patient verbalized complete understanding. Patient refusing at this time requesting to have shower after sun comes up stating, I would like to sleep as long as possible. Plan for surgery around 1200 today. Patient c/o pain in her right neck from bed . Provided medication as ordered as well brought patient additional pillow for comfort. Patient expresses. Denies other needs or complaints. No distress observed. Will continue to monitor.
[2021-12-21] MEDS: chlorhexidine gluconate 4% Btl 118 mL 1 APPLIC TOPICAL (08:19)
[2021-12-21] MEDS: vancomycin 1,000 MG in sodium chloride 0.9% 250 ML 250 MG IV (11:30)
[2021-12-21] MEDS: sodium chloride 0.9% 1,000 ML 30 ML IV (11:35)
--- NOTE | 2021-12-21 12:22 | SC_ITS ---
WS: [id number] C-arm fluoroscopy for cardiac pacemaker wire placement, 12/21/2021 Clinical Data: defib placement Comparison: None. Findings: Dr. Bills inserted cardiac pacemaker wires. SC/C-arm FL for Pacemaker Impression: Pacemaker wire insertion.
--- NOTE | 2021-12-21 12:23 | ANES.PREANE2 ---
Pre-Anesthetic Assessment Height/Weight: Height 1.65 m Weight 68.492 kg Temp Pulse Resp BP Pulse Ox 97.5 F L 80 15 108/75 99 12/21/21 11:24 12/21/21 11:24 12/21/21 11:24 12/21/21 11:24 12/21/21 11:24 Preop Diagnosis: R/O endocarditis Operation Date: 12/21/21 12:00 Proposed Procedures p Defibrillator Placement(Not Applicable) - Eric Carrillo MD Familial anesthetic complications: None Was Beta Gurdeep taken within 24 hours: Yes Was Clonidine taken within 24 hours: N/A Last intake: Intake Last Liquid Date 12/21/21 Last Liquid Time 00:00 Last Solid Date 12/21/21 Last Solid Time 00:00 Social No alcohol and No tobacco Exam alert, oriented x 3, clear to auscultation bilaterally and regular rate & rhythm Airway Submandibular: within normal limits Mallampati: Class II Dentition: chipped CV/HEM Arrythmia and Congestive Heart Failure (EF 15%, nonischemic) . Markedly dilated left ventricle cavity.? Severely decreased ?left ventricle systolic function. Left ventricular ejection ?fraction is estimated at 15 %.? Severe eccentric left ?ventricular hypertrophy.? Severe global left ventricular ?hypokinesis. Abnormal septal motion consistent with conduction ?abnormality.? Abnormal diastolic function. ?2. Moderately dilated right ventricle with moderately decreased ?right ventricle systolic function.? ?3. Mild pulmonary hypertension with pulmonary artery pressure ?estimated at 40 mmHg. ?4.? Moderate biatrial enlargement. ?5. Moderately thickened mitral valve.? Restricted movement of ?posterior mitral leaflet.? Mild to moderate posteriorly directed ?mitral valve regurgitation. ?6. Moderate to severe tricuspid valve regurgitation. ?7. No valvular vegetation based on the study.? Transesophageal ?echocardiogram may be considered if clinically indicated. ?8.? When compared to previous echocardiogram dated 08/04/2021, ?there may not have been any significant change. Anesthetic Plan ASA status: 3 Anesthesia: MAC Medications/Allergies Home Medications Medication Instructions Recorded Confirmed Last Taken Type albuterol sulfate 90 mcg/actuation 1 inh INHALATION Q6H PRN #8.5 g 07/19/21 12/17/21 Unknown Rx aerosol inhaler (Ventolin HFA) apixaban 5 mg tablet (Eliquis) 5 mg PO BID #60 tab 07/19/21 12/17/21 08/02/21 Rx acetaminophen 500 mg tablet 500 mg PO Q4H PRN 08/03/21 12/17/21 Unknown History methocarbamol 750 mg tablet 750 mg PO Q6H PRN 08/03/21 12/17/21 Unknown History pantoprazole 40 mg tablet,delayed 40 mg PO QAM 08/03/21 12/17/21 08/02/21 History release furosemide 40 mg tablet 40 mg PO BID #0 tab 08/12/21 12/17/21 08/02/21 Rx losartan 25 mg tablet 25 mg PO DAILY 12/17/21 12/17/21 Unknown History magnesium L-lactate 84 mg 84 mg PO BID 12/17/21 12/17/21 Unknown History tablet,extended release (Magtab) medroxyprogesterone 150 mg/mL 150 mg IM Q90D 12/17/21 12/17/21 Unknown History intramuscular syringe metoprolol succinate 25 mg 25 mg PO BID 12/17/21 12/17/21 Unknown History tablet,extended release 24 hr ropinirole 0.25 mg tablet 0.25 mg PO DAILY 12/17/21 12/17/21 Unknown History sertraline 25 mg tablet 25 mg PO DAILY 12/17/21 12/17/21 Unknown History Allergies Allergy/AdvReac Type Severity Reaction Status Date / Time No Known Allergies Allergy Verified 12/17/21 14:09 Current Medications Generic Name Dose Route Start Last Admin Trade Name Freq PRN Reason Stop Dose Admin Acetaminophen 500 mg 12/17/21 18:17 12/19/21 20:24 Acetaminophen 500 Mg Tablet PO 500 mg Q4H PRN Administration FEVER Apixaban 5 mg 12/17/21 18:30 12/18/21 08:56 Apixaban 5 Mg Tablet PO 5 mg BID@0900,2100 GAUTAM Administration Bumetanide 1 mg 12/17/21 18:30 12/17/21 18:45 Bumetanide 0.25 Mg/Ml Sdv 4 Ml IVP Not Given Q24H GAUTAM Chlorhexidine Gluconate 1 applic 12/20/21 18:00 12/21/21 08:19 Chlorhexidine Gluconate 4% Btl 118 Ml TOPICAL 1 applic BID GAUTAM Administration Famotidine 20 mg 12/18/21 12:40 12/21/21 10:21 Famotidine 20 Mg Tablet PO Not Given BID GAUTAM Sodium Chloride 1,000 mls @ 30 mls/hr 12/21/21 11:30 12/21/21 11:35 Sodium Chloride 0.9% IV 12/22/21 11:29 30 mls/hr .Q24H GAUTAM Administration Losartan Potassium 25 mg 12/18/21 09:00 12/21/21 10:21 Losartan 50 Mg Tablet PO Not Given DAILY GAUTAM Metoprolol Succinate 25 mg 12/19/21 09:00 12/21/21 10:21 Metoprolol Succinate Er (24 Hr) 25 Mg Tablet PO Not Given DAILY GAUTAM Ondansetron HCl 4 mg 12/17/21 18:17 12/17/21 19:34 Ondansetron 2 Mg/Ml Sdv 2 Ml IVP 4 mg Q6H PRN Administration NAUSEA AND VOMITING Pantoprazole Sodium 40 mg 12/18/21 18:00 12/21/21 10:[address] 40 Mg Tablet PO Not Given BID GAUTAM Ropinirole HCl 0.25 mg 12/18/21 09:00 12/21/21 10:22 Ropinirole 0.25 Mg Tablet PO Not Given DAILY GAUTAM Tramadol HCl 50 mg 12/20/21 13:14 12/21/21 06:03 Tramadol 50 Mg Tablet PO 50 mg Q4H PRN Administration MODERATE PAIN PFSH Anesthesia Medical History CHF (congestive heart failure) History of methamphetamine abuse MRSA (methicillin resistant staph aureus) culture positive Pulmonary embolism Systolic heart failure Social History Smoking and tobacco status: former smoker Quit status (tobacco): has quit using tobacco Second hand smoke exposure: No Smoking risk assessment/counseling performed?: No Alcohol intake: former Desire information about alcohol rehabilitation?: No Counseling given: No Desire information about substance/drug rehabilitation?: No Counseling given: No Marital status: Life Partner service: No Current occupational status: unemployed Current occupational exposures/hazards: No Pets and animals: No History of recent travel: No Sexually active: Yes Current gender identity: Female Special emelia needs: No Agree to transfusion: Yes Financial difficulty paying for basics: Not Applicable Female Reproductive History Date of last menstrual period: 12/17/21 Data Anesthesia : 12/21/21 04:11 12/21/21 04:11 Short CBC 12/20/21 12/21/21 Range/Units 04:24 04:11 WBC 8.8 8.1 (4.0-10.0) 10^3/uL Hgb 11.5 12.0 (11.5-15.3) g/dL Hct 36.3 L 38.0 (37.0-47.0) % MCV 95.3 95.5 (81-99) fl Plt Count 215 246 (130-400) 10^3/cmm Neut % (Auto) 62.4 53.0 % Neut # (Auto) 5.51 4.29 (1.8-7.7) 10^3/uL BMP 12/20/21 12/21/21 04:24 04:11 Sodium 137 138 Potassium 4.1 4.2 Chloride 106 106 Carbon Dioxide 19 L 21 L BUN 14 16 Creatinine 0.6 0.7 Glucose 94 103 Calcium 8.8 8.0 L Coags 12/21/21 04:11 C-Reactive Protein 111.1 H Cardiac Studies: Echocardiogram 12/17/21
[2021-12-21] MEDS: lidocaine 1% INJ 20 mL XX (12:31)
[2021-12-21] MEDS: ceFAZolin 1,000 mg SDV 1000 MG IRRIGATION (12:33)
--- NOTE | 2021-12-21 12:34 | P.PN_ITS ---
Subjective Subjective: Patient was seen this morning, she has no complaints, no fevers, no cough, no chest pain, she is awaiting her ICD placement Vitals/I&O/Wt Last Vital Signs Temp 97.5 F L 12/21/21 11:24 Pulse 80 12/21/21 11:24 Resp 15 12/21/21 11:24 BP 108/75 12/21/21 11:24 Pulse Ox 99 12/21/21 11:24 12/20/21 12/21/21 12/21/21 22:59 06:59 14:59 Intake Total 1600 / 1950 310 / 310 Output Total 300 / 300 240 / 540 Balance 1300 / 1650 -240 / 1410 310 / 310 Physical Exam Const: COMMON NORMALS: no acute distress and patient oriented x3 Resp: COMMON NORMALS: normal respiratory effort, No retractions, No use of accessory muscles and clear to auscultation bilaterally AUSCULTATION: clear to auscultation bilaterally Cardio: COMMON NORMALS: regular rate, regular rhythm, S1 normal heart sound present and S2 normal heart sound present RATE: regular rate RHYTHM: regular rhythm HEART SOUNDS: S1 normal heart sound present and S2 normal heart sound present GI: COMMON NORMALS: Normal to inspection, nondistended, normoactive bowel sounds present, Soft to palpation, non-tender and No hepatosplenomegaly present PALPATION: Yes Soft to palpation and Yes No hepatosplenomegaly present Extremity: COMMON NORMALS: no pedal edema Neuro: COMMON NORMALS: patient oriented x3 Psych: COMMON NORMALS: mental status grossly normal Data : 12/21/21 04:11 12/21/21 04:11 A&P Assessment and plan (1) Pericarditis: Status: Acute (2) Sinus tachycardia: Status: Acute (3) Pleuritic chest pain: Status: Acute (4) Nonischemic congestive cardiomyopathy: Status: Acute (5) RUDY (acute kidney injury): Status: Acute (6) Cardiogenic shock: Status: Acute Plan Pleuritic chest pain No signs of cardiac tamponade or pericardial effusion on the echo Pain improved with 2 dose of ketorolac Single febrile episode Concern for endocarditis No signs of vegetation on transthoracic echo No significant radiographic evidence of vegetations on transesophageal echocardiogram Empiric coverage antibiotics have been discontinued Abdominal pain with most likely menstrual cramps Ascites related to poor EF congestive heart failure however no active decompensation Not enough fluid to be drained Congestive hepatopathy Poor ejection fraction heart failure without acute exacerbation Systolic blood pressure runs in 90s Will arrange LifeVest before discharge As per the patient LifeVest was mailed back to the company She is willing to go for the AICD Does not want to go back to [place], prefers to have it done in [place] We will have AICD placed by Dr. Carrillo today Abnormal transaminases: Improved Hepatitis panel negative Cardiac diet Full code DVT prophylaxis on hold for the procedure Attestations Medical Necessity Statement*: Patient requires hospitalization for nonischemic cardiomyopathy, proceeding with ICD placement Coding Level of Care Code Acute Motor Vehicle Salesperson for [facility] Fwd Diagnoses Pericarditis I31.9 Sinus tachycardia R00.0 Pleuritic chest pain R07.81 Nonischemic congestive cardiomyopathy I42.0 RUDY (acute kidney injury) N17.9 Cardiogenic shock R57.0
--- NOTE | 2021-12-21 13:24 | XR_ITS ---
WS: [id number] PORTABLE CHEST HISTORY: Status post AICD implantation COMPARISON: 12/17/2021 LEFT subclavian cardiac pacer/defibrillator has been placed since the prior study. No mediastinal wid ening. There is mild pulmonary venous congestion which is new. This may be exacerbated by supine positioning of the patient. No pleural effusion or pneumothorax. Cardiac size: Marked enlargement of the cardiac silhouette has progressed since the prior study. This also may be exacerbated by supine position. Mediastinum/Aorta: Normal mediastinum. No osseous abnormality seen. XR/XR chest 1V portable 07231 IMPRESSION: 1. Interval placement of a LEFT subclavian cardiac defibrillator/pacer. 2. New mild pulmonary venous congestion and increasing size of the cardiac ron houette. These findings may be exacerbated by the supine position of the patien t.
--- NOTE | 2021-12-21 13:26 | PM.OP ---
Operative Report Date of procedure: December 21, 2021 Pre-op diagnosis: Severe cardiomyopathy Post-op diagnosis: Same Procedure done: AICD implantation Implants: AICD generator Right ventricular lead Right atrial lead Surgeon: Eric Carrillo Anesthesia: MAC and Local Complications: None: Post procedure chest x-ray pending Procedure: Procedure: Ms. Workman was taken to the OR suite and placed in the supine position over a shoulder roll. She received conscious sedation with continuous anesthesia monitoring by. Her entire chest was sterilely prepped and draped. 1% lidocaine was infiltrated in the left subclavicular region. While in Trendelenburg position, utilizing modified seldinger technique, 2 guidewires were placed in the left subclavian vein. This was confirmed in position by fluoroscopy. Next, after infiltration with lidocaine, a subcutaneous pocket was created beginning from the exit point of the guidewire and extending laterally and inferiorly. Cautery was utilized to create the pocket just above the pectoralis musculature. Hemostasis was confirmed. An antibiotic-soaked sponge was placed in the wound. A dilator and tear-away sheath was placed over the first guidewire and advanced under fluoroscopy. Guidewire and dilator were removed. Next using a combination of curved and straight stylettes, the right ventricular/defibrillator lead was placed in position by fluoroscopy. The distal screw was extended. Interrogation was then performed confirming appropriate parameters. The tear-away sheath was then removed and the ventricular/defibrillating lead was sewn to the floor of the subcutaneous pocket. In a similar fashion dilator and tear-away sheath was placed over the 2nd guide wire and advanced under fluoroscopy. Guidewire and dilator were removed. Straight and curved stylettes were used to position the right atrial lead with fluoroscopy. Distal screw was extended. Interrogation was then performed. Tear-away sheath was then removed. Atrial lead was secured to the floor of the subcutaneous pocket. Pocket was irrigated with antibiotic solution and hemostasis again confirmed. Pacing generator was brought into the field, and after confirmation of hemostasis in the subcutaneous pocket, the leads were connected to the generator with appropriate capture. The entire system was interrogated by fluoroscopy. Leads and generator were secured in the pocket. Sponge and needle count was correct. The wound was then closed in 2 layers of 3-0 Vicryl suture. Skin was reapproximated in a subcuticular manner with 4-0 Monocryl suture. A pressure dressing was applied. The left arm was placed in a sling. The patient had equal breath sounds bilaterally. She was then transferred to the PACU, where chest x-ray is currently pending. Following are the specifics of this system: Right ventricular lead is 62 cm and model 6947M. Serial number [id number] Right atrial lead is 52 cm and is model 5076. Serial number [id number]. Ventricular lead had sensing of 10.4 mV with an impedance of 456 ohms. Threshold was 0.3 V Atrial lead had sensing of 1.7 mV with an impedance of 491 ohms. Threshold was 0.8 V. [place] AICD generator: Model # [id number] Serial #[id number]
--- NOTE | 2021-12-21 13:36 | P.PN_ITS ---
Subjective Subjective: Patient is doing well. She underwent transesophageal echocardiogram that did not reveal vegetations. Plan for ICD placement today Vitals/I&O/Wt Last Vital Signs Temp 97.5 F L 12/21/21 11:24 Pulse 80 12/21/21 11:24 Resp 15 12/21/21 11:24 BP 108/75 12/21/21 11:24 Pulse Ox 99 12/21/21 11:24 12/20/21 12/21/21 12/21/21 22:59 06:59 14:59 Intake Total 1600 / 1950 310 / 310 Output Total 300 / 300 240 / 540 5 / 5 Balance 1300 / 1650 -240 / 1410 305 / 305 Physical Exam Narrative: GENERAL: Patient is alert, awake and oriented x3. [] NECK: No jugular vein distension. [] HEENT: No cyanosis. No icterus. No pallor. [] HEART: Regular S1 and S2. Has grade III/ systolic murmur LUNGS: Clear to auscultate bilaterally. [] ABDOMEN: Soft, nontender and nondistended. Positive bowel sounds. No guarding, rebound or tenderness. [] CENTRAL NERVOUS SYSTEM: Grossly nonfocal. [] EXTREMITIES: Lower extremities with no edema bilaterally. Pulses palpable in the lower extremities, both dorsalis pedis and posterior tibial. [] Data : 12/23/21 02:50 12/23/21 02:50 A&P Assessment and plan (1) CHF (congestive heart failure): Status: Acute Qualifiers: Heart failure chronicity: chronic Heart failure type: systolic Qualified Code(s): I50.22 - Chronic systolic (congestive) heart failure (2) Pleuritic chest pain: Status: Acute (3) Nonischemic congestive cardiomyopathy: Status: Acute Plan Patient has history of drug abuse and has fever of unknown origin. Transthoracic echocardiogram does not reveal any vegetations Transesophageal echocardiogram was performed that did not reveal any vegetations. Mild mitral regurgitation and tricuspid regurgitation were noted Guideline directed medical therapy for nonischemic cardiomyopathy. Patient is scheduled to undergo ICD placement today Thank you for involving us with care of this patient. We will continue to follow. Please call with questions. Attestations Medical Necessity Statement*: Care expected to cross 2 midnights. Coding Level of Care Code Acute Patient Appointment Coordinator for [facility] Diagnoses CHF (congestive heart failure) I50.22 Heart failure chronicity: chronic Heart failure type: systolic Pleuritic chest pain R07.81 Nonischemic congestive cardiomyopathy I42.0
[2021-12-21] MEDS: ketorolac 30 mg/mL INJ IVP (15:02)
--- NOTE | 2021-12-21 16:21 | ANE.PACU2 ---
Inpatient post-anesthesia follow up: Airway intact: Yes Vital signs: Temperature 97.2 F Pulse Rate 79 Respiratory Rate 17 Blood Pressure 104/76 Pulse Oximetry 94 Oxygen Delivery Me thod Room Air Oxygen Flow Rate Fraction of Inspir ed Oxygen Hydration adequate: Yes Nausea and vomiting: No Pain level: 2 Mental status: Baseline
[2021-12-21] MEDS: famotidine 20 mg Tablet PO (18:39)
[2021-12-21] MEDS: magnesium lactate 84 mg Tablet PO (18:39)
[2021-12-21] MEDS: diphenhydrAMINE 25 mg Capsule PO (19:08)
[2021-12-21] MEDS: oxyCODONE-APAP 5-325 mg Tablet 1 TAB PO (19:08)
--- NOTE | 2021-12-21 19:11 | PC.NURSE ---
Received report from DANIA Cronin. Patient resting in bed watching TV. Patient is s/p AICD placement to left upper chest. No s/s of bleeding or hematoma formation observed. Pressure dressing remains in place and is c,d,i. Patient is c/o pain to left upper chest 8/10 presently. Medications administered as ordered and documented. Instruction provided regarding site care and immobilization. Patient verbalized complete understanding. No other distress observed. Will continue to monitor.
[2021-12-21] MEDS: LORazepam 2 mg/mL INJ 1 mL 0.5 MG IVP (20:27)
[2021-12-22] VITALS (13 sets, daily range): BP systolic 97–117; BP diastolic 73–86; PULSE 72–92; RESP 14–27; TEMP 36.6; O2SAT 93–98
[2021-12-22] MEDS: oxyCODONE-APAP 5-325 mg Tablet 1 TAB PO ×3 (03:59→18:35)
--- NOTE | 2021-12-22 04:14 | PC.NURSE ---
Shift Note Frequent safety and comfort rounds continue. Orders and/or nursing care completed as indicated. Patient monitored for response to intervention and treatment(s). Education provided includes percocet and post AICD placement precautions. Patient verbalized complete understanding. Dressing to left upper chest remains c,d,i with no s/s of bleeding or hematoma formation observed. Patient does continue to report pain to site 04/28. Assisted patient up to B[facility]. Administered pain medication as ordered and documented. Instructed patient to move around more to prevent stiffness. Patient demonstrated and reports some relief of pain. No other distress observed. Will continue to monitor.
[2021-12-22 04:16] LABS: Basophils # 0.1 10^3/uL (0.0-0.1); Basophils % 0.8 %; Eosinophils # 0.2 10^3/uL (0.0-0.8); Eosinophils % 2.6 %; Hematocrit 39.9 % (37.0-47.0); Hemoglobin 12.5 g/dL (11.5-15.3); Lymphocytes # 2.6 10^3/uL (0.8-4.8); Lymphocytes % 33.6 %; Mean Corpuscular HGB Conc 31.3 g/dL (30.0-36.0); Mean Corpuscular Hemoglobin 30.1 pg (28.0-34.0); Mean Corpuscular Volume 96.1 fl (81-99); Mean Platelet Volume 10.2 fL (7.4-10.4); Monocytes # 0.7 10^3/uL (0.2-0.9); Monocytes % 8.7 %; Neutrophils # 4.07 10^3/uL (1.8-7.7); Neutrophils % 53.1 %; Nucleated Red Blood Cells % 0 %; Platelet Count 257 10^3/cmm (130-400); Red Blood Count 4.15 10^6/uL (4.1-5.3); Red Cell Distribution Width 17.1 % (12.1-15.1); White Blood Count 7.7 10^3/uL (4.0-10.0)
[2021-12-22 04:38] LABS: Alanine Aminotransferase 19 U/L (0-33); Albumin Level 3.2 g/dL (3.5-5.2); Alkaline Phosphatase 123 IU/L (35-105); Anion Gap 16.4 (5-19); Aspartate Amino Transferase 17 U/L (0-32); Blood Urea Nitrogen 23 mg/dL (6-20); Calcium 8.1 mg/dL (8.5-10.5); Carbon Dioxide 22 mmol/L (22-29); Chloride 107 mmol/L (98-107); Glomerular Filtration Rate 82.6 mL/min (90-130); Glucose 90 mg/dL (65-115); Osmolality Calculated 293 mOsm/kg (285-295); Potassium 5.4 mmol/L (3.5-5.1); Sodium 140 mmol/L (136-145); Total Bilirubin 0.3 mg/dL (0.15-1.2); Total Protein 6.2 g/dL (6.6-8.7)
--- NOTE | 2021-12-22 08:46 | P.PN_ITS ---
Subjective Subjective: Postop day #1 status post AICD implantation. Other than incisional discomfort, doing well. Paced rhythm by monitor. Post procedure chest x-ray revealed good lead placement and no evidence for pneumothorax, effusion, or infiltrate. Cardiomegaly is stable. Vitals/I&O/Wt Last Vital Signs Temp 97.2 F L 12/21/21 13:57 Pulse 90 12/22/21 04:17 Resp 20 H 12/22/21 03:59 BP 107/83 12/22/21 04:00 Pulse Ox 96 12/21/21 16:00 12/21/21 12/22/21 12/22/21 22:59 06:59 14:59 Intake Total 780 / 1340 300 / 1640 Balance 780 / 1335 300 / 1635 Physical Exam Chest: COMMONS NORMALS: normal inspection of the chest OTHER: Outer pressure dressing was removed. Inner dressing remains in place. No evidence for bleeding. No fluid collections. No bruising. Data : 12/22/21 03:47 12/22/21 03:47 A&P Assessment and plan (1) Status post implantation of automatic cardioverter/defibrillator (AICD): POD #1 status post AICD implantation. After discharge, may follow-up [facility] in 1 week. Discharge instructions have been placed in the discharge summary. Greatly appreciate the expertise and assistance of our hospitalist colleagues. Status: Acute Attestations Medical Necessity Statement*: Status post AICD implantation for severe, medically refractory cardiomyopathy. Coding Level of Care Code Acute Contact Lens Assistant for [facility] Fwd Diagnoses Status post implantation of automatic cardioverter/defibrillator (AICD) Z95.810
[2021-12-22] MEDS: losartan 50 mg Tablet 25 MG PO (09:17)
[2021-12-22] MEDS: metoprolol succinate ER (24 HR) 25 mg Tablet PO (09:17)
--- NOTE | 2021-12-22 09:17 | PM.PN ---
Subjective Subjective: Patient is overall doing well. Had undergone ICD placement yesterday. Functioning appropriately. Has mild discomfort at the site. Vitals/I&O/Wt Last Vital Signs Temp 97.2 F L 12/21/21 13:57 Pulse 90 12/22/21 04:17 Resp 20 H 12/22/21 03:59 BP 107/83 12/22/21 04:00 Pulse Ox 96 12/21/21 16:00 12/21/21 12/22/21 12/22/21 22:59 06:59 14:59 Intake Total 780 / 1340 300 / 1640 Balance 780 / 1335 300 / 1635 Physical Exam Narrative: GENERAL: Patient is alert, awake and oriented x3. [] NECK: No jugular vein distension. [] HEENT: No cyanosis. No icterus. No pallor. [] HEART: Regular S1 and S2. Has grade III/ systolic murmur LUNGS: Clear to auscultate bilaterally. [] ABDOMEN: Soft, nontender and nondistended. Positive bowel sounds. No guarding, rebound or tenderness. [] CENTRAL NERVOUS SYSTEM: Grossly nonfocal. [] EXTREMITIES: Lower extremities with no edema bilaterally. Pulses palpable in the lower extremities, both dorsalis pedis and posterior tibial. [] Data : 12/23/21 02:50 12/23/21 02:50 A&P Assessment and plan (1) CHF (congestive heart failure): Status: Acute Qualifiers: Heart failure type: systolic Heart failure chronicity: chronic Qualified Code(s): I50.22 - Chronic systolic (congestive) heart failure (2) Pleuritic chest pain: Status: Acute (3) Nonischemic congestive cardiomyopathy: Status: Acute Plan Patient has history of drug abuse and has fever of unknown origin. Transthoracic echocardiogram does not reveal any vegetations Transesophageal echocardiogram was performed that did not reveal any vegetations. Mild mitral regurgitation and tricuspid regurgitation were noted Guideline directed medical therapy for nonischemic cardiomyopathy. Had ICD placement yesterday. Doing well now. Thank you for involving us with care of this patient. We will continue to follow. Please call with questions. Attestations Medical Necessity Statement*: Care expected to cross 2 midnights. Coding Level of Care Code Acute Licensed Mental Health Professional for [facility] Fwd Diagnoses CHF (congestive heart failure) I50.22 Heart failure type: systolic Heart failure chronicity: chronic Pleuritic chest pain R07.81 Nonischemic congestive cardiomyopathy I42.0
[2021-12-22] MEDS: magnesium lactate 84 mg Tablet PO ×2 (09:18→17:52)
[2021-12-22] MEDS: ropinirole 0.25 mg Tablet PO (09:18)
[2021-12-22] MEDS: sertraline 50 mg Tablet 25 MG PO (09:18)
[2021-12-22] MEDS: famotidine 20 mg Tablet PO ×2 (09:18→17:52)
--- NOTE | 2021-12-22 12:48 | P.PN_ITS ---
Subjective Subjective: Patient was seen this morning, she had her ICD placed, she is worried about going home, she tells me she is just very anxious, she wants to spend another day in the hospital so we can monitor her, denies any chest pain, no palpitations, no shortness of breath, she does complain of pain in her ICD insertion site Vitals/I&O/Wt Last Vital Signs Temp 97.2 F L 12/21/21 13:57 Pulse 86 12/22/21 09:19 Resp 18 12/22/21 09:19 BP 117/86 12/22/21 09:17 Pulse Ox 96 12/22/21 09:19 12/21/21 12/22/21 12/22/21 22:59 06:59 14:59 Intake Total 780 / 1340 300 / 1640 240 / 240 Balance 780 / 1335 300 / 1635 240 / 240 Physical Exam Const: COMMON NORMALS: no acute distress and patient oriented x3 Neck/C-Spine: COMMON NORMALS: no JVD Resp: COMMON NORMALS: normal respiratory effort, No retractions, No use of accessory muscles and clear to auscultation bilaterally AUSCULTATION: clear to auscultation bilaterally Cardio: COMMON NORMALS: no JVD, regular rate, regular rhythm, S1 normal heart sound present and S2 normal heart sound present RATE: regular rate RHYTHM: regular rhythm HEART SOUNDS: S1 normal heart sound present and S2 normal heart sound present GI: COMMON NORMALS: Normal to inspection, nondistended, normoactive bowel sounds present, Soft to palpation, non-tender and No hepatosplenomegaly present PALPATION: Yes Soft to palpation and Yes No hepatosplenomegaly present Extremity: COMMON NORMALS: no pedal edema Neuro: COMMON NORMALS: patient oriented x3 Psych: COMMON NORMALS: mental status grossly normal Data : 12/22/21 03:47 12/22/21 03:47 A&P Assessment and plan (1) Pericarditis: Status: Acute (2) Sinus tachycardia: Status: Acute (3) Pleuritic chest pain: Status: Acute (4) Nonischemic congestive cardiomyopathy: Status: Acute (5) RUDY (acute kidney injury): Status: Acute (6) Cardiogenic shock: Status: Acute Plan Pleuritic chest pain No signs of cardiac tamponade or pericardial effusion on the echo Pain improved with 2 dose of ketorolac Single febrile episode Concern for endocarditis No signs of vegetation on transthoracic echo No significant radiographic evidence of vegetations on transesophageal echocardiogram Empiric coverage antibiotics have been discontinued Abdominal pain with most likely menstrual cramps Ascites related to poor EF congestive heart failure however no active decompensation Not enough fluid to be drained Congestive hepatopathy Poor ejection fraction heart failure without acute exacerbation Systolic blood pressure runs in 90s Will arrange LifeVest before discharge As per the patient LifeVest was mailed back to the company She is willing to go for the AICD Does not want to go back to [place], prefers to have it done in [place] Status post AICD placement Abnormal transaminases: Improved Hepatitis panel negative Cardiac diet Full code DVT prophylaxis on hold for the procedure Attestations Medical Necessity Statement*: Patient requires hospitalization for CHF, status post ICD placement, nonischemic cardiomyopathy Coding Level of Care Code Acute Client 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
--- NOTE | 2021-12-22 19:26 | PC.NURSE ---
Received report from DANIA Arnold. Patient resting in bed. Continues to c/o moderate pain to left upper chest. Instructed patient on oxycodone administration. Patient verbalized complete understanding. Repositioned for comfort. Dressing to left upper chest remain c,d,i with no s/s of bleeding or hematoma formation observed. Patient denies other needs. No distress observed. Will continue to monitor.
[2021-12-22] MEDS: methocarbamol 750 mg Tablet PO (20:58)
[2021-12-22] MEDS: ketorolac 30 mg/mL INJ IVP (20:58)
[2021-12-23 01:49] VITALS: BP 120/84; PULSE 89; RESP 18
[2021-12-23 03:33] LABS: Basophils # 0.1 10^3/uL (0.0-0.1); Basophils % 1.1 %; Eosinophils # 0.2 10^3/uL (0.0-0.8); Eosinophils % 2.3 %; Hemoglobin 12.5 g/dL (11.5-15.3); Lymphocytes # 2.9 10^3/uL (0.8-4.8); Lymphocytes % 34.5 %; Mean Corpuscular HGB Conc 32.1 g/dL (30.0-36.0); Mean Corpuscular Hemoglobin 30.3 pg (28.0-34.0); Mean Corpuscular Volume 94.4 fl (81-99); Mean Platelet Volume 10.9 fL (7.4-10.4); Monocytes # 0.7 10^3/uL (0.2-0.9); Monocytes % 8.6 %; Neutrophils # 4.34 10^3/uL (1.8-7.7); Neutrophils % 52.2 %; Nucleated Red Blood Cells % 0 %; Platelet Count 285 10^3/cmm (130-400); Red Blood Count 4.13 10^6/uL (4.1-5.3); Red Cell Distribution Width 16.8 % (12.1-15.1); White Blood Count 8.3 10^3/uL (4.0-10.0)
[2021-12-23 03:49] LABS: Alanine Aminotransferase 10 U/L (0-33); Albumin Level 3.1 g/dL (3.5-5.2); Alkaline Phosphatase 122 IU/L (35-105); Anion Gap 17.7 (5-19); Aspartate Amino Transferase 14 U/L (0-32); Blood Urea Nitrogen 25 mg/dL (6-20); Calcium 7.9 mg/dL (8.5-10.5); Carbon Dioxide 19 mmol/L (22-29); Chloride 107 mmol/L (98-107); Globulin 2.8 g/dL (1.3-4.6); Glomerular Filtration Rate 82.6 mL/min (90-130); Glucose 116 mg/dL (65-115); Osmolality Calculated 293 mOsm/kg (285-295); Potassium 4.7 mmol/L (3.5-5.1); Sodium 139 mmol/L (136-145); Total Bilirubin 0.3 mg/dL (0.15-1.2); Total Protein 5.9 g/dL (6.6-8.7)
[2021-12-23 04:35] VITALS: PULSE 84
--- NOTE | 2021-12-23 06:14 | PC.NURSE ---
Shift Note Frequent safety and comfort rounds continue. Orders and/or nursing care completed as indicated. Patient monitored for response to intervention and treatment(s). Education provided includes toradol. Patient verbalized complete understanding. Patient reports less pain this morning and able to move more freely without added pain. Patient denies other needs presently. No distress observed. Will continue to monitor.
[2021-12-23 07:34] VITALS: PULSE 89; RESP 16; O2SAT 96
[2021-12-23 08:17] VITALS: RESP 15; O2SAT 96
[2021-12-23] MEDS: FUROsemide 40 mg Tablet PO (08:17)
[2021-12-23] MEDS: oxyCODONE-APAP 5-325 mg Tablet 1 TAB PO (08:17)
[2021-12-23 08:18] VITALS: BP 121/82
[2021-12-23] MEDS: sertraline 50 mg Tablet 25 MG PO (08:18)
[2021-12-23] MEDS: famotidine 20 mg Tablet PO (08:18)
[2021-12-23] MEDS: metoprolol succinate ER (24 HR) 25 mg Tablet PO (08:18)
[2021-12-23] MEDS: ropinirole 0.25 mg Tablet PO (08:18)
[2021-12-23] MEDS: losartan 50 mg Tablet 25 MG PO (08:18)
[2021-12-23] MEDS: magnesium lactate 84 mg Tablet PO (08:18)
--- NOTE | 2021-12-23 08:57 | PM.PN ---
Subjective Subjective: Patient is doing well. Denies chest pain today. ICD is working appropriately. Vitals/I&O/Wt Last Vital Signs Temp 97.8 F 12/22/21 17:54 Pulse 89 12/23/21 07:34 Resp 15 12/23/21 08:17 BP 121/82 12/23/21 08:18 Pulse Ox 96 12/23/21 08:17 12/22/21 12/23/21 12/23/21 22:59 06:59 14:59 Intake Total 1668 Balance 1668 Physical Exam Narrative: GENERAL: Patient is alert, awake and oriented x3. [] NECK: No jugular vein distension. [] HEENT: No cyanosis. No icterus. No pallor. [] HEART: Regular S1 and S2. Has grade III/ systolic murmur LUNGS: Clear to auscultate bilaterally. [] ABDOMEN: Soft, nontender and nondistended. Positive bowel sounds. No guarding, rebound or tenderness. [] CENTRAL NERVOUS SYSTEM: Grossly nonfocal. [] EXTREMITIES: Lower extremities with no edema bilaterally. Pulses palpable in the lower extremities, both dorsalis pedis and posterior tibial. [] Data : 12/23/21 02:50 12/23/21 02:50 Micro: Microbiology 12/17/21 13:32 Blood Culture - Final Blood NO GROWTH AFTER 5 DAYS 12/17/21 13:18 Blood Culture - Final Blood NO GROWTH AFTER 5 DAYS A&P Assessment and plan (1) CHF (congestive heart failure): Status: Acute Qualifiers: Heart failure type: systolic Heart failure chronicity: chronic Qualified Code(s): I50.22 - Chronic systolic (congestive) heart failure (2) Pleuritic chest pain: Status: Resolved (3) Nonischemic congestive cardiomyopathy: Status: Acute Plan Patient has history of drug abuse and has fever of unknown origin. Transthoracic echocardiogram does not reveal any vegetations Transesophageal echocardiogram was performed that did not reveal any vegetations. Mild mitral regurgitation and tricuspid regurgitation were noted Guideline directed medical therapy for nonischemic cardiomyopathy. ICD site is normal. Functioning appropriately Thank you for involving us with care of this patient. We will continue to follow. Please call with questions. Attestations Medical Necessity Statement*: care expected to cross 2 midnights. 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
--- NOTE | 2021-12-23 11:31 | PM.DCS ---
Discharge Providers Date of Admission: 12/17/21 18:17 Date of Discharge: December 23, 2021 Attending Provider at Admission: Rosy Reich MD Attending Provider at Discharge: Brandon Gonzalez MD Primary Care Provider: Jackie Ji MD Diagnoses at Discharge Discharge Diagnosis (1) CHF (congestive heart failure): Status: Acute Qualifiers: Heart failure type: systolic Heart failure chronicity: chronic Qualified Code(s): I50.22 - Chronic systolic (congestive) heart failure (2) Pleuritic chest pain: Status: Acute (3) Nonischemic congestive cardiomyopathy: Status: Acute Reason for Visit Reason for Visit: Chest pain, SOB Hospital Course Hospital Course This is a 31-year-old female with a past medical history of nonischemic cardiomyopathy with EF of 10 to 15%, history of drug abuse, history of cardiogenic shock, not a candidate for heart transplant given her history of recreational drug abuse, who presents [facility] for pleuritic chest pain. Was admitted for chest pain, had a transesophageal echocardiogram to eval for endocarditis which was negative for vegetation S was empirically covered with antibiotics which were discontinued, for her diminished ejection fraction, she agreed to AICD placement, placed as inpatient. Patient will follow up with cardiology service as outpatient, discharged on Lasix, Toprol, advised to abstain from recreational drugs. Physical Exam Const: COMMON NORMALS: no acute distress and patient oriented x3 Neck/C-Spine: COMMON NORMALS: no JVD Resp: COMMON NORMALS: normal respiratory effort, No retractions, No use of accessory muscles and clear to auscultation bilaterally AUSCULTATION: clear to auscultation bilaterally Cardio: COMMON NORMALS: no JVD, regular rate, regular rhythm, S1 normal heart sound present and S2 normal heart sound present RATE: regular rate RHYTHM: regular rhythm HEART SOUNDS: S1 normal heart sound present and S2 normal heart sound present GI: COMMON NORMALS: Normal to inspection, nondistended, normoactive bowel sounds present, Soft to palpation and non-tender PALPATION: Yes Soft to palpation Extremity: COMMON NORMALS: capillary refill normal Neuro: COMMON NORMALS: patient oriented x3 Psych: COMMON NORMALS: mental status grossly normal Skin: NARRATIVE SKIN EXAM: Pacemaker site looks clean and dry Discharge Data Studies Completed and Pending Completed Studies During Hospitalization Category Date Time Status CT abdomen pelvis wo con [id number] Routine Cat Scan 12/17/21 19:[address] angio chest PE protcl [id number] Stat Cat Scan 12/17/21 15:30 Completed CXRP [XR chest 1V portable [id number]] Routine Exams 12/21/21 13:24 Completed XR chest 1V portable [id number] Urgent Exams 12/17/21 11:17 Completed CV. echo complete* [id number] Routine Ultrasound 12/17/21 Completed CV. echo transesophageal [id number] Routine Ultrasound 12/20/21 11:00 Completed US abdomen lmt fluid [id number] Routine Ultrasound 12/18/21 12:28 Completed US gall bladder [id number] Stat Ultrasound 12/17/21 14:21 Completed Pending at discharge Category Date Time Status Albumin Body Fluid Routine Lab 12/18/21 12:29 Ordered Amylase Body Fluid Routine Lab 12/18/21 12:29 Ordered Anaerobic Culture Routine Lab 12/18/21 12:29 Ordered Body Fluid Analysis Routine Lab 12/18/21 12:29 Ordered Body Fluid Culture & GS Routine Lab 12/18/21 12:29 Ordered Complete Blood Count w/Auto AM LABS Lab 12/24/21 04:00 Ordered Comprehensive Metabolic Panel AM LABS Lab 12/24/21 04:00 Ordered Glucose Body Fluid Routine Lab 12/18/21 12:29 Ordered Magnesium AM LABS Lab 12/24/21 04:00 Ordered Total Protein Body Fluid Routine Lab 12/18/21 12:29 Ordered pH Body Fluid Routine Lab 12/18/21 12:29 Ordered Radiology Impressions Gallbladder Ultrasound 12/17/21 14:21 IMPRESSION: 1. Hepatomegaly. No intrahepatic biliary ductal dilatation. 2. Gallbladder sludge. Normal common bile duct. No pericholecystic fluid. 3. No hydronephrosis in RIGHT kidney. 4. Small RIGHT pleural effusion. Chest CTA 12/17/21 15:30 IMPRESSION: 1. Proximal main pulmonary arteries are normal. No evidence of pulmonary embolus. 2. Marked cardiomegaly with enlarged LEFT ventricle. 3. Small RIGHT and trace LEFT pleural fluid with interstitial edema and patchy atelectasis in the lung bases. 4. No mediastinal or hilar lymphadenopathy. 5. Partially visualized hepatomegaly Abdomen/Pelvis CT 12/17/21 19:46 IMPRESSION: 1. Moderate cardiomegaly. 2. Small bilateral pleural effusions. 3. There is right basilar atelectasis. Left lower lobe opacity could represent atelectasis or pneumonia. 4. There is a small amount of ascites which is high density, suspicious for hemorrhagic fluid. 5. Mild hepatomegaly. Abdomen Ultrasound 12/18/21 12:28 IMPRESSION: Insufficient fluid for paracentesis C-Arm Fluoroscopy 12/21/21 12:22 Impression: Pacemaker wire insertion. Chest X-Ray 12/21/21 13:24 IMPRESSION: 1. Interval placement of a LEFT subclavian cardiac defibrillator/pacer. 2. New mild pulmonary venous congestion and increasing size of the cardiac silhouette. These findings may be exacerbated by the supine position of the patient. Laboratory Results WBC 8.3 10^3/uL (4.0-10.0) 12/23/21 02:50 RBC 4.13 10^6/uL (4.1-5.3) 12/23/21 02:50 Hgb 12.5 g/dL (11.5-15.3) 12/23/21 02:50 Hct 39.0 % (37.0-47.0) 12/23/21 02:50 MCV 94.4 fl (81-99) 12/23/21 02:50 MCH 30.3 pg (28.0-34.0) 12/23/21 02:50 MCHC 32.1 g/dL (30.0-36.0) 12/23/21 02:50 RDW 16.8 % (12.1-15.1) H 12/23/21 02:50 Plt Count 285 10^3/cmm (130-400) 12/23/21 02:50 MPV 10.9 fL (7.4-10.4) H 12/23/21 02:50 Neut % (Auto) 52.2 % 12/23/21 02:50 Lymph % (Auto) 34.5 % 12/23/21 02:50 Morton % (Auto) 8.6 % 12/23/21 02:50 Eos % (Auto) 2.3 % 12/23/21 02:50 Baso % (Auto) 1.1 % 12/23/21 02:50 Neut # (Auto) 4.34 10^3/uL (1.8-7.7) 12/23/21 02:50 Lymph # (Auto) 2.9 10^3/uL (0.8-4.8) 12/23/21 02:50 Morton # (Auto) 0.7 10^3/uL (0.2-0.9) 12/23/21 02:50 Eos # (Auto) 0.2 10^3/uL (0.0-0.8) 12/23/21 02:50 Baso # (Auto) 0.1 10^3/uL (0.0-0.1) 12/23/21 02:50 Nucleated RBC % (auto) 0 % 12/23/21 02:50 Nucleated RBCs # 0.0 /100WBC 12/23/21 02:50 ESR 14 mm/hr (0-15) 12/17/21 18:46 Sodium 139 mmol/L (136-145) 12/23/21 02:50 Potassium 4.7 mmol/L (3.5-5.1) 12/23/21 02:50 Chloride 107 mmol/L (98-107) 12/23/21 02:50 Carbon Dioxide 19 mmol/L (22-29) L 12/23/21 02:50 Anion Gap 17.7 (5-19) 12/23/21 02:50 BUN 25 mg/dL (6-20) H 12/23/21 02:50 Creatinine 0.8 mg/dL (0.5-0.9) 12/23/21 02:50 GFR Calculation 82.6 mL/min (90-130) L 12/23/21 02:50 Glucose 116 mg/dL (65-115) H 12/23/21 02:50 Calculated Osmolality 293 mOsm/kg (285-295) 12/23/21 02:50 Calcium 7.9 mg/dL (8.5-10.5) L 12/23/21 02:50 Magnesium 2.0 mg/dL (1.7-2.3) 12/23/21 02:50 Total Bilirubin 0.3 mg/dL (0.15-1.2) 12/23/21 02:50 AST 14 U/L (0-32) 12/23/21 02:50 ALT 10 U/L (0-33) 12/23/21 02:50 Alkaline Phosphatase 122 IU/L (35-105) H 12/23/21 02:50 Lactate Dehydrogenase 221 U/L (135-214) H 12/21/21 04:11 Creatine Kinase 27 U/L (26-192) 12/18/21 04:05 Troponin T Baseline 15 ng/L (0-10) H 12/17/21 12:57 Troponin T 120 Minute 19.92 ng/L (0-10) H 12/17/21 15:21 Delta Troponin T 4.92 ABS# (0-10) 12/17/21 15:21 Troponin T Hi Sens 6Hr 22.21 ng/L (0-10) H 12/17/21 18:46 Troponin T Hi Sens 6Hr Delta 7.21 ng/L (0-12) 12/17/21 18:46 C-Reactive Protein 111.1 mg/L (0.0-4.9) H 12/21/21 04:11 NT-Pro-B Natriuret Pep 56537 pg/mL (0-125) H 12/17/21 12:57 Total Protein 5.9 g/dL (6.6-8.7) L 12/23/21 02:50 Albumin 3.1 g/dL (3.5-5.2) L 12/23/21 02:50 Globulin 2.8 g/dL (1.3-4.6) 12/23/21 02:50 Lipase 14 U/L (13-60) 12/19/21 03:19 Tumor Marker AFP 3.2 ng/mL (0-8.3) 12/18/21 04:05 Procalcitonin 0.35 ng/mL (0-0.5) 12/17/21 12:57 HCG, Qual Negative (Negative) 12/17/21 17:25 Vancomycin Trough 17.0 ug/mL (10-15) H 12/19/21 10:27 Urine Opiates Screen Positive ng/mL (Negative) H 12/17/21 14:05 Acetaminophen < 5.0 ug/mL (10-30) L 12/18/21 04:05 Ur Barbiturates Screen Negative ng/mL (Negative) 12/17/21 14:05 Ur Phencyclidine Scrn Negative ng/mL (Negative) 12/17/21 14:05 Ur Amphetamines Screen Positive ng/mL (Negative) H 12/17/21 14:05 U Benzodiazepines Scrn Positive ng/mL (Negative) H 12/17/21 14:05 Urine Cocaine Screen Negative ng/mL (Negative) 12/17/21 14:05 U Marijuana (THC) Screen Positive ng/mL (Negative) H 12/17/21 14:05 Coronavirus 229E (PCR) Not detected (NOT DETECT) 12/17/21 20:15 Hepatitis A IgM Ab Non-reactive (Nonreactive) 12/18/21 04:05 Hep Bs Antigen Non-reactive (Nonreactive) 12/18/21 04:05 Hep Bs Antibody 186.7 (11.5-1000) 12/18/21 04:05 Hep B Core Total Ab Non-reactive (Nonreactive) 12/18/21 04:05 Hepatitis C Antibody Non-reactive (Nonreactive) 12/18/21 04:05 SARS-CoV-2 (PCR) Not detected (NOT DETECT) 12/17/21 20:15 Vitals Last Vital Signs Temp 97.8 F 12/22/21 17:54 Pulse 89 12/23/21 07:34 Resp 15 12/23/21 08:17 BP 121/82 12/23/21 08:18 Pulse Ox 96 12/23/21 08:17 Discharge Plan Discharge Patient Disposition: Home Condition: Stable Prescriptions: Continued albuterol sulfate [Ventolin HFA] 90 mcg/actuation HFA aerosol inhaler 1 inh inhalation Q6H PRN (Reason: shortness of breath or wheezing) Qty: 8.5 0RF Eliquis 5 mg tablet 5 mg PO BID Qty: 60 4RF ropinirole 0.25 mg Tablet 0.25 mg PO DAILY 0RF sertraline 25 mg tablet 25 mg PO DAILY 0RF medroxyprogesterone 150 mg/mL Syringe 150 mg IM Q90D 0RF Magtab 84 mg tablet extended release 84 mg PO BID 0RF losartan 25 mg tablet 25 mg PO DAILY 0RF acetaminophen 500 mg Tablet 500 mg PO Q4H PRN (Reason: Pain) 0RF methocarbamol 750 mg tablet 750 mg PO Q6H PRN (Reason: muscle spasm) 0RF pantoprazole 40 mg tablet,delayed release (DR/EC) 40 mg PO QAM 0RF Changed furosemide 40 mg tablet 40 mg PO DAILY Qty: 0 0RF metoprolol succinate 25 mg tablet extended release 24 hr 25 mg PO DAILY Qty: 0 0RF Discharge Orders: Discharge Order (Routine); Ordered 12/23/21 Ordered By: Brandon Gonzalez Referrals: [facility] [Provider Group] - 1 week (Pacemaker clinic) Jackie Ji MD [Primary Care Provider] - Discharge Diet: Usual diet Discharge Activity: Limit activity as instructed Patient Instructions: Opioid Safety Activity Restrictions/Additional Instructions: No heavy lifting or pulling with left arm x2 weeks May begin daily showers with bandage off on December 24. Dry incision completely afterwards and recover if desired No swimming or tub baths x2 weeks May cover incision as desired, after original dressing is removed, to prevent irritation from clothing. Do not raise left hand above eye level for 2 weeks Will follow up in [facility] pacemaker clinic in 1 week Discharge Attestations Time Spent in Discharge Care*: less than 30 min Status at Discharge: Cognitive status at discharge: cognitively intact, Behavioral status at discharge: cooperative, Quality Metrics Clinical Quality Measures [ No reported AMI, CVA or VTE this stay] Coding Level of Care Code Acute Chg FW DC note Diagnoses CHF (congestive heart failure) I50.22 Heart failure type: systolic Heart failure chronicity: chronic Pleuritic chest pain R07.81 Nonischemic congestive cardiomyopathy I42.0
[2021-12-23] MEDS: apixaban 5 mg Tablet PO (11:48)
[2021-12-23 12:02] VITALS: BP 121/82; PULSE 91; RESP 18; TEMP 36.6; O2SAT 96
--- NOTE | 2021-12-23 12:15 | PC.NURSE ---
Discharge Note Patient discharged to home via wheelchair accompanied by spouse. Discharge instructions reviewed with patient and/or call center representative. Mobile pharmacy medications and/or prescriptions provided. Belongings/home medications returned.
== END 2021-12-23 12:00 | disposition home or self-care (01) | DRG 227 ==
LOC: ER 13:15 → ICU 23:01 → CSU 12-18 21:13
PROVIDERS: Physician Assistant; Thoracic Surgery (Cardiothoracic Vascular Surgery); Admitting Provider Internal Medicine; Emergency Provider Family Medicine; PCP Family Medicine; Visit Provider Family Medicine
PROC: 0JH608Z Insertion of Defibrillator Generator into Chest Subcutaneous Tissue and Fascia, Open Approach (ICD-10-PCS; CPT 33249; principal; 2021-12-21 12:00)
DX: I42.0 Dilated cardiomyopathy (principal); I50.22 Chronic systolic (congestive) heart failure; N17.9 Acute kidney failure, unspecified; F15.10 Other stimulant abuse, uncomplicated; F12.10 Cannabis abuse, uncomplicated; Z86.14 Personal history of Methicillin resistant Staphylococcus aureus infection; Z86.711 Personal history of pulmonary embolism; Z87.891 Personal history of nicotine dependence; R16.0 Hepatomegaly, not elsewhere classified; I08.1 Rheumatic disorders of both mitral and tricuspid valves; I27.20 Pulmonary hypertension, unspecified; Z79.01 Long term (current) use of anticoagulants
CPT/HCPCS: 36415; 71045; 71275; 74176; 74177; 76000; 76705; 80048; 80053; 80202; 80306; 80307; 82105; 82550; 83615; 83690; 83735; 83880; 84145; 84484; 84703; 85025; 85651; 86140; 86705; 86706; 86709; 86803; 87040; 87340; 87635; 87641; 93005; 93306; 93312; 93320; 93325; 96365; 96375; 99291; C1721; C1777; C1779; J0690; J0696; J1885; J2060; J2270; J2370; J2405; J2704; J3370; J7030; J7050; Q9967

== ENCOUNTER 2021-12-29 20:57 | Emergency (ER) | payer MEDICAID, SELFPAY ==
[2021-12-29 21:01] VITALS: BP 108/77; PULSE 101; RESP 18; TEMP 36.4; O2SAT 99; BMI 25.0
--- NOTE | 2021-12-29 21:08 | ECG_ITS ---
[facility] Test Date: 2021-12-29 Pat Name: Alex Workman Department: Room: Gender: Female Psychiatric Therapist: : [id number] Requested By: James Coffey Order Number: [id number] Shea MD: Lalo De La Paz M.D. Measurements Intervals [place] Rate: 102 P: 82 NV: 192 QRS: 172 QRSD: 166 T: 55 QT: 408 QTc: 533 Interpretive Statements ELECTRONIC VENTRICULAR PACEMAKER ABNORMAL RHYTHM ECG Compared to ECG 12/17/2021 17:31:28 Sinus tachycardia no longer present First degree AV block no longer present Intraventricular conduction delay no longer present Electronically Signed On 12-30-2021 15:44:27 CDT by Lalo De La Paz M.D. [id number]
--- NOTE | 2021-12-29 21:08 | XRR_ITS ---
PROCEDURE INFORMATION: Exam: XR Chest Exam date and time: 12/29/2021 9:08 PM Age: 31 years old Clinical indication: Shortness of breath; Prior surgery; Surgery date: 3-7 days post-operative; Surgery type: Pacemaker; Additional info: SOB TECHNIQUE: Imaging protocol: XR of the chest. Views: 1 view. COMPARISON: CR XR chest 1V portable [id number] 12/21/2021 1:44 PM FINDINGS: Tubes, catheters and devices: There is transvenous AICD in place with leads in appropriate position. Lungs: There is no pulmonary venous congestion. Visualized portions of the lungs are clear. Pleural spaces: Unremarkable. No pleural effusion. No pneumothorax. Heart/Mediastinum: The heart is moderately enlarged. Bones/joints: Unremarkable. XR/XR chest 1V portable [id number] IMPRESSION: No acute infiltrate. Congestive failure is improved compared with 12/21/2021.
--- NOTE | 2021-12-29 21:26 | PC.NURSE ---
patient received with c/o SOB for 2 days, states feels like abdomen and legs are swollen. noted taking deep breaths. reports taking all prescription medications as directed. speech clear sentences complete. states pace maker placed last week and is due for follow up. tele in place.
[2021-12-29 21:41] LABS: Basophils # 0.1 10^3/uL (0.0-0.1); Basophils % 0.8 %; Eosinophils # 0.2 10^3/uL (0.0-0.8); Hematocrit 39.1 % (37.0-47.0); Hemoglobin 12.6 g/dL (11.5-15.3); Lymphocytes # 3.5 10^3/uL (0.8-4.8); Lymphocytes % 32.1 %; Mean Corpuscular HGB Conc 32.2 g/dL (30.0-36.0); Mean Corpuscular Volume 93.1 fl (81-99); Mean Platelet Volume 10.2 fL (7.4-10.4); Monocytes # 0.9 10^3/uL (0.2-0.9); Monocytes % 7.9 %; Neutrophils % 56.6 %; Nucleated Red Blood Cells % 0 %; Platelet Count 361 10^3/cmm (130-400)
[2021-12-29 21:43] LABS: HCG, Serum Qual Negative (Negative)
[2021-12-29 21:52] LABS: Amphetamines Screen Urine Positive (Negative); Barbiturates Screen Urine Negative (Negative); Benzodiazepines Screen Urine Positive (Negative); Cocaine Screen Urine Negative (Negative); Opiate Screen Urine Negative (Negative); PCP Screen Urine Negative (Negative); THC Screen Urine Positive (Negative)
[2021-12-29 21:55] LABS: Troponin T (5th) Once 12 ng/L (0-10)
[2021-12-29 21:58] LABS: Add Urine Culture? No; Add Urine Microscopic? YES; Amorphous Sediment Urine 3+ /hpf; Bacteria Urine TRACE /hpf; Bilirubin Urine 1+ (Negative); Blood Urine 3+ (Negative); Glucose Urine UA Norm (Normal); Ketones Urine 1+ (Negative); Leukocyte Esterase Urine 1+ (Negative); Mucus Urine 2+ /hpf; Nitrate Urine Negative (Negative); Protein Urine 1+ (Negative); RBC Urine 15-25 /hpf (0-2); Squamous Epithelial Cell Urine 15-25 /hpf (0-5); Urine Appearance Cloudy (CLEAR); Urine Color Yellow (Yellow); Urobilinogen Urine 1 mg/dL (Negative); WBC Urine 25-40 /hpf (0-5); pH Urine 5 (5-7)
--- NOTE | 2021-12-29 22:03 | W.ED.SOB ---
HPI - SOB/Dyspnea General: Chief Complaint: Shortness of Breath/Dyspnea Stated Complaint: SOB Time Seen by Provider: 12/29/21 21:07 History of Present Illness: HPI Narrative: 31-year-old female with a history of nonischemic cardiomyopathy with an EF of 10. She was recently hospitalized, and discharged from the hospital on 12/23. She presents with worsening shortness of breath over the past 2 to 3 days. She notes some intermittent pleuritic chest pain as well. She had AICD placement as an inpatient last week. She says there is some mild swelling around that site. She denies any fever. Intermittent nonproductive cough. She says that she feels a bit more swollen than normal. She also states she has been taking her medication as prescribed she believes. 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 MD elicited complaint: shortness of breath Pertinent past history: congestive heart failure and other Onset (ago): day(s) Context: recent illness Timing: constant and progressively worsening Severity: moderate Exacerbating factors: lying flat, exertion and recent new medication Known history of: congestive heart failure and other Associated symptoms: Reports chest pain, cough and orthopnea; Deny abdominal pain, chest congestion, diaphoresis, extremity pain, fever(s), palpitations or vomiting Treatment prior to arrival: none Review of Systems Const: Denies: fever(s) or diaphoresis Card: Reports: chest pain and orthopnea; Denies: palpitations Resp: Reports: dyspnea and non-productive cough; Denies: productive cough or chest congestion GI: Denies: abdominal pain or vomiting Musc: Denies: extremity pain [facility] ED PFSH: Medical History CHF (congestive heart failure) History of methamphetamine abuse MRSA (methicillin resistant staph aureus) culture positive Pulmonary embolism Systolic heart failure Social History Smoking and tobacco status: former smoker Quit status (tobacco): has quit using tobacco Second hand smoke exposure: No Smoking risk assessment/counseling performed?: No Alcohol intake: former Desire information about alcohol rehabilitation?: No Counseling given: No Desire information about substance/drug rehabilitation?: No Counseling given: No Marital status: Life Partner service: No Current occupational status: unemployed Current occupational exposures/hazards: No Pets and animals: No History of recent travel: No Sexually active: Yes Current gender identity: Female Special emelia needs: No Agree to transfusion: Yes Financial difficulty paying for basics: Not Applicable Female Reproductive History: Date of last menstrual period: 12/17/21 Physical Exam Const: COMMON NORMALS: alert GENERAL APPEARANCE: cooperative ORIENTATION/CONSCIOUSNESS: Yes awake, Yes oriented to person, Yes oriented to place and Yes oriented to time HENMT: COMMON NORMALS: normocephalic, atraumatic and Normal external nose present HEAD & SCALP: normocephalic and atraumatic FACE & SINUS: normal facial exam NOSE: Normal external nose present Eye: COMMON NORMALS: Equal, round and reactive pupils present and EOMs intact bilaterally PUPIL: Yes Equal, round and reactive pupils present Chest: COMMONS NORMALS: normal inspection of the chest (AICD site is clean, no redness or drainage) Resp: COMMON NORMALS: normal respiratory effort, No use of accessory muscles and clear to auscultation bilaterally AUSCULTATION: clear to auscultation bilaterally Cardio: COMMON NORMALS: regular rate and regular rhythm RATE: regular rate RHYTHM: regular rhythm GI: COMMON NORMALS: Normal to inspection, nondistended, normoactive bowel sounds present and Soft to palpation PALPATION: Yes Soft to palpation Extremity: COMMON NORMALS: no pedal edema Neuro: SENSORIUM/ORIENTATION: Yes alert, Yes oriented to person, Yes oriented to place and Yes oriented to time Course Vital Signs: Vital signs: Vital Signs Temperature 97.6 F 12/29/21 21:01 Pulse Rate 88 12/29/21 23:43 Respiratory Rate 20 H 12/29/21 23:43 Blood Pressure 116/96 12/29/21 23:43 Pulse Oximetry 96 12/29/21 23:43 MDM - SOB/Dyspnea Medical Decision Making 31-year-old female with a history of nonischemic cardiomyopathy. She presents short of breath. Her chest x-ray is improved from her hospitalization a week ago. Her AICD site looks good. Her white blood cell count is 11. No left shift. Her BMP is normal essentially. She is given 60 mg of IV Lasix, and is beginning to diurese. Her BNP is decreased from her prior hospitalization. She is not hypoxic here. She does screen positive for benzodiazepines, opiates, and methamphetamine again. She denies use since prior to her hospitalization. As she is not hypoxic, and is beginning to diurese, with a normal creatinine, she will be allowed discharge. She will take an extra dose of Lasix tomorrow. She will return for any worsening symptoms. Lab Data : 12/29/21 21:12 12/29/21 21:12 Labs/Radiology: Radiology Impressions Chest X-Ray 12/29/21 21:08 IMPRESSION: No acute infiltrate. Congestive failure is improved compared with 12/21/2021. Laboratory Results WBC 11.0 10^3/uL (4.0-10.0) H 12/29/21 21:12 RBC 4.20 10^6/uL (4.1-5.3) 12/29/21 21:12 Hgb 12.6 g/dL (11.5-15.3) 12/29/21 21:12 Hct 39.1 % (37.0-47.0) 12/29/21 21:12 MCV 93.1 fl (81-99) 12/29/21 21:12 MCH 30.0 pg (28.0-34.0) 12/29/21 21:12 MCHC 32.2 g/dL (30.0-36.0) 12/29/21 21:12 RDW 16.0 % (12.1-15.1) H 12/29/21 21:12 Plt Count 361 10^3/cmm (130-400) 12/29/21 21:12 MPV 10.2 fL (7.4-10.4) 12/29/21 21:12 Neut % (Auto) 56.6 % 12/29/21 21:12 Lymph % (Auto) 32.1 % 12/29/21 21:12 [place] % (Auto) 7.9 % 12/29/21 21:12 Eos % (Auto) 2.0 % 12/29/21 21:12 Baso % (Auto) 0.8 % 12/29/21 21:12 Neut # (Auto) 6.20 10^3/uL (1.8-7.7) 12/29/21 21:12 Lymph # (Auto) 3.5 10^3/uL (0.8-4.8) 12/29/21 21:12 [place] # (Auto) 0.9 10^3/uL (0.2-0.9) 12/29/21 21:12 Eos # (Auto) 0.2 10^3/uL (0.0-0.8) 12/29/21 21:12 Baso # (Auto) 0.1 10^3/uL (0.0-0.1) 12/29/21 21:12 Nucleated RBC % (auto) 0 % 12/29/21 21:12 Nucleated RBCs # 0.0 /100WBC 12/29/21 21:12 Sodium 139 mmol/L (136-145) 12/29/21 21:12 Potassium 4.1 mmol/L (3.5-5.1) 12/29/21 21:12 Chloride 106 mmol/L (98-107) 12/29/21 21:12 Carbon Dioxide 20 mmol/L (22-29) L 12/29/21 21:12 Anion Gap 17.1 (5-19) 12/29/21 21:12 BUN 16 mg/dL (6-20) 12/29/21 21:12 Creatinine 0.8 mg/dL (0.5-0.9) 12/29/21 21:12 GFR Calculation 82.6 mL/min (90-130) L 12/29/21 21:12 Glucose 100 mg/dL (65-115) 12/29/21 21:12 Calculated Osmolality 289 mOsm/kg (285-295) 12/29/21 21:12 Lactic Acid 2.0 mmol/L (0.5-2.2) 12/29/21 21:31 Calcium 8.1 mg/dL (8.5-10.5) L 12/29/21 21:12 Total Bilirubin 0.5 mg/dL (0.15-1.2) 12/29/21 21:12 AST 21 U/L (0-32) 12/29/21 21:12 ALT 16 U/L (0-33) 12/29/21 21:12 Alkaline Phosphatase 135 IU/L (35-105) H 12/29/21 21:12 Troponin T Gen 5 ng/L 12 ng/L (0-10) H 12/29/21 21:12 NT-Pro-B Natriuret Pep 9223 pg/mL (0-125) H 12/29/21 21:12 Total Protein 6.5 g/dL (6.6-8.7) L 12/29/21 21:12 Albumin 3.8 g/dL (3.5-5.2) 12/29/21 21:12 Globulin 2.7 g/dL (1.3-4.6) 12/29/21 21:12 HCG, Qual Negative (Negative) 12/29/21 21:12 Urine Color Yellow (Yellow) 12/29/21 21:35 Urine Appearance Cloudy (CLEAR) 12/29/21 21:35 Urine pH 5 (5-7) 12/29/21 21:35 Ur Specific [place] 1.030 (1.005-1.030) 12/29/21 21:35 Urine Protein 1+ (Negative) H 12/29/21 21:35 Urine Glucose (UA) Norm (Normal) 12/29/21 21:35 Urine Ketones 1+ (Negative) H 12/29/21 21:35 Urine Blood 3+ (Negative) H 12/29/21 21:35 Urine Nitrate Negative (Negative) 12/29/21 21:35 Urine Bilirubin 1+ (Negative) H 12/29/21 21:35 Urine Urobilinogen 1 mg/dL (Negative) H 12/29/21 21:35 Ur Leukocyte Esterase 1+ (Negative) H 12/29/21 21:35 Urine RBC 15-25 /hpf (0-2) H 12/29/21 21:35 Urine WBC 25-40 /hpf (0-5) H 12/29/21 21:35 Ur Squamous Epith Cells 15-25 /hpf (0-5) H 12/29/21 21:35 Amorphous Sediment 3+ /hpf 12/29/21 21:35 Urine Bacteria Trace /hpf (NONE) 12/29/21 21:35 Urine Mucus 2+ /hpf 12/29/21 21:35 Urine Opiates Screen Negative ng/mL (Negative) 12/29/21 21:35 Ur Barbiturates Screen Negative ng/mL (Negative) 12/29/21 21:35 Ur Phencyclidine Scrn Negative ng/mL (Negative) 12/29/21 21:35 Ur Amphetamines Screen Positive ng/mL (Negative) H 12/29/21 21:35 U Benzodiazepines Scrn Positive ng/mL (Negative) H 12/29/21 21:35 Urine Cocaine Screen Negative ng/mL (Negative) 12/29/21 21:35 U Marijuana (THC) Screen Positive ng/mL (Negative) H 12/29/21 21:35 Discharge Plan Discharge Patient Disposition: Home Clinical Impression: Nonischemic congestive cardiomyopathy Condition: Stable Prescriptions: No Action albuterol sulfate [Ventolin HFA] 90 mcg/actuation HFA aerosol inhaler 1 inh inhalation Q6H PRN (Reason: shortness of breath or wheezing) Qty: 8.5 0RF Eliquis 5 mg tablet 5 mg PO BID Qty: 60 4RF ropinirole 0.25 mg Tablet 0.25 mg PO DAILY 0RF sertraline 25 mg tablet 25 mg PO DAILY 0RF medroxyprogesterone 150 mg/mL Syringe 150 mg IM Q90D 0RF Magtab 84 mg tablet extended release 84 mg PO BID 0RF losartan 25 mg tablet 25 mg PO DAILY 0RF furosemide 40 mg tablet 40 mg PO DAILY Qty: 0 0RF metoprolol succinate 25 mg tablet extended release 24 hr 25 mg PO DAILY Qty: 0 0RF acetaminophen 500 mg Tablet 500 mg PO Q4H PRN (Reason: Pain) 0RF methocarbamol 750 mg tablet 750 mg PO Q6H PRN (Reason: muscle spasm) 0RF pantoprazole 40 mg tablet,delayed release (DR/EC) 40 mg PO QAM 0RF Discharge Orders: Discharge ED (Routine); Ordered 12/30/21 Ordered By: James Kimble Referrals: Jackie Ji MD [Primary Care Provider] - 1-3 days Discharge Diet: Advance as tolerated Discharge Activity: Increase activity as tolerated Patient Instructions: Heart Failure (ED) Activity Restrictions/Additional Instructions: Take 1 extra dose of your furosemide tomorrow, to continue to take water off. Return for worsening shortness of breath despite treatment, worsening swelling, fever greater than 100, worsening chest discomfort, any other concerning symptoms. Continue your other medications as ordered. Coding Level of Care Code ED It Security Manager for Ena Price Exam Comprehensive
[2021-12-29 22:05] LABS: Alanine Aminotransferase 16 U/L (0-33); Albumin Level 3.8 g/dL (3.5-5.2); Alkaline Phosphatase 135 IU/L (35-105); Anion Gap 17.1 (5-19); Aspartate Amino Transferase 21 U/L (0-32); Blood Urea Nitrogen 16 mg/dL (6-20); Calcium 8.1 mg/dL (8.5-10.5); Carbon Dioxide 20 mmol/L (22-29); Chloride 106 mmol/L (98-107); Globulin 2.7 g/dL (1.3-4.6); Glomerular Filtration Rate 82.6 mL/min (90-130); Glucose 100 mg/dL (65-115); NT Pro B Type Natriuretic Pept 9223 pg/mL (0-125); Osmolality Calculated 289 mOsm/kg (285-295); Potassium 4.1 mmol/L (3.5-5.1); Sodium 139 mmol/L (136-145); Total Bilirubin 0.5 mg/dL (0.15-1.2); Total Protein 6.5 g/dL (6.6-8.7)
[2021-12-29 23:02] VITALS: RESP 18
[2021-12-29] MEDS: FUROsemide 10 mg/mL SDV 10mL 60 MG IVP (23:02)
[2021-12-29] MEDS: ondansetron 2 mg/ML SDV 2 mL 4 MG IVP (23:02)
[2021-12-29] MEDS: fentaNYL 50 mcg/mL INJ 2mL 75 MCG IVP (23:02)
[2021-12-29 23:43] VITALS: BP 116/96; PULSE 88; RESP 20; O2SAT 96
== END 2021-12-30 00:22 | disposition home or self-care (01) ==
PROVIDERS: Emergency Provider Emergency Medicine; PCP Family Medicine
DX: I42.8 Other cardiomyopathies (principal); Z79.01 Long term (current) use of anticoagulants; I50.20 Unspecified systolic (congestive) heart failure; Z86.711 Personal history of pulmonary embolism; Z87.891 Personal history of nicotine dependence
CPT/HCPCS: 71045; 80053; 80306; 81001; 83605; 83880; 84484; 84703; 85025; 87040; 93005; 96374; 96375; 99284; J1940; J2405; J3010

== ENCOUNTER 2021-12-31 01:16 | Inpatient (IN) | payer MEDICAID, SELFPAY ==
[2021-12-31] VITALS (14 sets, daily range): BP systolic 108–143; BP diastolic 69–100; PULSE 52–97; RESP 12–30; TEMP 36–36.6; O2SAT 94–98; BMI 24.1; BMI 24.3
--- NOTE | 2021-12-31 01:23 | XRR_ITS ---
PROCEDURE INFORMATION: Exam: XR Chest Exam date and time: 12/31/2021 1:23 AM Age: 31 years old Clinical indication: Pain; Left-sided; Prior surgery; Surgery date: 3-7 days post-operative; Surgery type: Pacemaker; Additional info: Cp TECHNIQUE: Imaging protocol: XR of the chest. Views: 1 view. COMPARISON: CR (CHEST, ) 12/29/2021 9:20 PM FINDINGS: Tubes, catheters and devices: The AICD and its leads appear stable in position. Lungs: The lungs are clear. Pleural spaces: Unremarkable. No pleural effusion. No pneumothorax. Heart/Mediastinum: The heart is moderately enlarged. Bones/joints: Unremarkable. XR/XR chest 1V portable [id number] IMPRESSION: 1. No acute pulmonary abnormality. 2. Moderate cardiomegaly.
[2021-12-31 01:46] LABS: Basophils # 0.1 10^3/uL (0.0-0.1); Basophils % 0.7 %; Eosinophils # 0.2 10^3/uL (0.0-0.8); Eosinophils % 1.5 %; Hematocrit 37.2 % (37.0-47.0); Lymphocytes # 2.7 10^3/uL (0.8-4.8); Lymphocytes % 21.1 %; Mean Corpuscular HGB Conc 32.3 g/dL (30.0-36.0); Mean Corpuscular Hemoglobin 30.2 pg (28.0-34.0); Mean Corpuscular Volume 93.7 fl (81-99); Mean Platelet Volume 10.3 fL (7.4-10.4); Monocytes # 0.8 10^3/uL (0.2-0.9); Monocytes % 5.8 %; Neutrophils # 9.18 10^3/uL (1.8-7.7); Neutrophils % 70.4 %; Nucleated Red Blood Cells % 0 %; Platelet Count 413 10^3/cmm (130-400); Red Blood Count 3.97 10^6/uL (4.1-5.3); Red Cell Distribution Width 16.1 % (12.1-15.1)
[2021-12-31 02:27] LABS: NT Pro B Type Natriuretic Pept 6394 pg/mL (0-125); Procalcitonin 0.09 ng/mL (0-0.5)
[2021-12-31 02:38] LABS: Alanine Aminotransferase 17 U/L (0-33); Albumin Level 3.7 g/dL (3.5-5.2); Alkaline Phosphatase 138 IU/L (35-105); Anion Gap 17.9 (5-19); Aspartate Amino Transferase 25 U/L (0-32); Blood Urea Nitrogen 15 mg/dL (6-20); C Reactive Protein 20.7 mg/L (0.0-4.9); Calcium 9.1 mg/dL (8.5-10.5); Carbon Dioxide 22 mmol/L (22-29); Chloride 103 mmol/L (98-107); Creatine Phosphokinase 33 U/L (26-192); Globulin 3.4 g/dL (1.3-4.6); Glomerular Filtration Rate 82.6 mL/min (90-130); Glucose 105 mg/dL (65-115); Magnesium 1.8 mg/dL (1.7-2.3); Osmolality Calculated 289 mOsm/kg (285-295); Potassium 3.9 mmol/L (3.5-5.1); Sodium 139 mmol/L (136-145); Total Bilirubin 0.5 mg/dL (0.15-1.2); Total Protein 7.1 g/dL (6.6-8.7)
--- NOTE | 2021-12-31 02:41 | ED_ITS ---
HPI - Chest Pain General: Chief Complaint: Chest Pain Stated Complaint: CP Time Seen by Provider: 12/31/21 01:19 Source: patient History of Present Illness: 31-year-old female with a history of nonischemic cardiomyopathy, EF of 10%, and recent AICD/pacer placement. She presents with what she says is worsening chest pain since I saw her 2 nights ago. She complains of progressive shortness of breath. She complains that before calling EMS, she had a sudden jolt of pain that came from her chest up into her neck. She is sure that her defibrillator fired. She has continued chest discomfort and shortness of breath in the ER, and is quite anxious MD complaint: chest pain and chest discomfort Onset (ago): day(s) Timing of current episode: constant Prior episodes: Yes Onset: during rest Pain location: substernal Pain radiation: neck and jaw/teeth Severity: moderate Relieving factors: nothing Exacerbating factors: exertion Context: recent surgery and other Associated symptoms: Reports dyspnea and nausea; Deny abdominal pain, diaphoresis, fever(s), leg edema or vomiting Treatment prior to arrival: oxygen Review of Systems Const: Denies: fever(s) or diaphoresis ENMT: Reports: throat pain Card: Reports: chest pain Resp: Reports: dyspnea; Denies: productive cough or non-productive cough GI: Reports: nausea; Denies: abdominal pain or vomiting Psych: Reports: anxiety PFSH ED PFSH: Medical History CHF (congestive heart failure) History of methamphetamine abuse MRSA (methicillin resistant staph aureus) culture positive Pulmonary embolism Systolic heart failure Social History Smoking and tobacco status: former smoker Quit status (tobacco): has quit using tobacco Second hand smoke exposure: No Smoking risk assessment/counseling performed?: No Alcohol intake: former Desire information about alcohol rehabilitation?: No Counseling given: No Desire information about substance/drug rehabilitation?: No Counseling given: No Marital status: Life Partner service: No Current occupational status: unemployed Current occupational exposures/hazards: No Pets and animals: No History of recent travel: No Sexually active: Yes Current gender identity: Female Special emelia needs: No Agree to transfusion: Yes Financial difficulty paying for basics: Not Applicable Female Reproductive History: Date of last menstrual period: 12/17/21 Physical Exam Const: GENERAL APPEARANCE: cooperative, in distress and anxious NUTRITIONAL APPEARANCE: thin HENMT: COMMON NORMALS: normocephalic, atraumatic and Normal external nose present HEAD & SCALP: normocephalic and atraumatic NOSE: Normal external nose present Eye: COMMON NORMALS: Equal, round and reactive pupils present and EOMs intact bilaterally PUPIL: Yes Equal, round and reactive pupils present Neck/C-Spine: GENERAL: Yes normal visual inspection Chest: COMMONS NORMALS: normal inspection of the chest CHEST: Yes tenderness (Anterior chest wall) and Yes Pacemaker present OTHER: Pacer site continues to look good Resp: COMMON NORMALS: clear to auscultation bilaterally EFFORT & INSPECTION: Yes tachypneic AUSCULTATION: clear to auscultation bilaterally Cardio: COMMON NORMALS: regular rate and regular rhythm RATE: regular rate RHYTHM: regular rhythm GI: COMMON NORMALS: Normal to inspection, nondistended, normoactive bowel sounds present, Soft to palpation and non-tender PALPATION: Yes Soft to palpation Extremity: COMMON NORMALS: no pedal edema Course Consultations: Consultation #1: raquel Time: 04:33 Vital Signs: Vital signs: Vital Signs Temperature 96.8 F L 12/31/21 01:29 Pulse Rate 73 12/31/21 04:24 Respiratory Rate 12 12/31/21 04:24 Blood Pressure 143/100 12/31/21 01:18 Pulse Oximetry 97 12/31/21 04:24 MDM - Chest Pain Medical Decision Making Patient continues to complain of chest discomfort. Pacer is interpreted, and found to be functioning properly. Patient is in a paced rhythm at 75. Saturations are 98% on room air. Respirations are 13. There has been no AICD firing since placed on 12/24. White blood cell count is 13. Platelet count 413. BMP is normal. Chest x-ray shows cardiomegaly and a continued decrease in pulmonary vascular congestion from prior. Due to repeated presentations, and concern over chest discomfort, she will be observed for symptom control, and further investigation. Lab Data : 12/31/21 01:35 12/31/21 01:35 Radiology Impressions Chest X-Ray 12/31/21 01:23 IMPRESSION: 1. No acute pulmonary abnormality. 2. Moderate cardiomegaly. Laboratory Results WBC 13.0 10^3/uL (4.0-10.0) H 12/31/21 01:35 RBC 3.97 10^6/uL (4.1-5.3) L 12/31/21 01:35 Hgb 12.0 g/dL (11.5-15.3) 12/31/21 01:35 Hct 37.2 % (37.0-47.0) 12/31/21 01:35 MCV 93.7 fl (81-99) 12/31/21 01:35 MCH 30.2 pg (28.0-34.0) 12/31/21 01:35 MCHC 32.3 g/dL (30.0-36.0) 12/31/21 01:35 RDW 16.1 % (12.1-15.1) H 12/31/21 01:35 Plt Count 413 10^3/cmm (130-400) H 12/31/21 01:35 MPV 10.3 fL (7.4-10.4) 12/31/21 01:35 Neut % (Auto) 70.4 % 12/31/21 01:35 Lymph % (Auto) 21.1 % 12/31/21 01:35 [place] % (Auto) 5.8 % 12/31/21 01:35 Eos % (Auto) 1.5 % 12/31/21 01:35 Baso % (Auto) 0.7 % 12/31/21 01:35 Neut # (Auto) 9.18 10^3/uL (1.8-7.7) H 12/31/21 01:35 Lymph # (Auto) 2.7 10^3/uL (0.8-4.8) 12/31/21 01:35 [place] # (Auto) 0.8 10^3/uL (0.2-0.9) 12/31/21 01:35 Eos # (Auto) 0.2 10^3/uL (0.0-0.8) 12/31/21 01:35 Baso # (Auto) 0.1 10^3/uL (0.0-0.1) 12/31/21 01:35 Nucleated RBC % (auto) 0 % 12/31/21 01:35 Nucleated RBCs # 0.0 /100WBC 12/31/21 01:35 Sodium 139 mmol/L (136-145) 12/31/21 01:35 Potassium 3.9 mmol/L (3.5-5.1) 12/31/21 01:35 Chloride 103 mmol/L (98-107) 12/31/21 01:35 Carbon Dioxide 22 mmol/L (22-29) 12/31/21 01:35 Anion Gap 17.9 (5-19) 12/31/21 01:35 BUN 15 mg/dL (6-20) 12/31/21 01:35 Creatinine 0.8 mg/dL (0.5-0.9) 12/31/21 01:35 GFR Calculation 82.6 mL/min (90-130) L 12/31/21 01:35 Glucose 105 mg/dL (65-115) 12/31/21 01:35 Calculated Osmolality 289 mOsm/kg (285-295) 12/31/21 01:35 Calcium 9.1 mg/dL (8.5-10.5) 12/31/21 01:35 Magnesium 1.8 mg/dL (1.7-2.3) 12/31/21 01:35 Total Bilirubin 0.5 mg/dL (0.15-1.2) 12/31/21 01:35 AST 25 U/L (0-32) 12/31/21 01:35 ALT 17 U/L (0-33) 12/31/21 01:35 Alkaline Phosphatase 138 IU/L (35-105) H 12/31/21 01:35 Creatine Kinase 33 U/L (26-192) 12/31/21 01:35 C-Reactive Protein 20.7 mg/L (0.0-4.9) H 12/31/21 01:35 NT-Pro-B Natriuret Pep 6394 pg/mL (0-125) H 12/31/21 01:35 Total Protein 7.1 g/dL (6.6-8.7) 12/31/21 01:35 Albumin 3.7 g/dL (3.5-5.2) 12/31/21 01:35 Globulin 3.4 g/dL (1.3-4.6) 12/31/21 01:35 Procalcitonin 0.09 ng/mL (0-0.5) 12/31/21 01:35 Urine Color Yellow (Yellow) 12/31/21 02:50 Urine Appearance Clear (CLEAR) 12/31/21 02:50 Urine pH 5 (5-7) 12/31/21 02:50 Ur Specific [place] 1.025 (1.005-1.030) 12/31/21 02:50 Urine Protein Trace (Negative) 12/31/21 02:50 Urine Glucose (UA) Norm (Normal) 12/31/21 02:50 Urine Ketones Negative (Negative) 12/31/21 02:50 Urine Blood Neg (Negative) 12/31/21 02:50 Urine Nitrate Negative (Negative) 12/31/21 02:50 Urine Bilirubin 1+ (Negative) H 12/31/21 02:50 Urine Urobilinogen 1 mg/dL (Negative) H 12/31/21 02:50 Ur Leukocyte Esterase Negative (Negative) 12/31/21 02:50 Urine RBC 0-4 /hpf (0-2) H 12/31/21 02:50 Urine WBC 0-4 /hpf (0-5) H 12/31/21 02:50 Ur Squamous Epith Cells 5-10 /hpf (0-5) H 12/31/21 02:50 Amorphous Sediment 1+ /hpf 12/31/21 02:50 Urine Bacteria 1+ /hpf (NONE) H 12/31/21 02:50 Hyaline Casts 15-25 /lpf H 12/31/21 02:50 Urine Mucus 2+ /hpf 12/31/21 02:50 Discharge Plan Discharge Patient Disposition: Placed in Observation Clinical Impression: Chest pain, Status post implantation of automatic cardioverter/defibrillator (AICD) Condition: Stable Prescriptions: No Action albuterol sulfate [Ventolin HFA] 90 mcg/actuation HFA aerosol inhaler 1 inh inhalation Q6H PRN (Reason: shortness of breath or wheezing) Qty: 8.5 0RF Eliquis 5 mg tablet 5 mg PO BID Qty: 60 4RF ropinirole 0.25 mg Tablet 0.25 mg PO DAILY 0RF sertraline 25 mg tablet 25 mg PO DAILY 0RF medroxyprogesterone 150 mg/mL Syringe 150 mg IM Q90D 0RF Magtab 84 mg tablet extended release 84 mg PO BID 0RF losartan 25 mg tablet 25 mg PO DAILY 0RF furosemide 40 mg tablet 40 mg PO DAILY Qty: 0 0RF metoprolol succinate 25 mg tablet extended release 24 hr 25 mg PO DAILY Qty: 0 0RF acetaminophen 500 mg Tablet 500 mg PO Q4H PRN (Reason: Pain) 0RF methocarbamol 750 mg tablet 750 mg PO Q6H PRN (Reason: muscle spasm) 0RF pantoprazole 40 mg tablet,delayed release (DR/EC) 40 mg PO QAM 0RF Referrals: Jackie Ji MD [Primary Care Provider] - Coding Level of Care Code ED Telephone Sex Worker for Ena Price
[2021-12-31] MEDS: ondansetron 2 mg/ML SDV 2 mL 4 MG IVP ×2 (02:53→08:05)
[2021-12-31] MEDS: ketorolac 30 mg/mL INJ 15 MG IVP ×2 (02:53→11:08)
[2021-12-31] MEDS: morphine 4 mg/mL SDV 1 mL IVP (02:53)
[2021-12-31 03:08] LABS: Add Urine Microscopic? YES; Bilirubin Urine 1+ (Negative); Blood Urine Neg (Negative); Glucose Urine UA Norm (Normal); Ketones Urine Negative (Negative); Leukocyte Esterase Urine Negative (Negative); Nitrate Urine Negative (Negative); Protein Urine Trace (Negative); Specific Gravity, Urine 1.025 (1.005-1.030); Urine Appearance Clear (CLEAR); Urine Color Yellow (Yellow); Urobilinogen Urine 1 mg/dL (Negative); pH Urine 5 (5-7)
[2021-12-31 03:16] LABS: Bacteria Urine 1+ /hpf; Mucus Urine 2+ /hpf; RBC Urine 0-4 /hpf (0-2); WBC Urine 0-4 /hpf (0-5)
[2021-12-31 03:17] LABS: Add Urine Culture? No; Amorphous Sediment Urine 1+ /hpf; Hyaline Casts Urine 15-25 /lpf
[2021-12-31 04:43] LABS: Amphetamines Screen Urine Positive (Negative); Barbiturates Screen Urine Negative (Negative); Benzodiazepines Screen Urine Positive (Negative); Cocaine Screen Urine Negative (Negative); Opiate Screen Urine Negative (Negative); PCP Screen Urine Negative (Negative); THC Screen Urine Positive (Negative)
--- NOTE | 2021-12-31 06:42 | ECG_ITS ---
[facility] Test Date: 2021-12-31 Pat Name: Alex Workman Department: Room: 256 Gender: Female Fitting Room Associate: : 1990 Requested By: Gabi Salgado Order Number: [id number] Shabbir MD: Lalo De La Paz M.D. Measurements Intervals [place] Rate: 79 P: 28 MA: 174 QRS: 73 QRSD: 94 T: 75 QT: 453 QTc: 520 Interpretive Statements ELECTRONIC VENTRICULAR PACEMAKER MARKED ST ELEVATION, CONSIDER LATERAL INJURY [MARKED ST ELEVATION W/O NORMALLY INFLECTED T WAVE IN I/aVL/V5/V6] Compared to ECG 12/29/2021 21:12:14 ST (T wave) deviation now present Myocardial infarct finding now present Electronically Signed On 12-31-2021 21:05:46 CDT by Lalo De La Paz M.D. [email or web address]
--- NOTE | 2021-12-31 07:09 | USCV_ITS ---
Alex Workman Age: 31 Gender: F : 1990 Exam Date: 12/31/2021 08:09 Ordering Phys: Gabi Salgado MD Technologist: Nico Aguilera [place] [facility] [place]ication: pericardial effusion BP: / HR: Rhythm: Sinus Technical Quality: Adequate MEASUREMENTS (Male / Female) Normal Values FINDINGS Left Ventricle Right Ventricle Right Atrium Left Atrium Mitral Valve Aortic Valve Tricuspid Valve Pulmonic Valve Pericardium Aorta CONCLUSIONS This is a limited echocardiogram performed to assess for pericardial effusion. Patient has a moderate sized pericardial effusion. No echocardiographic signs of cardiac tamponade noted. LV systolic function is severely reduced with EF of 10 to 15%. Pacemaker lead is noted in RA and RV. Compared to prior transesophageal echocardiogram performed on 12/20/2021, pericardial effusion is new. Lalo De La Paz MD (Electronically Signed) Final Date: 31 December 2021 10:17 S
--- NOTE | 2021-12-31 07:27 | P.HP_ITS ---
Providers/Chief Complaint Admitting Physician: Gabi Salgado MD Primary Care Provider: Jackie Ji MD Chief Complaint: CP History of Present Illness Alex Workman is a 31 year old female with h/o severe cardiomyopathy with ejection fraction of 10 to 15% recently admitted here between 12/17-12/23 after presenting with chest pain, fever, leukocytosis, h/o IVDU. Initial presentation of fever and leukocytosis resolved spontaneously within 24 hours.? No particular source for infection was identified.? Blood cultures remained negative.? ARIELLE negative for endocarditis.? CTA chest negative for PE or consolidation. She underwent AICD placement on 12/21/21. She is not considered a candidate for heart transplant given her history of recreational drug abuse- previously followed at [facility] cardiology service, now transitioned care locally. She was discharged on Lasix, Toprol, advised to abstain from recreational drugs. She returned to the ER on 12/29 and then again on 12/31 with c/o chest pain and increased LE edema on 12/29 for which she was given increased dose of Lasix. Today she returned with persisting chest pain, described a pleuritic type. Also felt as if her AICD had fired as she felt a jolt in her chest. CXR today shows clear lungs, no consolidation, hemothorax or pneumothorax. She is on Eliquis and reports compliance with the medication. on 12/29, she was noted to have improving venous congestion on CXR. BNP today is 6394- previously noted to be 6300-10K range. U tox + for amphetamines, benazodiazepens and marijuana. Otherwise afebrile today. CRP 20, down from 111 at last discharge Review of Systems General: Reports: 10 or more systems reviewed and unremarkable except in HPI and below Const: Denies: fever(s), chills or body aches Eyes: Denies: change in vision, blurry vision or photophobia ENMT: Reports: hoarseness; Denies: throat pain, enlarged tonsils, odynophagia or nasal congestion Card: Denies: chest pain, palpitations, irregular heart rhythm, edema, swelling of feet/ankles, lightheadedness, pre-syncope, dyspnea on exertion or orthopnea Resp: Denies: dyspnea, productive cough, non-productive cough, wheezing, stridor, pain on inspiration, change in phlegm color, hemoptysis or chest congestion GI: Denies: abdominal pain, nausea, vomiting, hematemesis, coffee ground emesis, dysphagia, heartburn, diarrhea, constipation, GI cramping, change in stool character, hematochezia or melena : Denies: flank pain, difficulty voiding, dysuria, urinary frequency, u rinary urgency, urinary hesitancy or hematuria Musc: Denies: neck pain, back pain, extremity pain, joint swelling, joint warmth or deformity Neuro: Denies: headache(s), numbness in extremities, weakness in extremities, sensory changes, difficulty walking, frequent falls, dizziness, vertigo, behavioral changes, Slurred speech present or seizure-like activity Psych: Denies: anxiety, depression, suicidal ideation or homicidal ideation Endo: Denies: polyuria, polydipsia, tired all the time, cold intolerance or hot flashes Lucius/Lymph: Denies: easy bruising or easy bleeding Medications/Allergies Home Medications Medication Instructions Recorded Confirmed Last Taken Type albuterol sulfate 90 mcg/actuation 1 inh INHALATION Q6H PRN #8.5 g 07/19/21 12/17/21 Unknown Rx aerosol inhaler (Ventolin HFA) apixaban 5 mg tablet (Eliquis) 5 mg PO BID #60 tab 07/19/21 12/17/21 08/02/21 Rx acetaminophen 500 mg tablet 500 mg PO Q4H PRN 08/03/21 12/17/21 Unknown History methocarbamol 750 mg tablet 750 mg PO Q6H PRN 08/03/21 12/17/21 Unknown History pantoprazole 40 mg tablet,delayed 40 mg PO QAM 08/03/21 12/17/21 08/02/21 History release losartan 25 mg tablet 25 mg PO DAILY 12/17/21 12/17/21 Unknown History magnesium L-lactate 84 mg 84 mg PO BID 12/17/21 12/17/21 Unknown History tablet,extended release (Magtab) medroxyprogesterone 150 mg/mL 150 mg IM Q90D 12/17/21 12/17/21 Unknown History intramuscular syringe ropinirole 0.25 mg tablet 0.25 mg PO DAILY 12/17/21 12/17/21 Unknown History sertraline 25 mg tablet 25 mg PO DAILY 12/17/21 12/17/21 Unknown History furosemide 40 mg tablet 40 mg PO DAILY #0 tab 12/23/21 12/17/21 08/02/21 Rx metoprolol succinate 25 mg 25 mg PO DAILY #0 tab 12/23/21 12/17/21 Unknown Rx tablet,extended release 24 hr Allergies Allergy/AdvReac Type Severity Reaction Status Date / Time No Known Allergies Allergy Verified 12/17/21 14:09 PFSH Acute PFSH: Medical History CHF (congestive heart failure) History of methamphetamine abuse MRSA (methicillin resistant staph aureus) culture positive Pulmonary embolism Systolic heart failure Social History Smoking and tobacco status: former smoker Quit status (tobacco): has quit using tobacco Second hand smoke exposure: No Smoking risk assessment/counseling performed?: No Alcohol intake: former Desire information about alcohol rehabilitation?: No Counseling given: No Desire information about substance/drug rehabilitation?: No Counseling given: No Marital status: Life Partner service: No Current occupational status: unemployed Current occupational exposures/hazards: No Pets and animals: No History of recent travel: No Sexually active: Yes Current gender identity: Female Special emelia needs: No Agree to transfusion: Yes Financial difficulty paying for basics: Not Applicable Female Reproductive History: Date of last menstrual period: 12/17/21 Vitals/I&O/Wt Last Vital Signs Temp 96.8 F L 12/31/21 01:29 Pulse 85 12/31/21 06:18 Resp 14 12/31/21 06:18 BP 108/82 12/31/21 06:18 Pulse Ox 96 12/31/21 06:18 Weight last 48 hrs Weight 65.916 kg Physical Exam Narrative: GEN: Awake, alert and oriented, anxious CVS: S1S2 N RS: CTA B/L Abd: Soft, nt/nd , bs+ LEASE ANALYST: no focal neuro deficits Data : 12/31/21 01:35 12/31/21 01:35 A&P Assessment and plan (1) Chest pain: Presenting today with chest pain with a history of non ischemic cardiomyopathy and recent AICD placement on 12/21/21. Feels like her AICD may have fired AICD interrogation ordered check EKG and troponin series limited echo to assess for pericardial effusion or collections post op po toradol prn in the interim low suspicion for PE since patient is on Eliquis, will check D dimer screen. recent concerns for endocarditis on previous admission however eventually ruled out based on negative blood cx and ARIELLE without any vegetations further management plan based on results of above testing Status: Acute (2) Status post implantation of automatic cardioverter/defibrillator (AICD): Status: Acute Attestations Medical Necessity Statement*: observation, less than 2 midnight admission anticipated for above care Coding Level of Care Code Acute Contract Law Specialist for [facility] Fwd Diagnoses Chest pain R07.9 Status post implantation of automatic cardioverter/defibrillator (AICD) Z95.810
[2021-12-31 07:58] LABS: Troponin(5th) Baseline 8 ng/L (0-10)
[2021-12-31] MEDS: metoprolol succinate ER (24 HR) 25 mg Tablet PO (08:03)
[2021-12-31] MEDS: ketorolac 10 mg Tablet PO ×2 (08:03→16:01)
[2021-12-31] MEDS: losartan 50 mg Tablet 25 MG PO (08:03)
[2021-12-31 08:04] LABS: D Dimer >= 20.00 ug/mIFEU (0-0.59)
[2021-12-31] MEDS: pantoprazole DR 40 mg Tablet PO (08:04)
[2021-12-31] MEDS: sertraline 50 mg Tablet 25 MG PO (08:04)
[2021-12-31] MEDS: FUROsemide 40 mg Tablet PO (08:04)
[2021-12-31] MEDS: magnesium lactate 84 mg Tablet PO ×2 (08:04→17:22)
[2021-12-31] MEDS: apixaban 5 mg Tablet PO ×2 (08:05→17:22)
[2021-12-31] MEDS: ropinirole 0.25 mg Tablet PO (08:05)
--- NOTE | 2021-12-31 08:42 | ECG_ITS ---
[facility] Test Date: 2021-12-31 Pat Name: Alex Workman Department: Room: 256 Gender: Female Data Management Analyst: : 1990 Requested By: Gabi Salgado Order Number: [id number] Shabbir MD: Lalo De La Paz M.D. Measurements Intervals [place] Rate: 70 P: 55 NE: 176 QRS: 89 QRSD: 94 T: -67 QT: 459 QTc: 498 Interpretive Statements ELECTRONIC VENTRICULAR PACEMAKER Compared to ECG 12/31/2021 07:42:28 ST (T wave) deviation no longer present Myocardial infarct finding no longer present Electronically Signed On 12-31-2021 21:14:16 CDT by Lalo De La Paz M.D. [id number]
--- NOTE | 2021-12-31 08:58 | PC.NURSE ---
Unable to assess efficacy of pain med d/t pt vomiting all meds. aware.
[2021-12-31] MEDS: pantoprazole 40 mg SDV IVP (09:49)
--- NOTE | 2021-12-31 10:12 | PC.CHAP ---
Pastoral Care Encounter/Spiritual Assessment Type of Contact [] Declined executive chairman visit [] Patient/Family/Request visit [] Outpatient visit [] Follow-up visit [] Physician referral [] Code/Alert [x] Routine visit [] Staff referral [] Actively dying [] Patient sleeping [] Family support [] [] Out of room [] Palliative care [] [] Receiving care in room [] Pre-surgical visit [] Trauma [] Long length of stay [] ICU visit [] Other: Relational/Emotional Strength [] Patient feels connected with others/family/visitors/staff [] Distress [] Loneliness/isolation [] Abandonment Spirituality of Patient [] Person of Syeda [] Attends Muslim of their Syeda [] Believes in Prayer [] Reads Bible or Jewish materials [x] There are Spiritual issues to be addressed [employer] Interventions [] Prayer [] Active listening [] Non-anxious presence [] Spiritual/emotional support [] Crisis/trauma care [] Spiritual counseling [] Bereavement support [] Provided bereavement packet [] Provided Bible/devotional materials [] Provided toy/stuffed animal, coloring book to patient or family member [] Provided Communion [] Anointing/[facility] [] Salvation [x] Completed spiritual assessment [] Other: Impact on Illness or Injury [] Angry [] Fearful [] Anxious [] Often cries [] Exhaustion [] Unable to work [] Unable to attend latter day [] Unable to walk/stand [] Unable to read [] Unable to drive [] Unable to eat/drink [] Unable to sleep [] Unable to be with family [] Patient intubated [] Other: Summary patient in pain Time spent with patient 5 min
[2021-12-31 10:53] LABS: Troponin 5 2HR Delta -0.3 ABS# (0-10)
--- NOTE | 2021-12-31 11:04 | PC.PHAR ---
PT STATES SHE TAKES CARE OF HER OWN MEDICATIONS-PT STATES HER YOAV [phone] WAS AT HOME AND COULD TELL ME WHAT SHES BEEN TAKING-PTS VERIFIED THE PTS MEDICATIONS WITH THE BOTTLES-PT STATES SHE HAS A BUILD UP ON SOME OF HER MEDS-NOTES ARE MADE IN THE PHARMACY COMMENTS WITH THE DATES OF THE BOTTLES-PT WAS GETTING HER MEDICATIONS FROM [facility] [phone]
[2021-12-31] MEDS: metoclopramide 5 mg/mL SDV 2 mL IVP (11:08)
[2021-12-31] MEDS: dextrose 5%-sod chloride 0.45% 1,000 ML 50 ML IV (11:19)
--- NOTE | 2021-12-31 12:42 | ECG_ITS ---
[facility] Test Date: 2021-12-31 Pat Name: Alex Workman Department: Room: 256 Gender: Female Process Control Operator: : 1990 Requested By: Gabi Salgado Order Number: [id number] Shabbir MD: Lalo De La Paz M.D. Measurements Intervals [place] Rate: 71 P: 45 TN: 166 QRS: 83 QRSD: 100 T: -60 QT: 404 QTc: 440 Interpretive Statements ELECTRONIC VENTRICULAR PACEMAKER Compared to ECG 12/31/2021 09:16:28 No significant changes Electronically Signed On 12-31-2021 21:13:15 CDT by Lalo De La Paz M.D. [id number]
[2021-12-31 14:17] LABS: Troponin 5 6HR 8.48 ng/L (0-10)
[2021-12-31 14:47] LABS: Troponin 5 6HR Delta 0.48 ng/L (0-12)
--- NOTE | 2021-12-31 15:03 | P.PN_ITS ---
Subjective Subjective: C/o moderate ant CP. Worse w/deep inspiration and sitting up. Has some mild SOB. C/O N/V. Denied F/C Vitals/I&O/Wt Last Vital Signs Temp 98.0 F 01/02/22 12:00 Pulse 70 01/02/22 12:00 Resp 18 01/02/22 12:00 BP 99/66 01/02/22 12:00 Pulse Ox 97 01/02/22 12:00 01/02/22 01/02/22 01/02/22 06:59 14:59 22:59 Intake Total 120 / 120 Output Total 280 / 1040 Balance -280 / 573.333 120 / 120 Physical Exam Narrative: Mod Distress CVS: S1S2, RRR, Mur (-) Resp decreased NS Basally chayo rt. Otherwise clear Abd: soft, mild epigastric tender, BS+ Edema (-) ESTATE AND TRUST TAX PRINCIPAL A&Ox4 Data : 12/31/21 01:35 12/31/21 01:35 A&P Assessment and plan (1) Chest pain: Status: Acute (2) Status post implantation of automatic cardioverter/defibrillator (AICD): Status: Acute (3) CHF (congestive heart failure): Status: Acute Qualifiers: Heart failure type: systolic Heart failure chronicity: chronic Qualified Code(s): I50.22 - Chronic systolic (congestive) heart failure (4) Nonischemic congestive cardiomyopathy: Status: Acute (5) Pericardial effusion: Status: Acute Plan Pt came w/ anterior CP, SOB. Found to have High BNP and abnormal LFTs. ECHO showed EF 10-14 w/ mod pericardial effusion, Her CP is suggestive of Ac Pericarditis clinically w/ Ac Sys ys CHF. Abnormal LFT is due to hepatic congestion from the CHF most likely. Will continue w/ diuresis. F/U D diamer eval for PE. w/ CT if the d diamer is high. Will try Reglan for possible esophagitis as a cause of her CP and N/V. Attestations Medical Necessity Statement*: Pt has Ac Chest pain, Ac Sys CHF, Abnormal lver function. and leukocytosis. These will need further w/u and management. Clinical status serious Time Spent in Patient Care: 35 min Critical Care Time: 10 min Coding Level of Care Code Acute Biomedical Equipment Technician for [facility] Fwd Diagnoses Chest pain R07.9 Status post implantation of automatic cardioverter/defibrillator (AICD) Z95.810 CHF (congestive heart failure) I50.22 Heart failure type: systolic Heart failure chronicity: chronic Nonischemic congestive cardiomyopathy I42.0 Pericardial effusion I31.3
[2021-12-31] MEDS: acetaminophen 325 mg Tablet 650 MG PO (19:50)
[2022-01-01] VITALS (7 sets, daily range): BP systolic 99–122; BP diastolic 63–85; PULSE 73–87; RESP 16–18; TEMP 36.7–37.1; O2SAT 94–99
[2022-01-01] MEDS: ketorolac 10 mg Tablet PO ×3 (00:10→22:20)
[2022-01-01] MEDS: dextrose 5%-sod chloride 0.45% 1,000 ML 50 ML IV (05:56)
[2022-01-01] MEDS: ropinirole 0.25 mg Tablet PO (08:05)
[2022-01-01] MEDS: pantoprazole DR 40 mg Tablet PO (08:05)
[2022-01-01] MEDS: sertraline 50 mg Tablet 25 MG PO (08:05)
[2022-01-01] MEDS: metoprolol succinate ER (24 HR) 25 mg Tablet PO (08:05)
[2022-01-01] MEDS: apixaban 5 mg Tablet PO ×2 (08:05→17:27)
[2022-01-01] MEDS: FUROsemide 40 mg Tablet PO (08:05)
[2022-01-01] MEDS: losartan 50 mg Tablet 25 MG PO (08:06)
[2022-01-01] MEDS: magnesium lactate 84 mg Tablet PO ×2 (08:06→17:27)
--- NOTE | 2022-01-01 09:29 | PM.PN ---
Subjective Subjective: CP is less today but still has pleuretic type of pain w/ breathing deep and sitting up. Vitals/I&O/Wt Last Vital Signs Temp 97.8 F 01/02/22 15:36 Pulse 71 01/02/22 15:36 Resp 18 01/02/22 15:36 BP 95/59 01/02/22 15:36 Pulse Ox 96 01/02/22 15:36 01/02/22 01/02/22 01/02/22 06:59 14:59 22:59 Intake Total 360 / 360 Output Total 280 / 1040 Balance -280 / 573.333 360 / 360 Physical Exam Narrative: NAD CVS: S1S2, RR R, Mur (-) Resp de creased NS Basally chayo rt. Otherwise clear Abd: soft, mild epigastric te nder, BS+ Edema (- ) OCCUPATIONAL HEALTH AND SAFETY OFFICER A&Ox4 Data : 01/02/22 15:50 01/02/22 15:50 A&P Assessment and plan (1) Pericardial effusion: Status: Acute (2) Chest pain: Clinically appears to be due to Pericarditis May be due to PNA Status: Acute (3) Status post implantation of automatic cardioverter/defibrillator (AICD): Status: Acute (4) CHF (congestive heart failure): EF 10-14%. Ac Sys CHF w/ hepatic congestion Status: Acute Qualifiers: Heart failure type: systolic Heart failure chronicity: chronic Qualified Code(s): I50.22 - Chronic systolic (congestive) heart failure (5) Nonischemic congestive cardiomyopathy: EF 10-14%. Has defibrillator Status: Acute (6) Abnormal liver function: Most likely due to CHF and hepatic congestion Status: Acute (7) Elevated d-dimer: R/O PE. No s/s of DVT. Status: Acute Plan CT lung PE Protocol Continue Eliquis Continue diuresis F/U LFT Cardiology consult Consider Entresto Attestations Medical Necessity Statement*: Has multiple problems that requires further evaluation and management. Has Ac CHF w/ Pleural Effusion, Pericardial effusion, Abnormal LFT, persisting CP and elevated d diamer. Coding Level of Care Code Acute Business Operations Consultant for [facility] Fwd Diagnoses Pericardial effusion I31.3 Chest pain R07.9 Status post implantation of automatic cardioverter/defibrillator (AICD) Z95.810 CHF (congestive heart failure) I50.22 Heart failure type: systolic Heart failure chronicity: chronic Nonischemic congestive cardiomyopathy I42.0 Abnormal liver function R94.5 Elevated d-dimer R79.89
--- NOTE | 2022-01-01 09:48 | PC.NURSE ---
patient currently paced on telemetry
--- NOTE | 2022-01-01 14:45 | CTR_ITS ---
PROCEDURE INFORMATION: Exam: CTA Chest With Contrast Exam date and time: 01/01/2022 2:45 PM Age: 31 years old Clinical indication: Abnormal findings; Abnormal diagnostic tests; Prior surgery; Surgery date: <1 month; Surgery type: Elevated d-dimer HX of chf/ 9 days post op defibrillator TECHNIQUE: Imaging protocol: Computed tomographic angiography of the chest with contrast. 3D rendering (Not supervised by radiologist): MIP and/or 3D reconstructed images were created by the technologist. Radiation optimization: All CT scans at this facility use at least one of these dose optimization techniques: automated exposure control; mA and/or kV adjustment per patient size (includes targeted exams where dose is matched to clinical indication); or iterative reconstruction. Contrast material: OMNI 350; Contrast volume: 95 ml; Contrast route: INTRAVENOUS (IV); COMPARISON: CT angio chest PE protcl [id number] 12/17/2021 3:49 PM RADIATION DOSE METRICS: Total DLP (mGy-cm): 595.98 FINDINGS: Pulmonary arteries: Normal. No pulmonary emboli. Aorta: Unremarkable. No aortic aneurysm. No aortic dissection. Lungs: Bibasilar right greater than left atelectasis versus infiltrate. Left lower lobe 7.8 mm focal nodular density, short-term 1 month follow-up exam advised to ensure stability. Pleural spaces: Small to moderate right pleural effusion. Heart: Cardiomegaly. Pericardial effusion measuring up to 8.3 mm in thickness. Lymph nodes: Scattered prominent subcentimeter short axis diameter lymph nodes. Intraperitoneal space: Small amount of ascites in the upper abdomen partially visualized. Bones/joints: Unremarkable. No acute fracture. Soft tissues: Unremarkable. CT/CT angio chest PE protcl [id number] IMPRESSION: 1. Negative for pulmonary embolus. 2. Small to moderate right pleural effusion. 3. Cardiomegaly. 4. Pericardial effusion measuring up to 8.3 mm in thickness. 5. Scattered prominent subcentimeter short axis diameter lymph nodes, nonspecific. 6. Small amount of ascites in the upper abdomen partially visualized. 7. Bibasilar right greater than left atelectasis versus infiltrate. 8. Left lower lobe 7.8 mm focal nodular density, short-term 1 month follow-up exam advised to ensure stability.
[2022-01-01] MEDS: acetaminophen 325 mg Tablet 650 MG PO ×2 (16:14→22:21)
[2022-01-01] MEDS: TRAMadol 50 mg Tablet PO (16:14)
[2022-01-01] MEDS: iohexol 350 mg/mL 100 mL Btl IV (16:28)
[2022-01-02] VITALS (9 sets, daily range): BP systolic 95–109; BP diastolic 59–70; PULSE 70–86; RESP 16–18; TEMP 36.6–36.8; O2SAT 96–98
[2022-01-02] MEDS: TRAMadol 50 mg Tablet PO ×3 (06:01→23:41)
[2022-01-02] MEDS: pantoprazole DR 40 mg Tablet PO (08:01)
[2022-01-02] MEDS: ropinirole 0.25 mg Tablet PO (08:02)
[2022-01-02] MEDS: apixaban 5 mg Tablet PO ×2 (08:02→17:06)
[2022-01-02] MEDS: metoprolol succinate ER (24 HR) 25 mg Tablet PO (08:02)
[2022-01-02] MEDS: FUROsemide 40 mg Tablet PO (08:02)
[2022-01-02] MEDS: sertraline 50 mg Tablet 25 MG PO (08:02)
[2022-01-02] MEDS: magnesium lactate 84 mg Tablet PO ×2 (08:48→17:06)
--- NOTE | 2022-01-02 12:21 | PC.CHAP ---
Pastoral Care Encounter/Spiritual Assessment Type of Contact [] Declined tree trimmer visit [] Patient/Family/Request visit [] Outpatient visit [] Follow-up visit [] Physician referral [] Code/Alert [x] Routine visit [] Staff referral [] Actively dying [x] Patient sleeping [] Family support [] [] Out of room [] Palliative care [] [] Receiving care in room [] Pre-surgical visit [] Trauma [] Long length of stay [] ICU visit [] Other: Relational/Emotional Strength [] Patient feels connected with others/family/visitors/staff [] Distress [] Loneliness/isolation [] Abandonment Spirituality of Patient [] Person of Syeda [] Attends Restorationism of their Syeda [] Believes in Prayer [] Reads Bible or Amish materials [] There are Spiritual issues to be addressed Video [employer] Editor Interventions [] Prayer [] Active listening [] Non-anxious presence [] Spiritual/emotional support [] Crisis/trauma care [] Spiritual counseling [] Bereavement support [] Provided bereavement packet [] Provided Bible/devotional materials [] Provided toy/stuffed animal, coloring book to patient or family member [] Provided Communion [] Anointing/[place] [] Salvation [] Completed spiritual assessment [] Other: Impact on Illness or Injury [] Angry [] Fearful [] Anxious [] Often cries [] Exhaustion [] Unable to work [] Unable to attend adventism [] Unable to walk/stand [] Unable to read [] Unable to drive [] Unable to eat/drink [] Unable to sleep [] Unable to be with family [] Patient intubated [] Other: Summary Time spent with patient
[2022-01-02] MEDS: ketorolac 10 mg Tablet PO (13:39)
[2022-01-02 16:08] LABS: Basophils % 0.5 %; Eosinophils # 0.2 10^3/uL (0.0-0.8); Eosinophils % 1.8 %; Hematocrit 32.4 % (37.0-47.0); Hemoglobin 10.1 g/dL (11.5-15.3); Lymphocytes # 1.5 10^3/uL (0.8-4.8); Mean Corpuscular HGB Conc 31.2 g/dL (30.0-36.0); Mean Corpuscular Hemoglobin 30.4 pg (28.0-34.0); Mean Corpuscular Volume 97.6 fl (81-99); Mean Platelet Volume 10.8 fL (7.4-10.4); Monocytes # 1.1 10^3/uL (0.2-0.9); Neutrophils # 5.62 10^3/uL (1.8-7.7); Nucleated Red Blood Cells % 0 %; Platelet Count 291 10^3/cmm (130-400); Red Blood Count 3.32 10^6/uL (4.1-5.3); Red Cell Distribution Width 16.1 % (12.1-15.1); White Blood Count 8.5 10^3/uL (4.0-10.0)
[2022-01-02 16:40] LABS: Alanine Aminotransferase 15 U/L (0-33); Albumin Level 3.4 g/dL (3.5-5.2); Alkaline Phosphatase 113 IU/L (35-105); Anion Gap 15.2 (5-19); Aspartate Amino Transferase 16 U/L (0-32); Blood Urea Nitrogen 16 mg/dL (6-20); Calcium 8.6 mg/dL (8.5-10.5); Carbon Dioxide 23 mmol/L (22-29); Chloride 102 mmol/L (98-107); Globulin 2.5 g/dL (1.3-4.6); Glomerular Filtration Rate 96.4 mL/min (90-130); Glucose 95 mg/dL (65-115); NT Pro B Type Natriuretic Pept 3538 pg/mL (0-125); Osmolality Calculated 283 mOsm/kg (285-295); Potassium 4.2 mmol/L (3.5-5.1); Sodium 136 mmol/L (136-145); Total Bilirubin 0.7 mg/dL (0.15-1.2); Total Protein 5.9 g/dL (6.6-8.7)
--- NOTE | 2022-01-02 19:17 | PM.CONSULT ---
Providers/Reason For Consult Consulting Physician/Specialty*: Dr Jordyn Hardy/cardiology Reason for Consult*: Patient with chest pain and pericardial effusion Requesting Physician: Dr Aldrich Attending Physician: Migel Aldrich MD Primary Care Provider: Jackie Ji MD History of Present Illness History of Present Illness Alex Workman is a 31 year old female with a history of nonischemic cardiomyopathy, status post recent ICD implantation, is admitted to the hospital through the emergency room, where she presented with complaints of chest pain, shortness of breath and? ICD shock. This patient is diagnosed with a nonischemic cardiomyopathy with an ejection fraction of 10 to 15%. She initially presented to the hospital with complaints of chest pain and fever. Her work-up for endocarditis is negative. She has a history of drug abuse. She was diagnosed with a cardiomyopathy in June 2021 at the [facility] in [place]. Apparently she was supposed to get an ICD implantation at the [facility]. Then she moved to this area with her boyfriend. She had the ICD placement on 12/21/2021. She had an uneventful postprocedure course. According the patient, on the fifth the day of the procedure, she started having pain in the upper part of the chest radiated to both sides of the neck and also to the upper back. The pain was more or less constant with some waxing and waning. The pain gets worse with deep inspiration and cough. She also was noticing swelling of the lower extremities. She responded to increased dose of the Lasix . The C-reactive protein was found to be markedly elevated. She has a history of pulmonary embolism and she is on long-term oral anticoagulation. Currently she denies any fever or chills. No cough. She had an echocardiogram done which revealed at least moderate pericardial effusion, circumferential. Medications/Allergies Home Medications Medication Instructions Recorded Confirmed Last Taken Type albuterol sulfate 90 mcg/actuation 1 inh INHALATION Q6H PRN #8.5 g 07/19/21 12/31/21 Unknown Rx aerosol inhaler (Ventolin HFA) apixaban 5 mg tablet (Eliquis) 5 mg PO BID #60 tab 07/19/21 12/31/21 08/02/21 Rx acetaminophen 500 mg tablet 500 - 1,000 mg PO Q4H PRN 08/03/21 12/31/21 Unknown History losartan 25 mg tablet 25 mg PO DAILY 12/17/21 12/31/21 Unknown History magnesium L-lactate 84 mg 84 mg PO DAILY 12/17/21 12/31/21 Unknown History tablet,extended release (Magtab) medroxyprogesterone 150 mg/mL 150 mg IM Q90D 12/17/21 12/31/21 Unknown History intramuscular syringe ropinirole 0.25 mg tablet 0.25 mg PO DAILY 12/17/21 12/31/21 Unknown History sertraline 25 mg tablet 25 mg PO DAILY 12/17/21 12/31/21 Unknown History furosemide 40 mg tablet 40 mg PO DAILY #0 tab 12/23/21 12/31/21 08/02/21 Rx metoprolol succinate 25 mg 25 mg PO DAILY #0 tab 12/23/21 12/31/21 Unknown Rx tablet,extended release 24 hr spironolactone 25 mg tablet 12.5 mg PO DAILY 12/31/21 12/31/21 Unknown History Allergies Allergy/AdvReac Type Severity Reaction Status Date / Time No Known Allergies Allergy Verified 12/31/21 10:52 Current Medications Generic Name Dose Route Start Last Admin Trade Name Freq PRN Reason Stop Dose Admin Acetaminophen 650 mg 12/31/21 06:41 01/01/22 22:21 Acetaminophen 325 Mg Tablet PO 650 mg Q6H PRN Administration Mild/Mod Pain Or Temp >/= 101 Apixaban 5 mg 12/31/21 09:00 01/02/22 17:06 Apixaban 5 Mg Tablet PO 5 mg BID GAUTAM Administration Furosemide 40 mg 12/31/21 09:00 01/02/22 08:02 Furosemide 40 Mg Tablet PO 40 mg DAILY GAUTAM Administration Dextrose/Sodium Chloride 1,000 mls @ 50 mls/hr 12/31/21 11:00 01/02/22 03:15 Dextrose 5%-Sod Chloride 0.45% IV Not Given .Q20H GAUTAM Ketorolac Tromethamine 10 mg 12/31/21 06:41 01/02/22 13:39 Ketorolac 10 Mg Tablet PO 01/05/22 06:40 10 mg Q8H PRN Administration MODERATE PAIN Losartan Potassium 25 mg 12/31/21 09:00 01/02/22 08:48 Losartan 50 Mg Tablet PO Not Given DAILY GAUTAM Magnesium Lactate 84 mg 12/31/21 09:00 01/02/22 17:06 Magnesium Lactate 84 Mg Tablet PO 84 mg BID GAUTAM Administration Metoprolol Succinate 25 mg 12/31/21 09:00 01/02/22 08:02 Metoprolol Succinate Er (24 Hr) 25 Mg Tablet PO 25 mg DAILY GAUTAM Administration Ondansetron HCl 4 mg 12/31/21 06:41 12/31/21 08:05 Ondansetron 2 Mg/Ml Sdv 2 Ml IVP 4 mg Q8H PRN Administration vomiting, or N/V if npo Pantoprazole Sodium 40 mg 12/31/21 09:00 01/02/22 08:[address] 40 Mg Tablet PO 40 mg DAILY GAUTAM Administration Ropinirole HCl 0.25 mg 12/31/21 09:00 01/02/22 08:02 Ropinirole 0.25 Mg Tablet PO 0.25 mg DAILY GAUTAM Administration Sertraline HCl 25 mg 12/31/21 09:00 01/02/22 08:02 Sertraline 50 Mg Tablet PO 25 mg DAILY GAUTAM Administration Tramadol HCl 50 mg 01/01/22 15:42 01/02/22 15:46 Tramadol 50 Mg Tablet PO 50 mg TID PRN Administration MODERATE PAIN PFSH Acute PFSH: Medical History CHF (congestive heart failure) History of methamphetamine abuse MRSA (methicillin resistant staph aureus) culture positive Pulmonary embolism Systolic heart failure Social History Smoking and tobacco status: former smoker Quit status (tobacco): has quit using tobacco Second hand smoke exposure: No Smoking risk assessment/counseling performed?: No Alcohol intake: former Desire information about alcohol rehabilitation?: No Counseling given: No Desire information about substance/drug rehabilitation?: No Counseling given: No Marital status: Life Partner service: No Current occupational status: unemployed Current occupational exposures/hazards: No Pets and animals: No History of recent travel: No Sexually active: Yes Current gender identity: Female Special emelia needs: No Agree to transfusion: Yes Financial difficulty paying for basics: Not Applicable Female Reproductive History: Date of last menstrual period: 12/17/21 Vitals/I&O/Wt Last Vital Signs Temp 97.8 F 01/02/22 15:36 Pulse 71 01/02/22 15:36 Resp 18 01/02/22 15:36 BP 95/59 01/02/22 15:36 Pulse Ox 96 01/02/22 15:36 01/02/22 01/02/22 01/02/22 06:59 14:59 22:59 Intake Total 360 / 360 Output Total 280 / 1040 Balance -280 / 573.333 360 / 360 Physical Exam Narrative: GENERAL: The patient is alert and oriented times three. Not in any acute distress. HEENT: No significant pallor, icterus or lymphadenopathy. The pupils are reactant to light. Oral cavity: There are no mucous membrane lesions. Funduscopic examination: The fundus is not visualized NECK: Trachea appears to be central. No masses noted. No JVD or thyromegaly appreciated. No carotid bruit. RESPIRATORY: Chest is symmetrical. No intercostals muscle retraction or any accessory muscle activation. The ICD implantation site appears to have no hematoma bleeding BREASTS: Deferred. HEART: The heart sounds are somewhat muffled. No S3. Short systolic murmur in the left sternal border. No diastolic murmurs. No pericardial rub. ABDOMEN: No vessel pulsations or distention. No tenderness. No organomegaly appreciated. No abdominal bruit. Bowel sounds are normally heard. : Deferred. RECTAL: Deferred. LYMPHATIC: No lymphadenopathy noted in the neck or groin. EXTREMITIES: No edema or cyanosis. No clubbing. The pulses are symmetrical bilaterally. The radial, femoral, dorsalis pedis and the posterior tibial pulses are palpated and found to be of low volume and amplitude MUSCULOSKELETAL: Gait is normal. There is no joint deformity or swelling noted. No joint tenderness or any effusion. The shoulder and hip joints appear to have normal range of motion. SKIN: Extensive tattoo lance in the upper part of the chest NEUROPSYCHIATRIC: The patient is alert and oriented x3. Appears to be in a good mood. The higher functions are grossly within normal limits. No tremors or rigidity noted. Data : 01/02/22 15:50 01/02/22 15:50 Other Labs: Laboratory Last Values WBC 8.5 10^3/uL (4.0-10.0) 01/02/22 15:50 RBC 3.32 10^6/uL (4.1-5.3) L 01/02/22 15:50 Hgb 10.1 g/dL (11.5-15.3) L 01/02/22 15:50 Hct 32.4 % (37.0-47.0) L 01/02/22 15:50 MCV 97.6 fl (81-99) 01/02/22 15:50 MCH 30.4 pg (28.0-34.0) 01/02/22 15:50 MCHC 31.2 g/dL (30.0-36.0) 01/02/22 15:50 RDW 16.1 % (12.1-15.1) H 01/02/22 15:50 Plt Count 291 10^3/cmm (130-400) 01/02/22 15:50 MPV 10.8 fL (7.4-10.4) H 01/02/22 15:50 Neut % (Auto) 66.0 % 01/02/22 15:50 Lymph % (Auto) 18.0 % 01/02/22 15:50 Benzie % (Auto) 13.0 % 01/02/22 15:50 Eos % (Auto) 1.8 % 01/02/22 15:50 Baso % (Auto) 0.5 % 01/02/22 15:50 Neut # (Auto) 5.62 10^3/uL (1.8-7.7) 01/02/22 15:50 Lymph # (Auto) 1.5 10^3/uL (0.8-4.8) 01/02/22 15:50 Benzie # (Auto) 1.1 10^3/uL (0.2-0.9) H 01/02/22 15:50 Eos # (Auto) 0.2 10^3/uL (0.0-0.8) 01/02/22 15:50 Baso # (Auto) 0.0 10^3/uL (0.0-0.1) 01/02/22 15:50 Nucleated RBC % (auto) 0 % 01/02/22 15:50 Nucleated RBCs # 0.0 /100WBC 01/02/22 15:50 D-Dimer >= 20.00 ug/mIFEU (0-0.59) H 12/31/21 07:26 Sodium 136 mmol/L (136-145) 01/02/22 15:50 Potassium 4.2 mmol/L (3.5-5.1) 01/02/22 15:50 Chloride 102 mmol/L (98-107) 01/02/22 15:50 Carbon Dioxide 23 mmol/L (22-29) 01/02/22 15:50 Anion Gap 15.2 (5-19) 01/02/22 15:50 BUN 16 mg/dL (6-20) 01/02/22 15:50 Creatinine 0.7 mg/dL (0.5-0.9) 01/02/22 15:50 GFR Calculation 96.4 mL/min (90-130) 01/02/22 15:50 Glucose 95 mg/dL (65-115) 01/02/22 15:50 Calculated Osmolality 283 mOsm/kg (285-295) L 01/02/22 15:50 Calcium 8.6 mg/dL (8.5-10.5) 01/02/22 15:50 Magnesium 1.8 mg/dL (1.7-2.3) 12/31/21 01:35 Total Bilirubin 0.7 mg/dL (0.15-1.2) 01/02/22 15:50 AST 16 U/L (0-32) 01/02/22 15:50 ALT 15 U/L (0-33) 01/02/22 15:50 Alkaline Phosphatase 113 IU/L (35-105) H 01/02/22 15:50 Creatine Kinase 33 U/L (26-192) 12/31/21 01:35 Troponin T Baseline 8 ng/L (0-10) 12/31/21 07:26 Troponin T 120 Minute 7.70 ng/L (0-10) 12/31/21 09:28 Delta Troponin T -0.3 ABS# (0-10) L 12/31/21 09:28 Troponin T Hi Sens 6Hr 8.48 ng/L (0-10) 12/31/21 13:40 Troponin T Hi Sens 6Hr Delta 0.48 ng/L (0-12) 12/31/21 13:40 C-Reactive Protein 20.7 mg/L (0.0-4.9) H 12/31/21 01:35 NT-Pro-B Natriuret Pep 3538 pg/mL (0-125) H 01/02/22 15:50 Total Protein 5.9 g/dL (6.6-8.7) L 01/02/22 15:50 Albumin 3.4 g/dL (3.5-5.2) L 01/02/22 15:50 Globulin 2.5 g/dL (1.3-4.6) 01/02/22 15:50 Procalcitonin 0.09 ng/mL (0-0.5) 12/31/21 01:35 Urine Color Yellow (Yellow) 12/31/21 02:50 Urine Appearance Clear (CLEAR) 12/31/21 02:50 Urine pH 5 (5-7) 12/31/21 02:50 Ur Specific [place] 1.025 (1.005-1.030) 12/31/21 02:50 Urine Protein Trace (Negative) 12/31/21 02:50 Urine Glucose (UA) Norm (Normal) 12/31/21 02:50 Urine Ketones Negative (Negative) 12/31/21 02:50 Urine Blood Neg (Negative) 12/31/21 02:50 Urine Nitrate Negative (Negative) 12/31/21 02:50 Urine Bilirubin 1+ (Negative) H 12/31/21 02:50 Urine Urobilinogen 1 mg/dL (Negative) H 12/31/21 02:50 Ur Leukocyte Esterase Negative (Negative) 12/31/21 02:50 Urine RBC 0-4 /hpf (0-2) H 12/31/21 02:50 Urine WBC 0-4 /hpf (0-5) H 12/31/21 02:50 Ur Squamous Epith Cells 5-10 /hpf (0-5) H 12/31/21 02:50 Amorphous Sediment 1+ /hpf 12/31/21 02:50 Urine Bacteria 1+ /hpf (NONE) H 12/31/21 02:50 Hyaline Casts 15-25 /lpf H 12/31/21 02:50 Urine Mucus 2+ /hpf 12/31/21 02:50 Urine HCG, Qual Negative (Negative) 12/31/21 13:40 Urine Opiates Screen Negative ng/mL (Negative) 12/31/21 02:50 Ur Barbiturates Screen Negative ng/mL (Negative) 12/31/21 02:50 Ur Phencyclidine Scrn Negative ng/mL (Negative) 12/31/21 02:50 Ur Amphetamines Screen Positive ng/mL (Negative) H 12/31/21 02:50 U Benzodiazepines Scrn Positive ng/mL (Negative) H 12/31/21 02:50 Urine Cocaine Screen Negative ng/mL (Negative) 12/31/21 02:50 U Marijuana (THC) Screen Positive ng/mL (Negative) H 12/31/21 02:50 EKG 1: My Interpretation: A sensed V paced rhythm at a rate of 71 bpm. Diffuse T wave changes. Otherwise unremarkable. EKG computer-generated impression: Chest X-Ray 12/31/21 01:23 IMPRESSION: 1. No acute pulmonary abnormality. 2. Moderate cardiomegaly. Chest CTA 01/01/22 14:45 IMPRESSION: 1. Negative for pulmonary embolus. 2. Small to moderate right pleural effusion. 3. Cardiomegaly. 4. Pericardial effusion measuring up to 8.3 mm in thickness. 5. Scattered prominent subcentimeter short axis diameter lymph nodes, nonspecific. 6. Small amount of ascites in the upper abdomen partially visualized. 7. Bibasilar right greater than left atelectasis versus infiltrate. 8. Left lower lobe 7.8 mm focal nodular density, short-term 1 month follow-up exam advised to ensure stability. A&P Assessment and plan (1) Chest pain: Etiology is not clear. Sudafed pericarditis is a strong consideration especially in view of the markedly elevated CRP. For further management of her condition, I may start her on colchicine 0.6 mg p.o. now and daily. Status: Acute (2) Pericardial effusion: Currently effusion appears to be moderate. We may go ahead and do a repeat limited 2D echocardiogram tomorrow to follow-up on this. Patient may continue on the other current medications. Status: Acute (3) Status post implantation of automatic cardioverter/defibrillator (AICD): The ICD function appears to be appropriate. There is no evidence of any ICD discharges. Telemetry shows no significant arrhythmias. Status: Acute (4) CHF (congestive heart failure): Patient may be carefully treated with diuretics. She also will be started on Entresto. May discontinue the losartan at this point. Status: Acute Qualifiers: Heart failure type: systolic Heart failure chronicity: chronic Qualified Code(s): I50.22 - Chronic systolic (congestive) heart failure (5) Nonischemic congestive cardiomyopathy: Because of the patient drug abuse and ongoing smoking abuse she was deemed not to be a candidate for heart transplant?. We will continue to optimize her medical treatment Status: Acute Plan Based on the patient's clinical progress, further recommendations will be made. Thank you for the opportunity to eval this patient make these recommendations. Dr. De La Paz may assume her care in the morning Consult Attestations Medical Necessity Statement: Patient requires continued hospital stay for close monitoring and further management Coding Level of Care Code Acute Inspector And Hand Packager for g Fwd History Detailed Exam Detailed Medical Decision Making High Complexity Diagnoses Chest pain R07.9 Pericardial effusion I31.3 Status post implantation of automatic cardioverter/defibrillator (AICD) Z95.810 CHF (congestive heart failure) I50.22 Heart failure type: systolic Heart failure chronicity: chronic Nonischemic congestive cardiomyopathy I42.0
--- NOTE | 2022-01-02 22:22 | P.PN_ITS ---
Subjective Subjective: Pt doing a little better but still has CP helped a little w/ Ultam. SOB is less. Nausea less. 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 A&Ox3 Data : 01/02/22 15:50 01/02/22 15:50 A&P Assessment and plan (1) Elevated d-dimer: R/O PE Status: Acute (2) Abnormal liver function: Possibly due to CHF and hepatic congestion Status: Acute (3) Pericardial effusion: Moderate effusion, Poss due to Pericarditis, CHF Status: Acute (4) Chest pain: Status: Acute (5) Status post implantation of automatic cardioverter/defibrillator (AICD): Status: Acute (6) CHF (congestive heart failure): Compensating Status: Acute Qualifiers: Heart failure type: systolic Heart failure chronicity: chronic Qualified Code(s): I50.22 - Chronic systolic (congestive) heart failure (7) Nonischemic congestive cardiomyopathy: EF 10-14% Status: Acute (8) MRSA (methicillin resistant staph aureus) culture positive: Status: Acute (9) Anemia: Status: Acute Plan CT Chest PE protocol Consider Ernestro Continue diuresis Pain management On Eliquis Consider Cardio consult Attestations Medical Necessity Statement*: Pt still has significant CP from possible Pericarditis, Ac Sys CHF, Pleural Effusion, mod Pericardial Effusion These need to be further controlled and continued admission is warranted. Time Spent in Patient Care: 35 min Critical Care Time: 10 min Coding Level of Care Code Acute Residential Life Director for Chg Fwd Diagnoses Elevated d-dimer R79.89 Abnormal liver function R94.5 Pericardial effusion I31.3 Chest pain R07.9 Status post implantation of automatic cardioverter/defibrillator (AICD) Z95.810 CHF (congestive heart failure) I50.22 Heart failure type: systolic Heart failure chronicity: chronic Nonischemic congestive cardiomyopathy I42.0 MRSA (methicillin resistant staph aureus) culture positive Z22.322 Anemia D64.9
[2022-01-02] MEDS: acetaminophen 325 mg Tablet 650 MG PO (23:45)
[2022-01-03] VITALS (9 sets, daily range): BP systolic 92–105; BP diastolic 63–75; PULSE 61–81; RESP 16–19; TEMP 36.7–37.2; O2SAT 94–99
[2022-01-03 04:31] LABS: Basophils # 0.1 10^3/uL (0.0-0.1); Basophils % 0.9 %; Eosinophils # 0.2 10^3/uL (0.0-0.8); Eosinophils % 2.7 %; Hematocrit 33.1 % (37.0-47.0); Hemoglobin 10.5 g/dL (11.5-15.3); Lymphocytes # 2.5 10^3/uL (0.8-4.8); Lymphocytes % 32.1 %; Mean Corpuscular HGB Conc 31.7 g/dL (30.0-36.0); Mean Corpuscular Hemoglobin 30.4 pg (28.0-34.0); Mean Corpuscular Volume 95.9 fl (81-99); Mean Platelet Volume 10.4 fL (7.4-10.4); Monocytes # 0.8 10^3/uL (0.2-0.9); Monocytes % 9.6 %; Neutrophils # 4.22 10^3/uL (1.8-7.7); Neutrophils % 54.3 %; Nucleated Red Blood Cells % 0 %; Platelet Count 290 10^3/cmm (130-400); Red Blood Count 3.45 10^6/uL (4.1-5.3); Red Cell Distribution Width 15.9 % (12.1-15.1); White Blood Count 7.8 10^3/uL (4.0-10.0)
[2022-01-03] MEDS: TRAMadol 50 mg Tablet PO ×3 (04:42→20:53)
[2022-01-03] MEDS: acetaminophen 325 mg Tablet 650 MG PO ×2 (04:42→20:54)
[2022-01-03 05:14] LABS: Alanine Aminotransferase 15 U/L (0-33); Albumin Level 3.4 g/dL (3.5-5.2); Alkaline Phosphatase 122 IU/L (35-105); Anion Gap 14.4 (5-19); Aspartate Amino Transferase 23 U/L (0-32); Blood Urea Nitrogen 21 mg/dL (6-20); Calcium 8.9 mg/dL (8.5-10.5); Carbon Dioxide 25 mmol/L (22-29); Chloride 101 mmol/L (98-107); Globulin 3.2 g/dL (1.3-4.6); Glomerular Filtration Rate 115.1 mL/min (90-130); Glucose 86 mg/dL (65-115); NT Pro B Type Natriuretic Pept 5404 pg/mL (0-125); Osmolality Calculated 284 mOsm/kg (285-295); Potassium 4.4 mmol/L (3.5-5.1); Sodium 136 mmol/L (136-145); Total Bilirubin 0.5 mg/dL (0.15-1.2); Total Protein 6.6 g/dL (6.6-8.7)
[2022-01-03 05:40] LABS: Slide Review Slide Review Perform
--- NOTE | 2022-01-03 08:00 | USCV_ITS ---
Alex Workman Age: 31 Gender: F : 1990 Exam Date: 01/03/2022 05:41 Ordering Phys: Lan Hardy MD ([email or web address]) Technologist: FLETCHER [place] [facility] [place]: PERICARDIAL EFFUS[place] BP: / HR: Rhythm: Sinus Technical Quality: Adequate MEASUREMENTS (Male / Female) Normal Values FINDINGS Left Ventricle Right Ventricle Right Atrium Left Atrium Mitral Valve Aortic Valve Tricuspid Valve Pulmonic Valve Pericardium Aorta CONCLUSIONS This is a limited echocardiogram performed to assess pericardial effusion. Small to moderate sized pericardial effusion. LV systolic function is severely reduced with EF of 15-20 %. Compared to prior echocardiogram from 12/31/2021, pericardial effusion size has decreased. Lalo De La Paz MD (Electronically Signed) Final Date: 03 January 2022 08:53 S
[2022-01-03] MEDS: pantoprazole DR 40 mg Tablet PO (08:10)
[2022-01-03] MEDS: sacubitril/valsartan 24-26 mg Tablet 1 EACH PO (08:10)
[2022-01-03] MEDS: magnesium lactate 84 mg Tablet PO ×2 (08:10→16:47)
[2022-01-03] MEDS: apixaban 5 mg Tablet PO ×2 (08:10→16:47)
[2022-01-03] MEDS: metoprolol succinate ER (24 HR) 25 mg Tablet PO (08:10)
[2022-01-03] MEDS: FUROsemide 40 mg Tablet PO (08:10)
[2022-01-03] MEDS: sertraline 50 mg Tablet 25 MG PO (08:11)
--- NOTE | 2022-01-03 09:47 | P.PN_ITS ---
Subjective Subjective: Patient is doing better. Vitals/I&O/Wt Last Vital Signs Temp 98.4 F 01/03/22 08:00 Pulse 78 01/03/22 08:17 Resp 19 H 01/03/22 08:17 BP 100/75 01/03/22 08:00 Pulse Ox 96 01/03/22 08:17 01/02/22 01/03/22 01/03/22 22:59 06:59 14:59 Intake Total 721 / 1081 860 / 1941 240 / 240 Output Total 420 / 420 Balance 721 / 1081 440 / 1521 240 / 240 Physical Exam Narrative: GENERAL: Patient is alert, awake and oriented x3. [] NECK: No jugular vein distension. [] HEENT: No cyanosis. No icterus. No pallor. [] HEART: Regular S1 and S2. No murmur, rub or gallop. [] LUNGS: Clear to auscultate bilaterally. [] ABDOMEN: Soft, nontender and nondistended. Positive bowel sounds. No guarding, rebound or tenderness. [] CENTRAL NERVOUS SYSTEM: Grossly nonfocal. [] EXTREMITIES: Lower extremities with 1+ edema bilaterally. Pulses palpable in the lower extremities, both dorsalis pedis and posterior tibial. [] Data : 01/03/22 04:19 01/03/22 04:19 A&P Assessment and plan (1) Chest pain: Status: Resolved (2) Pericardial effusion: (3) Status post implantation of automatic cardioverter/defibrillator (AICD): (4) CHF (congestive heart failure): Status: Acute Qualifiers: Heart failure type: systolic Heart failure chronicity: chronic Qualified Code(s): I50.22 - Chronic systolic (congestive) heart failure (5) Nonischemic congestive cardiomyopathy: Status: Acute Plan Patient is feeling better. Limited echo shows decreased pericardial effusion. Start colchicine 0.6 mg daily. Continue Eliquis. Initiate Entresto. Losartan held. Patient is stable for discharge from cardiology standpoint Attestations Medical Necessity Statement*: Care expected to cross 2 midnights Coding Level of Care Code Acute Accuracy Expert for [facility] Fwd Diagnoses Chest pain R07.9 Pericardial effusion I31.3 Status post implantation of automatic cardioverter/defibrillator (AICD) Z95.810 CHF (congestive heart failure) I50.22 Heart failure type: systolic Heart failure chronicity: chronic Nonischemic congestive cardiomyopathy I42.0
--- NOTE | 2022-01-03 10:23 | PC.CHAP ---
Pastoral Care Encounter/Spiritual Assessment Type of Contact [] Declined patient admitting representative visit [] Patient/Family/Request visit [] Outpatient visit [x] Follow-up visit [] Physician referral [] Code/Alert [] Routine visit [] Staff referral [] Actively dying [] Patient sleeping [] Family support [] [] Out of room [] Palliative care [] [] Receiving care in room [] Pre-surgical visit [] Trauma [] Long length of stay [] ICU visit [] Other: Relational/Emotional Strength [] Patient feels connected with others/family/visitors/staff [] Distress [] Loneliness/isolation [] Abandonment Spirituality of Patient [] Person of Syeda [] Attends Scientology of their Syeda [] Believes in Prayer [] Reads Bible or Nondenominational materials [] There are Spiritual issues to be addressed Wildlife Biology Technician Interventions [] Prayer [] Active listening [] Non-anxious presence [] Spiritual/emotional support [] Crisis/trauma care [] Spiritual counseling [] Bereavement support [] Provided bereavement packet [] Provided Bible/devotional materials [] Provided toy/stuffed animal, coloring book to patient or family member [] Provided Communion [] Anointing/[place] [] Salvation [] Completed spiritual assessment [] Other: Impact on Illness or Injury [] Angry [] Fearful [] Anxious [] Often cries [] Exhaustion [] Unable to work [] Unable to attend mormon [] Unable to walk/stand [] Unable to read [] Unable to drive [] Unable to eat/drink [] Unable to sleep [] Unable to be with family [] Patient intubated [] Other: Summary Follow-up visit Time spent with patient 5 mins
--- NOTE | 2022-01-03 16:58 | P.PN_ITS ---
Subjective Medications: Medication Review Details: Pt is doing little better. Still has CP but less. N/V improved. Afebrile. 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 A&Ox3 Data : 01/03/22 04:19 01/03/22 04:19 A&P Assessment and plan (1) Anemia: Status: Acute (2) Abnormal liver function: improving Status: Acute (3) Pericardial effusion: improving Status: Acute (4) Chest pain: improving Status: Acute (5) CHF (congestive heart failure): Status: Acute Qualifiers: Heart failure chronicity: chronic Heart failure type: systolic Qualified Code(s): I50.22 - Chronic systolic (congestive) heart failure (6) Nonischemic congestive cardiomyopathy: stable Status: Acute (7) MRSA (methicillin resistant staph aureus) culture positive: Status: Acute (8) HCAP (healthcare-associated pneumonia): Status: Acute (9) Status post implantation of automatic cardioverter/defibrillator (AICD): Status: Acute (10) Acute pericarditis: cp Status: Acute (11) Elevated d-dimer: Status: Acute Plan Start Colchicine 0.6 mg qd Possible d/c tomorrow Continue current meds Attestations Medical Necessity Statement*: Pt still has significant CP from possible Pericarditis, Ac Sys CHF, Pleural Effusion, mod Pericardial Effusion These need to be further controlled and continued admission is warranted. Time Spent in Patient Care: 40 min Coding Level of Care Code Acute Assembler Fluorescent Lights for g Fwd Diagnoses Anemia D64.9 Abnormal liver function R94.5 Pericardial effusion I31.3 Chest pain R07.9 CHF (congestive heart failure) I50.22 Heart failure chronicity: chronic Heart failure type: systolic Nonischemic congestive cardiomyopathy I42.0 MRSA (methicillin resistant staph aureus) culture positive Z22.322 HCAP (healthcare-associated pneumonia) J18.9 Status post implantation of automatic cardioverter/defibrillator (AICD) Z95.810 Acute pericarditis I30.9 Elevated d-dimer R79.89
[2022-01-03] MEDS: ropinirole 0.25 mg Tablet PO (20:53)
[2022-01-04] VITALS: BP 95/63; PULSE 78; RESP 16; TEMP 36.4; O2SAT 96
[2022-01-04] MEDS: acetaminophen 325 mg Tablet 650 MG PO ×2 (05:32→11:48)
[2022-01-04] MEDS: TRAMadol 50 mg Tablet PO (05:32)
[2022-01-04 08:00] VITALS: BP 96/68; PULSE 70; RESP 14; TEMP 36.8; O2SAT 98
[2022-01-04] MEDS: metoprolol succinate ER (24 HR) 25 mg Tablet PO (08:20)
[2022-01-04] MEDS: magnesium lactate 84 mg Tablet PO (08:20)
[2022-01-04] MEDS: sertraline 50 mg Tablet 25 MG PO (08:20)
[2022-01-04] MEDS: pantoprazole DR 40 mg Tablet PO (08:20)
[2022-01-04] MEDS: apixaban 5 mg Tablet PO (08:21)
[2022-01-04] MEDS: FUROsemide 40 mg Tablet PO (08:21)
[2022-01-04 08:52] VITALS: PULSE 77; RESP 16; O2SAT 98
[2022-01-04] MEDS: sacubitril/valsartan 24-26 mg Tablet 1 EACH PO (09:01)
[2022-01-04] MEDS: colchicine 0.6 mg Tablet PO (09:01)
--- NOTE | 2022-01-04 10:50 | PC.CHAP ---
Pastoral Care Encounter/Spiritual Assessment Type of Contact [] Declined metal cut off saw tender visit [] Patient/Family/Request visit [] Outpatient visit [] Follow-up visit [] Physician referral [] Code/Alert [x] Routine visit [] Staff referral [] Actively dying [x] Patient sleeping [] Family support [] [] Out of room [] Palliative care [] [] Receiving care in room [] Pre-surgical visit [] Trauma [] Long length of stay [] ICU visit [] Other: Relational/Emotional Strength [] Patient feels connected with others/family/visitors/staff [] Distress [] Loneliness/isolation [] Abandonment Spirituality of Patient [] Person of Syeda [] Attends Mormonism of their Syeda [] Believes in Prayer [] Reads Bible or Congregation materials [] There are Spiritual issues to be addressed Corrective Therapy Aide Teacher Interventions [] Prayer [] Active listening [] Non-anxious presence [] Spiritual/emotional support [] Crisis/trauma care [] Spiritual counseling [] Bereavement support [] Provided bereavement packet [] Provided Bible/devotional materials [] Provided toy/stuffed animal, coloring book to patient or family member [] Provided Communion [] Anointing/Henry [] Salvation [] Completed spiritual assessment [] Other: Impact on Illness or Injury [] Angry [] Fearful [] Anxious [] Often cries [] Exhaustion [] Unable to work [] Unable to attend oriental orthodox [] Unable to walk/stand [] Unable to read [] Unable to drive [] Unable to eat/drink [] Unable to sleep [] Unable to be with family [] Patient intubated [] Other: Summary Time spent with patient
[2022-01-04 11:11] VITALS: BP 104/70; PULSE 65; RESP 14; TEMP 36.7; O2SAT 93
--- NOTE | 2022-01-04 12:42 | PM.DCS ---
Discharge Providers Date of Admission: 01/01/22 12:32 Date of Discharge: January 04, 2022 Attending Provider at Admission: Gabi Salgado MD Attending Provider at Discharge: iMgel Aldrich MD Primary Care Provider: Jackie Ji MD Diagnoses at Discharge Discharge Diagnosis (1) Anemia: Status: Acute (2) Abnormal liver function: Status: Acute (3) Pericardial effusion: Status: Acute (4) Chest pain: Status: Acute (5) CHF (congestive heart failure): Status: Acute Qualifiers: Heart failure type: systolic Heart failure chronicity: chronic Qualified Code(s): I50.22 - Chronic systolic (congestive) heart failure (6) Nonischemic congestive cardiomyopathy: Status: Acute (7) MRSA (methicillin resistant staph aureus) culture positive: Status: Acute (8) HCAP (healthcare-associated pneumonia): Status: Acute (9) Status post implantation of automatic cardioverter/defibrillator (AICD): Status: Acute (10) Acute pericarditis: Status: Acute (11) Elevated d-dimer: Status: Acute Reason for Visit Reason for Visit: CP Hospital Course Hospital Course Alex Workman is a 31 year old female with h/o severe cardiomyopathy with ejection fraction of 10 to 15% recently admitted here between 12/17-12/23 after presenting with chest pain, fever, leukocytosis, h/o IVDU. Initial presentation of fever and leukocytosis resolved spontaneously within 24 hours.? No particular source for infection was identified.? Blood cultures remained negative.? ARIELLE negative for endocarditis.? CTA chest negative for PE or consolidation.? She underwent AICD placement on 12/21/21. She is not considered a candidate for heart transplant given her history of recreational drug abuse- previously followed at [facility] cardiology service, now transitioned care locally. She was discharged on Lasix, Toprol, advised to abstain from recreational drugs. She returned to the ER on 12/29 and then again on 12/31 with c/o chest pain and increased LE edema on 12/29 for which she was given increased dose of Lasix. Today she returned with persisting chest pain, described a pleuritic type. Also felt as if her AICD had fired as she felt a jolt in her chest. CXR today shows clear lungs, no consolidation, hemothorax or pneumothorax. She is on Eliquis and reports compliance with the medication. on 12/29, she was noted to have improving venous congestion on CXR. BNP today is 6394- previously noted to be 6300-10K range. U tox + for amphetamines, benazodiazepens and marijuana.? Otherwise afebrile today. CRP? 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 Her CP was moderately severe and managed conservatively w/ analgesics. She had an ECHO showing moderate pericardial effusion w/ EF 10-14%. A CTA sowed absence of PE but the pericardial effusion. Cardiology consult was obtained and Dr Hardy did the consult. Pt was started on Entresto and Colchicine. She will f/u with Dr De La Paz in 1m A rpt limited ECHO had showed mild improvement of the pericardial effusion. Her CP had significantly improved. Now only mild pain. Physical Exam Narrative: NAD CVS: S1S2, RRR, Mur (-) RS: Decreased BS basally GI: Soft, NT, BS+ Edema (-) SECRETARY TO BOARD OF COMMISSIONERS A&Ox3 Discharge Data Studies Completed and Pending Completed Studies During Hospitalization Category Date Time Status CT angio chest PE protcl [id number] Routine Cat Scan 01/01/22 14:45 Completed XR chest 1V portable [id number] Urgent Exams 12/31/21 01:23 Completed CV. echo limited [id number] Routine Ultrasound 12/31/21 07:09 Completed CV. echo limited [id number] Routine Ultrasound 01/03/22 08:00 Completed Radiology Impressions Chest X-Ray 12/31/21 01:23 IMPRESSION: 1. No acute pulmonary abnormality. 2. Moderate cardiomegaly. Chest CTA 01/01/22 14:45 IMPRESSION: 1. Negative for pulmonary embolus. 2. Small to moderate right pleural effusion. 3. Cardiomegaly. 4. Pericardial effusion measuring up to 8.3 mm in thickness. 5. Scattered prominent subcentimeter short axis diameter lymph nodes, nonspecific. 6. Small amount of ascites in the upper abdomen partially visualized. 7. Bibasilar right greater than left atelectasis versus infiltrate. 8. Left lower lobe 7.8 mm focal nodular density, short-term 1 month follow-up exam advised to ensure stability. Laboratory Results WBC 7.8 10^3/uL (4.0-10.0) 01/03/22 04:19 RBC 3.45 10^6/uL (4.1-5.3) L 03/17/22 04:19 Hgb 10.5 g/dL (11.5-15.3) L 01/03/22 04:19 Hct 33.1 % (37.0-47.0) L 01/03/22 04:19 MCV 95.9 fl (81-99) 01/03/22 04:19 MCH 30.4 pg (28.0-34.0) 01/03/22 04:19 MCHC 31.7 g/dL (30.0-36.0) 01/03/22 04:19 RDW 15.9 % (12.1-15.1) H 01/03/22 04:19 Plt Count 290 10^3/cmm (130-400) 01/03/22 04:19 MPV 10.4 fL (7.4-10.4) 01/03/22 04:19 Neut % (Auto) 54.3 % 01/03/22 04:19 Lymph % (Auto) 32.1 % 01/03/22 04:19 [place] % (Auto) 9.6 % 01/03/22 04:19 Eos % (Auto) 2.7 % 01/03/22 04:19 Baso % (Auto) 0.9 % 01/03/22 04:19 Neut # (Auto) 4.22 10^3/uL (1.8-7.7) 01/03/22 04:19 Lymph # (Auto) 2.5 10^3/uL (0.8-4.8) 01/03/22 04:19 [place] # (Auto) 0.8 10^3/uL (0.2-0.9) 01/03/22 04:19 Eos # (Auto) 0.2 10^3/uL (0.0-0.8) 01/03/22 04:19 Baso # (Auto) 0.1 10^3/uL (0.0-0.1) 01/03/22 04:19 Nucleated RBC % (auto) 0 % 01/03/22 04:19 Nucleated RBCs # 0.0 /100WBC 01/03/22 04:19 D-Dimer >= 20.00 ug/mIFEU (0-0.59) H 12/31/21 07:26 Sodium 136 mmol/L (136-145) 01/03/22 04:19 Potassium 4.4 mmol/L (3.5-5.1) 01/03/22 04:19 Chloride 101 mmol/L (98-107) 01/03/22 04:19 Carbon Dioxide 25 mmol/L (22-29) 01/03/22 04:19 Anion Gap 14.4 (5-19) 01/03/22 04:19 BUN 21 mg/dL (6-20) H 01/03/22 04:19 Creatinine 0.6 mg/dL (0.5-0.9) 01/03/22 04:19 GFR Calculation 115.1 mL/min (90-130) 01/03/22 04:19 Glucose 86 mg/dL (65-115) 01/03/22 04:19 Calculated Osmolality 284 mOsm/kg (285-295) L 01/03/22 04:19 Calcium 8.9 mg/dL (8.5-10.5) 01/03/22 04:19 Magnesium 1.8 mg/dL (1.7-2.3) 12/31/21 01:35 Total Bilirubin 0.5 mg/dL (0.15-1.2) 01/03/22 04:19 AST 23 U/L (0-32) 01/03/22 04:19 ALT 15 U/L (0-33) 01/03/22 04:19 Alkaline Phosphatase 122 IU/L (35-105) H 01/03/22 04:19 Creatine Kinase 33 U/L (26-192) 12/31/21 01:35 Troponin T Baseline 8 ng/L (0-10) 12/31/21 07:26 Troponin T 120 Minute 7.70 ng/L (0-10) 12/31/21 09:28 Delta Troponin T -0.3 ABS# (0-10) L 12/31/21 09:28 Troponin T Hi Sens 6Hr 8.48 ng/L (0-10) 12/31/21 13:40 Troponin T Hi Sens 6Hr Delta 0.48 ng/L (0-12) 12/31/21 13:40 C-Reactive Protein 20.7 mg/L (0.0-4.9) H 12/31/21 01:35 NT-Pro-B Natriuret Pep 5404 pg/mL (0-125) H 01/03/22 04:19 Total Protein 6.6 g/dL (6.6-8.7) 01/03/22 04:19 Albumin 3.4 g/dL (3.5-5.2) L 01/03/22 04:19 Globulin 3.2 g/dL (1.3-4.6) 01/03/22 04:19 Procalcitonin 0.09 ng/mL (0-0.5) 12/31/21 01:35 Urine Color Yellow (Yellow) 12/31/21 02:50 Urine Appearance Clear (CLEAR) 12/31/21 02:50 Urine pH 5 (5-7) 12/31/21 02:50 Ur Specific [place] 1.025 (1.005-1.030) 12/31/21 02:50 Urine Protein Trace (Negative) 12/31/21 02:50 Urine Glucose (UA) Norm (Normal) 12/31/21 02:50 Urine Ketones Negative (Negative) 12/31/21 02:50 Urine Blood Neg (Negative) 12/31/21 02:50 Urine Nitrate Negative (Negative) 12/31/21 02:50 Urine Bilirubin 1+ (Negative) H 12/31/21 02:50 Urine Urobilinogen 1 mg/dL (Negative) H 12/31/21 02:50 Ur Leukocyte Esterase Negative (Negative) 12/31/21 02:50 Urine RBC 0-4 /hpf (0-2) H 12/31/21 02:50 Urine WBC 0-4 /hpf (0-5) H 12/31/21 02:50 Ur Squamous Epith Cells 5-10 /hpf (0-5) H 12/31/21 02:50 Amorphous Sediment 1+ /hpf 12/31/21 02:50 Urine Bacteria 1+ /hpf (NONE) H 12/31/21 02:50 Hyaline Casts 15-25 /lpf H 12/31/21 02:50 Urine Mucus 2+ /hpf 12/31/21 02:50 Urine HCG, Qual Negative (Negative) 12/31/21 13:40 Urine Opiates Screen Negative ng/mL (Negative) 12/31/21 02:50 Ur Barbiturates Screen Negative ng/mL (Negative) 12/31/21 02:50 Ur Phencyclidine Scrn Negative ng/mL (Negative) 12/31/21 02:50 Ur Amphetamines Screen Positive ng/mL (Negative) H 12/31/21 02:50 U Benzodiazepines Scrn Positive ng/mL (Negative) H 12/31/21 02:50 Urine Cocaine Screen Negative ng/mL (Negative) 12/31/21 02:50 U Marijuana (THC) Screen Positive ng/mL (Negative) H 12/31/21 02:50 Vitals Last Vital Signs Temp 98.1 F 01/04/22 11:11 Pulse 65 01/04/22 11:11 Resp 14 01/04/22 11:11 BP 104/70 01/04/22 11:11 Pulse Ox 93 01/04/22 11:11 Discharge Plan Discharge Condition: Stable Prescriptions: New pantoprazole 40 mg Tablet,Delayed Release (Dr/Ec) 40 mg PO DAILY 30 Days Qty: 30 0RF Entresto 24-26 mg Tablet 1 tab PO BID 30 Days Qty: 60 0RF colchicine [Colcrys] 0.6 mg Tablet 0.6 mg PO DAILY 30 Days 0RF Continued albuterol sulfate [Ventolin HFA] 90 mcg/actuation HFA aerosol inhaler 1 inh inhalation Q6H PRN (Reason: shortness of breath or wheezing) Qty: 8.5 0RF Eliquis 5 mg tablet 5 mg PO BID Qty: 60 4RF ropinirole 0.25 mg Tablet 0.25 mg PO DAILY 0RF sertraline 25 mg tablet 25 mg PO DAILY 0RF medroxyprogesterone 150 mg/mL Syringe 150 mg IM Q90D 0RF magnesium L-lactate [Magtab] 84 mg tablet extended release 84 mg PO DAILY 0RF furosemide 40 mg tablet 40 mg PO DAILY Qty: 0 0RF metoprolol succinate 25 mg tablet extended release 24 hr 25 mg PO DAILY Qty: 0 0RF acetaminophen 500 mg Tablet 500 - 1,000 mg PO Q4H PRN (Reason: Pain) 0RF spironolactone 25 mg tablet 12.5 mg PO DAILY 0RF Discontinued losartan 25 mg tablet 25 mg PO DAILY 0RF Discharge Orders: Discharge Order (Routine); Ordered 01/04/22 Ordered By: Migel Aldrich Referrals: Lalo De La Paz M.D [Physician] - 1 month (please call friday01/07/22 to make appointment ) Jackie Ji MD [Primary Care Provider] - 01/10/22 10:00 am Discharge Diet: Cardiac Discharge Activity: Resume usual activity Patient Instructions: Anemia, Colchicine (By mouth) (Colcrys, Mitigare), Pantoprazole (By mouth) (Protonix), Sacubitril/Valsartan (By mouth) (Entresto), Chest Pain (DC), Benzodiazepine Use Disorder (DC), Narcotic Safety (DC), Acute Pericarditis (DC), Methamphetamine Use Disorder (DC), Pacemaker Generator Change (DC), Pacemaker (DC), Opioid Safety Discharge Attestations Time Spent in Discharge Care*: greater than 30 min Status at Discharge: Cognitive status at discharge: cognitively intact, Behavioral status at discharge: cooperative, Quality Metrics Clinical Quality Measures [ No reported AMI, CVA or VTE this stay] Coding Level of Care Code Acute Chg FW DC note Diagnoses Anemia D64.9 Abnormal liver function R94.5 Pericardial effusion I31.3 Chest pain R07.9 CHF (congestive heart failure) I50.22 Heart failure type: systolic Heart failure chronicity: chronic Nonischemic congestive cardiomyopathy I42.0 MRSA (methicillin resistant staph aureus) culture positive Z22.322 HCAP (healthcare-associated pneumonia) J18.9 Status post implantation of automatic cardioverter/defibrillator (AICD) Z95.810 Acute pericarditis I30.9 Elevated d-dimer R79.89
== END 2022-01-04 14:00 | disposition home or self-care (01) | DRG 314 ==
LOC: ER 04:34 → MEDSURG 04:51
PROVIDERS: Admitting Provider Student in an Organized Health Care Education/Training Program; Emergency Provider Emergency Medicine; PCP Family Medicine; Visit Provider Internal Medicine
DX: I31.3 Pericardial effusion (noninflammatory) (principal); I50.23 Acute on chronic systolic (congestive) heart failure; I42.0 Dilated cardiomyopathy; Z95.810 Presence of automatic (implantable) cardiac defibrillator; Z87.891 Personal history of nicotine dependence; R94.5 Abnormal results of liver function studies; R79.89 Other specified abnormal findings of blood chemistry; Z86.711 Personal history of pulmonary embolism; F15.10 Other stimulant abuse, uncomplicated
CPT/HCPCS: 36415; 71045; 71275; 80053; 80306; 81001; 81025; 82550; 83735; 83880; 84145; 84484; 85025; 85378; 86140; 93005; 93308; C9113; G0378; J1885; J2270; J2405; J2765; J7799; Q9967

== ENCOUNTER 2022-01-12 02:15 | Inpatient (IN) | payer MEDICAID, SELFPAY ==
[2022-01-12] VITALS (10 sets, daily range): BP systolic 96–130; BP diastolic 62–96; PULSE 69–91; RESP 12–23; TEMP 36.6–36.8; O2SAT 96–100; BMI 25.0
--- NOTE | 2022-01-12 02:39 | XRR_ITS ---
PROCEDURE INFORMATION: Exam: XR Chest Exam date and time: 01/12/2022 2:51 AM Age: 31 years old Clinical indication: Shortness of breath; Chest pressure; Prior surgery; Surgery type: Pacemaker. ; Patient HX: C/O chest pain with SOB. History of chf with pericardial effusion. TECHNIQUE: Imaging protocol: XR of the chest. Views: 1 view. COMPARISON: CR (CHEST, ) 12/31/2021 12:56 AM FINDINGS: Tubes, catheters and devices: Left-sided cardiac pacemaker again noted. Lungs: No CHF/pulmonary edema. Visible lungs appear essentially clear. Pleural spaces: No visible pneumothorax. No definite pleural fluid. Heart/Mediastinum: Prominent cardiomegaly, probably slightly smaller than on the prior exam. A pericardial effusion is certainly possible, although the current appearance is less suggestive of an effusion than on the prior exam. Bones/joints: No significant acute finding. XR/XR chest 1V portable [id number] IMPRESSION: 1. Prominent cardiomegaly, see above. 2. No definite CHF or pneumonia. 3. Other findings discussed above.
[2022-01-12 03:38] LABS: Basophils # 0.1 10^3/uL (0.0-0.1); Eosinophils # 0.2 10^3/uL (0.0-0.8); Eosinophils % 2.2 %; Hematocrit 41.1 % (37.0-47.0); Hemoglobin 13.4 g/dL (11.5-15.3); Lymphocytes # 3.9 10^3/uL (0.8-4.8); Lymphocytes % 35.9 %; Mean Corpuscular HGB Conc 32.6 g/dL (30.0-36.0); Mean Corpuscular Hemoglobin 29.5 pg (28.0-34.0); Mean Corpuscular Volume 90.5 fl (81-99); Mean Platelet Volume 11.1 fL (7.4-10.4); Monocytes % 8.7 %; Neutrophils # 5.66 10^3/uL (1.8-7.7); Nucleated Red Blood Cells % 0 %; Platelet Count 264 10^3/cmm (130-400); Red Blood Count 4.54 10^6/uL (4.1-5.3); Red Cell Distribution Width 15.9 % (12.1-15.1); White Blood Count 10.9 10^3/uL (4.0-10.0)
[2022-01-12 03:51] LABS: INR 2.08 (0.8-1.2); Partial Thromboplastin Time 30.1 SECONDS (23.9-36.7)
[2022-01-12 03:54] LABS: HCG, Serum Qual Negative (Negative)
[2022-01-12 04:11] LABS: Alanine Aminotransferase 18 U/L (0-33); Albumin Level 4.1 g/dL (3.5-5.2); Alkaline Phosphatase 124 IU/L (35-105); Aspartate Amino Transferase 22 U/L (0-32); Blood Urea Nitrogen 19 mg/dL (6-20); Calcium 9.3 mg/dL (8.5-10.5); Carbon Dioxide 17 mmol/L (22-29); Chloride 106 mmol/L (98-107); Globulin 3.1 g/dL (1.3-4.6); Glomerular Filtration Rate 96.4 mL/min (90-130); Glucose 102 mg/dL (65-115); NT Pro B Type Natriuretic Pept 11440 pg/mL (0-125); Osmolality Calculated 284 mOsm/kg (285-295); Phosphorus 4.6 mg/dL (2.5-4.5); Sodium 136 mmol/L (136-145); Total Bilirubin 0.7 mg/dL (0.15-1.2); Total Protein 7.2 g/dL (6.6-8.7)
[2022-01-12 04:21] LABS: Anion Gap 17.5 (5-19); Potassium 4.5 mmol/L (3.5-5.1)
[2022-01-12 05:17] LABS: Amphetamines Screen Urine Negative (Negative); Barbiturates Screen Urine Negative (Negative); Benzodiazepines Screen Urine Negative (Negative); Cocaine Screen Urine Negative (Negative); Opiate Screen Urine Negative (Negative); PCP Screen Urine Negative (Negative); THC Screen Urine Positive (Negative)
--- NOTE | 2022-01-12 05:22 | W.ED.GENADLT ---
HPI - General Adult General: Chief complaint: General Medical Stated complaint: Heart Failure\SOB\ Heart surgery 12/20 Time Seen by Provider: 01/12/22 03:23 Source: patient History of Present Illness: 31-year-old female with a history of nonischemic cardiomyopathy, EF of 10 to 15% status post AICD/pacer placement. She presents with worsening shortness of breath, and chest heaviness for the past 2 to 3 days. She was discharged recently from the hospital after being admitted for similar complaints. She was found to have a pericardial effusion at that point. She denies any fevers. She does note significant shortness of breath, worsening with exertion. She says that she cannot lay flat without getting significantly short of breath. Onset (ago): day(s) Location: chest Radiation: non-radiation Pain Consistency: constant Relieving factors: none Exacerbating factors: other Associated symptoms: Reports chest pain, dyspnea, nausea and short of breath; Deny confusion, cough, diaphoresis, decreased appetite, fevers/chills or vomiting Review of Systems Const: Denies: fever(s), chills or diaphoresis Eyes: Denies: change in vision Card: Reports: chest pain Resp: Reports: dyspnea GI: Reports: nausea; Denies: vomiting Neuro: Denies: confusion PFSH ED PFSH: Medical History CHF (congestive heart failure) History of methamphetamine abuse MRSA (methicillin resistant staph aureus) culture positive Pulmonary embolism Systolic heart failure Surgical History Status post implantation of automatic cardioverter/defibrillator (AICD) Social History Smoking and tobacco status: former smoker Quit status (tobacco): has quit using tobacco Second hand smoke exposure: No Smoking risk assessment/counseling performed?: No Alcohol intake: former Desire information about alcohol rehabilitation?: No Counseling given: No Desire information about substance/drug rehabilitation?: No Counseling given: No Marital status: Life Partner service: No Current occupational status: unemployed Current occupational exposures/hazards: No Pets and animals: No History of recent travel: No Sexually active: Yes Current gender identity: Female Special emelia needs: No Agree to transfusion: Yes Financial difficulty paying for basics: Not Applicable Female Reproductive History: Date of last menstrual period: 12/17/21 Physical Exam Const: GENERAL APPEARANCE: anxious and frail appearing (Mildly) HENMT: COMMON NORMALS: normocephalic and atraumatic HEAD & SCALP: normocephalic and atraumatic Eye: COMMON NORMALS: Equal, round and reactive pupils present and EOMs intact bilaterally PUPIL: Yes Equal, round and reactive pupils present Neck/C-Spine: COMMON NORMALS: supple Chest: COMMONS NORMALS: normal inspection of the chest Resp: COMMON NORMALS: clear to auscultation bilaterally EFFORT & INSPECTION: Yes tachypneic and Yes uses accessory muscles AUSCULTATION: clear to auscultation bilaterally Cardio: COMMON NORMALS: regular rate and regular rhythm RATE: regular rate RHYTHM: regular rhythm GI: COMMON NORMALS: Normal to inspection, nondistended, normoactive bowel sounds present, Soft to palpation and non-tender PALPATION: Yes Soft to palpation Course Consultations: Consultation #1: Lisa Vital Signs: Vital signs: Vital Signs Temperature 98.2 F 01/12/22 02:20 Pulse Rate 86 01/12/22 05:19 Respiratory Rate 20 H 01/12/22 05:19 Blood Pressure 119/84 01/12/22 05:19 Pulse Oximetry 99 01/12/22 05:19 [facility] - General Adult Medical Decision Making White blood cell count is 11. Hemoglobin 13.4. Bicarbonate 17. BNP is 11,000 which is up from prior admission. Heart actually looks smaller on chest x-ray than prior. She has significant symptoms. She will be admitted for exacerbation of heart failure with a history of pericardial effusion. Lab Data : 01/12/22 03:11 01/12/22 03:11 Laboratory Results WBC 10.9 10^3/uL (4.0-10.0) H 01/12/22 03:11 RBC 4.54 10^6/uL (4.1-5.3) 01/12/22 03:11 Hgb 13.4 g/dL (11.5-15.3) 01/12/22 03:11 Hct 41.1 % (37.0-47.0) 01/12/22 03:11 MCV 90.5 fl (81-99) 01/12/22 03:11 MCH 29.5 pg (28.0-34.0) 01/12/22 03:11 MCHC 32.6 g/dL (30.0-36.0) 01/12/22 03:11 RDW 15.9 % (12.1-15.1) H 01/12/22 03:11 Plt Count 264 10^3/cmm (130-400) 01/12/22 03:11 MPV 11.1 fL (7.4-10.4) H 01/12/22 03:11 Neut % (Auto) 52.0 % 01/12/22 03:11 Lymph % (Auto) 35.9 % 01/12/22 03:11 [place] % (Auto) 8.7 % 01/12/22 03:11 Eos % (Auto) 2.2 % 01/12/22 03:11 Baso % (Auto) 1.0 % 01/12/22 03:11 Neut # (Auto) 5.66 10^3/uL (1.8-7.7) 01/12/22 03:11 Lymph # (Auto) 3.9 10^3/uL (0.8-4.8) 01/12/22 03:11 [place] # (Auto) 1.0 10^3/uL (0.2-0.9) H 01/12/22 03:11 Eos # (Auto) 0.2 10^3/uL (0.0-0.8) 01/12/22 03:11 Baso # (Auto) 0.1 10^3/uL (0.0-0.1) 01/12/22 03:11 Nucleated RBC % (auto) 0 % 01/12/22 03:11 Nucleated RBCs # 0.0 /100WBC 01/12/22 03:11 PT 23.80 SECONDS (12.1-14.9) H 01/12/22 03:11 INR 2.08 (0.8-1.2) H 01/12/22 03:11 APTT 30.1 SECONDS (23.9-36.7) 01/12/22 03:11 Sodium 136 mmol/L (136-145) 01/12/22 03:11 Potassium 4.5 mmol/L (3.5-5.1) 01/12/22 03:11 Chloride 106 mmol/L (98-107) 01/12/22 03:11 Carbon Dioxide 17 mmol/L (22-29) L 01/12/22 03:11 Anion Gap 17.5 (5-19) 01/12/22 03:11 BUN 19 mg/dL (6-20) 01/12/22 03:11 Creatinine 0.7 mg/dL (0.5-0.9) 01/12/22 03:11 GFR Calculation 96.4 mL/min (90-130) 01/12/22 03:11 Glucose 102 mg/dL (65-115) 01/12/22 03:11 Calculated Osmolality 284 mOsm/kg (285-295) L 01/12/22 03:11 Calcium 9.3 mg/dL (8.5-10.5) 01/12/22 03:11 Phosphorus 4.6 mg/dL (2.5-4.5) H 01/12/22 03:11 Magnesium 2.0 mg/dL (1.7-2.3) 01/12/22 03:11 Total Bilirubin 0.7 mg/dL (0.15-1.2) 01/12/22 03:11 AST 22 U/L (0-32) 01/12/22 03:11 ALT 18 U/L (0-33) 01/12/22 03:11 Alkaline Phosphatase 124 IU/L (35-105) H 01/12/22 03:11 C-Reactive Protein 11.0 mg/L (0.0-4.9) H 01/12/22 03:11 NT-Pro-B Natriuret Pep 99701 pg/mL (0-125) H 01/12/22 03:11 Total Protein 7.2 g/dL (6.6-8.7) 01/12/22 03:11 Albumin 4.1 g/dL (3.5-5.2) 01/12/22 03:11 Globulin 3.1 g/dL (1.3-4.6) 01/12/22 03:11 HCG, Qual Negative (Negative) 01/12/22 03:11 Urine Opiates Screen Negative ng/mL (Negative) 01/12/22 04:38 Ur Barbiturates Screen Negative ng/mL (Negative) 01/12/22 04:38 Ur Phencyclidine Scrn Negative ng/mL (Negative) 01/12/22 04:38 Ur Amphetamines Screen Negative ng/mL (Negative) 01/12/22 04:38 U Benzodiazepines Scrn Negative ng/mL (Negative) 01/12/22 04:38 Urine Cocaine Screen Negative ng/mL (Negative) 01/12/22 04:38 U Marijuana (THC) Screen Positive ng/mL (Negative) H 01/12/22 04:38 Discharge Plan Discharge Patient Disposition: Admitted As Inpatient Admit Provider: Brandon Gonzalez Clinical Impression: Nonischemic congestive cardiomyopathy Condition: Fair Coding Level of Care Code ED [employer] Applications Analyst for Ena Price
[2022-01-12 05:28] LABS: Bilirubin Urine 1+ (Negative); Blood Urine 2+ (Negative); Glucose Urine UA Norm (Normal); Ketones Urine 1+ (Negative); Leukocyte Esterase Urine 2+ (Negative); Nitrate Urine Negative (Negative); Protein Urine 3+ (Negative); Specific Gravity, Urine 1.025 (1.005-1.030); Urine Color Yellow (Yellow); Urobilinogen Urine 4 mg/dL (Negative); pH Urine 5 (5-7)
[2022-01-12 05:29] LABS: Add Urine Microscopic? YES; Bacteria Urine 4+ /hpf; Squamous Epithelial Cell Urine 25-40 /hpf (0-5)
[2022-01-12 05:30] LABS: Add Urine Culture? No
--- NOTE | 2022-01-12 06:21 | ECG_ITS ---
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 Measurements Intervals Orient Rate: 90 P: 55 OK: 132 QRS: 248 QRSD: 178 T: 74 QT: 453 QTc: 556 Interpretive Statements ELECTRONIC VENTRICULAR PACEMAKER Compared to ECG 12/31/2021 13:20:50 No significant changes Electronically Signed On 01-12-2022 9:04:40 CDT by Lalo De La Paz M.D. [id number]
--- NOTE | 2022-01-12 06:22 | PM.HP ---
Providers/Chief Complaint Admitting Physician: Brandon Gonzalez MD Primary Care Provider: Jackie Ji MD Chief Complaint: Heart Failure\SOB\ Heart surgery 12/20 History of Present Illness Alex Workman is a 31 year old female past medical history of nonischemic cardiomyopathy with EF of 10 to 15%, history of drug abuse, history of cardiogenic shock, not a candidate for heart transplant given her history of recreational drug abuse, ARIELLE negative for endocarditis, s/p ICD placement 12/21/2021, recent hospitalization for pericardial effusion placed on colchicine, who presents [facility] for pleuritic chest pain and shortness of breath. Patient tells me that she has developed increasing left-sided chest pain radiating up to her left neck, with increased shortness of breath with exertion, she is using her colchicine as prescribed, but she is not picked up the Entresto yet. No fevers, no chills, no nausea, no vomiting. Denies any IV drug use. No cough. No lightheadedness. No dizziness. No lower extremity swelling. Review of Systems Const: Denies: fever(s) Eyes: Denies: change in vision ENMT: Denies: nasal congestion Resp: Denies: productive cough, non-productive cough or wheezing GI: Denies: abdominal pain, nausea or vomiting : Denies: dysuria Skin/Breast: Denies: rash Neuro: Denies: headache(s) Medications/Allergies Home Medications Medication Instructions Recorded Confirmed Last Taken Type albuterol sulfate 90 mcg/actuation 1 inh INHALATION Q6H PRN #8.5 g 07/19/21 12/31/21 Unknown Rx aerosol inhaler (Ventolin HFA) apixaban 5 mg tablet (Eliquis) 5 mg PO BID #60 tab 07/19/21 12/31/21 08/02/21 Rx acetaminophen 500 mg tablet 500 - 1,000 mg PO Q4H PRN 08/03/21 12/31/21 Unknown History magnesium L-lactate 84 mg 84 mg PO DAILY 12/17/21 12/31/21 Unknown History tablet,extended release (Magtab) medroxyprogesterone 150 mg/mL 150 mg IM Q90D 12/17/21 12/31/21 Unknown History intramuscular syringe ropinirole 0.25 mg tablet 0.25 mg PO DAILY 12/17/21 12/31/21 Unknown History sertraline 25 mg tablet 25 mg PO DAILY 12/17/21 12/31/21 Unknown History furosemide 40 mg tablet 40 mg PO DAILY #0 tab 12/23/21 12/31/21 08/02/21 Rx metoprolol succinate 25 mg 25 mg PO DAILY #0 tab 12/23/21 12/31/21 Unknown Rx tablet,extended release 24 hr spironolactone 25 mg tablet 12.5 mg PO DAILY 12/31/21 12/31/21 Unknown History colchicine 0.6 mg tablet (Colcrys) 0.6 mg PO DAILY 30 Days tab 01/04/22 Unknown Rx pantoprazole 40 mg tablet,delayed 40 mg PO DAILY 30 Days #30 tab 01/04/22 Unknown Rx release sacubitril 24 mg-valsartan 26 mg 1 tab PO BID 30 Days #60 tab 01/04/22 Unknown Rx tablet (Entresto) Allergies Allergy/AdvReac Type Severity Reaction Status Date / Time No Known Allergies Allergy Verified 12/31/21 10:52 PFSH Acute PFSH: Medical History CHF (congestive heart failure) History of methamphetamine abuse MRSA (methicillin resistant staph aureus) culture positive Pulmonary embolism Systolic heart failure Surgical History Status post implantation of automatic cardioverter/defibrillator (AICD) Social History Smoking and tobacco status: former smoker Quit status (tobacco): has quit using tobacco Second hand smoke exposure: No Smoking risk assessment/counseling performed?: No Alcohol intake: former Desire information about alcohol rehabilitation?: No Counseling given: No Desire information about substance/drug rehabilitation?: No Counseling given: No Marital status: Life Partner service: No Current occupational status: unemployed Current occupational exposures/hazards: No Pets and animals: No History of recent travel: No Sexually active: Yes Current gender identity: Female Special emelia needs: No Agree to transfusion: Yes Financial difficulty paying for basics: Not Applicable Female Reproductive History: Date of last menstrual period: 12/17/21 Vitals/I&O/Wt Last Vital Signs Temp 98.2 F 01/12/22 02:20 Pulse 88 01/12/22 05:59 Resp 23 H 01/12/22 05:59 BP 116/92 01/12/22 05:59 Pulse Ox 97 01/12/22 05:59 Weight last 48 hrs Weight 68.039 kg Physical Exam Const: COMMON NORMALS: no acute distress and patient oriented x3 HENMT: COMMON NORMALS: normocephalic HEAD & SCALP: normocephalic Resp: COMMON NORMALS: normal respiratory effort, No retractions, No use of accessory muscles and clear to auscultation bilaterally AUSCULTATION: crackles Cardio: COMMON NORMALS: regular rate, regular rhythm, S1 normal heart sound present and S2 normal heart sound present RATE: regular rate RHYTHM: regular rhythm HEART SOUNDS: S1 normal heart sound present and S2 normal heart sound present GI: COMMON NORMALS: Normal to inspection, nondistended, normoactive bowel sounds present, Soft to palpation, non-tender, No hepatosplenomegaly present, no masses and no bruits PALPATION: Yes Soft to palpation and Yes No hepatosplenomegaly present Extremity: COMMON NORMALS: capillary refill normal, no clubbing, cyanosis or edema, no calf tenderness and no pedal edema Neuro: COMMON NORMALS: patient oriented x3 Psych: COMMON NORMALS: mental status grossly normal Data : 01/12/22 03:11 01/12/22 03:11 A&P Assessment and plan (1) Acute pericarditis: Status: Acute (2) Pericardial effusion: Status: Acute (3) CHF (congestive heart failure): Status: Acute Qualifiers: Heart failure type: systolic Heart failure chronicity: chronic Qualified Code(s): I50.22 - Chronic systolic (congestive) heart failure (4) Nonischemic congestive cardiomyopathy: Status: Acute (5) Chest pain: Status: Acute Plan Chest pain -Serial EKGs, serial troponins -Telemetry monitoring -Continue home medications metoprolol, Eliquis -Sounds allow likely atypical chest pain, likely related to pericardial effusion, and possible pericarditis continue colchicine Systolic CHF exacerbation -Fluid restriction is 1200 cc -Start home Entresto that she is not picked up yet -Continue metoprolol -Lasix 40 mg IV twice daily -Monitor urine output, monitor creatinine -Full code -Eliquis for DVT prophylaxis History of IV drug use, urine toxicology screen unremarkable History of AICD placement Attestations Medical Necessity Statement*: Patient requires hospitalization, outpatient with observation for systolic CHF exacerbation chest pain Coding Level of Care Code Acute Roster Clerk for Chg Fwd Diagnoses Acute pericarditis I30.9 Pericardial effusion I31.3 CHF (congestive heart failure) I50.22 Heart failure type: systolic Heart failure chronicity: chronic Nonischemic congestive cardiomyopathy I42.0 Chest pain R07.9
--- NOTE | 2022-01-12 06:53 | PC.NURSE ---
Dr. Gonzalez notified of patient asking for something for pain. Patient states she has chest pain 8/10. Patient states it is worse when she lays down. Patient is currently watching TV and drinking water. Patient educated on fluid restriction.
[2022-01-12 07:35] LABS: Troponin(5th) Baseline 11 ng/L (0-10)
--- NOTE | 2022-01-12 08:21 | ECG_ITS ---
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 Measurements Intervals [place] Rate: 87 P: 59 [place]: 160 QRS: -12 QRSD: 176 T: 74 QT: 457 QTc: 553 Interpretive Statements ELECTRONIC VENTRICULAR PACEMAKER Compared to ECG 01/12/2022 07:22:59 No significant changes Electronically Signed On 01-14-2022 9:08:14 CDT by Lalo De La Paz M.D. [id number]
[2022-01-12] MEDS: ropinirole 0.25 mg Tablet PO (09:24)
[2022-01-12] MEDS: TRAMadol 50 mg Tablet PO ×2 (09:25→18:49)
[2022-01-12] MEDS: FUROsemide 10 mg/mL SDV 4mL 40 MG IVP ×2 (09:25→21:02)
[2022-01-12] MEDS: colchicine 0.6 mg Tablet PO (09:25)
[2022-01-12] MEDS: spironolactone 25 mg Tablet 12.5 MG PO (09:26)
[2022-01-12] MEDS: metoprolol succinate ER (24 HR) 25 mg Tablet PO (09:26)
[2022-01-12] MEDS: sacubitril/valsartan 24-26 mg Tablet 1 EACH PO ×2 (09:26→18:45)
[2022-01-12] MEDS: apixaban 5 mg Tablet PO ×2 (09:26→18:45)
[2022-01-12] MEDS: pantoprazole DR 40 mg Tablet PO (09:26)
[2022-01-12] MEDS: magnesium lactate 84 mg Tablet PO (09:26)
[2022-01-12] MEDS: sertraline 50 mg Tablet 25 MG PO (09:26)
[2022-01-12] MEDS: cefTRIAXone 1,000 MG in sodium chloride 0.9% (plus) 50 ML 100 MG IV (09:30)
[2022-01-12 09:32] LABS: Troponin 5 2HR 9.99 ng/L (0-10)
[2022-01-12 10:11] LABS: Troponin 5 2HR Delta -1.01 ABS# (0-10)
--- NOTE | 2022-01-12 12:21 | ECG_ITS ---
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 Measurements Intervals [place] Rate: 74 P: 60 SD: 167 QRS: 264 QRSD: 188 T: 81 QT: 503 QTc: 558 Interpretive Statements ELECTRONIC VENTRICULAR PACEMAKER Compared to ECG 01/12/2022 09:34:34 No significant changes Electronically Signed On 01-14-2022 9:08:09 CDT by Lalo De La Paz M.D. [id number]
--- NOTE | 2022-01-12 12:44 | PC.CHAP ---
Pastoral Care Encounter/Spiritual Assessment Type of Contact [] Declined casting assistant visit [] Patient/Family/Request visit [] Outpatient visit [] Follow-up visit [] Physician referral [] Code/Alert [X] Routine visit [] Staff referral [] Actively dying [] Patient sleeping [] Family support [] [] Out of room [] Palliative care [] [] Receiving care in room [] Pre-surgical visit [] Trauma [] Long length of stay [] ICU visit [] Other: Relational/Emotional Strength [X] Patient feels connected with others/family/visitors/staff [] Distress [] Loneliness/isolation [] Abandonment Spirituality of Patient [] Person of Syeda [] Attends Adventism of their Syeda [] Believes in Prayer [] Reads Bible or Jehovah'S Witness materials [X] There are Spiritual issues to be addressed Navy Diver Interventions [] Prayer [X] Active listening [X] Non-anxious presence [] Spiritual/emotional support [] Crisis/trauma care [] Spiritual counseling [] Bereavement support [] Provided bereavement packet [] Provided Bible/devotional materials [] Provided toy/stuffed animal, coloring book to patient or family member [] Provided Communion [] Anointing/[place] [] Salvation [] Completed spiritual assessment [X] Other: Visit interrupted by need for labs and EKG. Impact on Illness or Injury [] Angry [] Fearful [] Anxious [] Often cries [] Exhaustion [] Unable to work [] Unable to attend restorationist [] Unable to walk/stand [] Unable to read [] Unable to drive [] Unable to eat/drink [] Unable to sleep [] Unable to be with family [] Patient intubated [] Other: Summary: Pt has a complicated social history, some of which may have contributed to the underlying heart issues (per patient). Visit was delving into some of pt's current challenges when visit was interrupted by need for EKG and labs. Navy Diver will return tomorrow to complete the visit; pt provided permission. Time spent with patient: 8 mins
[2022-01-12 13:17] LABS: Troponin 5 6HR 11.48 ng/L (0-10)
[2022-01-12 13:19] LABS: Troponin 5 6HR Delta 0.48 ng/L (0-12)
[2022-01-12] MEDS: acetaminophen 325 mg Tablet 650 MG PO (18:51)
--- NOTE | 2022-01-12 19:35 | PC.NURSE ---
Shift Note Frequent safety and comfort rounds continue. Orders and/or nursing care completed as indicated. Patient monitored for response to intervention and treatment(s). Education provided includes fluid restriction, diuresis w/ IV. Patient and/or field marketing representative verbalizes understanding. Will continue to monitor.
[2022-01-13] VITALS (10 sets, daily range): BP systolic 89–120; BP diastolic 64–77; PULSE 67–90; RESP 12–22; TEMP 36.6–37.2; O2SAT 95–100
[2022-01-13] MEDS: TRAMadol 50 mg Tablet PO ×2 (03:30→20:47)
[2022-01-13] MEDS: acetaminophen 325 mg Tablet 650 MG PO ×2 (03:30→20:47)
[2022-01-13 05:21] LABS: Basophils # 0.1 10^3/uL (0.0-0.1); Basophils % 1.1 %; Eosinophils # 0.4 10^3/uL (0.0-0.8); Eosinophils % 3.9 %; Hematocrit 44.3 % (37.0-47.0); Hemoglobin 14.3 g/dL (11.5-15.3); Lymphocytes # 3.4 10^3/uL (0.8-4.8); Lymphocytes % 34.1 %; Mean Corpuscular HGB Conc 32.3 g/dL (30.0-36.0); Mean Corpuscular Hemoglobin 29.1 pg (28.0-34.0); Mean Platelet Volume 10.4 fL (7.4-10.4); Monocytes # 0.9 10^3/uL (0.2-0.9); Monocytes % 9.1 %; Neutrophils # 5.15 10^3/uL (1.8-7.7); Neutrophils % 51.5 %; Nucleated Red Blood Cells % 0 %; Platelet Count 277 10^3/cmm (130-400); Red Blood Count 4.92 10^6/uL (4.1-5.3); Red Cell Distribution Width 15.5 % (12.1-15.1)
[2022-01-13 05:38] LABS: Alanine Aminotransferase 18 U/L (0-33); Albumin Level 4.1 g/dL (3.5-5.2); Alkaline Phosphatase 125 IU/L (35-105); Anion Gap 17.9 (5-19); Aspartate Amino Transferase 23 U/L (0-32); Blood Urea Nitrogen 21 mg/dL (6-20); Calcium 9.4 mg/dL (8.5-10.5); Carbon Dioxide 21 mmol/L (22-29); Chloride 104 mmol/L (98-107); Globulin 3.1 g/dL (1.3-4.6); Glomerular Filtration Rate 82.6 mL/min (90-130); Glucose 87 mg/dL (65-115); Magnesium 1.8 mg/dL (1.7-2.3); Osmolality Calculated 290 mOsm/kg (285-295); Phosphorus 4.8 mg/dL (2.5-4.5); Potassium 3.9 mmol/L (3.5-5.1); Sodium 139 mmol/L (136-145); Total Bilirubin 0.8 mg/dL (0.15-1.2); Total Protein 7.2 g/dL (6.6-8.7)
[2022-01-13] MEDS: colchicine 0.6 mg Tablet PO (08:45)
[2022-01-13] MEDS: spironolactone 25 mg Tablet 12.5 MG PO (08:45)
[2022-01-13] MEDS: apixaban 5 mg Tablet PO ×2 (08:45→17:07)
[2022-01-13] MEDS: magnesium lactate 84 mg Tablet PO (08:45)
[2022-01-13] MEDS: sacubitril/valsartan 24-26 mg Tablet 1 EACH PO ×2 (08:45→17:07)
[2022-01-13] MEDS: ropinirole 0.25 mg Tablet PO (08:45)
[2022-01-13] MEDS: pantoprazole DR 40 mg Tablet PO (08:45)
[2022-01-13] MEDS: metoprolol succinate ER (24 HR) 25 mg Tablet PO (08:45)
[2022-01-13] MEDS: sertraline 50 mg Tablet 25 MG PO (08:46)
[2022-01-13] MEDS: cefTRIAXone 1,000 MG in sodium chloride 0.9% (plus) 50 ML 100 MG IV (09:11)
--- NOTE | 2022-01-13 09:34 | P.PN_ITS ---
Subjective Subjective: Worsening improvement in her symptoms Change IV Lasix to p.o. Unremarkable AICD interrogation Her rhythm is paced Hemodynamically stable No fever No active nausea vomiting or chest pain Vitals/I&O/Wt Last Vital Signs Temp 97.8 F 01/13/22 09:15 Pulse 75 01/13/22 09:15 Resp 12 01/13/22 09:15 BP 105/73 01/13/22 09:15 Pulse Ox 99 01/13/22 09:15 01/12/22 01/13/22 01/13/22 22:59 06:59 14:59 Intake Total 360 / 1124 120 / 1244 Output Total 1050 / 1450 800 / 2250 Balance -690 / -326 -680 / -1006 Weight last 48 hrs Weight 70.125 kg Weight 68.039 kg Physical Exam Narrative: Patient was laying comfortably in her bed When she sat up no worsening abdominal pain, chest pain or shortness of breath Clinical looks euvolemic Nonfocal neuro exam Abdomen soft Appropriate mood and affect Data : 01/13/22 04:45 01/13/22 04:45 A&P Assessment and plan (1) Chest pain: Status: Acute (2) Pericardial effusion: Status: Acute (3) CHF (congestive heart failure): Status: Acute Qualifiers: Heart failure type: systolic Heart failure chronicity: chronic Qualified Code(s): I50.22 - Chronic systolic (congestive) heart failure (4) Nonischemic congestive cardiomyopathy: Status: Acute Plan Patient seems to have chronic pericardial effusion Pericarditis treatment was started on previous admission We will give her a dose of steroids She is euvolemic active CHF exacerbation: Resolved: Nonischemic systolic congestive heart failure: Currently patient is euvolemic Change IV Lasix to p.o. Yesterday interrogation unremarkable No signs of arrhythmia She might benefit from high-dose aspirin however for now I am starting steroids for chronic pericarditis presentation She is full code Cardiac diet Attestations Medical Necessity Statement*: Discharge tomorrow Time Spent in Patient Care: 15min Coding Level of Care Code Acute Elementary Librarian for Ena Price Diagnoses Chest pain R07.9 Pericardial effusion I31.3 CHF (congestive heart failure) I50.22 Heart failure type: systolic Heart failure chronicity: chronic Nonischemic congestive cardiomyopathy I42.0
[2022-01-13] MEDS: predniSONE 20 mg Tablet 40 MG PO (11:42)
--- NOTE | 2022-01-13 16:17 | PC.CHAP ---
Pastoral Care Encounter/Spiritual Assessment Type of Contact [] Declined cloth pattern maker visit [] Patient/Family/Request visit [] Outpatient visit [X] Follow-up visit [] Physician referral [] Code/Alert [] Routine visit [] Staff referral [] Actively dying [] Patient sleeping [] Family support [] [] Out of room [] Palliative care [] [] Receiving care in room [] Pre-surgical visit [] Trauma [] Long length of stay [] ICU visit [] Other: Relational/Emotional Strength [X] Patient feels connected with others/family/visitors/staff [] Distress [] Loneliness/isolation [] Abandonment Spirituality of Patient [X] Person of Syeda [] Attends Protestant of their Syeda [X] Believes in Prayer [X] Reads Bible or Moravian materials [X] There are Spiritual issues to be addressed Medical Administrator Interventions [X] Prayer [X] Active listening [X] Non-anxious presence [X] Spiritual/emotional support [] Crisis/trauma care [X] Spiritual counseling [X] Bereavement support [X] Provided bereavement packet [X] Provided Bible/devotional materials [] Provided toy/stuffed animal, coloring book to patient or family member [] Provided Communion [] Anointing/[place] [] Salvation [X] Completed spiritual assessment [] Other: Impact on Illness or Injury [] Angry [] Fearful [] Anxious [] Often cries [] Exhaustion [] Unable to work [] Unable to attend alevism [] Unable to walk/stand [] Unable to read [] Unable to drive [] Unable to eat/drink [] Unable to sleep [] Unable to be with family [] Patient intubated [] Other: Summary: Due to interrupted visit yesterday, cloth pattern maker visited patient again. Pt was more alert, feeling better and welcomed the continuation of the conversation. Pt has had recent major life events: of boyfriend; move to [facility]; new marriage; significant cardiac issues; and newly clean / sober. We discussed her relationship with God (present but nascent), possibility of heart transplant, need for a counselor, building a support system in her new community. Pt stated appreciation for the ideas and outlined a plan of working with her primary provider to refer to behavioral health and work with [facility] re: documentation of being drug-free for the prescribed amount of time before she can be added to the transplant list. Bereavement materials, Daily Bread and a Bible were provided; patient was appreciative of the Bible, in particular. Time spent with patient: 30 mins
[2022-01-13] MEDS: magnesium oxide 400 mg tablet PO (17:07)
[2022-01-14] MEDS: TRAMadol 50 mg Tablet PO (03:43)
[2022-01-14] MEDS: acetaminophen 325 mg Tablet 650 MG PO (03:43)
[2022-01-14 03:44] VITALS: BP 116/72; PULSE 67; RESP 20; TEMP 36.6; O2SAT 99
[2022-01-14 05:10] LABS: Basophils % 0.3 %; Eosinophils # 0.1 10^3/uL (0.0-0.8); Eosinophils % 0.5 %; Hematocrit 41.5 % (37.0-47.0); Hemoglobin 13.6 g/dL (11.5-15.3); Lymphocytes # 2.2 10^3/uL (0.8-4.8); Mean Corpuscular HGB Conc 32.8 g/dL (30.0-36.0); Mean Corpuscular Volume 88.5 fl (81-99); Mean Platelet Volume 10.6 fL (7.4-10.4); Monocytes # 0.6 10^3/uL (0.2-0.9); Monocytes % 4.7 %; Neutrophils # 10.11 10^3/uL (1.8-7.7); Neutrophils % 77.1 %; Nucleated Red Blood Cells % 0 %; Platelet Count 281 10^3/cmm (130-400); Red Blood Count 4.69 10^6/uL (4.1-5.3); White Blood Count 13.1 10^3/uL (4.0-10.0)
[2022-01-14 05:26] LABS: Alanine Aminotransferase 18 U/L (0-33); Albumin Level 3.8 g/dL (3.5-5.2); Alkaline Phosphatase 124 IU/L (35-105); Anion Gap 16.8 (5-19); Aspartate Amino Transferase 20 U/L (0-32); Blood Urea Nitrogen 23 mg/dL (6-20); Calcium 9.5 mg/dL (8.5-10.5); Carbon Dioxide 20 mmol/L (22-29); Chloride 103 mmol/L (98-107); Globulin 3.2 g/dL (1.3-4.6); Glomerular Filtration Rate 96.4 mL/min (90-130); Glucose 152 mg/dL (65-115); Magnesium 1.8 mg/dL (1.7-2.3); Osmolality Calculated 289 mOsm/kg (285-295); Phosphorus 3.3 mg/dL (2.5-4.5); Potassium 3.8 mmol/L (3.5-5.1); Sodium 136 mmol/L (136-145); Total Bilirubin 0.6 mg/dL (0.15-1.2)
[2022-01-14 06:00] VITALS: PULSE 74
[2022-01-14 07:22] VITALS: BP 104/37; PULSE 69; RESP 15; TEMP 36.7; O2SAT 98
[2022-01-14] MEDS: sertraline 50 mg Tablet 25 MG PO (08:15)
[2022-01-14] MEDS: predniSONE 20 mg Tablet 40 MG PO (08:15)
[2022-01-14] MEDS: ropinirole 0.25 mg Tablet PO (08:15)
[2022-01-14] MEDS: pantoprazole DR 40 mg Tablet PO (08:15)
[2022-01-14] MEDS: sacubitril/valsartan 24-26 mg Tablet 1 EACH PO (08:15)
[2022-01-14] MEDS: colchicine 0.6 mg Tablet PO (08:15)
[2022-01-14] MEDS: apixaban 5 mg Tablet PO (08:16)
[2022-01-14] MEDS: FUROsemide 20 mg Tablet PO (08:16)
[2022-01-14] MEDS: metoprolol succinate ER (24 HR) 25 mg Tablet PO (08:16)
--- NOTE | 2022-01-14 10:43 | P.DS_ITS ---
Discharge Providers Date of Admission: 01/12/22 05:03 Date of Discharge: January 14, 2022 Attending Provider at Admission: Brandon Gonzalez MD Attending Provider at Discharge: Rosy Reich MD Primary Care Provider: Jackie Ji MD Diagnoses at Discharge Discharge Diagnosis (1) Chest pain: Status: Acute (2) Pericardial effusion: Status: Acute (3) CHF (congestive heart failure): Status: Acute Qualifiers: Heart failure chronicity: chronic Heart failure type: systolic Qualified Code(s): I50.22 - Chronic systolic (congestive) heart failure (4) Nonischemic congestive cardiomyopathy: Status: Acute Reason for Visit Reason for Visit: Heart Failure\SOB\ Heart surgery 12/20 Hospital Course Hospital Course admitting note by Dr. Keith Alex Workman is a 31 year old female past medical history of nonischemic cardiomyopathy with EF of 10 to 15%, history of drug abuse, history of cardiogenic shock, not a candidate for heart transplant given her history of recreational drug abuse, ARIELLE negative for endocarditis, s/p ICD placement 12/21/2021, recent hospitalization for pericardial effusion placed on colchicine, who presents [facility] for pleuritic chest pain and shortness of breath.? Patient tells me that she has developed increasing left-sided chest pain radiating up to her left neck, with increased shortness of breath with exertion, she is using her colchicine as prescribed, but she is not picked up the Entresto yet.? No fevers, no chills, no nausea, no vomiting.? Denies any IV drug use.? No cough.? No lightheadedness.? No dizziness.? No lower extremity swelling Hospital course Patient was admitted for management and evaluation of chest pain which is pleuritic in nature, patient was asking for opioids during her hospitalization, I decided to give her steroids which improved her symptoms. She remained afebrile, AICD interrogation did not reveal any acute arrhythmias or AICD discharge. Electrolytes were replenished. Troponin nonsignificant. KG without ischemic or infarctive changes. She was diuresed initially with IV Lasix, orthopnea, PND improved, was transitioned to p.o. Lasix. She is being discharged today with normal hemodynamics, blood pressure 115/81, afebrile pulse 75, looks euvolemic. She will see Dr. De La Paz in the clinic. Physical Exam Narrative: Patient was laying comfortably in her bed When she sat up no worsening abdominal pain, chest pain or shortness of breath Clinical looks euvolemic Nonfocal neuro exam Abdomen soft Appropriate mood and affect Discharge Data Studies Completed and Pending Completed Studies During Hospitalization Category Date Time Status XR chest 1V portable [id number] Urgent Exams 01/12/22 02:39 Completed Pending at discharge Category Date Time Status Complete Blood Count w/Auto AM LABS Lab 01/15/22 04:00 Ordered Comprehensive Metabolic Panel AM LABS Lab 01/15/22 04:00 Ordered Magnesium AM LABS Lab 01/15/22 04:00 Ordered Phosphorus AM LABS Lab 01/15/22 04:00 Ordered Radiology Impressions Chest X-Ray 01/12/22 02:39 IMPRESSION: 1. Prominent cardiomegaly, see above. 2. No definite CHF or pneumonia. 3. Other findings discussed above. Laboratory Results WBC 13.1 10^3/uL (4.0-10.0) H 01/14/22 04:55 RBC 4.69 10^6/uL (4.1-5.3) 01/14/22 04:55 Hgb 13.6 g/dL (11.5-15.3) 01/14/22 04:55 Hct 41.5 % (37.0-47.0) 01/14/22 04:55 MCV 88.5 fl (81-99) 01/14/22 04:55 MCH 29.0 pg (28.0-34.0) 01/14/22 04:55 MCHC 32.8 g/dL (30.0-36.0) 01/14/22 04:55 RDW 15.0 % (12.1-15.1) 01/14/22 04:55 Plt Count 281 10^3/cmm (130-400) 01/14/22 04:55 MPV 10.6 fL (7.4-10.4) H 01/14/22 04:55 Neut % (Auto) 77.1 % 01/14/22 04:55 Lymph % (Auto) 17.0 % 01/14/22 04:55 [place] % (Auto) 4.7 % 01/14/22 04:55 Eos % (Auto) 0.5 % 01/14/22 04:55 Baso % (Auto) 0.3 % 01/14/22 04:55 Neut # (Auto) 10.11 10^3/uL (1.8-7.7) H 01/14/22 04:55 Lymph # (Auto) 2.2 10^3/uL (0.8-4.8) 01/14/22 04:55 [place] # (Auto) 0.6 10^3/uL (0.2-0.9) 01/14/22 04:55 Eos # (Auto) 0.1 10^3/uL (0.0-0.8) 01/14/22 04:55 Baso # (Auto) 0.0 10^3/uL (0.0-0.1) 01/14/22 04:55 Nucleated RBC % (auto) 0 % 01/14/22 04:55 Nucleated RBCs # 0.0 /100WBC 01/14/22 04:55 PT 23.80 SECONDS (12.1-14.9) H 01/12/22 03:11 INR 2.08 (0.8-1.2) H 01/12/22 03:11 APTT 30.1 SECONDS (23.9-36.7) 01/12/22 03:11 Sodium 136 mmol/L (136-145) 01/14/22 04:55 Potassium 3.8 mmol/L (3.5-5.1) 01/14/22 04:55 Chloride 103 mmol/L (98-107) 01/14/22 04:55 Carbon Dioxide 20 mmol/L (22-29) L 01/14/22 04:55 Anion Gap 16.8 (5-19) 01/14/22 04:55 BUN 23 mg/dL (6-20) H 01/14/22 04:55 Creatinine 0.7 mg/dL (0.5-0.9) 01/14/22 04:55 GFR Calculation 96.4 mL/min (90-130) 01/14/22 04:55 Glucose 152 mg/dL (65-115) H 01/14/22 04:55 Calculated Osmolality 289 mOsm/kg (285-295) 01/14/22 04:55 Calcium 9.5 mg/dL (8.5-10.5) 01/14/22 04:55 Phosphorus 3.3 mg/dL (2.5-4.5) 01/14/22 04:55 Magnesium 1.8 mg/dL (1.7-2.3) 01/14/22 04:55 Total Bilirubin 0.6 mg/dL (0.15-1.2) 01/14/22 04:55 AST 20 U/L (0-32) 01/14/22 04:55 ALT 18 U/L (0-33) 01/14/22 04:55 Alkaline Phosphatase 124 IU/L (35-105) H 01/14/22 04:55 Troponin T Baseline 11 ng/L (0-10) H 01/12/22 06:50 Troponin T 120 Minute 9.99 ng/L (0-10) 01/12/22 08:55 Delta Troponin T -1.01 ABS# (0-10) L 01/12/22 08:55 Troponin T Hi Sens 6Hr 11.48 ng/L (0-10) H 01/12/22 12:45 Troponin T Hi Sens 6Hr Delta 0.48 ng/L (0-12) 01/12/22 12:45 C-Reactive Protein 11.0 mg/L (0.0-4.9) H 01/12/22 03:11 NT-Pro-B Natriuret Pep 55828 pg/mL (0-125) H 01/12/22 03:11 Total Protein 7.0 g/dL (6.6-8.7) 01/14/22 04:55 Albumin 3.8 g/dL (3.5-5.2) 01/14/22 04:55 Globulin 3.2 g/dL (1.3-4.6) 01/14/22 04:55 HCG, Qual Negative (Negative) 01/12/22 03:11 Urine Color Yellow (Yellow) 01/12/22 04:38 Urine Appearance Sl cloudy (CLEAR) A 01/12/22 04:38 Urine pH 5 (5-7) 01/12/22 04:38 Ur Specific [place] 1.025 (1.005-1.030) 01/12/22 04:38 Urine Protein 3+ (Negative) H 01/12/22 04:38 Urine Glucose (UA) Norm (Normal) 01/12/22 04:38 Urine Ketones 1+ (Negative) H 01/12/22 04:38 Urine Blood 2+ (Negative) H 01/12/22 04:38 Urine Nitrate Negative (Negative) 01/12/22 04:38 Urine Bilirubin 1+ (Negative) H 01/12/22 04:38 Urine Urobilinogen 4 mg/dL (Negative) H 01/12/22 04:38 Ur Leukocyte Esterase 2+ (Negative) H 01/12/22 04:38 Urine RBC 5-10 /hpf (0-2) H 01/12/22 04:38 Urine WBC 10-15 /hpf (0-5) H 01/12/22 04:38 Ur Squamous Epith Cells 25-40 /hpf (0-5) H 01/12/22 04:38 Amorphous Sediment Not Reportable 01/12/22 04:38 Urine Bacteria 4+ /hpf (NONE) H 01/12/22 04:38 Urine Opiates Screen Negative ng/mL (Negative) 01/12/22 04:38 Ur Barbiturates Screen Negative ng/mL (Negative) 01/12/22 04:38 Ur Phencyclidine Scrn Negative ng/mL (Negative) 01/12/22 04:38 Ur Amphetamines Screen Negative ng/mL (Negative) 01/12/22 04:38 U Benzodiazepines Scrn Negative ng/mL (Negative) 01/12/22 04:38 Urine Cocaine Screen Negative ng/mL (Negative) 01/12/22 04:38 U Marijuana (THC) Screen Positive ng/mL (Negative) H 01/12/22 04:38 Vitals Last Vital Signs Temp 98.1 F 01/14/22 07:22 Pulse 69 01/14/22 07:22 Resp 15 01/14/22 07:22 BP 104/37 01/14/22 07:22 Pulse Ox 98 01/14/22 07:22 Discharge Plan Discharge Patient Disposition: Home Condition: Stable Prescriptions: New Medrol (Baltazar) 4 mg tablets,dose pack See Rx Instructions .ROUTE .COMPLEX Qty: 21 0RF Rx Instructions: orally per package directions magnesium 200 mg tablet 200 mg PO DAILY Qty: 60 0RF potassium chloride 10 mEq capsule, extended release 10 meq PO DAILY Qty: 30 0RF Continued albuterol sulfate [Ventolin HFA] 90 mcg/actuation HFA aerosol inhaler 1 inh inhalation Q6H PRN (Reason: shortness of breath or wheezing) Qty: 8.5 0RF Eliquis 5 mg tablet 5 mg PO BID Qty: 60 4RF ropinirole 0.25 mg Tablet 0.25 mg PO DAILY 0RF sertraline 25 mg tablet 25 mg PO DAILY 0RF medroxyprogesterone 150 mg/mL Syringe 150 mg IM Q90D 0RF magnesium L-lactate [Magtab] 84 mg tablet extended release 84 mg PO DAILY 0RF furosemide 40 mg tablet 40 mg PO DAILY Qty: 0 0RF metoprolol succinate 25 mg tablet extended release 24 hr 25 mg PO DAILY Qty: 0 0RF acetaminophen 500 mg Tablet 500 - 1,000 mg PO Q4H PRN (Reason: Pain) 0RF spironolactone 25 mg tablet 12.5 mg PO DAILY 0RF pantoprazole 40 mg Tablet,Delayed Release (Dr/Ec) 40 mg PO DAILY 30 Days Qty: 30 0RF colchicine [Colcrys] 0.6 mg Tablet 0.6 mg PO DAILY 30 Days 0RF Entresto 24-26 mg Tablet 1 tab PO BID 30 Days Qty: 60 0RF Discharge Orders: Discharge Order (Routine); Ordered 01/14/22 Ordered By: Rosy Reich Referrals: Lalo De La Paz M.D [Physician] - 1-3 days (Please follow-up Marianela Jansen on January 16 at 1:00P.M. [facility] has moved to it's new location, second floor of the new [facility]. If you have any questions or need to reschedule. Please call ) Discharge Diet: Cardiac Patient Instructions: Potassium Chloride (By mouth), Methylprednisolone (By mouth) (Medrol, Medrol Dosepak), Magnesium (By mouth), Acute Pericarditis (DC), CHF Stoplight, Chest Pain Stoplight, Opioid Safety Discharge Attestations Time Spent in Discharge Care*: less than 30 min Status at Discharge: Cognitive status at discharge: cognitively intact , Behavioral status at discharge: cooperative , Quality Metrics Clinical Quality Measures [ No reported AMI, CVA or VTE this stay] Coding Level of Care Code Acute Chg FW DC note Diagnoses Chest pain R07.9 Pericardial effusion I31.3 CHF (congestive heart failure) I50.22 Heart failure chronicity: chronic Heart failure type: systolic Nonischemic congestive cardiomyopathy I42.0
[2022-01-14 12:00] VITALS: BP 115/81; PULSE 75; RESP 18; TEMP 36.2; O2SAT 100
[2022-01-14] MEDS: magnesium lactate 84 mg Tablet PO (12:06)
[2022-01-14 12:10] VITALS: BP 115/81; PULSE 75; RESP 18; TEMP 36.2; O2SAT 100
--- NOTE | 2022-01-14 12:37 | PC.NURSE ---
Discharge Note Patient discharged to home via private vehicle accompanied by . Discharge instructions reviewed with patient and/or field representative/health education. chf stoplight,fluid restrictions,new meds actions,dosing and possible s/e.Mobile pharmacy medications and/or prescriptions provided. Belongings/home medications returned.
== END 2022-01-14 12:33 | disposition home or self-care (01) | DRG 292 ==
LOC: ER 05:04 → CSU 05:22
PROVIDERS: Admitting Provider Family Medicine; Emergency Provider Emergency Medicine; PCP Family Medicine; Visit Provider Internal Medicine
DX: I50.23 Acute on chronic systolic (congestive) heart failure (principal); I42.8 Other cardiomyopathies; I31.3 Pericardial effusion (noninflammatory); Z95.810 Presence of automatic (implantable) cardiac defibrillator; Z86.14 Personal history of Methicillin resistant Staphylococcus aureus infection; Z86.711 Personal history of pulmonary embolism; Z87.891 Personal history of nicotine dependence; F19.11 Other psychoactive substance abuse, in remission
CPT/HCPCS: 36415; 71045; 80053; 80306; 81001; 83735; 83880; 84100; 84484; 84703; 85025; 85610; 85730; 86140; 93005; 94664; G0378; J0696; J1940; J7512

== ENCOUNTER → 2022-01-16 13:23 | Outpatient (BNVA) | payer MEDICAID, SELFPAY | PROVIDERS: PCP Family Medicine; Visit Provider Nurse Practitioner Family | DX: I42.0 Dilated cardiomyopathy (principal); I50.22 Chronic systolic (congestive) heart failure; I30.9 Acute pericarditis, unspecified; Z87.891 Personal history of nicotine dependence | CPT/HCPCS: 99214 ==

== ENCOUNTER 2022-02-14 16:51 | Emergency (ER) | payer MEDICAID, SELFPAY ==
--- NOTE | 2022-02-14 17:00 | XRR_ITS ---
PROCEDURE INFORMATION: Exam: XR Chest Exam date and time: 02/14/2022 5:34 PM Age: 32 years old Clinical indication: Cough; Prior surgery; Surgery date: 6+ months; Surgery type: Defibulator; Additional info: Dyspnea/cough TECHNIQUE: Imaging protocol: XR of the chest. Views: 1 view. COMPARISON: CR (CHEST, ) 01/12/2022 2:51 AM FINDINGS: Tubes, catheters and devices: The AICD and its leads appear stable in position. Lungs: The lungs are clear. Pleural spaces: Unremarkable. No pleural effusion. No pneumothorax. Heart/Mediastinum: The heart is mildly enlarged. Bones/joints: No acute fracture is seen. XR/XR chest 1V portable [id number] IMPRESSION: 1. No acute pulmonary abnormality. 2. Mild cardiomegaly.
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
[2022-02-14 17:02] VITALS: BP 123/76; PULSE 81; RESP 21; TEMP 36.6; O2SAT 98; BMI 25.0
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
--- NOTE | 2022-02-14 17:07 | ECG_ITS ---
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 Measurements Intervals [place] Rate: 78 P: 46 MO: 164 QRS: -70 QRSD: 191 T: 90 QT: 488 QTc: 559 Interpretive Statements ELECTRONIC [employer]EN[employer]IC[employer] PACEMAKER Compared to ECG 01/12/2022 12:32:49 No significant changes Electronically Signed On 02-14-2022 23:51:12 CDT by Lalo De La Paz M.D. [email or web address]
[2022-02-14] MEDS: HYDROcodone-acetaminophen 5-325 mg Tablet 1 TAB PO (17:12)
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
[2022-02-14 17:31] LABS: Basophils # 0.1 10^3/uL (0.0-0.1); Basophils % 0.5 %; Eosinophils # 0.3 10^3/uL (0.0-0.8); Eosinophils % 1.6 %; Hemoglobin 14.2 g/dL (11.5-15.3); Lymphocytes # 2.2 10^3/uL (0.8-4.8); Lymphocytes % 12.1 %; Mean Corpuscular HGB Conc 32.3 g/dL (30.0-36.0); Mean Corpuscular Hemoglobin 28.3 pg (28.0-34.0); Mean Corpuscular Volume 87.8 fl (81-99); Mean Platelet Volume 11.4 fL (7.4-10.4); Monocytes # 0.9 10^3/uL (0.2-0.9); Monocytes % 5.1 %; Neutrophils # 14.64 10^3/uL (1.8-7.7); Nucleated Red Blood Cells % 0 %; Platelet Count 277 10^3/cmm (130-400); Red Blood Count 5.01 10^6/uL (4.1-5.3); Red Cell Distribution Width 15.2 % (12.1-15.1); White Blood Count 18.3 10^3/uL (4.0-10.0)
[2022-02-14 17:42] LABS: Add Urine Microscopic? YES; Bilirubin Urine Neg (Negative); Blood Urine Neg (Negative); Glucose Urine UA Norm (Normal); Ketones Urine Negative (Negative); Leukocyte Esterase Urine Negative (Negative); Nitrate Urine Negative (Negative); Protein Urine 1+ (Negative); Specific Gravity, Urine 1.015 (1.005-1.030); Urine Appearance Clear (CLEAR); Urine Color Yellow (Yellow); Urobilinogen Urine Neg (Negative); pH Urine 5 (5-7)
[2022-02-14 17:43] LABS: Add Urine Culture? No; Bacteria Urine TRACE /hpf; Hyaline Casts Urine 0-4 /lpf; Mucus Urine 1+ /hpf; RBC Urine RARE /hpf (0-2); WBC Urine RARE /hpf (0-5)
[2022-02-14 17:46] VITALS: BP 123/76; PULSE 86; RESP 18; O2SAT 95
[2022-02-14 18:55] LABS: Alanine Aminotransferase 49 U/L (0-33); Albumin Level 4.3 g/dL (3.5-5.2); Alkaline Phosphatase 131 IU/L (35-105); Anion Gap 18.5 (5-19); Aspartate Amino Transferase 62 U/L (0-32); Blood Urea Nitrogen 17 mg/dL (6-20); Calcium 9.6 mg/dL (8.5-10.5); Carbon Dioxide 21 mmol/L (22-29); Chloride 105 mmol/L (98-107); Globulin 3.7 g/dL (1.3-4.6); Glomerular Filtration Rate 95.8 mL/min (90-130); Glucose 122 mg/dL (65-115); Osmolality Calculated 295 mOsm/kg (285-295); Potassium 3.5 mmol/L (3.5-5.1); Sodium 141 mmol/L (136-145); Total Bilirubin 0.4 mg/dL (0.15-1.2)
[2022-02-14 19:03] LABS: HCG, Serum Qual Negative (Negative)
--- NOTE | 2022-02-14 19:31 | PC.NURSE ---
While arranging a ride home for the patient , she states that she can pay. Staff called matty to arrange a ride to [facility] for her to stay.
== END 2022-02-14 19:37 | disposition home or self-care (01) ==
PROVIDERS: Family Medicine; Emergency Provider Emergency Medicine; PCP Family Medicine
DX: S00.83XA Contusion of other part of head, initial encounter (principal); S40.022A Contusion of left upper arm, initial encounter; S40.021A Contusion of right upper arm, initial encounter; S60.222A Contusion of left hand, initial encounter; S60.221A Contusion of right hand, initial encounter; Y04.2XXA Assault by strike against or bumped into by another person, initial encounter
CPT/HCPCS: 70450; 71045; 71101; 80053; 81001; 84703; 85025; 93005; 99283